=== PATIENT | male | born 1940 | race Caucasian/White ===

== ENCOUNTER → 2018-03-17 13:08 | Outpatient (CLI) | payer MEDICARE, OTHER, SELFPAY ==
--- NOTE | 2018-03-17 13:19 | US_ITS ---
US Arterial Ankle Brachial Ind INDICATION: Claudication, previous smoker ORDERING PHYSICIAN: Jass David MD PATIENT AGE: 77 years TECHNIQUE: Segmental pressures obtained of both right and left leg. These are compared to brachial blood pressure to yield index at each level sampled including summary YOSHI. The data sheets from the procedure are available in PACS FINDINGS Rest study only performed today No prior studies available for comparison. Blood pressures reported are in millimeters mercury. RIGHT LEG YOSHI = 1.7. RIGHT LEG TBI=.5 Brachial BP: 136 Thigh BP: 227 Calf BP: >254 Ankle PT: 229 Ankle DP : >254 Digit =73 LEFT LEG YOSHI = 1.8 LEFT LEG TBI= .3 Brachial BPD: 132 Thigh BP: 198 Calf BP: 236 Ankle PT:245 Ankle DP: >254 Digit = 42 Pulses and waveforms: Diminished pulses and waveforms IMPRESSION: 1. Elevated bilateral ABIs consistent with atherosclerotic changes with calcification of the arteries. 2. Low TBI both sides indicating small vessel disease left more extensive than right
== END ==
PROVIDERS: Family Provider Family Medicine; PCP Family Medicine; Visit Provider Family Medicine
DX: I73.9 Peripheral vascular disease, unspecified (principal)
CPT/HCPCS: 93922

== ENCOUNTER → 2018-04-15 06:22 | Outpatient (CLI) | payer MEDICARE, OTHER, SELFPAY ==
--- NOTE | 2018-04-15 06:23 | NM_ITS ---
History and Indications: Hypertension, diabetes, abnormal EKG. Procedure: Patient received0.4 mg of Lexiscan, resting heart rate was 74 bpm resting blood pressure 145/77, with Lexiscan maximum heart rate achieved was 116 bpm which is less than 85% of the maximum predicted heart rate and a blood pressure was 141/70. With Lexiscan patient complained of flushed feeling stomach discomfort Electrocardiogram: Resting electrocardiogram showed sinus rhythm, with Lexiscan there is occasional premature ventricular complex seen less than 1.[address] segment depression noted from the baseline EKG. The EKG portion of the Lexiscan Myoview is nondiagnostic. Cardiac stress and resting SPECT images: Cardiac stress and resting SPECT images were obtained using technetium 99 Myoview 31.7 mCi at stress and 10.0 mCi at rest. Gated SPECT further analysis of segmental wall motion and calculation of the ejection fraction also done. Cardiac stress and rest SPECT images show a fixed defect involving the wall with normal contractility in the gated SPECT is likely secondary to soft tissue attenuation from diaphragm, no reversible ischemia seen, computer derived ejection fraction is 54% with no obvious regional wall motion abnormality, right ventricle is normal size and contractility. Conclusion: 1. The EKG portion of the Lexiscan Myoview is nondiagnostic. 2. No obvious scintigraphic evidence of reversible ischemia seen, computer derived ejection fraction is 54% with no obvious regional wall motion abnormality, right ventricle is normal size and contractility.
--- NOTE | 2018-04-15 06:23 | CA_ITS ---
PROCEDURE: 2-D M-mode and color Doppler study INDICATIONS FOR THE TEST: Chest pain COPD Heart Murmur Tobacco Smoking Palpitations Fatigue Syncope Edema Hypertension+Diabetes Mellitus Rheumatic Fever SOB JUAREZ Obesity+Hyperlipidemia Family History HD Additional History PAD PATIENT INFORMATION HEIGHT: 71 WEIGHT:224 GENDER: Male B/P:142/64 2-D/M-MODE INTERPRETATION: 2-D MEASUREMENTS OBSERVED VALUES IN CMS Right Ventricular Dimension (RVDd) 2.0 Interventricular Septum (Thickness)(IVsd) 0.8 Left Ventricular Internal Dimensions(LVIDd) 5.9 Left Ventricular Posterior Wall (Thickness)(LVPWd) 0.7 Aortic Root 3.8 Aortic Cusp Separation 2.1 Left Atrial Dimensions (LAD) 3.4 2D 1. Left atrium is mildly enlarged, left ventricle is normal size, there is mild concentric left ventricular hypertrophy, visually estimated ejection fraction 55% with no obvious regional wall motion abnormality. 2. The right atrium and right ventricle are normal size and contractility. 3. The aortic valve is minimally thickened and fibrosed. 4. The mitral and tricuspid valve are grossly normal. 5. The pulmonic valve is poorly visualized. 6. No significant pericardial effusion noted. DOPPLER INTERROGATION: Doppler interrogation of the aortic, mitral and tricuspid valvular presence of mild aortic, mitral and tricuspid regurgitation, tricuspid regurgitant jet velocity is insufficient for calculation of the right ventricular systolic pressure, grade 1 diastolic dysfunction seen with tissue Doppler evidence of raised left atrial pressure. CONCLUSION: 1. Mildly enlarged left atrium, normal left ventricular size, mild concentric left ventricular hypertrophy, visually estimated ejection fraction 55% with no obvious regional wall motion abnormality, grade 1 diastolic dysfunction seen with tissue Doppler evidence of raised left atrial pressure. 2. Mild aortic, mild mitral and tricuspid regurgitation. 3. No significant pericardial effusion noted.
--- NOTE | 2018-04-15 07:11 | HMH.ITSHM ---
TERAZOSIN GLIMEPRIDE CLOPIDOGREL PIOGLITAZONE ENALAPRIL NABUMETONE GABAPENTIN DICYCLOMINE METFORMIN FIBER B12 ASA POTASSIUM VITAMIN D OMEPRAZOLE MULTIVITAMIN CHLORDIAZIAEPO FINATERIDE
== END ==
PROVIDERS: Family Provider Family Medicine; PCP Family Medicine; Visit Provider Internal Medicine
DX: R94.31 Abnormal electrocardiogram [ECG] [EKG] (principal); R06.09 Other forms of dyspnea
CPT/HCPCS: 78452; 93017; 93306; A9502; J2785

== ENCOUNTER → 2018-05-29 11:04 | Outpatient (POV) | payer MEDICARE, OTHER, SELFPAY | PROVIDERS: Visit Provider Podiatrist | DX: Z00.00 Encounter for general adult medical examination without abnormal findings (principal) ==

== ENCOUNTER → 2018-06-03 07:44 | Outpatient (CLI) | payer MEDICARE, OTHER, SELFPAY ==
[2018-06-03 08:15] LABS: Basophils % 0.2 % (0.1-2.0); Eosinophils % 0.7 % (0.1-12.0); Hematocrit 34.3 % (42.0-52.0); Hemoglobin 11.1 g/dL (14.1-18.0); Lymphocytes # 1.9 K/mm3 (0.7-4.5); Lymphocytes % 45.1 K/mm3 (10-50); Mean Corpuscular HGB Conc 32.3 g/dL (31.8-35.4); Mean Corpuscular Hemoglobin 31.7 pg (27.0-31.2); Mean Corpuscular Volume 98.1 fl (80-94); Mean Platelet Volume 7.5 fl (7.4-10.4); Monocytes # 0.3 K/mm3 (0.1-1.0); Neutrophils % 46.9 % (37.0-80.0); Platelet Count 250 K/mm3 (142-424); Red Cell Distribution Width 16.5 % (11.5-17.5); White Blood Count 4.2 K/mm3 (4.8-10.8)
[2018-06-03 09:14] LABS: Hemoglobin A1C 6.9 % (0.0-7.0)
[2018-06-03 09:56] LABS: Alanine Aminotransferase 22 U/L (12-78); Albumin Level 3.7 gm/dL (3.4-5.0); Albumin/Globulin Ratio 1.2 (1.1-1.8); Alkaline Phosphatase 62 U/L (46-116); Anion Gap 11.9 mEq/L (5-15); Aspartate Amino Transferase 11 U/L (15-37); Bilirubin,Total 0.6 mg/dL (0.2-1.0); Blood Urea Nitrogen 18 mg/dL (7-18); Calcium 9.2 mg/dL (8.5-10.1); Carbon Dioxide 27 mmol/L (21.0-32.0); Chloride 107 mmol/L (98-107); Chol/HDL Ratio 2.9 (1-3.5); Cholesterol 180 mg/dL (140-200); Creatinine,Serum 1.18 mg/dL (0.70-1.30); Estimated Glomerular Filt Rate 60 ml/min (>60); GFR (African American) 73 ML/MIN (>60); Globulin 3.2 gm/dl (1.3-3.2); Glucose 125 mg/dL (74-106); HDL Cholesterol 62 mg/dL (27-67); Iron 123 ug/dl (28-170); LDL Cholesterol 94 mg/dL (0-130); Potassium 4.9 mmoL/L (3.5-5.1); Sodium 141 mmol/L (136-145); Total Protein,Serum 6.9 gm/dL (6.4-8.2); Triglycerides 121 mg/dL (30-200); VLDL Cholesterol 24 mg/dL (0-40)
[2018-06-04 16:43] LABS: Vitamin B12 1397 pg/mL (232-1245)
== END ==
PROVIDERS: Visit Provider Family Medicine
DX: I10 Essential (primary) hypertension (principal); E11.9 Type 2 diabetes mellitus without complications; E78.5 Hyperlipidemia, unspecified; E53.8 Deficiency of other specified B group vitamins; I73.9 Peripheral vascular disease, unspecified
CPT/HCPCS: 36415; 80053; 80061; 82607; 83036; 83540; 85025

== ENCOUNTER → 2018-07-17 10:17 | Outpatient (POV) | payer MEDICARE, OTHER, SELFPAY | PROVIDERS: Family Provider Family Medicine; PCP Family Medicine; Visit Provider Podiatrist | DX: Z00.00 Encounter for general adult medical examination without abnormal findings (principal) ==

== ENCOUNTER → 2018-08-27 13:55 | Outpatient (CLI) | payer MEDICARE, OTHER, SELFPAY ==
--- NOTE | 2018-08-27 13:57 | XR_ITS ---
XR ankle LT min 3V HISTORY: Posttraumatic pain ITS.REASON: recent fall and hurt ankle ORDERING PHYSICIAN: Chapin Gilliam MD PATIENT AGE: 77 years Comparison: None FINDINGS: No fracture or dislocation. No lytic or blastic change. There is normal mineralization.. The joint spaces are well-preserved. No significant degenerative/arthritic changes. No erosive changes evident. Minimal hypertrophic changes are present at the medial malleolus.. There is generalized vascular calcification. IMPRESSION: No acute finding, Atherosclerotic vascular calcification
== END ==
PROVIDERS: PCP Family Medicine; Visit Provider Internal Medicine Cardiovascular Disease
DX: I73.9 Peripheral vascular disease, unspecified (principal); R60.0 Localized edema; R94.31 Abnormal electrocardiogram [ECG] [EKG]; S90.02XA Contusion of left ankle, initial encounter; Z91.81 History of falling
CPT/HCPCS: 73610

== ENCOUNTER → 2018-09-02 08:48 | Outpatient (CLI) | payer MEDICARE, OTHER, SELFPAY ==
--- NOTE | 2018-09-02 08:51 | XR_ITS ---
XR foot wt bearing LT 3V HISTORY: Pain following injury ITS.REASON: pain ORDERING PHYSICIAN: Marie Gresham DPM PATIENT AGE: 77 years COMPARISON: None FINDINGS: There is generalized osteopenia with diffuse vascular calcification noted. No obvious fracture or dislocation evident. Normal alignment. IMPRESSION: No acute finding
== END ==
PROVIDERS: PCP Family Medicine; Visit Provider Podiatrist
DX: M79.673 Pain in unspecified foot (principal)
CPT/HCPCS: 73630

== ENCOUNTER → 2018-12-16 15:38 | Outpatient (POV) | payer MEDICARE, OTHER, SELFPAY | DX: Z00.00 Encounter for general adult medical examination without abnormal findings (principal) ==

== ENCOUNTER 2018-12-22 09:01 | Day surgery (SDC) | payer MEDICARE, OTHER, SELFPAY ==
[2018-12-21 14:03] VITALS: BMI 29.2
[2018-12-22 09:56] VITALS: BP 141/62; PULSE 80; RESP 18; TEMP 36.3; O2SAT 96
[2018-12-22 09:58] LABS: POC Glucose,Bedside 125 (70-110)
[2018-12-22 10:49] VITALS: BP 154/75; PULSE 88; RESP 18; TEMP 36.4; O2SAT 98
--- NOTE | 2018-12-22 16:58 | HMH.OPNOTE ---
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 He takes finasteride and tamsulosin. His symptoms seems to have progressed. He presents today for cystoscopy. Operative findings:: Very short small caliber flimsy bulbous urethral stricture. Mild bladder trabeculations. Minimal lateral prostatic hypertrophy Operative note:: After satisfactory positioning the genital area was prepped and draped in standard fashion. Patient is in the supine position. Xylocaine jelly was instilled. Penile clamp placed. After adequate time the flexible cystoscope was introduced. The pendulous urethra was unremarkable. The proximal bulbous urethra noted a slight stricture perhaps 8 Samoan. The 16 Samoan flexible cystoscope was easily manipulated through this and ruptured the stricture. The bulbous urethra otherwise was unremarkable. The prostatic urethra was nonobstructed. The bladder was inspected entirely. There was no evidence of bladder tumor or stone. Ureteral orifice ease were situated in the normal position and clear urine. Scope was retroflexed of the bladder neck. Scope was was slowly withdrawn and the previous strictured area was completely patent. Condition: stable Disposition: same day Specimens:: None Complications:: None follow-up 6 weeks
--- NOTE | 2018-12-22 17:02 | P.OP_ITS ---
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 He takes finasteride and tamsulosin. His symptoms seems to have progressed. He presents today for cystoscopy. Operative findings:: Very short small caliber flimsy bulbous urethral stricture. Mild bladder trabeculations. Minimal lateral prostatic hypertrophy Operative note:: After satisfactory positioning the genital area was prepped and draped in st andard fashion. Patient is in the supine position. Xylocaine jelly was instilled. Penile clamp placed. After adequate time the flexible cystoscope was introduced. The pendulous urethra was unremarkable. The proximal bulbous urethra noted a slight stricture perhaps 8 [place]. The 16 [place] flexible cystoscope was easily manipulated through this and ruptured the stricture. The bulbous urethra otherwise was unremarkable. The prostatic urethra was nonobstructed. The bladder was inspected entirely. There was no evidence of bladder tumor or stone. Ureteral orifice ease were situated in the normal position and clear urine. Scope was retroflexed of the bladder neck. Scope was was slowly withdrawn and the previous strictured area was completely patent. Condition: stable Disposition: same day Specimens:: None Complications:: None follow-up 6 weeks
== END 2018-12-22 10:49 | disposition home or self-care (01) ==
LOC: OUTP 09:02
PROVIDERS: PCP Family Medicine; Visit Provider Urology
DX: N40.1 Benign prostatic hyperplasia with lower urinary tract symptoms (principal); N35.912 Unspecified bulbous urethral stricture, male; R35.0 Frequency of micturition
CPT/HCPCS: 52281; 82962

== ENCOUNTER → 2018-12-28 08:12 | Outpatient (POV) | payer MEDICARE, OTHER, SELFPAY | PROVIDERS: Visit Provider Nurse Practitioner Acute Care | DX: Z00.00 Encounter for general adult medical examination without abnormal findings (principal) ==

== ENCOUNTER → 2019-01-27 14:46 | Outpatient (POV) | payer MEDICARE, OTHER, SELFPAY | DX: Z00.00 Encounter for general adult medical examination without abnormal findings (principal) ==

== ENCOUNTER → 2019-01-29 14:31 | Outpatient (CLI) | payer MEDICARE, OTHER, SELFPAY ==
[2019-01-29 15:38] LABS: Alanine Aminotransferase 21 U/L (12-78); Albumin Level 3.6 gm/dL (3.4-5.0); Alkaline Phosphatase 64 U/L (46-116); Amylase 33 U/L (25-115); Aspartate Amino Transferase 15 U/L (15-37); Bilirubin,Direct 0.1 mg/dL (0.0-0.2); Bilirubin,Indirect 0.6 mg/dL (0.0-0.9); Bilirubin,Total 0.7 mg/dL (0.2-1.0); Lipase 72 u/L (73-393); Total Protein,Serum 6.8 gm/dL (6.4-8.2)
[2019-01-31 18:29] LABS: CEA 3.3 ng/mL (0.0-4.7)
== END ==
PROVIDERS: Visit Provider Internal Medicine Gastroenterology
DX: R93.3 Abnormal findings on diagnostic imaging of other parts of digestive tract (principal); K86.9 Disease of pancreas, unspecified; R63.4 Abnormal weight loss
CPT/HCPCS: 36415; 80076; 82150; 82310; 82378; 83690

== ENCOUNTER → 2019-02-24 14:13 | Outpatient (POV) | payer MEDICARE, OTHER, SELFPAY | DX: Z00.00 Encounter for general adult medical examination without abnormal findings (principal) ==

== ENCOUNTER → 2019-03-24 14:17 | Outpatient (POV) | payer MEDICARE, OTHER, SELFPAY | DX: Z00.00 Encounter for general adult medical examination without abnormal findings (principal) ==

== ENCOUNTER → 2019-06-14 08:08 | Outpatient (POV) | payer MEDICARE, OTHER, SELFPAY | PROVIDERS: PCP Family Medicine; Visit Provider Nurse Practitioner Family | DX: Z00.00 Encounter for general adult medical examination without abnormal findings (principal) ==

== ENCOUNTER → 2019-09-13 08:12 | Outpatient (POV) | payer MEDICARE, OTHER, SELFPAY | PROVIDERS: PCP Family Medicine; Visit Provider Nurse Practitioner Family | DX: Z00.00 Encounter for general adult medical examination without abnormal findings (principal) ==

== ENCOUNTER → 2019-09-13 09:26 | Outpatient (CLI) | payer MEDICARE, OTHER, SELFPAY ==
[2019-09-13 12:03] LABS: Alanine Aminotransferase 17 U/L (12-78); Albumin Level 3.7 gm/dL (3.4-5.0); Albumin/Globulin Ratio 1.1 (1.1-1.8); Alkaline Phosphatase 72 U/L (46-116); Anion Gap 14.5 mEq/L (5-15); Aspartate Amino Transferase 18 U/L (15-37); Bilirubin,Total 0.8 mg/dL (0.2-1.0); Blood Urea Nitrogen 11 mg/dL (7-18); Calcium 9.3 mg/dL (8.5-10.1); Carbon Dioxide 25 mmol/L (21.0-32.0); Chloride 103 mmol/L (98-107); Creatinine,Serum 1.06 mg/dL (0.70-1.30); Estimated Glomerular Filt Rate 68 ml/min (>60); GFR (African American) 82 ML/MIN (>60); Globulin 3.3 gm/dl (1.3-3.2); Glucose 184 mg/dL (74-106); Potassium 4.5 mmoL/L (3.5-5.1); Sodium 138 mmol/L (136-145)
== END ==
PROVIDERS: Visit Provider Nurse Practitioner Family
DX: K58.9 Irritable bowel syndrome, unspecified (principal); R93.3 Abnormal findings on diagnostic imaging of other parts of digestive tract
CPT/HCPCS: 36415; 80053

== ENCOUNTER → 2019-09-16 08:30 | Outpatient (CLI) | payer MEDICARE, OTHER, SELFPAY ==
--- NOTE | 2019-09-16 08:45 | CT_ITS ---
PROCEDURE: CT ABDOMEN WO/W CON CLINICAL HISTORY: PANCREATIC PROTOCOL,IBS The the the the the follow-up pancreatic lesion the COMPARISON: ABDPELW CT abdomen pelvis w con from 01/25/2019 ERCP FL ERCP from 03/22/2019 TECHNIQUE: 75 mL Optiray 350. Images are performed without and with contrast with arterial, portal venous, and delayed images Axial images obtained with sagittal and coronal reformats. All CT scans at the facility use one or more dose reduction, viz: automated exposure control, ma/kV adjustment per patient size (including targeted exams where dose is matched to indication, i.e. head), or iterative reconstruction technique. FINDINGS: There scarring in the lung bases. Coronary artery calcifications are noted. Post cholecystectomy change. No focal liver lesion. The spleen and adrenal glands have an unremarkable appearance. There are bilateral renal cysts. No renal or ureteral calculi. No hydronephrosis. Fatty infiltration of the pancreas once again noted. Stable cystic changes are present in the pancreatic head and in the uncinate process of the pancreas inferiorly.. The cystic changes in the pancreatic head or at 1.7 cm and at the uncinate process at 1.6 cm not significantly changed. The bowel gas pattern is nonspecific. No focal inflammatory change. No acute bony anomalies. There are degenerative changes of the lower thoracic and lumbar spine. 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 IMPRESSION: The the 1. Overall no change in the hypoattenuating lesion of the head of the pancreas. There are actually 2 areas in the head of the pancreas which are sub adjacent to 1 another. Cystic pancreatic neoplasm is a consideration such as IPMN or serous cystic neoplasm (much more common in females). Further evaluation could be obtained with MRI without and with gadolinium enhancement and MRCP 2. 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
== END ==
PROVIDERS: PCP Family Medicine; Visit Provider Nurse Practitioner Family
DX: K58.9 Irritable bowel syndrome, unspecified (principal); R93.3 Abnormal findings on diagnostic imaging of other parts of digestive tract
CPT/HCPCS: 74170; Q9967

== ENCOUNTER → 2019-12-29 07:45 | Outpatient (CLI) | payer MEDICARE, OTHER, SELFPAY ==
[2019-12-29 09:35] LABS: Hemoglobin A1C 6.6 % (4.0-6.0)
[2019-12-29 09:39] LABS: Chloride 105 mmol/L (98-107); Sodium 140 mmol/L (136-145)
[2019-12-29 09:41] LABS: Alanine Aminotransferase 19 U/L (12-78); Aspartate Amino Transferase 27 U/L (17-59); Blood Urea Nitrogen 18 mg/dl (9-20); Carbon Dioxide 23 mmol/L (22.0-30.0); Estimated Glomerular Filt Rate 82 ml/min (>60); GFR (African American) 99 ML/MIN (>60)
[2019-12-29 09:42] LABS: Albumin/Globulin Ratio 1.4 (1.1-1.8); Alkaline Phosphatase 57 U/L (38-126); Bilirubin,Total 0.7 mg/dl (0.2-1.3); Calcium 9.7 mg/dl (8.4-10.2); Chol/HDL Ratio 2.8 (1-3.5); Cholesterol 193 mg/dl (140-200); Globulin 2.9 g/dL (1.3-3.2); Glucose 113 mg/dl (74-100); HDL Cholesterol 70 mg/dl (40-60); Total Protein,Serum 6.9 g/dl (6.3-8.2); Triglycerides 112 mg/dl (30-150); VLDL Cholesterol 22 mg/dL (0-40)
[2019-12-29 10:42] LABS: Prostate Specific Ag Screen 0.4 ng/ml (0.0-4.0)
== END ==
PROVIDERS: Visit Provider Family Medicine
DX: Z00.00 Encounter for general adult medical examination without abnormal findings (principal); E78.5 Hyperlipidemia, unspecified; K21.9 Gastro-esophageal reflux disease without esophagitis; N40.1 Benign prostatic hyperplasia with lower urinary tract symptoms; E11.9 Type 2 diabetes mellitus without complications; Z79.84 Long term (current) use of oral hypoglycemic drugs; Z12.5 Encounter for screening for malignant neoplasm of prostate
CPT/HCPCS: 36415; 80053; 80061; 83036; G0103

== ENCOUNTER → 2020-10-05 12:40 | Outpatient (CLI) | payer MEDICARE, OTHER, SELFPAY ==
--- NOTE | 2020-10-05 12:49 | US_ITS ---
APPROVED REPORT Exam Type: Lower Extremity Segmental Pressures Billing Assistant: Jewell Gray RVT Indications Claudication: Bilaterally Non-healing Ulcer: PAD History of Smoking PVD Risk Factors Hypertension Hyperlipidemia Diabetes Pressures/Indices Right Indices Left Indices Brachial 155.00 mmHg Brachial 144.00 mmHg Low Thigh 147.00 mmHg 0.95 Low Thigh 167.00 mmHg 1.08 Calf 255.00 mmHg 0.00 Calf 255.00 mmHg 0.00 Ankle(PT) 121.00 mmHg 0.78 Ankle(PT) 153.00 mmHg 0.99 Ankle(DP) 255.00 mmHg 0.00 Ankle(DP) 90.00 mmHg 0.58 Digit 52.00 mmHg 0.34 Digit 14.00 mmHg 0.09 Findings RT YOSHI:0.78 LT YOSHI:0.99 RT TBI:0.34 LT TBI:0.09 DAMPANED WAVEFORMS BILATERAL ANKLES DECREASED PULSED BILATERAL Conclusion RT YOSHI:0.78 LT YOSHI:0.99 RT TBI:0.34 LT TBI:0.09 DAMPANED WAVEFORMS BILATERAL ANKLES DECREASED PULSED BILATERAL Moderate arterial disease on the right Electronically signed by : Yung Meade MD 10/05/2020 18:02:28
== END ==
PROVIDERS: PCP Family Medicine; Visit Provider Family Medicine
DX: I73.9 Peripheral vascular disease, unspecified (principal)
CPT/HCPCS: 93923

== ENCOUNTER → 2020-12-26 09:50 | Outpatient (CLI) | payer MEDICARE, OTHER, SELFPAY ==
--- NOTE | 2020-12-26 10:12 | XR_ITS ---
PROCEDURE: XR FOOT WT BEARING LT 3V CLINICAL INDICATION: sore of unspecified toe COMPARISON: CR [id number] XR foot wt bearing LT 3V from 09/02/2018 FINDINGS: No fracture or dislocation. No lytic or blastic change. There is normal mineralization. There is diffuse osteopenia. Mild diffuse vascular calcifications are noted. Osteoarthritic changes are present at the 1st metatarsophalangeal joint and at the talonavicular joint. Other findings:None. IMPRESSION: Diffuse osteopenia with mild osteoarthritis Dictated by: Yung Meade MD 12/26/2020 15:47 Yung Meade MD in [facility] 12/26/2020 15:47
[2020-12-26 10:19] LABS: Basophils % 0.1 % (0.1-2.0); Eosinophils % 0.2 % (0.1-12.0); Hematocrit 34.6 % (42.0-52.0); Lymphocytes # 1.6 K/mm3 (0.7-4.5); Lymphocytes % 27.4 % (10-50); Mean Corpuscular HGB Conc 31.7 g/dL (31.8-35.4); Mean Corpuscular Hemoglobin 31.6 pg (27.0-31.2); Mean Corpuscular Volume 99.7 fl (80-94); Mean Platelet Volume 8.3 fl (7.4-10.4); Monocytes # 0.4 K/mm3 (0.1-1.0); Monocytes % 7.7 % (1.7-9.3); Neutrophils # 3.7 K/mm3 (1.8-7.8); Neutrophils % 64.6 % (37.0-80.0); Platelet Count 262 K/mm3 (142-424); Red Blood Count 3.47 M/mm3 (4.60-6.20); White Blood Count 5.8 K/mm3 (4.8-10.8)
[2020-12-26 10:26] LABS: Hemoglobin A1C 6.7 % (4.0-6.0)
[2020-12-26 10:41] LABS: Chloride 106 mmol/L (98-107); Sodium 140 mmol/L (136-145)
[2020-12-26 10:42] LABS: Potassium 4.5 mmoL/L (3.5-5.1)
[2020-12-26 10:44] LABS: Alanine Aminotransferase 18 U/L (12-78); Albumin Level 4.3 g/dl (3.5-5.0); Albumin/Globulin Ratio 1.4 (1.1-1.8); Alkaline Phosphatase 68 U/L (38-126); Anion Gap 12.5 mEq/L (5-15); Aspartate Amino Transferase 27 U/L (17-59); Bilirubin,Total 0.8 mg/dl (0.2-1.3); Blood Urea Nitrogen 15 mg/dl (9-20); Carbon Dioxide 26 mmol/L (22.0-30.0); Estimated Glomerular Filt Rate 72 ml/min (>60); GFR (African American) 87 ML/MIN (>60); Globulin 3.1 g/dL (1.3-3.2); Glucose 181 mg/dl (74-100); Total Protein,Serum 7.4 g/dl (6.3-8.2)
[2020-12-26 10:51] LABS: C-Reactive Protein 0.3 mg/L (0-4)
[2020-12-26 14:54] LABS: Coronavirus 19 IgG Antibody Negative (Negative); Coronavirus 19 IgM Antibody Negative (Negative)
== END ==
PROVIDERS: Physician Assistant; Visit Provider Podiatrist
DX: I51.9 Heart disease, unspecified; E11.9 Type 2 diabetes mellitus without complications; Z01.818 Encounter for other preprocedural examination; Z79.84 Long term (current) use of oral hypoglycemic drugs
CPT/HCPCS: 73630; 80053; 83036; 85025; 86140; 86328; 87070; 87077; 87186; 87205

== ENCOUNTER 2020-12-28 08:35 | Day surgery (SDC) | payer MEDICARE, OTHER, SELFPAY ==
[2020-12-28] VITALS (13 sets, daily range): BP systolic 113–169; BP diastolic 32–81; PULSE 64–89; RESP 12–18; TEMP 36.6; O2SAT 95–100; BMI 30.1
--- NOTE | 2020-12-28 07:21 | IR_ITS ---
APPROVED REPORT Patient Location: Outpatient Latin Dance Instructor: KUSHAL Mark RT (R) PROCEDURES Catheter placed in the abdominal aorta Abdominal aortogram Repositioning the catheter abdominal aorta Bilateral iliofemoral runoff Stent deployment to the left common iliac artery INDICATION Poorly healing lower extremity ulcer involving the left foot, Abnormal YOSHI, Peripheral artery disease Informed consent was obtained prior to the procedure. COMPLICATIONS None Estimated Blood Loss: Less than 10 mls TECHNIQUE 1% lidocaine used anesthetize right groin the right femoral artery was accessed via the Salinger technique and a 5 Danish sheath was placed in the right femoral artery. A pigtail catheter was placed in the abdominal aorta and a abdominal aortography was performed. The catheter was repositioned and bilateral iliofemoral runoff was performed. Following this therapeutic heparin was administered and a 7 Danish destination sheath was placed in the right femoral artery. The wire was already placed in the left external iliac artery from the pigtail catheter and the sheath was advanced. A 9 mm x 57 mm balloon mounted stent was deployed in the left common iliac artery reducing the stenosis. A 9 mm x 20 mm balloon was then deployed at 16 per to post dilate the distal segment. After achieving excellent angiographic results the apparatus was removed the groin was reprepped gloves were changed sheath was removed good hemostasis was achieved using Perclose device patient was transferred to the postop holding in stable condition ANGIOGRAPHIC RESULTS The distal abdominal aorta is normal The right common internal and external iliac artery have mild nonflow limiting 10% atheromatous plaque. The right common femoral artery is normal the right profunda femoris artery is normal. The right superficial femoral artery is widely patent with moderate 30 to 40% mid vessel stenoses. The right popliteal artery is widely patent with mild atheromatous plaque. The popliteal artery gives rise to a proximally occluded anterior tibialis artery posterior tibialis artery and peroneal artery. There are scant collaterals which supply the right foot The left common iliac artery has an eccentric distal 70 to 80% stenosis. The left internal and external iliac arteries are normal. The left common femoral artery is normal. The left profunda femoris artery is normal. The left superficial femoral artery is widely patent. At Best's canal a 50% eccentric stenosis is identified. The remaining popliteal artery has mild atheromatous plaque. The anterior tibialis artery is proximally occluded the left posterior tibialis artery is proximally occluded the left peroneal artery is proximally occluded. 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 Plavix and aspirin for 1 month 2. In 1 month Xarelto 2.5 twice daily plus aspirin 81 mg daily 3. LDL less than 55 4. Physical therapy 5. Evaluation for ischemic heart disease due to severe peripheral artery disease 6. Risk factor modification 7. Referral to podiatry Electronically signed by : Martinez Whitehead, 01/02/2021 14:17:33
--- NOTE | 2020-12-28 14:29 | HMH.PHACLD ---
Travis Conn has received discharge medication counseling on the following medications: PATIENT WITH PERIPHERAL STENT. MD DISCHARGING PATIENT WITH NEW PRESCRIPTION FOR LIPITOR 40 MG HS. PATIENT HAS BEEN TAKING OTC ASPIRIN 81 MG DAILY ALONG WITH CLOPIDOGREL 75 MG DAILY PRIOR TO STENTING. PATIENT WITH HX OF OTHER STENTS.
[2020-12-29 14:45] LABS: CATHL Activated Clotting Time 197 SEC (74-125)
== END 2020-12-28 14:15 | disposition home or self-care (01) ==
LOC: CATHLAB 08:37
PROVIDERS: PCP Family Medicine; Visit Provider Internal Medicine
DX: I70.244 Atherosclerosis of native arteries of left leg with ulceration of heel and midfoot; I77.1 Stricture of artery; L97.921 Non-pressure chronic ulcer of unspecified part of left lower leg limited to breakdown of skin; E11.9 Type 2 diabetes mellitus without complications; I11.0 Hypertensive heart disease with heart failure; I45.10 Unspecified right bundle-branch block; R06.00 Dyspnea, unspecified; Z79.84 Long term (current) use of oral hypoglycemic drugs; Z79.02 Long term (current) use of antithrombotics/antiplatelets; Z79.899 Other long term (current) drug therapy; I50.30 Unspecified diastolic (congestive) heart failure
CPT/HCPCS: 37221; 85347; 99152; 99153; C1725; C1760; C1766; C1769; C1876; C1894; J1644; Q9966

== ENCOUNTER → 2021-01-08 08:56 | Outpatient (CLI) | payer MEDICARE, OTHER, SELFPAY ==
[2021-01-08 09:38] LABS: Basophils % 0.2 % (0.1-2.0); Eosinophils % 0.1 % (0.1-12.0); Hematocrit 32.5 % (42.0-52.0); Hemoglobin 10.5 g/dL (14.1-18.0); Lymphocytes # 1.1 K/mm3 (0.7-4.5); Lymphocytes % 23.7 % (10-50); Mean Corpuscular HGB Conc 32.3 g/dL (31.8-35.4); Mean Corpuscular Hemoglobin 31.8 pg (27.0-31.2); Mean Corpuscular Volume 98.4 fl (80-94); Mean Platelet Volume 7.7 fl (7.4-10.4); Monocytes # 0.4 K/mm3 (0.1-1.0); Monocytes % 8.1 % (1.7-9.3); Neutrophils # 3.1 K/mm3 (1.8-7.8); Neutrophils % 67.9 % (37.0-80.0); Platelet Count 232 K/mm3 (142-424); Red Cell Distribution Width 16.9 % (11.5-17.5); White Blood Count 4.6 K/mm3 (4.8-10.8)
[2021-01-08 09:55] LABS: Chloride 107 mmol/L (98-107)
[2021-01-08 09:56] LABS: Sodium 140 mmol/L (136-145)
[2021-01-08 09:58] LABS: Blood Urea Nitrogen 18 mg/dl (9-20)
[2021-01-08 09:59] LABS: Calcium 9.8 mg/dl (8.4-10.2); Carbon Dioxide 22 mmol/L (22.0-30.0); Estimated Glomerular Filt Rate 72 ml/min (>60); GFR (African American) 87 ML/MIN (>60); Glucose 72 mg/dl (74-100)
== END ==
PROVIDERS: Physician Assistant; Visit Provider Internal Medicine
DX: E11.9 Type 2 diabetes mellitus without complications (principal); I10 Essential (primary) hypertension; I45.10 Unspecified right bundle-branch block; I51.89 Other ill-defined heart diseases; I73.9 Peripheral vascular disease, unspecified; L97.921 Non-pressure chronic ulcer of unspecified part of left lower leg limited to breakdown of skin; R06.00 Dyspnea, unspecified; R09.89 Other specified symptoms and signs involving the circulatory and respiratory systems; R68.89 Other general symptoms and signs; E78.49 Other hyperlipidemia; Z79.84 Long term (current) use of oral hypoglycemic drugs
CPT/HCPCS: 36415; 80048; 85025

== ENCOUNTER → 2021-02-13 17:58 | Outpatient (CLI) | payer MEDICARE, OTHER, SELFPAY | PROVIDERS: Visit Provider Nurse Practitioner | DX: Z51.89 Encounter for other specified aftercare (principal); L97.921 Non-pressure chronic ulcer of unspecified part of left lower leg limited to breakdown of skin; R09.89 Other specified symptoms and signs involving the circulatory and respiratory systems | CPT/HCPCS: 87070; 87077; 87186; 87205 ==

== ENCOUNTER → 2021-03-08 10:23 | Outpatient (CLI) | payer MEDICARE, OTHER, SELFPAY ==
[2021-03-08 11:41] LABS: Basophils % 0.1 % (0.1-2.0); Eosinophils % 0.3 % (0.1-12.0); Hematocrit 32.3 % (42.0-52.0); Hemoglobin 10.3 g/dL (14.1-18.0); Lymphocytes # 1.4 K/mm3 (0.7-4.5); Lymphocytes % 17.1 % (10-50); Mean Corpuscular HGB Conc 31.8 g/dL (31.8-35.4); Mean Corpuscular Hemoglobin 31.5 pg (27.0-31.2); Mean Platelet Volume 7.8 fl (7.4-10.4); Monocytes # 0.5 K/mm3 (0.1-1.0); Monocytes % 6.2 % (1.7-9.3); Neutrophils # 6.1 K/mm3 (1.8-7.8); Neutrophils % 76.1 % (37.0-80.0); Platelet Count 359 K/mm3 (142-424); Red Blood Count 3.26 M/mm3 (4.60-6.20); Red Cell Distribution Width 17.4 % (11.5-17.5)
[2021-03-08 12:24] LABS: Chloride 103 mmol/L (98-107); Sodium 138 mmol/L (136-145)
[2021-03-08 12:25] LABS: Potassium 5.2 mmoL/L (3.5-5.1)
[2021-03-08 12:27] LABS: Alanine Aminotransferase 23 U/L (12-78); Albumin Level 4.1 g/dl (3.5-5.0); Albumin/Globulin Ratio 1.5 (1.1-1.8); Alkaline Phosphatase 97 U/L (38-126); Aspartate Amino Transferase 32 U/L (17-59); Bilirubin,Total 0.7 mg/dl (0.2-1.3); Blood Urea Nitrogen 22 mg/dl (9-20); Estimated Glomerular Filt Rate 93 ml/min (>60); GFR (African American) 113 ML/MIN (>60); Globulin 2.7 g/dL (1.3-3.2); Total Protein,Serum 6.8 g/dl (6.3-8.2)
[2021-03-08 12:28] LABS: Anion Gap 14.2 mEq/L (5-15); Carbon Dioxide 26 mmol/L (22.0-30.0); Glucose 193 mg/dl (74-100)
[2021-03-08 12:38] LABS: Erythrocyte Sedimentation Rate 114 mm/hr (0-20)
== END ==
PROVIDERS: Visit Provider Nurse Practitioner
DX: Z51.89 Encounter for other specified aftercare (principal); L97.521 Non-pressure chronic ulcer of other part of left foot limited to breakdown of skin
CPT/HCPCS: 36415; 80053; 85025; 85651; 86140

== ENCOUNTER → 2021-03-14 17:14 | Outpatient (CLI) | payer MEDICARE, OTHER, SELFPAY | PROVIDERS: Visit Provider Nurse Practitioner | DX: L97.215 Non-pressure chronic ulcer of right calf with muscle involvement without evidence of necrosis (principal); E11.621 Type 2 diabetes mellitus with foot ulcer | CPT/HCPCS: 87070; 87077; 87186; 87205 ==

== ENCOUNTER 2021-03-20 11:10 | Outpatient (CLI) | payer MEDICARE, OTHER, SELFPAY ==
[2021-03-20 11:10] VITALS: BMI 27.8
--- NOTE | 2021-03-20 11:38 | XR_ITS ---
PROCEDURE: XR CHEST PORTABLE CLINICAL HISTORY: picc line placement COMPARISON: CT CT ABDOMEN WO/W CON from 09/16/2019 FINDINGS: Left upper extremity PICC line has been placed. The tip is in good position in the region the superior vena cava. Suture line is present in the right hilar region. COPD changes. Parenchymal opacity is present in the right upper lobe and may be due to an area scarring. There is some minimal blunting of the right CP angle. There are degenerative changes of the shoulders IMPRESSION: PICC line tip in good position in the region of the superior vena cava. COPD with other changes as described above. Follow-up suggested regarding parenchymal opacity in the right upper lobe Dictated by: Yung Meade MD 03/20/2021 13:00 Yung Meade MD in [facility] 03/20/2021 13:00
[2021-03-20 13:10] VITALS: BP 167/67; PULSE 88; RESP 18; O2SAT 100
[2021-03-20 14:02] VITALS: BP 141/73; PULSE 81; RESP 18
[2021-03-20 14:26] LABS: Chloride 102 mmol/L (98-107)
[2021-03-20 14:27] LABS: Basophils % 0.1 % (0.1-2.0); Eosinophils % 0.2 % (0.1-12.0); Hemoglobin 9.7 g/dL (14.1-18.0); Lymphocytes # 1.3 K/mm3 (0.7-4.5); Lymphocytes % 18.4 % (10-50); Mean Corpuscular HGB Conc 33.4 g/dL (31.8-35.4); Mean Corpuscular Hemoglobin 32.2 pg (27.0-31.2); Mean Corpuscular Volume 96.3 fl (80-94); Mean Platelet Volume 7.2 fl (7.4-10.4); Monocytes # 0.5 K/mm3 (0.1-1.0); Monocytes % 6.9 % (1.7-9.3); Neutrophils # 5.2 K/mm3 (1.8-7.8); Neutrophils % 74.4 % (37.0-80.0); Platelet Count 321 K/mm3 (142-424); Potassium 4.3 mmoL/L (3.5-5.1); Red Blood Count 3.01 M/mm3 (4.60-6.20); Red Cell Distribution Width 17.3 % (11.5-17.5); Sodium 135 mmol/L (136-145)
[2021-03-20 14:29] LABS: Alanine Aminotransferase 23 U/L (12-78); Alkaline Phosphatase 92 U/L (38-126); Aspartate Amino Transferase 31 U/L (17-59); Bilirubin,Total 0.7 mg/dl (0.2-1.3); Blood Urea Nitrogen 17 mg/dl (9-20); Creatinine Clearance Estimated 77 mL/min (50-200); Estimated Glomerular Filt Rate 93 ml/min (>60); GFR (African American) 113 ML/MIN (>60)
[2021-03-20 14:30] LABS: Albumin Level 3.9 g/dl (3.5-5.0); Albumin/Globulin Ratio 1.3 (1.1-1.8); Anion Gap 14.3 mEq/L (5-15); Calcium 9.1 mg/dl (8.4-10.2); Carbon Dioxide 23 mmol/L (22.0-30.0); Globulin 2.9 g/dL (1.3-3.2); Glucose 221 mg/dl (74-100); Total Protein,Serum 6.8 g/dl (6.3-8.2)
[2021-03-20 14:36] LABS: C-Reactive Protein 0.7 mg/L (0-4)
[2021-03-20 15:06] LABS: Erythrocyte Sedimentation Rate 124 mm/hr (0-20)
== END 2021-03-20 14:02 | disposition home or self-care (01) ==
LOC: INF 11:10
PROVIDERS: PCP Family Medicine; Visit Provider Nurse Practitioner
DX: L97.529 Non-pressure chronic ulcer of other part of left foot with unspecified severity (principal)
CPT/HCPCS: 36569; 71045; 80053; 85025; 85651; 86140; 96365; C1751; J1335

== ENCOUNTER 2021-03-21 10:50 | Outpatient (CLI) | payer MEDICARE, OTHER, SELFPAY ==
[2021-03-21 10:50] VITALS: BP 131/54; PULSE 90; RESP 18; O2SAT 97
[2021-03-21 11:50] VITALS: BP 139/52; PULSE 78; RESP 18
== END 2021-03-21 11:55 | disposition home or self-care (01) ==
LOC: INF 10:58
PROVIDERS: PCP Family Medicine; Visit Provider Nurse Practitioner
DX: L03.032 Cellulitis of left toe (principal); L97.521 Non-pressure chronic ulcer of other part of left foot limited to breakdown of skin; L97.529 Non-pressure chronic ulcer of other part of left foot with unspecified severity
CPT/HCPCS: 96365; J1335

== ENCOUNTER 2021-03-22 09:00 | Outpatient (CLI) | payer MEDICARE, OTHER, SELFPAY ==
[2021-03-22 09:12] VITALS: BP 129/57; PULSE 93; RESP 18; TEMP 36.4; O2SAT 98
[2021-03-22 10:08] VITALS: BP 132/59; PULSE 89; RESP 16; TEMP 36.4; O2SAT 98
== END 2021-03-22 10:10 | disposition home or self-care (01) ==
LOC: INF 09:00
PROVIDERS: PCP Family Medicine; Visit Provider Nurse Practitioner
DX: L97.521 Non-pressure chronic ulcer of other part of left foot limited to breakdown of skin (principal); L97.529 Non-pressure chronic ulcer of other part of left foot with unspecified severity; L03.032 Cellulitis of left toe; L97.929 Non-pressure chronic ulcer of unspecified part of left lower leg with unspecified severity
CPT/HCPCS: 96365; J1335

== ENCOUNTER 2021-03-23 10:40 | Outpatient (CLI) | payer MEDICARE, OTHER, SELFPAY ==
[2021-03-23 11:00] VITALS: BP 100/46; PULSE 86; RESP 18; O2SAT 96
[2021-03-23 11:35] VITALS: BP 103/48; PULSE 81; RESP 16
== END 2021-03-23 12:00 | disposition home or self-care (01) ==
LOC: INF 10:52
PROVIDERS: Visit Provider Nurse Practitioner
DX: L97.521 Non-pressure chronic ulcer of other part of left foot limited to breakdown of skin (principal); L97.529 Non-pressure chronic ulcer of other part of left foot with unspecified severity; L03.032 Cellulitis of left toe; L97.929 Non-pressure chronic ulcer of unspecified part of left lower leg with unspecified severity
CPT/HCPCS: 96365; J1335

== ENCOUNTER → 2021-03-24 11:04 | Outpatient (CLI) | payer MEDICARE, OTHER, SELFPAY ==
[2021-03-24 11:27] VITALS: BP 118/47; PULSE 77; RESP 16; TEMP 36.8; O2SAT 98
== END ==
PROVIDERS: PCP Family Medicine; Visit Provider Nurse Practitioner
DX: L97.521 Non-pressure chronic ulcer of other part of left foot limited to breakdown of skin (principal); L97.529 Non-pressure chronic ulcer of other part of left foot with unspecified severity; L03.032 Cellulitis of left toe; L97.929 Non-pressure chronic ulcer of unspecified part of left lower leg with unspecified severity
CPT/HCPCS: 96365; J1335

== ENCOUNTER → 2021-03-25 10:56 | Outpatient (CLI) | payer MEDICARE, OTHER, SELFPAY ==
[2021-03-25 11:08] VITALS: BP 125/52; PULSE 91; RESP 20; O2SAT 98
== END ==
PROVIDERS: PCP Family Medicine; Visit Provider Nurse Practitioner
DX: L97.521 Non-pressure chronic ulcer of other part of left foot limited to breakdown of skin (principal); L97.529 Non-pressure chronic ulcer of other part of left foot with unspecified severity; L03.032 Cellulitis of left toe; L97.929 Non-pressure chronic ulcer of unspecified part of left lower leg with unspecified severity
CPT/HCPCS: 96365; J1335

== ENCOUNTER 2021-03-26 10:47 | Outpatient (CLI) | payer MEDICARE, OTHER, SELFPAY ==
[2021-03-26 10:57] VITALS: BP 116/49; PULSE 90; RESP 18; TEMP 36.7; O2SAT 97
[2021-03-26 11:45] VITALS: BP 119/65; PULSE 81; RESP 18; O2SAT 98
== END 2021-03-26 11:50 | disposition home or self-care (01) ==
LOC: INF 10:47
PROVIDERS: Visit Provider Nurse Practitioner
DX: L03.032 Cellulitis of left toe (principal); L97.921 Non-pressure chronic ulcer of unspecified part of left lower leg limited to breakdown of skin; L97.521 Non-pressure chronic ulcer of other part of left foot limited to breakdown of skin; L89.891 Pressure ulcer of other site, stage 1
CPT/HCPCS: 96365; J1335

== ENCOUNTER 2021-03-27 14:45 | Outpatient (CLI) | payer MEDICARE, OTHER, SELFPAY ==
[2021-03-27 14:56] VITALS: BMI 27.8
[2021-03-27 15:10] VITALS: BP 105/95; PULSE 72; RESP 17; TEMP 36.6; O2SAT 97
[2021-03-27 15:50] VITALS: BP 98/56; PULSE 69; RESP 17; TEMP 36.6; O2SAT 98
[2021-03-27 20:21] LABS: Basophils % 0.1 % (0.1-2.0); Eosinophils % 0.1 % (0.1-12.0); Hematocrit 27.7 % (42.0-52.0); Hemoglobin 9.2 g/dL (14.1-18.0); Lymphocytes # 1.7 K/mm3 (0.7-4.5); Lymphocytes % 24.4 % (10-50); Mean Corpuscular HGB Conc 33.1 g/dL (31.8-35.4); Mean Corpuscular Hemoglobin 31.2 pg (27.0-31.2); Mean Corpuscular Volume 94.3 fl (80-94); Mean Platelet Volume 8.1 fl (7.4-10.4); Monocytes # 0.6 K/mm3 (0.1-1.0); Monocytes % 8.4 % (1.7-9.3); Neutrophils # 4.6 K/mm3 (1.8-7.8); Platelet Count 309 K/mm3 (142-424); Red Blood Count 2.93 M/mm3 (4.60-6.20); Red Cell Distribution Width 17.2 % (11.5-17.5); White Blood Count 6.8 K/mm3 (4.8-10.8)
== END 2021-03-27 16:00 | disposition home or self-care (01) ==
LOC: INF 14:48
PROVIDERS: Visit Provider Nurse Practitioner
DX: L03.032 Cellulitis of left toe (principal); L97.921 Non-pressure chronic ulcer of unspecified part of left lower leg limited to breakdown of skin; L97.521 Non-pressure chronic ulcer of other part of left foot limited to breakdown of skin; L89.891 Pressure ulcer of other site, stage 1
CPT/HCPCS: 85025; 96365; J1335

== ENCOUNTER 2021-03-28 10:50 | Outpatient (CLI) | payer MEDICARE, OTHER, SELFPAY ==
[2021-03-28 10:52] VITALS: BMI 29.5
[2021-03-28 11:20] LABS: Basophils % 0.1 % (0.1-2.0); Eosinophils % 0.3 % (0.1-12.0); Hematocrit 27.6 % (42.0-52.0); Hemoglobin 9.1 g/dL (14.1-18.0); Lymphocytes # 1.2 K/mm3 (0.7-4.5); Lymphocytes % 18.1 % (10-50); Mean Corpuscular HGB Conc 32.8 g/dL (31.8-35.4); Mean Corpuscular Hemoglobin 31.8 pg (27.0-31.2); Mean Corpuscular Volume 96.9 fl (80-94); Mean Platelet Volume 7.7 fl (7.4-10.4); Monocytes # 0.5 K/mm3 (0.1-1.0); Monocytes % 7.6 % (1.7-9.3); Neutrophils # 4.8 K/mm3 (1.8-7.8); Neutrophils % 73.9 % (37.0-80.0); Platelet Count 315 K/mm3 (142-424); Red Blood Count 2.85 M/mm3 (4.60-6.20); Red Cell Distribution Width 17.3 % (11.5-17.5); White Blood Count 6.5 K/mm3 (4.8-10.8)
[2021-03-28 11:29] LABS: Chloride 104 mmol/L (98-107); Sodium 138 mmol/L (136-145)
[2021-03-28 11:30] VITALS: BP 88/44; PULSE 90; RESP 16
[2021-03-28 11:31] LABS: Alanine Aminotransferase 22 U/L (12-78); Aspartate Amino Transferase 33 U/L (17-59); Bilirubin,Total 0.7 mg/dl (0.2-1.3); Blood Urea Nitrogen 18 mg/dl (9-20); Creatinine Clearance Estimated 77 mL/min (50-200); Estimated Glomerular Filt Rate 81 ml/min (>60); GFR (African American) 98 ML/MIN (>60)
[2021-03-28 11:32] LABS: Albumin Level 3.5 g/dl (3.5-5.0); Albumin/Globulin Ratio 1.2 (1.1-1.8); Alkaline Phosphatase 89 U/L (38-126); Calcium 9.2 mg/dl (8.4-10.2); Carbon Dioxide 24 mmol/L (22.0-30.0); Glucose 144 mg/dl (74-100); Total Protein,Serum 6.5 g/dl (6.3-8.2)
[2021-03-28 11:36] LABS: C-Reactive Protein 3.7 mg/L (0-4)
[2021-03-28 11:53] LABS: Erythrocyte Sedimentation Rate > 140 mm/hr (0-20)
[2021-03-28 12:00] VITALS: BP 105/43; PULSE 84; RESP 16
== END 2021-03-28 12:30 | disposition home or self-care (01) ==
LOC: INF 10:52
PROVIDERS: Visit Provider Nurse Practitioner
DX: L03.032 Cellulitis of left toe (principal); L97.921 Non-pressure chronic ulcer of unspecified part of left lower leg limited to breakdown of skin; L97.521 Non-pressure chronic ulcer of other part of left foot limited to breakdown of skin; L89.891 Pressure ulcer of other site, stage 1; L97.929 Non-pressure chronic ulcer of unspecified part of left lower leg with unspecified severity
CPT/HCPCS: 80053; 85025; 85651; 86140; 96365; J1335

== ENCOUNTER 2021-03-29 10:51 | Outpatient (CLI) | payer MEDICARE, OTHER, SELFPAY ==
[2021-03-29 11:12] VITALS: BP 119/52; PULSE 79; RESP 18; TEMP 36.8; O2SAT 97
[2021-03-29 11:42] VITALS: BP 120/55; PULSE 80; RESP 18; O2SAT 97
[2021-03-29 12:00] VITALS: BP 122/55; PULSE 76; RESP 18; O2SAT 97
== END 2021-03-29 12:00 | disposition home or self-care (01) ==
LOC: INF 10:51
PROVIDERS: Visit Provider Nurse Practitioner
DX: L03.032 Cellulitis of left toe (principal); L89.891 Pressure ulcer of other site, stage 1; L97.521 Non-pressure chronic ulcer of other part of left foot limited to breakdown of skin; L97.529 Non-pressure chronic ulcer of other part of left foot with unspecified severity
CPT/HCPCS: 96365; J1335

== ENCOUNTER 2021-03-30 10:40 | Outpatient (CLI) | payer MEDICARE, OTHER, SELFPAY ==
[2021-03-30 11:00] VITALS: BP 124/56; PULSE 80; RESP 18; O2SAT 97
[2021-03-30 11:52] VITALS: BP 132/76; PULSE 68; RESP 18
== END 2021-03-30 11:52 | disposition home or self-care (01) ==
LOC: INF 10:46
PROVIDERS: Visit Provider Nurse Practitioner
DX: L03.032 Cellulitis of left toe (principal); L97.921 Non-pressure chronic ulcer of unspecified part of left lower leg limited to breakdown of skin; L97.521 Non-pressure chronic ulcer of other part of left foot limited to breakdown of skin; L89.891 Pressure ulcer of other site, stage 1
CPT/HCPCS: 96365; J1335

== ENCOUNTER 2021-03-31 10:54 | Outpatient (CLI) | payer MEDICARE, OTHER, SELFPAY ==
[2021-03-31 11:25] VITALS: BP 128/58; PULSE 76; RESP 18; TEMP 36.7; O2SAT 98
== END 2021-03-31 12:05 | disposition home or self-care (01) ==
LOC: INF 10:56
PROVIDERS: PCP Family Medicine; Visit Provider Nurse Practitioner
DX: L03.032 Cellulitis of left toe (principal); L89.891 Pressure ulcer of other site, stage 1; L97.521 Non-pressure chronic ulcer of other part of left foot limited to breakdown of skin; L97.529 Non-pressure chronic ulcer of other part of left foot with unspecified severity
CPT/HCPCS: 96365; J1335

== ENCOUNTER 2021-04-01 10:51 | Outpatient (CLI) | payer MEDICARE, OTHER, SELFPAY ==
[2021-04-01 11:14] VITALS: BP 124/55; PULSE 80; RESP 18; O2SAT 99
== END 2021-04-01 11:55 | disposition home or self-care (01) ==
LOC: INF 10:53
PROVIDERS: PCP Family Medicine; Visit Provider Nurse Practitioner
DX: L03.032 Cellulitis of left toe (principal); L89.891 Pressure ulcer of other site, stage 1; L97.521 Non-pressure chronic ulcer of other part of left foot limited to breakdown of skin; L97.529 Non-pressure chronic ulcer of other part of left foot with unspecified severity
CPT/HCPCS: 96365; J1335

== ENCOUNTER 2021-04-02 10:49 | Outpatient (CLI) | payer MEDICARE, OTHER, SELFPAY ==
[2021-04-02 10:49] VITALS: BP 132/47; PULSE 83; RESP 16; TEMP 36.7; O2SAT 99
[2021-04-02 11:58] VITALS: BP 141/53; PULSE 76; RESP 17; TEMP 36.6; O2SAT 98
--- NOTE | 2021-04-02 12:03 | PC.NURSE ---
1150: JASONE PICC DSG CHANGED AT THIS TIME. DSG CHANGED UNDER STERILE TECHNIQUE AND PATIENT TOLERATED WELL.
== END 2021-04-02 12:04 | disposition home or self-care (01) ==
LOC: INF 10:50
PROVIDERS: PCP Family Medicine; Visit Provider Nurse Practitioner
DX: L03.032 Cellulitis of left toe (principal); L97.921 Non-pressure chronic ulcer of unspecified part of left lower leg limited to breakdown of skin; L97.521 Non-pressure chronic ulcer of other part of left foot limited to breakdown of skin; L89.891 Pressure ulcer of other site, stage 1
CPT/HCPCS: 96365; J1335

== ENCOUNTER 2021-04-10 15:35 | Outpatient (CLI) | payer MEDICARE, OTHER, SELFPAY | END 2021-04-10 15:50 | disposition home or self-care (01) | LOC: INF 15:50 | PROVIDERS: PCP Family Medicine; Visit Provider Nurse Practitioner | DX: Z45.2 Encounter for adjustment and management of vascular access device (principal); L03.032 Cellulitis of left toe; L89.891 Pressure ulcer of other site, stage 1 | CPT/HCPCS: 96523 ==

== ENCOUNTER → 2021-04-11 15:52 | Outpatient (CLI) | payer MEDICARE, OTHER, SELFPAY ==
[2021-04-11 16:14] LABS: Basophils % 0.1 % (0.1-2.0); Eosinophils # 0.1 K/mm3 (0.0-0.4); Eosinophils % 0.8 % (0.1-12.0); Hematocrit 28.6 % (42.0-52.0); Hemoglobin 9.4 g/dL (14.1-18.0); Lymphocytes # 1.6 K/mm3 (0.7-4.5); Lymphocytes % 23.2 % (10-50); Mean Corpuscular Hemoglobin 31.6 pg (27.0-31.2); Mean Corpuscular Volume 95.7 fl (80-94); Mean Platelet Volume 7.6 fl (7.4-10.4); Monocytes # 0.5 K/mm3 (0.1-1.0); Monocytes % 7.4 % (1.7-9.3); Neutrophils # 4.6 K/mm3 (1.8-7.8); Neutrophils % 68.5 % (37.0-80.0); Platelet Count 374 K/mm3 (142-424); Red Blood Count 2.98 M/mm3 (4.60-6.20); Red Cell Distribution Width 17.4 % (11.5-17.5); White Blood Count 6.8 K/mm3 (4.8-10.8)
[2021-04-11 17:31] LABS: Erythrocyte Sedimentation Rate > 140 mm/hr (0-20)
[2021-04-11 17:37] LABS: Alanine Aminotransferase 20 U/L (12-78); Albumin Level 3.6 g/dl (3.5-5.0); Albumin/Globulin Ratio 1.3 (1.1-1.8); Alkaline Phosphatase 105 U/L (38-126); Anion Gap 12.3 mEq/L (5-15); Aspartate Amino Transferase 31 U/L (17-59); Bilirubin,Total 0.6 mg/dl (0.2-1.3); Blood Urea Nitrogen 17 mg/dl (9-20); Carbon Dioxide 25 mmol/L (22.0-30.0); Chloride 104 mmol/L (98-107); Estimated Glomerular Filt Rate 72 ml/min (>60); GFR (African American) 87 ML/MIN (>60); Globulin 2.8 g/dL (1.3-3.2); Glucose 140 mg/dl (74-100); Potassium 4.3 mmoL/L (3.5-5.1); Sodium 137 mmol/L (136-145); Total Protein,Serum 6.4 g/dl (6.3-8.2)
[2021-04-11 17:42] LABS: C-Reactive Protein 5.9 mg/L (0-4)
== END ==
PROVIDERS: Visit Provider Nurse Practitioner
DX: L89.891 Pressure ulcer of other site, stage 1 (principal); L97.509 Non-pressure chronic ulcer of other part of unspecified foot with unspecified severity; L97.521 Non-pressure chronic ulcer of other part of left foot limited to breakdown of skin; L97.529 Non-pressure chronic ulcer of other part of left foot with unspecified severity; Z51.89 Encounter for other specified aftercare; Z98.890 Other specified postprocedural states; L02.619 Cutaneous abscess of unspecified foot; L03.119 Cellulitis of unspecified part of limb
CPT/HCPCS: 36415; 80053; 85025; 85651; 86140

== ENCOUNTER 2021-04-18 08:59 | Outpatient (CLI) | payer MEDICARE, OTHER, SELFPAY | END 2021-04-18 09:20 | disposition home or self-care (01) | LOC: INF 08:59 | PROVIDERS: Visit Provider Podiatrist | DX: Z45.2 Encounter for adjustment and management of vascular access device (principal); L03.032 Cellulitis of left toe | CPT/HCPCS: 96523 ==

== ENCOUNTER 2021-04-24 13:00 | Outpatient (RCR) | payer MEDICARE, OTHER, SELFPAY ==
--- NOTE | 2021-03-19 15:08 | HMH.PTOPWND ---
Rehab Outpt Wound Evaluation Rehab OP Wound Evaluation Start: 03/19/21 14:54 Freq: Status: Active Protocol: Document 03/19/21 14:54 [email or web address] (Rec: 03/19/21 15:08 [email or web address] [id number]) Electronically Signed By Hans Phipps, PT 03/19/21 14:54 Subjective/History History History This is the initial Wound clinic evaluation for Travis Obregonjuliananne marie. Pt is a 80 y/o male referred to wound clinic for treatment of multiple L foot and toe wounds. Pt has had wounds for extended period of time, unsure of how long. Pt reports he has PAD, PVD, and diabetes. Pt has severe peripheral neuropathic pain in feet. Pt report he does not know if his neuropathy is diabetic or circulatory in nature Subjective Subjective Pt c/o burning and rawness in L foot and Burning in right Wound Eval Wound Left Toe - 4th Digit Wound Type Diabetic Foot Ulcer Wound Length (cm) 2.0 Wound Width (cm) 2.0 Wound Bed Appearance Eschar Percentage of Eschar (Brown) (%) 100 Wound Margins Description Well Defined Edema Appearance Shiny,Tight Surrounding Tissue Temperature Cold Drainage Description Serous Drainage Amount Small Dressing Status Dry & Intact Comment medihoney Wound Secondary Dressing Type Gauze Roll/Wrap Wound Debridement Amount of Tissue None Removed Left Toe - 3rd Digit Wound Type Diabetic Foot Ulcer Wound Length (cm) 2.5 Wound Width (cm) 2.5 Wound Bed Appearance Eschar Percentage of Eschar (Brown) (%) 100 Wound Margins Description Macerated Surrounding Tissue Temperature Cold Drainage Description Serous Drainage Amount Small Drainage Odor No Odor Dressing Status Dry & Intact Primary Dressing medihoney Wound Secondary Dressing Type Gauze Roll/Wrap Wound Debridement Amount of Tissue None Removed Left Toe - 2nd Digit Wound Type Diabetic Foot Ulcer Wound Length (cm) 2.5 Wound Width (cm) 2.5 Wound Bed Appearance Eschar Percentage of Eschar (Brown) (%) 100 Wound Margins Description We
== END 2021-04-24 13:05 | disposition home or self-care (01) ==
LOC: PT 13:00
PROVIDERS: PCP Family Medicine; Visit Provider Nurse Practitioner
DX: L97.521 Non-pressure chronic ulcer of other part of left foot limited to breakdown of skin (principal); L97.529 Non-pressure chronic ulcer of other part of left foot with unspecified severity; L97.929 Non-pressure chronic ulcer of unspecified part of left lower leg with unspecified severity; L97.421 Non-pressure chronic ulcer of left heel and midfoot limited to breakdown of skin
CPT/HCPCS: 29580; 97140; 97163; 97164; 97597; 97598

== ENCOUNTER 2021-04-24 13:54 | Inpatient (IN) | payer MEDICARE, OTHER, SELFPAY ==
--- NOTE | 2021-04-24 14:01 | XR_ITS ---
PROCEDURE: XR FOOT WT BEARING LT 3V CLINICAL INDICATION: ulcers of left foot COMPARISON: CR [id number] XR foot wt bearing LT 3V from 09/02/2018 CR XR FOOT WT BEARING LT 3V from 12/26/2020 FINDINGS: There is diffuse osteopenia with vascular calcification noted. No bony lytic process that would indicate osteomyelitis. Other findings:None. IMPRESSION: No acute findings. Dictated by: Yung Meade MD 04/24/2021 15:07 Ynug Meade MD in [facility] 04/24/2021 15:07
--- NOTE | 2021-04-24 14:14 | US_ITS ---
APPROVED REPORT Exam Type: Ankle to Brachial Index Gold Miner: YUNIER/JS Indications Claudication: Non-healing Ulcer: Follow-up limb revascularization Rest Pain: Edema PAD Risk Factors History of PAD: Hypertension Hyperlipidemia TIA/CVA History Diabetes Pressures/Indices Right Indices Left Indices Brachial 146.00 mmHg Brachial 145.00 mmHg Low Thigh 0.00 mmHg 0.00 Low Thigh 136.00 mmHg 0.93 Calf 0.00 mmHg 0.00 Calf 0.00 mmHg 0.00 Ankle(PT) 120.00 mmHg 0.82 Ankle(PT) 79.00 mmHg 0.54 Ankle(DP) 0.00 mmHg 0.00 Ankle(DP) 71.00 mmHg 0.49 Digit 42.00 mmHg 0.29 Digit 21.00 mmHg 0.14 Findings RT YOSHI=0.82 LT YOSHI 0.54 RT TPI=0.29 LT TPI=0.14 Grossly Abnormal Conclusion RT YOSHI=0.82 LT YOSHI 0.54 RT TPI=0.29 LT TPI=0.14 Mild right and moderate to severe left arterial disease Small vessel disease Electronically signed by : Yung Meade MD 04/26/2021 16:09:23
[2021-04-24 14:28] LABS: Coronavirus 19, PCR Not Detected (NotDetected); Influenza A, PCR Not Detected (NotDetected); Influenza B, PCR Not Detected (NotDetected)
[2021-04-24 14:46] LABS: Basophils % 0.1 % (0.1-2.0); Eosinophils % 0.2 % (0.1-12.0); Hemoglobin 8.8 g/dL (14.1-18.0); Lymphocytes # 1.9 K/mm3 (0.7-4.5); Lymphocytes % 24.6 % (10-50); Mean Corpuscular HGB Conc 32.6 g/dL (31.8-35.4); Mean Corpuscular Volume 95.1 fl (80-94); Mean Platelet Volume 7.4 fl (7.4-10.4); Monocytes # 0.6 K/mm3 (0.1-1.0); Monocytes % 7.7 % (1.7-9.3); Neutrophils # 5.1 K/mm3 (1.8-7.8); Neutrophils % 67.4 % (37.0-80.0); Platelet Count 413 K/mm3 (142-424); Red Blood Count 2.84 M/mm3 (4.60-6.20); Red Cell Distribution Width 17.2 % (11.5-17.5); White Blood Count 7.5 K/mm3 (4.8-10.8)
[2021-04-24 14:57] LABS: Chloride 100 mmol/L (98-107); Sodium 137 mmol/L (136-145)
[2021-04-24 14:58] LABS: Potassium 4.5 mmoL/L (3.5-5.1)
[2021-04-24 15:00] LABS: Alanine Aminotransferase 29 U/L (12-78); Albumin Level 3.5 g/dl (3.5-5.0); Alkaline Phosphatase 106 U/L (38-126); Aspartate Amino Transferase 41 U/L (17-59); Bilirubin,Total 0.6 mg/dl (0.2-1.3); Blood Urea Nitrogen 18 mg/dl (9-20); Estimated Glomerular Filt Rate 81 ml/min (>60); GFR (African American) 98 ML/MIN (>60)
[2021-04-24 15:01] LABS: Albumin/Globulin Ratio 1.1 (1.1-1.8); Anion Gap 16.5 mEq/L (5-15); Carbon Dioxide 25 mmol/L (22.0-30.0); Globulin 3.1 g/dL (1.3-3.2); Glucose 207 mg/dl (74-100); Total Protein,Serum 6.6 g/dl (6.3-8.2)
[2021-04-24 15:08] LABS: C-Reactive Protein 4.2 mg/L (0-4)
[2021-04-24 15:22] LABS: Hemoglobin A1C 6.6 % (4.0-6.0)
--- NOTE | 2021-04-24 15:30 | PC.NURSE ---
Pt arrived to the floor at this time
[2021-04-24 15:46] VITALS: BP 147/71; PULSE 84; RESP 21; TEMP 36.7; O2SAT 98; BMI 25.1
[2021-04-24 15:48] LABS: Erythrocyte Sedimentation Rate > 140 mm/hr (0-20)
--- NOTE | 2021-04-24 17:07 | PC.WOUNDNOTE ---
Ulcer on (R) heel 0.5cm x 0.5 cm, no drainage. Dressing placed as well as heel protector
--- NOTE | 2021-04-24 17:09 | PC.WOUNDNOTE ---
Open ulceration to R dietz. 2 cm x 1.5 cm. Wet to touch but min drainage present. Polymem dressing applied.
--- NOTE | 2021-04-24 17:11 | PC.WOUNDNOTE ---
2nd through 4th toe black in color w/ drainag present and beigging of toes from open area. Pt unable to move toes freely, does not feel touch. Pt is able to feel touch on great toe and pinky toe but unable to move.
--- NOTE | 2021-04-24 17:13 | PC.WOUNDNOTE ---
2nd through 4th toe black in color w/ drainage present at beginning of toes from open area. Pt unable to move toes freely, does not feel touch. Pt is able to feel touch on great toe and pinky toe but unable to move.
--- NOTE | 2021-04-24 17:32 | XR_ITS ---
PROCEDURE INFORMATION: Exam: XR Chest Exam date and time: 04/24/2021 5:32 PM Age: 80 years old Clinical indication: Cough; Additional info: Preop TECHNIQUE: Imaging protocol: XR of the chest. Views: 2 views. COMPARISON: 1. CR XR CHEST PORTABLE 03/20/2021 11:[address] ABDOMEN WO/W CON 09/16/2019 9:[address] abdomen pelvis w con 01/25/2019 2:[address] ABD PELVIS W/ CONTRAST 10/10/2014 12:39 PM FINDINGS: Tubes, catheters and devices: A left peripherally inserted central venous catheter lies with its tip overlying the superior vena cava. Lungs: The lungs are hyperinflated, consistent with underlying small airways disease. Atelectatic changes noted within the lung bases without focal pneumonia. Pleural spaces: There is no evidence of pneumothorax. Heart/Mediastinum: Unremarkable. No cardiomegaly. Diaphragm: There is nonspecific elevation of the right hemidiaphragm. Bones/joints: The thoracic spine demonstrates mild degenerative changes at multiple levels. IMPRESSION: 1. The lungs are hyperinflated, consistent with underlying small airways disease. 2. Atelectatic changes noted within the lung bases without focal pneumonia.
--- NOTE | 2021-04-24 18:27 | HMH.HP ---
*Admission Date: 04/24/21 <Gloria Wolff 04/24/21 18:31> *Chief complaint: gangrene of toes on the left foot <Gloria Wolff 04/24/21 18:53> *History of present illness: Mr Conn is a 80 year old male with a history of diabetes mellitus, hypertension, obesity, hyperlipidemia, osteoarthritis, peptic ulcer, BPH, peripheral artery disease with abnormal YOSHI who was seen in the office Dr. Gresham by oSila Amaya APRN. She notified [facility] of the need for the patient to be admitted for surgical treatment, amputation of the toes on the left foot. Patient had been treated with p.o. antibiotics and then had a PICC line inserted for additional treatment with IV antibiotics after which the toes did look a little better. After completion of The IV antibiotics the toes became black. At the time of this Exam patient states he does have pain in the left foot. He is Otherwise comfortable. <Gloria Wolff 04/24/21 18:53> [facility] History Medical History: Reports:: BPH, Congenital Heart Disease, Diabetes Mellitus Type 2, Gall Bladder Disease, Hyperlipidemia, Hypertension, Kidney Stones, Peripheral Artery Disease, Ulcer Denies:: Cancer, Diabetes Mellitus Type 1, Internal Pacemaker, Lung Disease, MRSA, Seizures <Gloria Wolff 04/24/21 18:53> *Have you ever received a pneumonia vaccine?: Yes <Gloria Wolff 04/24/21 18:31> *Have you received a flu vaccine this season?: Yes <Gloria Wolff 04/24/21 18:31> Other Medical History: Reports: Anemia, Arthritis, Cataracts, Glaucoma <Gloria Wolff 04/24/21 18:31> Laterality Cases: Right: Arthroscopy Knee, Other, Bilateral: Cataract, Tonsillectomy <Gloria Wolff 04/24/21 18:31> Other Surgeries: Yes: Angiogram, Angioplasty (left leg), Cholecystectomy, Colonoscopy, EGD, Other. No: Pacemaker <Gloria Wolff 04/24/21 18:53> Amputation: No <Gloria Wolff 04/24/21 18:31> Fractures: No <Gloria Wolff 04/24/21 18:31> Comment: Removal of the right lung <WolffGloria 04/24/21 18:53> - *Social History Last grade of school completed: High school graduate <WolffGloria 04/24/21 18:31> Smoking Status: Never smoker <WolffGloria 04/24/21 18:31> Alcohol Intake: never <WolffGloria 04/24/21 18:31> Alcohol Intake Frequency:: other <Wolff,Gloria 04/24/21 18:31> Substance Use Type: denies use <WolffGloria 04/24/21 18:31> *Occupational Status:: retired <Wolff,Gloria 04/24/21 18:31> Housing: house <WolffGloria 04/24/21 18:31> Household Members: none <WolffGloria - 04/24/21 18:31> *Travel in the last 8 weeks: None <Wolff,Gloria 04/24/21 18:31> Family Hx:: Diabetes, Other (heart disease) <Wolff,Gloria 04/24/21 18:53> Review of Systems - Constitutional Denies fever(s) <Wolff,Gloria 04/24/21 18:53> - Eyes Denies change in vision <Wolff,Gloria 04/24/21 18:53> - ENT Denies ear pain, Denies headache(s), Denies nasal congestion, Denies sore throat <Wolff,Gloria 04/24/21 18:53> - *Cardiovascular Reports leg swelling, Denies chest pain, Denies shortness of breath <MariellaGloria 04/24/21 18:53> - *Respiratory Denies chest congestion, Denies cough, Denies shortness of breath <Wolff,Gloria 04/24/21 18:53> - *Gastrointestinal Denies abdominal pain, Denies constipation, Denies loose stools, Denies heartburn, Denies nausea, Denies vomiting <MariellaGloria 04/24/21 18:53> - *Genitourinary Denies difficulty urinating <MariellaGloria 04/24/21 18:53> - *Musculoskeletal Reports abnormal walking (uses a walker) <Gloria Wolff - 04/24/21 18:53> - *Neurologic Reports abnormal walking, Reports unsteadiness, Denies dizziness <Gloria Wolff - 04/24/21 18:53> Meds Home Medications Medication Instructions Recorded Confirmed Type chlordiazepoxide-clidinium 5 2 cap PO QID PRN cap 03/24/18 04/11/21 History mg-2.5 mg capsule cholecalciferol (vitamin D3) 25 1,000 unit PO DAILY cap 03/24/18 04/11/21 History mc
--- NOTE | 2021-04-24 18:32 | PC.NURSE ---
Spoke with Soila Amaya at [address] Mckinley was made aware of consult of new admit. Kiley Amaya states that Kiley Cabezas had called Dr. Mendez office already prior to make aware of new consult. Dr. Mckinley contacted at 1711 to verify awareness of consult. He states he was not aware of new consult. to floor at 1824 currently speaking with Vani Wolff
[2021-04-24 20:00] VITALS: BP 131/52; PULSE 80; RESP 21; TEMP 36.7; O2SAT 98
--- NOTE | 2021-04-24 20:20 | HMH.ORTHOCON ---
*Admission Date: 04/24/21 *Reason for consult:: Consult for amputation of gangrenous toes, left foot *History of present illness: Mr Conn is a 80 year old male admitted to the hospital under care of Dr. David this afternoon from podiatry office. I understand a decision was made that patient needs multiple toe amputations in his left foot and he was admitted to undergo the surgery. I was asked to see the patient/perform surgery as Dr. Gresham is out of town. I was not involved in the decision-making process or care of the patient prior to this. He is giving a history of longstanding problems with his left foot. He says his symptoms started at least a year ago with ulceration over the second toe. He says he has been under care of Dr. Gresham for a long time and has been having nonsurgical management. He says subsequently he developed problems with his left second, third and fourth toes. He reports that he has been having regular dressings from the wound care clinic and having regular follow-up appointments with podiatry clinic. He states that he has had multiple oral and IV antibiotic courses over the last 6 months or so. He states that the left second, third and fourth toes have been discolored for many months and are gradually turning black. He also reports multiple foot ulcerations with small amount of discharge. He reports that there has been steady worsening of his symptoms with constant pain over the forefoot. He reports decreased sensation over both feet at baseline secondary to peripheral neuropathy. There is no history of any fevers, chills or rigors. He reports no other systemic symptoms or deterioration in his general health over the last few weeks. At the time of this examination patient states he has left foot pain which according to him he is no worse than before. He reports that he is otherwise comfortable. His medical history includes diabetes mellitus, hypertension, obesity, hyperlipidemia, osteoarthritis, peptic ulcer, BPH, peripheral artery disease. Patient reports that he previously had vascular intervention by Dr. Whitehead. Patient is on oral aspirin and Xarelto. He is an ex-smoker and reports that he stopped smoking some 40 years ago. [facility] History I have reviewed the patient's past medical history: Yes Medical History: Reports:: BPH, Congenital Heart Disease, Diabetes Mellitus Type 2, Gall Bladder Disease, Hyperlipidemia, Hypertension, Kidney Stones, Peripheral Artery Disease, Ulcer Denies:: Cancer, Diabetes Mellitus Type 1, Internal Pacemaker, Lung Disease, MRSA, Seizures *Have you ever received a pneumonia vaccine?: Yes *Have you received a flu vaccine this season?: Yes Other Medical History: Reports: Anemia, Arthritis, Cataracts, Glaucoma Laterality Cases: Right: Arthroscopy Knee, Other, Bilateral: Cataract, Tonsillectomy Other Surgeries: Yes: Angiogram, Angioplasty (left leg), Cholecystectomy, Colonoscopy, EGD, Other. No: Pacemaker Amputation: No Fractures: No - *Social History Last grade of school completed: High school graduate Smoking Status: Never smoker Alcohol Intake: never Alcohol Intake Frequency:: other Substance Use Type: denies use *Occupational Status:: retired Housing: house Household Members: none *Travel in the last 8 weeks: None Family Hx:: Diabetes, Other (heart disease) Review of Systems - Review of Systems Review of systems:: pertinent systems reviewed and negative unless documented below - Constitutional Denies chills, Denies fever(s), Denies malaise - Eyes Denies change in vision - ENT Denies abnormal hearing - *Cardiovascular Reports leg swelling, Denies chest pain, Denies shortness of breath - *Respiratory Denies chest congestion, Denies cough - *Gastrointestinal Denies abdominal pain, Denies change in bowel habits - *Genitourinary Denies difficulty urinating - *Musculoskeletal Reports abnormal walking, Reports joint pain - Integumentary/Breasts Reports non-healing le
[2021-04-24 22:08] LABS: POC Glucose,Bedside 180 (70-110)
--- NOTE | 2021-04-25 02:05 | PC.NURSE ---
He has slept residential sitting up on the side of the bed. He stated he sleeps this way. Offered for him to sleep in the recliner but he refused. He denies pain. He continues on RA.
[2021-04-25 04:17] VITALS: BP 128/55; PULSE 81; RESP 21; TEMP 36.6; O2SAT 99
[2021-04-25 05:44] LABS: POC Glucose,Bedside 136 (70-110)
--- NOTE | 2021-04-25 05:58 | PC.NURSE ---
SOFIA NOTIFIED OF CONSULT
[2021-04-25 07:47] VITALS: BP 139/58; PULSE 86; RESP 17; TEMP 36.4; O2SAT 98
--- NOTE | 2021-04-25 07:52 | HMH.ACPN2 ---
<Gloria Wolff - Last Filed: 04/25/21 07:52> Internal Medicine - PN: Subj *Date: 04/25/21 *Time: 07:52 Interval history: Patient states he did not sleep much last night. He does have some foot pain. Pictures of wounds noted. Dr. Mckinley's consultation note appreciated. He recommends an MRI of the left foot with and without contrast. Patient ate well for breakfast this morning. He is ambulated to the bathroom with walker. Exam Vital signs and Labs for Last 24 Hours: Temp Pulse Resp BP Pulse Ox 97.6 F 86 17 139/58 L 98 04/25/21 07:47 04/25/21 07:47 04/25/21 07:47 04/25/21 07:47 04/25/21 07:47 Laboratory Results - last 24 hr 04/24/21 13:51: WBC 7.5, RBC 2.84 L, Hgb 8.8 L, Hct 27.0 L, MCV 95.1 H, MCH 31.0, MCHC 32.6, RDW 17.2, Plt Count 413, MPV 7.4, Neut % (Auto) 67.4, Lymph % (Auto) 24.6, [place] % (Auto) 7.7, Eos % (Auto) 0.2, Baso % (Auto) 0.1, Neut # (Auto) 5.1, Lymph # (Auto) 1.9, [place] # (Auto) 0.6, Eos # (Auto) 0.0, Baso # (Auto) 0.0, ESR > 140 H 04/24/21 13:51: Sodium 137, Potassium 4.5, Chloride 100, Carbon Dioxide 25, Anion Gap 16.5 H, BUN 18, Creatinine 0.90, Estimated GFR 81, Est GFR ( Amer) 98, Glucose 207 H, Calcium 9.0, Total Bilirubin 0.6, AST 41, ALT 29, Alkaline Phosphatase 106, C-Reactive Protein 4.2 H, Total Protein 6.6, Albumin 3.5, Globulin 3.1, Albumin/Globulin Ratio 1.1 04/24/21 13:51: Hemoglobin A1c 6.6 H 04/24/21 14:27: SARS-CoV-2 (PCR) Not detected, Influenza A Untype (PCR) Not detected, Influenza Type B (PCR) Not detected 04/24/21 21:53: POC Glucose 180 H 04/25/21 05:35: POC Glucose 136 H I & O for Last 24 hours: Intake & Output 04/22/21 04/23/21 04/24/21 04/25/21 11:59 11:59 11:59 11:59 Intake Total 718 / 718 Output Total 0 / 0 Balance 718 / 718 Weight 180 lb - Constitutional no acute distress Comments: Sitting on bedside. Appears comfortable. - *Routine Respiratory Exam Present: CTA bilaterally (Anteriorly and posteriorly) - *Routine Cardiovascular Exam Present: RRR - *Routine Abdominal Exam Present: soft, normoactive bowel sounds. Absent: tenderness - *Routine Extremities Exam Present: edema (Bilateral leg) Comments: Dressings on both feet. Pictures noted. - *Routine Neurological Exam Present: alert, oriented X3 Assessment and Plan (1) Gangrene of toe of left foot Status: Acute Category: Medical Code(s): I96 - Gangrene, not elsewhere classified (2) Bilateral edema of lower extremity Status: Acute Category: Medical Code(s): R60.0 - Localized edema (3) PAD (peripheral artery disease) Status: Chronic Category: Medical Code(s): I73.9 - Peripheral vascular disease, unspecified (4) Type 2 diabetes mellitus Status: Chronic Qualifiers: Diabetes mellitus mcfp insulin use: without mcfp use Diabetes mellitus complication status: without complication Qualified Code(s): E11.9 - Type 2 diabetes mellitus without complications Category: Medical Code(s): E11.9 - Type 2 diabetes mellitus without complications (5) HTN (hypertension) Status: Chronic Qualifiers: Hypertension type: essential hypertension Qualified Code(s): I10 - Essential (primary) hypertension Category: Medical Code(s): I10 - Essential (primary) hypertension (6) Dyslipidemia Status: Acute Category: Medical Code(s): E78.5 - Hyperlipidemia, unspecified (7) Diabetic neuropathy Status: Acute Category: Medical Code(s): E11.40 - Type 2 diabetes mellitus with diabetic neuropathy, unspecified - Assessment and plan all Dx Assessment and Plan for all problems:: We will discuss scheduling of MRI with Dr. David. <Jass David - Last Filed: 04/25/21 11:40> Internal Medicine - PN: Subj *Date: 04/25/21 *Time: 11:38 Exam Vital signs and Labs for Last 24 Hours: Temp Pulse Resp BP Pulse Ox 97.6 F 86 17 139/58 L 98 04/25/21 07:47 04/25/21 07:47 04/25/21 07:47
[2021-04-25 08:00] VITALS: PULSE 86; O2SAT 98
--- NOTE | 2021-04-25 08:39 | HMH.CNCARD ---
History of Present Illness Consult date: 04/25/21 Requesting physician: Jass David Chief complaint: PAD, gangrene of left toes Additional Medical History:: 1. Peripheral vascular disease A. 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 Plavix and aspirin for 1 month 2. In 1 month Xarelto 2.5 twice daily plus aspirin 81 mg daily 3. LDL less than 55 4. Physical therapy 5. Evaluation for ischemic heart disease due to severe peripheral artery disease 6. Risk factor modification 7. Referral to podiatry Electronically signed by : Martinez Whitehead, 01/02/2021 14:17:33 2. Hypertension A. Echo, 04/2018, mild LAE, normal LV size, mild concentric LVH, EF 55% with no wall motion abnormalities. Grade 1 diastolic dysfunction noted. Mild AR, MR and TR. 3. Hyperlipidemia 4. Osteoarthritis 5. Diabetes mellitus type 2 A. Hgb A1c, 6.6, 04/2021 6. Lexiscan Myoview, 04/2018, no ischemia with EF 54% A. Coronary calcifications, abdominal CT, 09/2019 7. Abdominal pain/weight loss, 2019 A. ERCP, 03/2019, suggestive of choledocholithiasis or sludge in the common bile duct B. Abdominal CT, 09/2019,1. Overall no change in the hypoattenuating lesion of the head of the pancreas. There are actually 2 areas in the head of the pancreas which are sub adjacent to 1 another. Cystic pancreatic neoplasm is a consideration such as IPMN or serous cystic neoplasm (much more common in females). Further evaluation could be obtained with MRI without and with gadolinium enhancement and MRCP 2. 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 Anemia A. Hgb 8.8, 04/2021 9. 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 Gresham by Soila Amaya APRN. She notified [facility] of the need for the patient to be admitted for surgical treatment, amputation of the toes on the left foot. Patient had been treated with p.o. antibiotics and then had a PICC line inserted for additional treatment with IV antibiotics after which the toes did look a little better. After completion of The IV antibiotics the toes became black. The above per Dr. David Cardiology consulted for vascular evaluation of the left leg. Patient recently had stenting of the [facility] History Medical History: Reports:: BPH, Congenital Heart Disease, Diabetes Mellitus Type 2, Gall Bladder Disease, Hyperlipidemia, Hypertension, Kidney Stones, Peripheral Artery Disease, Ulcer Denies:: Cancer, Diabetes Mellitus Type 1, Internal Pacemaker, Lung Disease, MRSA, Seizures *Have you ever received a pneumonia vaccine?: Yes *Have you received a flu vaccine this season?: Yes Other Medical History: Reports: Anemia, Arthritis, Cataracts, Glaucoma Laterality Cases: Right: Arthroscopy Knee, Other, Bilateral: Cataract, Tonsillectomy Other Surgeries: Yes: Angiogram, Angioplasty (left leg), Cholecystectomy, Colonoscopy, EGD, Other. No: Pacemaker Amputation: No Fractures: No - *Social History Last grade of school completed: High school graduate Smoking Status: Never smoker Alcohol Intake: never Alcohol Intake Frequency:: other Substance Use Type: denies use *Occupational Status:: retired Housing: house Household Members: none *Travel in the last 8 weeks: None Family H
--- NOTE | 2021-04-25 09:27 | CA_ITS ---
APPROVED REPORT EXAM: Comprehensive 2D, Doppler, and color-flow Echocardiogram Process Description Writer: Cheryl Gillis RT(R) Ht: 5 ft 11 in Wt: 180lbs BSA: 2.02 BP: 139/58 mmHg Indications: pre op for PAD, ex smoker, HTN, edema, hyperlipidemia, DD, DM. Patient states his foot is killing him and is unable to lay with feet up on bed. Scanning was done upright with legs dangling over the edge of the bed. Limited visualization. 2D Dimensions LVOT 2.02 cm (M/F) 1.5-2.5 LVEF (Morrison's) 54.70 % M: 52 - 72 LV Volume 94.50 mL M: 62 - 150 LV Volume Index 47.01 mL/m2 M: 34 - 74 M-Mode Dimensions RVDd 2.35 cm (0.9-2.6) LA Diam 3.53 cm (1.9-4.0) LVDd 4.93 cm (3.5-5.7) Ao Diam 3.30 cm (2.0-3.7) LVDs 3.76 cm (3.5-5.7) IVSd 0.77 cm (0.6-1.1) PWd 0.67 cm (0.6-1.1) EF (Teich) 47.20% FS 23.70% EDV (Teich) 114.40 mL ESV (Teich) 60.40 mL LV Diastology E Decel Time 210.00 (160-240 msec) E/A Ratio 0.7 MED E' 9.70 (< 7 cm/sec) E'/MED E' Ratio 7.57 (>14) LAT E' 10.90 (<10 cm/sec) E/LAT E' Ratio 6.73 (>14) Mitral Valve MV E Max Drew. 73.00 (40-130 cm/s) MV A Velocity 112.00 (40-130 cm/s) E/A Ratio 0.65 MV Decel. Time 210.00 (160-240 ms) MV PHT 62.00 ms Left Ventricle Left atrium is mildly enlarged, left ventricle is normal size, mild concentric left ventricular hypertrophy, visually estimated ejection fraction 55% with no regional wall motion abnormality, grade 1 diastolic dysfunction seen without tissue Doppler evidence of raise left atrial pressure. Right Ventricle Right atrium and right ventricle are mildly enlarged with normal contractility. Aortic Valve Aortic valve is minimally thickened and calcified without aortic stenosis or aortic insufficiency. Mitral Valve Mitral valve leaflets are minimally thickened, there is no mitral stenosis. There is mild mitral regurgitation. Tricuspid Valve Tricuspid grossly normal, there is mild tricuspid irritation, tricuspid rotation jet velocity is inadequate for calculation of the right ventricular systolic pressure. Pulmonic Valve Pulmonic valve is poorly visualized. Great Vessels Aortic root is normal size. Pericardium No significant pericardial effusion noted. Conclusion 1. Mild biatrial enlargement, normal left ventricular size, mild concentric left ventricular hypertrophy, visually estimated ejection fraction 55% with no regional wall motion abnormality, grade 1 diastolic dysfunction seen without tissue Doppler evidence of raise left atrial pressure. 2. Mildly enlarged right ventricle with normal contractility. 3. Thickened and calcified aortic valve without aortic stenosis or aortic insufficiency. 4. Mild mitral and tricuspid regurgitation. 5. No significant pericardial effusion noted. Electronically signed by : Chapin Gilliam, 04/26/2021 16:24:39
[2021-04-25 11:46] LABS: POC Glucose,Bedside 216 (70-110)
--- NOTE | 2021-04-25 13:18 | PC.NURSE ---
I received a call from MRI at approx 1255 stating that the pt was in pain, unable to lie down and his legs were jerking . pt did not have any meds for pain ordered. Spoke with Dr Chavarria r/natan David being out. 1 time dose morphine 3mg now.
--- NOTE | 2021-04-25 13:55 | CT_ITS ---
PROCEDURE INFORMATION: Exam: CT Left Lower Extremity Without and With Contrast, Foot Exam date and time: 04/25/2021 1:55 PM Age: 80 years old Clinical indication: Swelling, leg or foot; Patient HX: R/O osteo, left 2,3,4 toes; Additional info: R/O osteomyelitis TECHNIQUE: Imaging protocol: CT of the Left lower extremity without and with intravenous contrast was performed. Exam focused on the foot. Radiation optimization: All CT scans at this facility use at least one of these dose optimization techniques: automated exposure control; mA and/or kV adjustment per patient size (includes targeted exams where dose is matched to clinical indication); or iterative reconstruction. Contrast material: ISOVUE 370; Contrast volume: 75 ml; Contrast route: IV; COMPARISON: 1. US ARTERIAL LOWER EXT REST 04/24/2021 2:52 PM 2. CR XR FOOT WT BEARING LT 3V 04/24/2021 2:03 PM FINDINGS: Bones/joints: There are lytic changes with cortical irregularity noted within the distal phalanges of the 2nd and 3rd toes. Findings are highly suspect for osteomyelitis. Bones are osteopenic. There is a fracture involving the distal 5th metatarsal. Calcaneal spurs are present. Soft tissues: Moderate soft tissue edematous changes are present along the distal aspect of the 2nd 3rd and 4th toes. Vasculature: The vasculature demonstrates diffuse moderate atherosclerotic calcification. IMPRESSION: 1. There are lytic changes with cortical irregularity noted within the distal phalanges of the 2nd and 3rd toes. Findings are highly suspect for osteomyelitis. 2. Moderate soft tissue edematous changes are present along the distal aspect of the 2nd 3rd and 4th toes. 3. Bones are osteopenic. 4. There is a fracture involving the distal 5th metatarsal.
[2021-04-25 14:51] VITALS: BMI 25.2
--- NOTE | 2021-04-25 15:25 | HMH.PHACONS ---
- Pharmacy Consult Date: 04/25/21 Time: 15:25 Referring provider: DR. HADLEY Reason for Consult:: VANCOMYCIN DOSING Allergies and ADEs:: Allergies Allergy/AdvReac Type Severity Reaction Status Date / Time No Known Allergies Allergy Verified 04/11/21 14:34 Home Medications:: Home Medications Medication Instructions Recorded Confirmed Type chlordiazepoxide-clidinium 5 2 cap PO QID PRN cap 03/24/18 04/25/21 History mg-2.5 mg capsule cholecalciferol (vitamin D3) 25 1,000 unit PO DAILY cap 03/24/18 04/25/21 History mcg (1,000 unit) capsule enalapril maleate 10 mg tablet 10 mg PO DAILY tab 03/24/18 04/25/21 History finasteride 5 mg tablet 5 mg PO DAILY tab 03/24/18 04/25/21 History gabapentin 400 mg capsule 400 mg PO BID 03/24/18 04/25/21 History glimepiride 4 mg tablet 8 mg PO DAILY tab 03/24/18 04/25/21 History metformin 850 mg tablet 850 mg PO BID 03/24/18 04/25/21 History multivitamin 1 tab PO QAM 03/24/18 04/25/21 History nabumetone 750 mg tablet 1,500 mg PO DAILY tab 03/24/18 04/25/21 History omeprazole 40 mg capsule,delayed 40 mg PO DAILY cap 03/24/18 04/25/21 History release pioglitazone 15 mg tablet 15 mg PO DAILY tab 03/24/18 04/25/21 History potassium 99 mg tablet 99 mg PO DAILY tab 03/24/18 04/25/21 History terazosin 10 mg capsule 10 mg PO QHS cap 03/24/18 04/25/21 History vitamin B complex 1 tab PO DAILY tab 03/24/18 04/25/21 History aspirin 81 mg tablet,delayed 81 mg PO DAILY 01/09/21 04/25/21 History release Rivaroxaban [Xarelto] 2.5 mg PO BID 03/20/21 04/25/21 History atorvastatin 40 mg tablet 40 mg PO DAILY #90 tab 03/28/21 04/25/21 Rx furosemide 20 mg tablet 20 mg PO BID 30 Days #60 tab 04/11/21 04/25/21 Rx Height: 1.8 m Weight: 81.647 kg Laboratory Results:: Laboratory Results - last 24 hr 04/24/21 13:51: ESR > 140 H 04/24/21 21:53: POC Glucose 180 H 04/25/21 05:35: POC Glucose 136 H 04/25/21 11:03: POC Glucose 216 H Medical History: Reports:: BPH, Congenital Heart Disease, Diabetes Mellitus Type 2, Gall Bladder Disease, Hyperlipidemia, Hypertension, Kidney Stones, Peripheral Artery Disease, Ulcer Denies:: Cancer, Diabetes Mellitus Type 1, Internal Pacemaker, Lung Disease, MRSA, Seizures Assessment and Plan (1) Gangrene of toe of left foot Status: Acute Category: Medical Code(s): I96 - Gangrene, not elsewhere classified (2) Bilateral edema of lower extremity Status: Acute Category: Medical Code(s): R60.0 - Localized edema (3) PAD (peripheral artery disease) Status: Chronic Category: Medical Code(s): I73.9 - Peripheral vascular disease, unspecified (4) Type 2 diabetes mellitus Status: Chronic Qualifiers: Diabetes mellitus jail insulin use: without jail use Diabetes mellitus complication status: without complication Qualified Code(s): E11.9 - Type 2 diabetes mellitus without complications Category: Medical Code(s): E11.9 - Type 2 diabetes mellitus without complications (5) HTN (hypertension) Status: Chronic Qualifiers: Hypertension type: essential hypertension Qualified Code(s): I10 - Essential (primary) hypertension Category: Medical Code(s): I10 - Essential (primary) hypertension (6) Dyslipidemia Status: Acute Category: Medical Code(s): E78.5 - Hyperlipidemia, unspecified (7) Diabetic neuropathy Status: Acute Category: Medical Code(s): E11.40 - Type 2 diabetes mellitus with diabetic neuropathy, unspecified (8) Coronary artery calcification seen on CAT scan Status: Acute Category: Medical Code(s): I25.10 - Atherosclerotic heart disease of [place] coronary artery without angina pectoris - Assessment and plan all Dx Assessment and Plan for all problems:: Age: 80 yo Serum creatinine: 1 mg/dL Height: 71.0 Inches Weight (kg): 81.64 Assessment: IBW (kg): 75.30 Dosing wt(kg): 81.64 Estimated Creatinine clearance (ml/min): 63.8 CRC
[2021-04-25 15:28] VITALS: BP 94/37; PULSE 87; RESP 16; TEMP 36.5; O2SAT 98
--- NOTE | 2021-04-25 18:59 | PC.NURSE ---
notified by Robinson rivera, that pt is to possibly have an angiogram in the am. pt to be NPO after midnight
--- NOTE | 2021-04-25 19:22 | PC.NURSE ---
pt has remained on the side of the bed this shift. states he is unable to prop his legs up or expose them to the air r/t pain. pt has 2+ edema in ble. pt has not complained of any further pain following the attempted MRI. lungs are clear, bowel sounds are active. nad noted.
[2021-04-25 20:30] VITALS: BP 133/53; PULSE 75; RESP 16; TEMP 36.6; O2SAT 99
[2021-04-25 20:40] LABS: POC Glucose,Bedside 218 (70-110)
[2021-04-26] VITALS (17 sets, daily range): BP systolic 94–150; BP diastolic 42–85; PULSE 65–101; RESP 17–19; TEMP 36.3–36.9; O2SAT 94–99
--- NOTE | 2021-04-26 | IR_ITS ---
APPROVED REPORT Patient Location: Inpatient PROCEDURES Right femoral arterial access Catheter placed in the abdominal aorta Bilateral iliofemoral runoff INDICATION [place] claudication class , Peripheral artery disease Informed consent was obtained prior to the procedure. COMPLICATIONS None Estimated Blood Loss: less than 10ml TECHNIQUE 1% lidocaine used anesthetize the right groin the right femoral artery was accessed via the Salinger technique and a 5 Yoruba sheath was placed in the right femoral artery. A pigtail catheter was advanced into the distal abdominal aorta and bilateral iliofemoral runoff was performed. At the end the procedure the apparatus was removed the patient was transferred to the postop holding area in stable condition for sheath removal ANGIOGRAPHIC RESULTS The distal abdominal aorta is widely patent The bilateral common iliac arteries are widely patent. A stent in the left common iliac artery is widely patent with excellent distal transitioning the bilateral internal and external iliac arteries are widely patent The bilateral common femoral arteries are widely patent The bilateral profunda femoris arteries are widely patent The right superficial femoral artery has mild diffuse 20% atheromatous disease with 20 and 30% stenoses in the popliteal artery. Distally the right anterior tibialis artery is proximally patent while the posterior tibialis artery and the peroneal artery are proximally occluded. Scant flow makes it into the right ankle via scant collaterals most likely from the right anterior tibialis artery The left superficial femoral artery is widely patent with mild atheromatous plaque which extends into a widely patent left popliteal artery which is widely patent with mild atheromatous plaque the right anterior tibialis artery posterior tibialis artery and peroneal artery are proximally subtotally occluded with small vessel vasculopathy. Distally there is scant flow into the left foot via a scant collateral network IMPRESSION Peripheral artery disease as described above with a widely patent stent in the left common iliac artery Severe bilateral infrageniculate disease with subtotal occlusions of the arteries as described above with scant flow into the bilateral feet Small vessel severe vasculopathy PLAN 1. There is nothing from either percutaneous or surgical standpoint which can improve lower extremity circulation. Patient is suffering from small vessel vasculopathy. He may be able to heal a transmetatarsal amputation however if this does not heal appropriately he should almost certainly be able to adequately heal from a below the knee amputation given the wide patency and inflow flow through the popliteal arteries 2. Continue aggressive risk factor modification 3. Supportive care for amputation etc. 4. Xarelto 2.5 twice daily plus aspirin 81 mg daily 5. LDL goal less than 55 Electronically signed by : Martinez Whitehead, 04/26/2021 11:05:31
--- NOTE | 2021-04-26 03:08 | PC.NURSE ---
A&OX4. TOLERATING RA WELL. PT HAS HAD NO C/O PAIN THUS FAR. DRESSING TO L FOOT CDI. PT HAS SLEPT MAJORITY OF SHIFT. DOING WELL USING WALKER TO GET TO BEDSIDE COMMODE. TOLERATING NPO DIET WELL. VSS WILL CONTINUE TO MONITOR.
[2021-04-26 06:03] LABS: POC Glucose,Bedside 131 (70-110)
--- NOTE | 2021-04-26 07:59 | HMH.PNCARD ---
Subjective Date: 04/26/21 Time: 07:59 Principal diagnosis: PAD, osteomyelitis Interval history: 80-year-old white male at bedside in no acute distress. Daughter is with him. Plans regarding lower extremity angiogram were discussed with the patient and the daughter and they both agree to proceed. Exam Vital signs and Labs for Last 24 Hours: Temp Pulse Resp BP Pulse Ox 97.4 F L 101 H 17 134/59 L 98 04/26/21 04:00 04/26/21 04:00 04/26/21 04:00 04/26/21 04:00 04/26/21 04:00 Laboratory Results - last 24 hr 04/25/21 11:03: POC Glucose 216 H 04/25/21 20:28: POC Glucose 218 H 04/26/21 05:53: POC Glucose 131 H I & O for Last 24 hours: Intake & Output 04/23/21 04/24/21 04/25/21 04/26/21 11:59 11:59 11:59 11:59 Intake Total 718 / 718 1929 Output Total 0 / 0 Balance 718 / 718 1929 Weight 180 lb 180 lb 12.465 oz - Constitutional no acute distress - *Routine HEENT Exam Head: Present: normocephalic Eye: Present: EOMI, PERRL ENT: Present: mucous membranes moist - *Routine Neck Exam Present: supple. Absent: lymphadenopathy - *Routine Respiratory Exam Present: CTA bilaterally - *Routine Cardiovascular Exam Present: RRR - *Routine Abdominal Exam Present: soft, normoactive bowel sounds. Absent: tenderness - *Routine Extremities Exam Absent: cyanosis, clubbing, edema - *Routine Skin Exam Present: warm. Absent: rash - *Routine Neurological Exam Present: alert, oriented X3 Progress Note: A&P (1) Gangrene of toe of left foot Status: Acute (2) Bilateral edema of lower extremity Status: Acute (3) PAD (peripheral artery disease) Status: Chronic (4) Type 2 diabetes mellitus Status: Chronic (5) HTN (hypertension) Status: Chronic (6) Dyslipidemia Status: Acute (7) Diabetic neuropathy Status: Acute (8) Coronary artery calcification seen on CAT scan Status: Acute Assessment and Plan for All Diagnoses:: 1. Lower extremity angiogram today with emphasis on the left leg. Patient does have evidence of drainage of the toes of the left foot with CT scan evidence of osteomyelitis of toes of the left foot with fracture of the left fifth toe. Decision regarding best option of transmetatarsal amputation or BKA will be considered after angiogram.
--- NOTE | 2021-04-26 08:39 | HMH.ACPN2 ---
<Rubi Hammond - Last Filed: 04/26/21 08:39> Internal Medicine - PN: Subj *Date: 04/26/21 *Time: 08:39 Interval history: Patient states he feels about the same today. He has pain in his foot. He did not rest well last night. Cardiology has seen the patient and he is scheduled for an angiogram today. Exam Vital signs and Labs for Last 24 Hours: Temp Pulse Resp BP Pulse Ox 97.8 F 65 18 120/51 L 94 L 04/26/21 08:00 04/26/21 08:00 04/26/21 08:00 04/26/21 08:00 04/26/21 08:00 Laboratory Results - last 24 hr 04/25/21 11:03: POC Glucose 216 H 04/25/21 20:28: POC Glucose 218 H 04/26/21 05:53: POC Glucose 131 H I & O for Last 24 hours: Intake & Output 04/23/21 04/24/21 04/25/21 04/26/21 11:59 11:59 11:59 11:59 Intake Total 718 / 718 19290 Output Total 0 / 0 0 / 0 Balance 718 / 8 1929 Weight 180 lb 180 lb 12.465 oz Radiology Reports for the Last 24 Hours: CT Foot 1. There are lytic changes with cortical irregularity noted within the distal phalanges of the 2nd and 3rd toes. Findings are highly suspect for osteomyelitis. 2. Moderate soft tissue edematous changes are present along the distal aspect of the 2nd 3rd and 4th toes. 3. Bones are osteopenic. 4. There is a fracture involving the distal 5th metatarsal. - Constitutional no acute distress - *Routine Respiratory Exam Present: CTA bilaterally - *Routine Cardiovascular Exam Present: RRR - *Routine Abdominal Exam Present: soft, normoactive bowel sounds. Absent: tenderness - *Routine Extremities Exam Present: edema. Absent: cyanosis, clubbing - *Routine Skin Exam Present: warm. Absent: rash Comments: Dressings on both feet Assessment and Plan (1) Gangrene of toe of left foot Status: Acute Category: Medical Code(s): I96 - Gangrene, not elsewhere classified (2) Bilateral edema of lower extremity Status: Acute Category: Medical Code(s): R60.0 - Localized edema (3) PAD (peripheral artery disease) Status: Chronic Category: Medical Code(s): I73.9 - Peripheral vascular disease, unspecified (4) Type 2 diabetes mellitus Status: Chronic Qualifiers: Diabetes mellitus custodial insulin use: without terminal press operator use Diabetes mellitus complication status: without complication Qualified Code(s): E11.9 - Type 2 diabetes mellitus without complications Category: Medical Code(s): E11.9 - Type 2 diabetes mellitus without complications (5) HTN (hypertension) Status: Chronic Qualifiers: Hypertension type: essential hypertension Qualified Code(s): I10 - Essential (primary) hypertension Category: Medical Code(s): I10 - Essential (primary) hypertension (6) Dyslipidemia Status: Acute Category: Medical Code(s): E78.5 - Hyperlipidemia, unspecified (7) Diabetic neuropathy Status: Acute Category: Medical Code(s): E11.40 - Type 2 diabetes mellitus with diabetic neuropathy, unspecified (8) Coronary artery calcification seen on CAT scan Status: Acute Category: Medical Code(s): I25.10 - Atherosclerotic heart disease of [place] coronary artery without angina pectoris (9) Osteomyelitis Status: Acute Category: Medical Code(s): M86.9 - Osteomyelitis, unspecified - Assessment and plan all Dx Assessment and Plan for all problems:: CT scan showed osteomyelitis. Patient is scheduled for an angiogram today before any surgical procedures can be done. <Jass David - Last Filed: 04/26/21 18:27> Internal Medicine - PN: Subj *Date: 04/26/21 *Time: 18:25 Exam Vital signs and Labs for Last 24 Hours: Temp Pulse Resp BP Pulse Ox 98.3 F 78 19 140/70 96 04/26/21 16:00 04/26/21 16:00 04/26/21 16:00 04/26/21 16:00 04/26/21 16:00 Laboratory Results - last 24 hr 04/25/21 16:24: POC Glucose 190 H 04/25/21 20:28: POC Glucose 218 H 04/26/21 05:53: POC Glucose 131 H 04/26/21 11:35: POC Glucose 172 H 04/26/21 16:10: Blood
[2021-04-26 11:17] LABS: POC Glucose,Bedside 190 (70-110)
[2021-04-26 11:44] LABS: POC Glucose,Bedside 172 (70-110)
--- NOTE | 2021-04-26 15:55 | HMH.ORTHPN ---
Subjective Date: 04/26/21 Time: 15:30 Principal diagnosis: PAD, osteomyelitis Interval history: Patient states he continues to have foot and leg pain. He says did not sleep much last night. Following angiogram by Dr. Whitehead, a recommendation was made for left below-knee amputation. Therefore, Dr. David contacted me to see if patient would be suitable for a left BKA. Dr. David discussed about this with the patient and his stepdaughter who are in agreement. PN: Obj Ex Vital signs: Temp Pulse Resp BP Pulse Ox 98.1 F 80 17 144/77 H 94 L 04/26/21 12:00 04/26/21 12:00 04/26/21 12:00 04/26/21 12:00 04/26/21 12:00 - Constitutional no acute distress - Routine HEENT Exam Head: Present: normocephalic, atraumatic Eye: Present: EOMI, PERRL ENT: Present: mucous membranes moist - Routine Neck Exam Present: supple, trachea midline - Routine Respiratory Exam Present: CTA bilaterally - Routine Cardiovascular Exam Present: RRR - Routine Abdominal Exam Present: soft, normoactive bowel sounds. Absent: tenderness - Routine Extremities Exam Comments: On examination of his left foot, the second, third and fourth toes are gangrenous. There is ulceration around the base of second third and fourth toes as well as over the lateral aspect of the base of the big toe. There is diffuse swelling of the foot extending onto the ankle. He is diffusely tender over the forefoot. Decreased capillary refill noted over the big toe and over the fifth toe. He has edema involving both lower extremities. There is a superficial ulceration over the right heel. Pedal pulses are not palpable bilaterally. Decreased sensation over both feet secondary to peripheral neuropathy. - Routine Skin Exam Present: warm, normal turgor - Routine Neurological Exam Present: alert, oriented X3, moving all extremities - Routine Psychiatric Exam Present: normal affect, cooperative Progress Note: A&P (1) Gangrene of toe of left foot Status: Acute (2) Bilateral edema of lower extremity Status: Acute (3) PAD (peripheral artery disease) Status: Chronic (4) Type 2 diabetes mellitus Status: Chronic (5) HTN (hypertension) Status: Chronic (6) Dyslipidemia Status: Chronic (7) Diabetic neuropathy Status: Chronic (8) Coronary artery calcification seen on CAT scan Status: Acute (9) Osteomyelitis Status: Acute Assessment and Plan for All Diagnoses:: I have reviewed the clinical and x-ray findings with the patient and his daughter.? I have again explained to the patient that given the chronicity of the ulcer, infection including osteomyelitis, underlying vascular disease, diabetic neuropathy, failure to respond satisfactorily to IV antibiotics, a below-knee amputation is the best option available to him to hopefully get rid of the infection completely.? However, there is risk of the amputation stump not healing secondary to poor circulation requiring further surgery including a proximal amputation like an above-knee amputation. I have discussed about the procedure, risks and benefits and alternatives. The patient and her friend expressed a full understanding and wished to proceed. I told her that we would plan on doing a below-knee amputation but if the circulation is poor at this level, we would go ahead and perform an above-knee amputation. The complications discussed include but are not limited to infection, bleeding, injury to nerves and blood vessels, wound healing problems, phantom limb/pain, ring sequestrum, likely need for further surgery in future and anesthetic problems including stroke, heart attack, and .? We also discussed over the postoperative recovery and rehabilitation including prosthetic fitting.? I have told the patient that we do not have any prosthetic services at [facility] and I would be referring her to a place in [place] for this after surgery. Patient understood the risks
--- NOTE | 2021-04-26 18:47 | PC.NURSE ---
HE IS AOX4, HAS BEEN RESTING IN BED SINCE RETURNING FROM [employer] HELPER, VSS SINCE PROCEDURE, NOT REQUIRING O2 SUPPORT, TOLERATED DIET WELL, 2+ EDEMA NOTED TO BLE, DSG TO LEFT FOOT HAS REMAINED IN PLACE AND C/D/I.
[2021-04-26 20:19] LABS: POC Glucose,Bedside 151 (70-110)
[2021-04-26 20:49] LABS: POC Glucose,Bedside 239 (70-110)
[2021-04-27] VITALS (17 sets, daily range): BP systolic 107–139; BP diastolic 43–76; PULSE 76–108; RESP 12–17; TEMP 36.4–43; O2SAT 89–99; BMI 26.3
--- NOTE | 2021-04-27 05:07 | PC.NURSE ---
A&OX4. TOLERATING RA WELL. PT HAS RESTED WELL MAJORITY OF SHIFT. PT C/O PAIN TO L FOOTX1, TX PER JAN. ON REASSESSMENT PT RESTING IN BED. DRESSING TO L FOOT CDI. WARM TO TOUCH. PT HAD LARGE BM THIS SHIFT. HAS TOLERATED NPO DIET SINCE 0000. NO OTHER C/O THUS FAR, VSS WILL CONTINUE TO MONITOR.
[2021-04-27 05:30] LABS: POC Glucose,Bedside 140 (70-110)
[2021-04-27 06:30] LABS: Eosinophils # 0.1 K/mm3 (0.0-0.4); Eosinophils % 0.8 % (0.1-12.0); Hematocrit 25.5 % (42.0-52.0); Hemoglobin 8.5 g/dL (14.1-18.0); Lymphocytes # 1.8 K/mm3 (0.7-4.5); Lymphocytes % 32.7 % (10-50); Mean Corpuscular HGB Conc 33.5 g/dL (31.8-35.4); Mean Corpuscular Hemoglobin 31.7 pg (27.0-31.2); Mean Corpuscular Volume 94.4 fl (80-94); Mean Platelet Volume 7.1 fl (7.4-10.4); Monocytes # 0.6 K/mm3 (0.1-1.0); Monocytes % 11.1 % (1.7-9.3); Neutrophils % 55.3 % (37.0-80.0); Platelet Count 379 K/mm3 (142-424); Red Cell Distribution Width 17.2 % (11.5-17.5); White Blood Count 5.5 K/mm3 (4.8-10.8)
[2021-04-27 06:35] LABS: Chloride 106 mmol/L (98-107)
[2021-04-27 06:36] LABS: Potassium 4.3 mmoL/L (3.5-5.1); Sodium 139 mmol/L (136-145)
[2021-04-27 06:38] LABS: Alanine Aminotransferase 30 U/L (12-78); Aspartate Amino Transferase 74 U/L (17-59); Blood Urea Nitrogen 14 mg/dl (9-20); Creatinine Clearance Estimated 72 mL/min (50-200); Estimated Glomerular Filt Rate 81 ml/min (>60); GFR (African American) 98 ML/MIN (>60)
[2021-04-27 06:39] LABS: Albumin Level 3.4 g/dl (3.5-5.0); Albumin/Globulin Ratio 1.1 (1.1-1.8); Alkaline Phosphatase 88 U/L (38-126); Anion Gap 10.3 mEq/L (5-15); Bilirubin,Total 0.6 mg/dl (0.2-1.3); Calcium 8.8 mg/dl (8.4-10.2); Carbon Dioxide 27 mmol/L (22.0-30.0); Glucose 137 mg/dl (74-100); Total Protein,Serum 6.4 g/dl (6.3-8.2)
--- NOTE | 2021-04-27 08:50 | HMH.ACPN2 ---
<StephanyRubi - Last Filed: 04/27/21 08:50> Internal Medicine - PN: Subj *Date: 04/27/21 *Time: 08:50 Interval history: Patient states he feels about the same today. He still having pain in his foot. Dr. Mckinley has seen the patient and plans for a below the knee amputation today. Exam Vital signs and Labs for Last 24 Hours: Temp Pulse Resp BP Pulse Ox 97.9 F 83 17 126/76 97 04/27/21 08:00 04/27/21 08:00 04/27/21 08:00 04/27/21 08:00 04/27/21 08:00 Laboratory Results - last 24 hr 04/25/21 16:24: POC Glucose 190 H 04/26/21 11:35: POC Glucose 172 H 04/26/21 16:10: Blood Type O Positive, Antibody Screen Negative 04/26/21 17:15: POC Glucose 151 H 04/26/21 20:23: POC Glucose 239 H 04/27/21 05:16: POC Glucose 140 H 04/27/21 06:10: WBC 5.5 D, RBC 2.70 L, Hgb 8.5 L, Hct 25.5 L, MCV 94.4 H, MCH 31.7 H, MCHC 33.5, RDW 17.2, Plt Count 379, MPV 7.1 L, Neut % (Auto) 55.3, Lymph % (Auto) 32.7, [place] % (Auto) 11.1 H, Eos % (Auto) 0.8, Baso % (Auto) 0.0 L, Neut # (Auto) 3.0, Lymph # (Auto) 1.8, [place] # (Auto) 0.6, Eos # (Auto) 0.1, Baso # (Auto) 0.0 04/27/21 06:10: Sodium 139, Potassium 4.3, Chloride 106, Carbon Dioxide 27, Anion Gap 10.3, BUN 14, Creatinine 0.90, Estimated Creat Clear 72, Estimated GFR 81, Est GFR ( Amer) 98, Glucose 137 H, Calcium 8.8, Total Bilirubin 0.6, AST 74 H D, ALT 30, Alkaline Phosphatase 88, Total Protein 6.4, Albumin 3.4 L, Globulin 3.0, Albumin/Globulin Ratio 1.1 I & O for Last 24 hours: Intake & Output 04/24/21 04/25/21 04/26/21 04/27/21 11:59 11:59 11:59 11:59 Intake Total 718 / 8 1929 / 3620 Output Total 0 / 0 0 / 0 0 / 0 Balance 8 / 1929 / 3620 Weight 180 lb 180 lb 12.465 oz 188 lb 5 oz - Constitutional no acute distress - *Routine Respiratory Exam Present: CTA bilaterally - *Routine Cardiovascular Exam Present: RRR - *Routine Abdominal Exam Present: soft, normoactive bowel sounds. Absent: tenderness - *Routine Extremities Exam Present: edema (3+ edema bilaterally). Absent: cyanosis, clubbing - *Routine Skin Exam Comments: feet wrapped - *Routine Neurological Exam Present: alert, oriented X3 Assessment and Plan (1) Gangrene of toe of left foot Status: Acute Category: Medical Code(s): I96 - Gangrene, not elsewhere classified (2) Bilateral edema of lower extremity Status: Acute Category: Medical Code(s): R60.0 - Localized edema (3) PAD (peripheral artery disease) Status: Chronic Category: Medical Code(s): I73.9 - Peripheral vascular disease, unspecified (4) Type 2 diabetes mellitus Status: Chronic Qualifiers: Diabetes mellitus fdc insulin use: without terminal make up operator use Diabetes mellitus complication status: without complication Qualified Code(s): E11.9 - Type 2 diabetes mellitus without complications Category: Medical Code(s): E11.9 - Type 2 diabetes mellitus without complications (5) HTN (hypertension) Status: Chronic Qualifiers: Hypertension type: essential hypertension Qualified Code(s): I10 - Essential (primary) hypertension Category: Medical Code(s): I10 - Essential (primary) hypertension (6) Dyslipidemia Status: Acute Category: Medical Code(s): E78.5 - Hyperlipidemia, unspecified (7) Diabetic neuropathy Status: Acute Category: Medical Code(s): E11.40 - Type 2 diabetes mellitus with diabetic neuropathy, unspecified (8) Coronary artery calcification seen on CAT scan Status: Acute Category: Medical Code(s): I25.10 - Atherosclerotic heart disease of [place] coronary artery without angina pectoris (9) Osteomyelitis Status: Acute Category: Medical Code(s): M86.9 - Osteomyelitis, unspecified - Assessment and plan all Dx Assessment and Plan for all problems:: Patient will have surgery by Dr. Mckinley today. <Jass David - Last Filed: 04/27/21 13:08> Internal Medicine - PN: Subj *Date: 04/27/21 *Time: 13:07
--- NOTE | 2021-04-27 09:46 | SW/DCPLANNER ---
Addendum entered by [facility] 05/01/21 09:43: This patient will discharge to [facility] today SNF level of care. Patient, family, Dr David and Dr Mckinley aware of discharge plan. Addendum entered by [facility] 04/30/21 13:04: Gemma Rincon is coming to evaluate this patient at 1:30...I have informed patients daughter. Addendum entered by [facility] 04/30/21 11:40: PT evaluation has been faxed to Gemma at [facility]. Addendum entered by [facility] 04/30/21 07:40: Updated patient information has been faxed to [facility]. Addendum entered by [facility] 04/27/21 12:57: Gemma mchugh [facility] is reviewing referral. Original Note: I rounded with Dr David this morning with this patient. Patients daughter expressed an interested in [facility] at time of discharge. I have spoke with Gemma from [facility] and she stated they do currently have male beds available. I have faxed patient information to Gemma at [facility] this morning. Patient will have surgery today and will not be ready for discharge until the first of next week. I will keep in touch with patients family, Cj Rincon and Dr David.
[2021-04-27 10:49] LABS: POC Glucose,Bedside 163 (70-110)
--- NOTE | 2021-04-27 14:20 | DIET.NUTRFU ---
Addendum entered by Makenna Oakes 04/30/21 14:46: PO intakes 75%, BG avg. 160. Has not had a BM post op, started miralax/stool softener today. No further nutritional concerns at this time, continuing to monitor. Original Note: PO intakes 75%, BG moderate- avg. 160. NPO for surgery today. Pt has been provided with diet education for DM. Continuing to monitor.
--- NOTE | 2021-04-27 15:57 | PC.NURSE ---
Pt down for procedure @ this time
--- NOTE | 2021-04-27 17:49 | SUR.OPER ---
171-pt's daughter in law (family present in waiting during surgery) updated at this time per Dr. Mckinley and [place],RN, see operative note for details, will continue to update as needed
--- NOTE | 2021-04-27 17:54 | PC.NURSE ---
Pt is A&Ox4. Pt sitting on edge of bed majority of shift. Pt refuses to lay down/turn. Pt has had c/o left foot pain rated as a 5/10. Pt states pain is greater if foot is exposed to air or laying on bed. Dressing on left foot has remained in place, is clean, dry. Pt has bilateral 2+ pitting edema on lower legs. Pt tolerated NPO diet well. Pt left for surgery at 1555 for left BKA. Pt currently in surgery. Will continue to monitor.
--- NOTE | 2021-04-27 18:24 | SUR.OPER ---
182-family updated at this time
[2021-04-27 19:46] LABS: POC Glucose,Bedside 153 (70-110)
--- NOTE | 2021-04-27 19:47 | HMH.ANESCL ---
[facility] Anesthesia Checklist - Patient Identification Patient Identification: Arm Band - Structural Data Admitted From: Home Planned Operative Procedure/s: Left BKA Consent for Planned Operative Procedure(s) Verified: Yes Verified Documents: Surgical Consent, History and Physical - NPO Status Verified Time NPO: 00:00 - Additional verifications Anesthesia Reactions: No - Airway Assessment C-Spine Mobility Assessed: Yes TMJ Mobility Assessed: Yes Dentition: Poor Dentition - Neurological Assessment Level of Consciousness: Awake, Alert - Anesthesia Plan Anesthesia Risk discussed: Yes Anesthesia Plan: Verified ASA Class: III Anesthesia Type: General [facility] History Medical History: Reports:: BPH, Congenital Heart Disease, Diabetes Mellitus Type 2, Gall Bladder Disease, Hyperlipidemia, Hypertension, Kidney Stones, Peripheral Artery Disease, Ulcer Denies:: Cancer, Diabetes Mellitus Type 1, Internal Pacemaker, Lung Disease, MRSA, Seizures *Have you ever received a pneumonia vaccine?: Yes *Have you received a flu vaccine this season?: Yes Other Medical History: Reports: Anemia, Arthritis, Cataracts, Glaucoma Anesthesia experience/problems:: None Laterality Cases: Right: Arthroscopy Knee, Other, Bilateral: Cataract, Tonsillectomy Other Surgeries: Yes: Angiogram, Angioplasty (left leg), Cholecystectomy, Colonoscopy, EGD, Other. No: Pacemaker Amputation: No Fractures: No - *Social History Last grade of school completed: High school graduate Smoking Status: Never smoker Alcohol Intake: never Alcohol Intake Frequency:: other Substance Use Type: denies use *Occupational Status:: retired Housing: house Household Members: none *Travel in the last 8 weeks: None Family Hx:: Diabetes, Other (heart disease)
--- NOTE | 2021-04-27 19:48 | P.PN_ITS ---
[facility] Anesthesia Record Part I Intake, IV Amount: 1,600 Estimated blood loss (mL): 50 Urine output (mL): 0 Blood Pressure: 107/44 SaO2: 97 Pulse Rate: 108 Respiratory Rate: 12 Temperature: 98.1 F Patient is:: Awake, Drowsy Stable to PACU at:: 19:45
[2021-04-27 19:55] LABS: Basophils % 0.1 % (0.1-2.0); Eosinophils % 0.6 % (0.1-12.0); Lymphocytes # 1.3 K/mm3 (0.7-4.5); Lymphocytes % 22.2 % (10-50); Mean Corpuscular HGB Conc 33.2 g/dL (31.8-35.4); Mean Corpuscular Hemoglobin 31.2 pg (27.0-31.2); Mean Corpuscular Volume 93.9 fl (80-94); Mean Platelet Volume 7.8 fl (7.4-10.4); Monocytes # 0.4 K/mm3 (0.1-1.0); Monocytes % 6.9 % (1.7-9.3); Neutrophils # 4.1 K/mm3 (1.8-7.8); Neutrophils % 70.3 % (37.0-80.0); Platelet Count 367 K/mm3 (142-424); Red Blood Count 2.52 M/mm3 (4.60-6.20); Red Cell Distribution Width 17.6 % (11.5-17.5); White Blood Count 5.8 K/mm3 (4.8-10.8)
[2021-04-27 20:01] LABS: Hematocrit 23.7 % (42.0-52.0); Hemoglobin 7.9 g/dL (14.1-18.0)
--- NOTE | 2021-04-27 20:24 | PC.NURSE ---
1938-checked fsbs with results of 153 1943-labratory at bedside drawing cbc 2001-label printer called with h/h results 2004-notified Dr Sepulveda of critical H/H results-Dr Sepulveda acknowledged and ordered for patient to not have blood transfusion today, 2 units PRBCs remain on hold for pt at this time, detailed report called to MAITE Carlos, notified of Dr. Sepulveda's orders 2007-pt transported to 2nd floor room 209 via hospital bed w/bi rails up and left in care of MAITE Carlos with bed locked in lowest position, vss, pt stable
--- NOTE | 2021-04-27 20:39 | HMH.OPNOTE ---
Date of procedure: 04/27/21 Pre-op Diagnosis:: 1. Infected diabetic gangrene, left foot 2. 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 He has been having problems with his left foot for over a year and was under care of Dr. Gresham for the last few months to manage the problem nonoperatively. However, he failed to improve and some of the toes of his left foot became gangrenous. Patient was admitted and cardiology was consulted to see if there is any scope for revascularization procedures. Evaluation by Dr. Whitehead showed poor circulation below the knee secondary to small vessel vasculopathy below the knee. Recommendation for left BKA was made by Dr. Whitehead as he feels patient would not heal from a distal amputation like a transmetatarsal ampuation. I had a detailed discussion with the patient, his daughter and also with PCP Dr. David. Following this patient decided to proceed with a left below-knee amputation. I have discussed about the procedure, risks and benefits and alternatives. The patient and his daughter expressed a full understanding and wished to proceed. The complications discussed include but are not limited to infection, bleeding, injury to nerves and blood vessels, wound healing problems, prolonged pain and swelling, tender scar, further infection requiring oral or IV antibiotics, phantom pain, CRPS (complex regional pain syndrome- pain, sensory and temperature changes, swelling and stiffness), incomplete relief of pain, incomplete return of function, DVT, PE, ring sequestrum, likely need for further surgery in future including a more proximal amputation and anesthetic problems including stroke, heart attack, and . I have discussed how there is a small but real possibility of loss of use of the limb, loss of the limb (proximal amputation) or loss of life itself. I have also explained how additional surgery may be required if there are any complications. We have also discussed the postoperative management, recovery and rehabilitation and the likely need for physical therapy, prosthetic limb fitting, the possibility of stiffness, osteomyelitis, chronic pain and we've also discussed the option of nonsurgical treatment. All their questions were answered and they verbalized a good understanding. Patient desires to proceed with the below knee amputation of the left lower extremity. Patient understood the risks, agreed to proceed with surgery, signed the consent form and no guarantees or assurances were given or implied. Please refer to inpatient notes for full details. Operative findings:: Extensive soft tissue edema and some superficial skin ulcerations over the knee and leg. The muscles, mainly the posterior compartment muscles, are poorly perfused and ischemic; the posterior skin flap is also very edematous with poor circulation at the level of the below knee amputation. No evidence of any infection noted at the level of the BKA. Tension-free wound closure was obtained. The amputated foot was infected with ischemic/gangrenous toes as was noted preoperatively. There was minimal bleeding during surgery. Operative note:: On the day of surgery the patient was met in the preoperative area and positively identified. The limb was marked and initialed by me. Physical examination was performed and chart updated. Prior to surgery patient had appropriate medical and cardiac clearances; the cardiology recommendation was to
[2021-04-27 21:06] LABS: POC Glucose,Bedside 146 (70-110)
[2021-04-28] VITALS (10 sets, daily range): BP systolic 116–134; BP diastolic 48–72; PULSE 79–96; RESP 16–20; TEMP 36.6–37.1; O2SAT 96–97; BMI 25.3
--- NOTE | 2021-04-28 03:48 | PC.NURSE ---
Pt has c/o some discomfort this shift to LLE. MD Mckinley consulted due to pain not relieved. New orders received and carried out. DSG to LLE intact. STEFFANY drain in place with sanguineous drainage noted. 30 ml output thus far. VS have remained stable. Pt is currently on RA. Ice pack in place. LLE elevated on pillows. SCD to RLE. Pt tolerating well. Polymem applied to stage 1 area on RLE and (R) butocks. No other concerns at this time. Will continue to monitor.
[2021-04-28 06:00] LABS: POC Glucose,Bedside 116 (70-110)
[2021-04-28 06:02] LABS: Basophils % 0.1 % (0.1-2.0); Eosinophils % 0.5 % (0.1-12.0); Lymphocytes # 1.4 K/mm3 (0.7-4.5); Lymphocytes % 24.3 % (10-50); Mean Corpuscular HGB Conc 33.1 g/dL (31.8-35.4); Mean Corpuscular Hemoglobin 31.6 pg (27.0-31.2); Mean Corpuscular Volume 95.4 fl (80-94); Mean Platelet Volume 7.4 fl (7.4-10.4); Monocytes # 0.6 K/mm3 (0.1-1.0); Monocytes % 9.8 % (1.7-9.3); Neutrophils # 3.7 K/mm3 (1.8-7.8); Neutrophils % 65.3 % (37.0-80.0); Platelet Count 388 K/mm3 (142-424); Red Cell Distribution Width 17.4 % (11.5-17.5); White Blood Count 5.6 K/mm3 (4.8-10.8)
[2021-04-28 06:05] LABS: Hematocrit 23.8 % (42.0-52.0); Hemoglobin 7.9 g/dL (14.1-18.0)
--- NOTE | 2021-04-28 06:10 | PC.NURSE ---
Critical lab value H&H of 7.9/23.8 reported to MD Mckinley. Hold transfusion now.
[2021-04-28 06:14] LABS: Chloride 107 mmol/L (98-107)
[2021-04-28 06:15] LABS: Potassium 3.7 mmoL/L (3.5-5.1); Sodium 139 mmol/L (136-145)
[2021-04-28 06:18] LABS: Anion Gap 7.7 mEq/L (5-15); Blood Urea Nitrogen 9 mg/dl (9-20); Calcium 8.2 mg/dl (8.4-10.2); Carbon Dioxide 28 mmol/L (22.0-30.0); Creatinine Clearance Estimated 70 mL/min (50-200); Estimated Glomerular Filt Rate 109 ml/min (>60); GFR (African American) 132 ML/MIN (>60); Glucose 104 mg/dl (74-100)
--- NOTE | 2021-04-28 08:56 | HMH.ACPN2 ---
<Rubi Hammond - Last Filed: 04/28/21 08:56> Internal Medicine - PN: Subj *Date: 04/28/21 *Time: 08:56 Interval history: Patient had left BKA yesterday performed by Dr. Mckinley. He states he was able to sleep last night but has been uncomfortable this morning due to pain in the leg. Nursing is giving him some Toradol now. He has been getting morphine as well. He states he was able to eat this morning. He denies any other pain. Exam Vital signs and Labs for Last 24 Hours: Temp Pulse Resp BP Pulse Ox 98.2 F 96 H 20 119/51 L 96 04/28/21 07:58 04/28/21 07:58 04/28/21 07:58 04/28/21 07:58 04/28/21 07:58 Laboratory Results - last 24 hr 04/26/21 16:10: Crossmatch (AHG) See Detail 04/27/21 10:31: POC Glucose 163 H 04/27/21 17:15: Blood Type O Positive, Antibody Screen Negative, Crossmatch (AHG) See Detail 04/27/21 19:38: POC Glucose 153 H 04/27/21 19:48: WBC 5.8, RBC 2.52 L, Hgb 7.9 L*, Hct 23.7 L*, MCV 93.9, MCH 31.2, MCHC 33.2, RDW 17.6 H, Plt Count 367, MPV 7.8, Neut % (Auto) 70.3, Lymph % (Auto) 22.2, [place] % (Auto) 6.9, Eos % (Auto) 0.6, Baso % (Auto) 0.1, Neut # (Auto) 4.1, Lymph # (Auto) 1.3, [place] # (Auto) 0.4, Eos # (Auto) 0.0, Baso # (Auto) 0.0 04/27/21 20:33: POC Glucose 146 H 04/28/21 05:48: WBC 5.6, RBC 2.50 L, Hgb 7.9 L*, Hct 23.8 L*, MCV 95.4 H, MCH 31.6 H, MCHC 33.1, RDW 17.4, Plt Count 388, MPV 7.4, Neut % (Auto) 65.3, Lymph % (Auto) 24.3, [place] % (Auto) 9.8 H, Eos % (Auto) 0.5, Baso % (Auto) 0.1, Neut # (Auto) 3.7, Lymph # (Auto) 1.4, [place] # (Auto) 0.6, Eos # (Auto) 0.0, Baso # (Auto) 0.0 04/28/21 05:48: Sodium 139, Potassium 3.7, Chloride 107, Carbon Dioxide 28, Anion Gap 7.7, BUN 9 D, Creatinine 0.70 D, Estimated Creat Clear 70, Estimated GFR 109, Est GFR ( Amer) 132 D, Glucose 104 H D, Calcium 8.2 L 04/28/21 05:51: POC Glucose 116 H I & O for Last 24 hours: Intake & Output 04/25/21 04/26/21 04/27/21 04/28/21 11:59 11:59 11:59 11:59 Intake Total 718 / 718 1930 / 1930 3621 / 3621 2363 / 2363 Output Total 0 / 0 0 / 0 0 / 0 730 / 730 Balance 718 / 718 1930 / 1930 3621 / 3621 1633 / 1633 Weight 180 lb 180 lb 12.465 oz 188 lb 5 oz 181 lb 3 oz - Constitutional no acute distress - *Routine Respiratory Exam Present: CTA bilaterally - *Routine Cardiovascular Exam Present: RRR - *Routine Abdominal Exam Present: soft, normoactive bowel sounds. Absent: tenderness - *Routine Extremities Exam Present: edema (Less edema of the right lower extremity, bandage in place on the left BKA). Absent: cyanosis, clubbing - *Routine Neurological Exam Present: alert, oriented X3 Assessment and Plan (1) Gangrene of toe of left foot Status: Acute Category: Medical Code(s): I96 - Gangrene, not elsewhere classified (2) Bilateral edema of lower extremity Status: Acute Category: Medical Code(s): R60.0 - Localized edema (3) PAD (peripheral artery disease) Status: Chronic Category: Medical Code(s): I73.9 - Peripheral vascular disease, unspecified (4) Type 2 diabetes mellitus Status: Chronic Qualifiers: Diabetes mellitus buttermaker insulin use: without usp use Diabetes mellitus complication status: without complication Qualified Code(s): E11.9 - Type 2 diabetes mellitus without complications Category: Medical Code(s): E11.9 - Type 2 diabetes mellitus without complications (5) HTN (hypertension) Status: Chronic Qualifiers: Hypertension type: essential hypertension Qualified Code(s): I10 - Essential (primary) hypertension Category: Medical Code(s): I10 - Essential (primary) hypertension (6) Dyslipidemia Status: Acute Category: Medical Code(s): E78.5 - Hyperlipidemia, unspecified (7) Diabetic neuropathy Status: Acute Category: Medical Code(s): E11.40 - Type 2 diabetes mellitus with diabetic neuropathy, unspecified (8) Coronary artery calcification seen on CAT scan Status: Acute Category: Medical Code(s): I25.10 - [place]
--- NOTE | 2021-04-28 09:23 | HMH.ACPN ---
Internal Medicine - PN: Subj *Date: 04/28/21 *Time: 09:23 Exam Vital signs and Labs for Last 24 Hours: Temp Pulse Resp BP Pulse Ox 98.2 F 96 H 20 119/51 L 96 04/28/21 07:58 04/28/21 07:58 04/28/21 07:58 04/28/21 07:58 04/28/21 07:58 Laboratory Results - last 24 hr 04/26/21 16:10: Crossmatch (AHG) See Detail 04/27/21 10:31: POC Glucose 163 H 04/27/21 17:15: Blood Type O Positive, Antibody Screen Negative, Crossmatch (AHG) See Detail 04/27/21 19:38: POC Glucose 153 H 04/27/21 19:48: WBC 5.8, RBC 2.52 L, Hgb 7.9 L*, Hct 23.7 L*, MCV 93.9, MCH 31.2, MCHC 33.2, RDW 17.6 H, Plt Count 367, MPV 7.8, Neut % (Auto) 70.3, Lymph % (Auto) 22.2, [place] % (Auto) 6.9, Eos % (Auto) 0.6, Baso % (Auto) 0.1, Neut # (Auto) 4.1, Lymph # (Auto) 1.3, [place] # (Auto) 0.4, Eos # (Auto) 0.0, Baso # (Auto) 0.0 04/27/21 20:33: POC Glucose 146 H 04/28/21 05:48: WBC 5.6, RBC 2.50 L, Hgb 7.9 L*, Hct 23.8 L*, MCV 95.4 H, MCH 31.6 H, MCHC 33.1, RDW 17.4, Plt Count 388, MPV 7.4, Neut % (Auto) 65.3, Lymph % (Auto) 24.3, [place] % (Auto) 9.8 H, Eos % (Auto) 0.5, Baso % (Auto) 0.1, Neut # (Auto) 3.7, Lymph # (Auto) 1.4, [place] # (Auto) 0.6, Eos # (Auto) 0.0, Baso # (Auto) 0.0 04/28/21 05:48: Sodium 139, Potassium 3.7, Chloride 107, Carbon Dioxide 28, Anion Gap 7.7, BUN 9 D, Creatinine 0.70 D, Estimated Creat Clear 70, Estimated GFR 109, Est GFR ( Amer) 132 D, Glucose 104 H D, Calcium 8.2 L 04/28/21 05:51: POC Glucose 116 H I & O for Last 24 hours: Intake & Output 04/25/21 04/26/21 04/27/21 04/28/21 23:59 23:59 23:59 23:59 Intake Total 1198 / 1198 4330 / 4330 2341 / 2341 763 / 763 Output Total 0 / 0 380 / 380 350 / 350 Balance 1198 / 1198 4330 / 4330 1960 / 1960 413 / 413 Weight 82 kg 85.417 kg 82.185 kg Assessment and Plan (1) Gangrene of toe of left foot Status: Acute Category: Medical Code(s): I96 - Gangrene, not elsewhere classified (2) Bilateral edema of lower extremity Status: Acute Category: Medical Code(s): R60.0 - Localized edema (3) PAD (peripheral artery disease) Status: Chronic Category: Medical Code(s): I73.9 - Peripheral vascular disease, unspecified (4) Type 2 diabetes mellitus Status: Chronic Qualifiers: Diabetes mellitus poem writer insulin use: without prison use Diabetes mellitus complication status: without complication Qualified Code(s): E11.9 - Type 2 diabetes mellitus without complications Category: Medical Code(s): E11.9 - Type 2 diabetes mellitus without complications (5) HTN (hypertension) Status: Chronic Qualifiers: Hypertension type: essential hypertension Qualified Code(s): I10 - Essential (primary) hypertension Category: Medical Code(s): I10 - Essential (primary) hypertension (6) Dyslipidemia Status: Acute Category: Medical Code(s): E78.5 - Hyperlipidemia, unspecified (7) Diabetic neuropathy Status: Acute Category: Medical Code(s): E11.40 - Type 2 diabetes mellitus with diabetic neuropathy, unspecified (8) Coronary artery calcification seen on CAT scan Status: Acute Category: Medical Code(s): I25.10 - Atherosclerotic heart disease of [place] coronary artery without angina pectoris (9) Osteomyelitis Status: Acute Category: Medical Code(s): M86.9 - Osteomyelitis, unspecified The patient's infection will respond to the chosen ABx?: Yes Is the patient receiving the right drug, dose, and route?: Yes Could a more targeted ABx be ordered?: No
[2021-04-28 11:22] LABS: POC Glucose,Bedside 136 (70-110)
[2021-04-28 16:24] LABS: POC Glucose,Bedside 151 (70-110)
--- NOTE | 2021-04-28 16:25 | PC.NURSE ---
Pt has been pleasant this shift. Pt has c/o LLE pain x1 this shift, pt medicated w/ PRN toradol and stated favorable results during reassessment. Pt has urinated per urinal this shift, urine is clear and dark yellow in color. Pt has used an ice pack on LLE at times this shift. Dressing and STEFANO wrap remains CDI. SCD remains on LLE. STEFFANY drain emptied at this time w/ 40 mL of serosaing
--- NOTE | 2021-04-28 16:29 | PC.NURSE ---
Pt has been pleasant this shift. Pt has c/o LLE pain x1 this shift, pt medicated w/ PRN toradol and stated favorable results during reassessment. Pt has urinated per urinal this shift, urine is clear and dark yellow in color. Pt has used an ice pack on LLE at times this shift. Dressing and STEFANO wrap remains CDI. SCD remains on LLE. STEFFANY drain emptied at this time w/ 40 mL of serosang drainage. Pt has used IS while awake this shift, IS 2500 @ best. No other acute changes or complaints at this time. Will continue to monitor.
--- NOTE | 2021-04-28 18:59 | HMH.ORTHPN ---
Subjective Date: 04/28/21 Time: 18:00 Principal diagnosis: PAD, osteomyelitis Interval history: Patient is status post LEFT below-knee amputation post op day #1. Patient is sitting up in the bed and says is doing well. Patient reports some pain in his right lower extremity but has only minimal pain in the left residual limb; he says it's well-controlled with as needed medication. No history of any nausea or vomiting. No history of any cough, chest pain, shortness of breath or palpitations. Patient says he is eating and drinking well. Patient says he is feeling better than the previous few days. PN: Obj Ex Vital signs: Temp Pulse Resp BP Pulse Ox 98.3 F 90 18 134/64 97 04/28/21 15:35 04/28/21 15:35 04/28/21 15:35 04/28/21 15:35 04/28/21 15:35 Narrative: Laboratory Results - last 24 hr 04/27/21 19:38: POC Glucose 153 H 04/27/21 19:48: WBC 5.8, RBC 2.52 L, Hgb 7.9 L*, Hct 23.7 L*, MCV 93.9, MCH 31.2, MCHC 33.2, RDW 17.6 H, Plt Count 367, MPV 7.8, Neut % (Auto) 70.3, Lymph % (Auto) 22.2, [place] % (Auto) 6.9, Eos % (Auto) 0.6, Baso % (Auto) 0.1, Neut # (Auto) 4.1, Lymph # (Auto) 1.3, [place] # (Auto) 0.4, Eos # (Auto) 0.0, Baso # (Auto) 0.0 04/27/21 20:33: POC Glucose 146 H 04/28/21 05:48: WBC 5.6, RBC 2.50 L, Hgb 7.9 L*, Hct 23.8 L*, MCV 95.4 H, MCH 31.6 H, MCHC 33.1, RDW 17.4, Plt Count 388, MPV 7.4, Neut % (Auto) 65.3, Lymph % (Auto) 24.3, [place] % (Auto) 9.8 H, Eos % (Auto) 0.5, Baso % (Auto) 0.1, Neut # (Auto) 3.7, Lymph # (Auto) 1.4, [place] # (Auto) 0.6, Eos # (Auto) 0.0, Baso # (Auto) 0.0 04/28/21 05:48: Sodium 139, Potassium 3.7, Chloride 107, Carbon Dioxide 28, Anion Gap 7.7, BUN 9 D, Creatinine 0.70 D, Estimated Creat Clear 70, Estimated GFR 109, Est GFR ( Amer) 132 D, Glucose 104 H D, Calcium 8.2 L 04/28/21 05:51: POC Glucose 116 H 04/28/21 11:15: POC Glucose 136 H 04/28/21 16:12: POC Glucose 151 H Exam General appearance: alert, active, awake, no acute distress. Right lower extremity is less edematous today. Cardiovascular: regular rate & rhythm Respiratory: No respiratory distress noted, speaks in full sentences ABD: soft and non tender Neuro: alert, awake, oriented x 3 Psych: Appropriate mood and affect On examination of the left residual limb, the dressings are clean, dry and intact. No soakage or strikethrough noted. The sugar tong splint is in place. The surgical drain is in place and total there has been 90 cc of drainage since surgery. Progress Note: A&P (1) Gangrene of toe of left foot Status: Acute (2) Bilateral edema of lower extremity Status: Acute (3) PAD (peripheral artery disease) Status: Chronic (4) Type 2 diabetes mellitus Status: Chronic (5) HTN (hypertension) Status: Chronic (6) Dyslipidemia Status: Acute (7) Diabetic neuropathy Status: Acute (8) Coronary artery calcification seen on CAT scan Status: Acute (9) Osteomyelitis Status: Acute (10) Status post below-knee amputation of left lower extremity Status: Acute Assessment and Plan for All Diagnoses:: I have reviewed the operative findings and procedure performed with the patient and family. I have told the patient that the tissue were very edematous and appeared ischemic at the time of surgery. I have also told him that there is significant chance that the wound may not heal or it may get infected, in which case he would need further surgery in the form of an above-knee amputation. Continue elevation, icing, as needed pain medication and antibiotics. Continue medical management as per Dr. David.
[2021-04-28 21:49] LABS: POC Glucose,Bedside 139 (70-110)
[2021-04-29] VITALS: BP 108/69; PULSE 90; RESP 18; TEMP 36.6; O2SAT 97
--- NOTE | 2021-04-29 03:18 | PC.NURSE ---
Patient complained of consistent pain throughout shift requiring around the clock pain medication. Patient slept intermittently throughout shift for short periods but was restless because of pain at times. Patient had good urine output throughout shift. VSS. Patient voiced no further concerns to RN.
[2021-04-29 04:00] VITALS: BP 141/68; PULSE 85; RESP 20; TEMP 37.1; O2SAT 98
[2021-04-29 05:13] VITALS: BMI 25.4
[2021-04-29 06:09] LABS: Basophils % 0.1 % (0.1-2.0); Eosinophils % 0.4 % (0.1-12.0); Lymphocytes # 2.1 K/mm3 (0.7-4.5); Lymphocytes % 36.1 % (10-50); Mean Corpuscular HGB Conc 32.7 g/dL (31.8-35.4); Mean Corpuscular Hemoglobin 31.3 pg (27.0-31.2); Mean Corpuscular Volume 95.7 fl (80-94); Mean Platelet Volume 7.5 fl (7.4-10.4); Monocytes # 0.6 K/mm3 (0.1-1.0); Monocytes % 10.8 % (1.7-9.3); Neutrophils % 52.5 % (37.0-80.0); Platelet Count 359 K/mm3 (142-424); Red Cell Distribution Width 17.3 % (11.5-17.5); White Blood Count 5.7 K/mm3 (4.8-10.8)
[2021-04-29 06:26] LABS: Hematocrit 23.9 % (42.0-52.0); Hemoglobin 7.8 g/dL (14.1-18.0)
--- NOTE | 2021-04-29 07:13 | PC.NURSE ---
notified of critical lab values H&H 7.8/23.9
[2021-04-29 07:37] LABS: POC Glucose,Bedside 107 (70-110)
[2021-04-29 08:00] VITALS: BP 131/58; PULSE 90; RESP 17; TEMP 36.9; O2SAT 95
--- NOTE | 2021-04-29 08:28 | HMH.ACPN2 ---
Internal Medicine - PN: Subj *Date: 04/29/21 *Time: 08:28 Interval history: Did not rest as well last night due to pain in his stump and he is complaining of some spasm around his knee. He does get relief with pain medicine and is taking it on schedule. Appetite is fair. No nausea or vomiting. He has not been out of bed. No bowel movement. Exam Vital signs and Labs for Last 24 Hours: Temp Pulse Resp BP Pulse Ox 98.4 F 90 17 131/58 L 95 04/29/21 08:00 04/29/21 08:00 04/29/21 08:00 04/29/21 08:00 04/29/21 08:00 Laboratory Results - last 24 hr 04/28/21 11:15: POC Glucose 136 H 04/28/21 16:12: POC Glucose 151 H 04/28/21 19:58: POC Glucose 139 H 04/29/21 05:46: POC Glucose 107 04/29/21 05:55: WBC 5.7, RBC 2.50 L, Hgb 7.8 L*, Hct 23.9 L*, MCV 95.7 H, MCH 31.3 H, MCHC 32.7, RDW 17.3, Plt Count 359, MPV 7.5, Neut % (Auto) 52.5, Lymph % (Auto) 36.1, [place] % (Auto) 10.8 H, Eos % (Auto) 0.4, Baso % (Auto) 0.1, Neut # (Auto) 3.0, Lymph # (Auto) 2.1, [place] # (Auto) 0.6, Eos # (Auto) 0.0, Baso # (Auto) 0.0 I & O for Last 24 hours: Intake & Output 04/26/21 04/27/21 04/28/21 04/29/21 11:59 11:59 11:59 11:59 Intake Total 1929 3621 / 3621 2363 / 2363 3043 / 3043 Output Total 0 / 0 0 / 0 730 / 730 1515 / 1515 Balance 1929 3621 / 3621 1633 / 1633 1528 / 1528 Weight 180 lb 12.465 oz 188 lb 5 oz 181 lb 3 oz 182 lb Narrative: He is alert and oriented. Color is pale. No respiratory distress. Lungs are clear anteriorly. Heart is regular. Abdomen soft and nondistended with no tenderness. Edema in the right leg has improved. Dressing on his stump is clean and dry. Assessment and Plan (1) Gangrene of toe of left foot Status: Acute Category: Medical Code(s): I96 - Gangrene, not elsewhere classified (2) Bilateral edema of lower extremity Status: Acute Category: Medical Code(s): R60.0 - Localized edema (3) PAD (peripheral artery disease) Status: Chronic Category: Medical Code(s): I73.9 - Peripheral vascular disease, unspecified (4) Type 2 diabetes mellitus Status: Chronic Qualifiers: Diabetes mellitus exterminator helper insulin use: without penitentiary use Diabetes mellitus complication status: without complication Qualified Code(s): E11.9 - Type 2 diabetes mellitus without complications Category: Medical Code(s): E11.9 - Type 2 diabetes mellitus without complications (5) HTN (hypertension) Status: Chronic Qualifiers: Hypertension type: essential hypertension Qualified Code(s): I10 - Essential (primary) hypertension Category: Medical Code(s): I10 - Essential (primary) hypertension (6) Dyslipidemia Status: Acute Category: Medical Code(s): E78.5 - Hyperlipidemia, unspecified (7) Diabetic neuropathy Status: Acute Category: Medical Code(s): E11.40 - Type 2 diabetes mellitus with diabetic neuropathy, unspecified (8) Coronary artery calcification seen on CAT scan Status: Acute Category: Medical Code(s): I25.10 - Atherosclerotic heart disease of [place] coronary artery without angina pectoris (9) Osteomyelitis Status: Acute Category: Medical Code(s): M86.9 - Osteomyelitis, unspecified (10) Status post below-knee amputation of left lower extremity Status: Acute Category: Surgical Code(s): Z89.512 - Acquired absence of left leg below knee - Assessment and plan all Dx Assessment and Plan for all problems:: Postop day #2. Hemoglobin is stable at 7.8. Physical therapy orders per Dr. Mckinley
[2021-04-29 11:05] VITALS: BP 125/52; PULSE 69; RESP 18; TEMP 36.8; O2SAT 97
--- NOTE | 2021-04-29 11:28 | P.PN_ITS ---
Internal Medicine - PN: Subj *Date: 04/29/21 *Time: 11:28 Exam Vital signs and Labs for Last 24 Hours: Temp Pulse Resp BP Pulse Ox 98.2 F 69 18 125/52 L 97 04/29/21 11:05 04/29/21 11:05 04/29/21 11:05 04/29/21 11:05 04/29/21 11:05 Laboratory Results - last 24 hr 04/28/21 16:12: POC Glucose 151 H 04/28/21 19:58: POC Glucose 139 H 04/29/21 05:46: POC Glucose 107 04/29/21 05:55: WBC 5.7, RBC 2.50 L, Hgb 7.8 L*, Hct 23.9 L*, MCV 95.7 H, MCH 31.3 H, MCHC 32.7, RDW 17.3, Plt Count 359, MPV 7.5, Neut % (Auto) 52.5, Lymph % (Auto) 36.1, [place] % (Auto) 10.8 H, Eos % (Auto) 0.4, Baso % (Auto) 0.1, Neut # (Auto) 3.0, Lymph # (Auto) 2.1, [place] # (Auto) 0.6, Eos # (Auto) 0.0, Baso # (Auto) 0.0 I & O for Last 24 hours: Intake & Output 04/26/21 04/27/21 04/28/21 04/29/21 23:59 23:59 23:59 23:59 Intake Total 4330 / 4330 2341 / 2341 2095 / 2215 1711 / 1711 Output Total 0 / 0 380 / 380 1150 / 1150 715 / 715 Balance 4330 / 4330 1960 / 1960 945 / 1065 996 / 996 Weight 85.417 kg 82.185 kg 82.554 kg Assessment and Plan (1) Gangrene of toe of left foot Status: Acute Category: Medical Code(s): I96 - Gangrene, not elsewhere classified (2) Bilateral edema of lower extremity Status: Acute Category: Medical Code(s): R60.0 - Localized edema (3) PAD (peripheral artery disease) Status: Chronic Category: Medical Code(s): I73.9 - Peripheral vascular disease, unspecified (4) Type 2 diabetes mellitus Status: Chronic Qualifiers: Diabetes mellitus longterm insulin use: without longterm use Diabetes mellitus complication status: without complication Qualified Code(s): E11.9 - Type 2 diabetes mellitus without complications Category: Medical Code(s): E11.9 - Type 2 diabetes mellitus without complications (5) HTN (hypertension) Status: Chronic Qualifiers: Hypertension type: essential hypertension Qualified Code(s): I10 - Essential (primary) hypertension Category: Medical Code(s): I10 - Essential (primary) hypertension (6) Dyslipidemia Status: Acute Category: Medical Code(s): E78.5 - Hyperlipidemia, unspecified (7) Diabetic neuropathy Status: Acute Category: Medical Code(s): E11.40 - Type 2 diabetes mellitus with diabetic neuropathy, unspecified (8) Coronary artery calcification seen on CAT scan Status: Acute Category: Medical Code(s): I25.10 - Atherosclerotic heart disease of [place] coronary artery without angina pectoris (9) Osteomyelitis Status: Acute Category: Medical Code(s): M86.9 - Osteomyelitis, unspecified (10) Status post below-knee amputation of left lower extremity Status: Acute Category: Surgical Code(s): Z89.512 - Acquired absence of left leg below knee The patient's infection will respond to the chosen ABx?: Yes Is the patient receiving the right drug, dose, and route?: Yes Could a more targeted ABx be ordered?: No ( CONTINUING WITH DAPTO POST BKA.)
[2021-04-29 11:42] LABS: POC Glucose,Bedside 166 (70-110)
[2021-04-29 15:15] VITALS: BP 129/50; PULSE 92; RESP 20; TEMP 36.9; O2SAT 98
[2021-04-29 16:53] LABS: POC Glucose,Bedside 233 (70-110)
[2021-04-29 20:00] VITALS: BP 122/61; PULSE 85; RESP 18; TEMP 36.9; O2SAT 96
[2021-04-29 20:08] LABS: POC Glucose,Bedside 153 (70-110)
--- NOTE | 2021-04-29 22:23 | HMH.ORTHPN ---
Subjective Date: 04/29/21 Time: 22:00 Principal diagnosis: PAD, osteomyelitis Interval history: Patient is status post LEFT below-knee amputation post op day #2. Patient is sitting up in the bed and says he is doing well. Patient reports only minimal pain in the left residual limb; he says it's well-controlled with as needed medication. He also reports some gaseous distention and abdominal cramps. No history of any nausea or vomiting. No history of any cough, chest pain, shortness of breath or palpitations. Patient says he is eating and drinking well. PN: Obj Ex Vital signs: Temp Pulse Resp BP Pulse Ox 98.5 F 85 18 122/61 96 04/29/21 20:00 04/29/21 20:00 04/29/21 20:00 04/29/21 20:00 04/29/21 20:00 Narrative: Laboratory Results - last 24 hr 04/29/21 05:46: POC Glucose 107 04/29/21 05:55: WBC 5.7, RBC 2.50 L, Hgb 7.8 L*, Hct 23.9 L*, MCV 95.7 H, MCH 31.3 H, MCHC 32.7, RDW 17.3, Plt Count 359, MPV 7.5, Neut % (Auto) 52.5, Lymph % (Auto) 36.1, [place] % (Auto) 10.8 H, Eos % (Auto) 0.4, Baso % (Auto) 0.1, Neut # (Auto) 3.0, Lymph # (Auto) 2.1, [place] # (Auto) 0.6, Eos # (Auto) 0.0, Baso # (Auto) 0.0 04/29/21 11:27: POC Glucose 166 H 04/29/21 16:37: POC Glucose 233 H 04/29/21 20:00: POC Glucose 153 H Exam General appearance: alert, active, awake, no acute distress. Right lower extremity is less edematous today. Cardiovascular: regular rate & rhythm Respiratory: No respiratory distress noted, speaks in full sentences ABD: soft and non tender Neuro: alert, awake, oriented x 3 Psych: Appropriate mood and affect On examination of the left residual limb, the dressings are clean, dry and intact. No soakage or strikethrough noted. The sugar tong splint is in place. The surgical drain is in place and draining small amount of serosanguineous fluid. Progress Note: A&P (1) Gangrene of toe of left foot Status: Acute (2) Bilateral edema of lower extremity Status: Acute (3) PAD (peripheral artery disease) Status: Chronic (4) Type 2 diabetes mellitus Status: Chronic (5) HTN (hypertension) Status: Chronic (6) Dyslipidemia Status: Acute (7) Diabetic neuropathy Status: Acute (8) Coronary artery calcification seen on CAT scan Status: Acute (9) Osteomyelitis Status: Acute (10) Status post below-knee amputation of left lower extremity Status: Acute Assessment and Plan for All Diagnoses:: I have reviewed the findings and progress with the patient. He is doing well from an orthopedic standpoint. I will change the dressings tomorrow and remove the surgical drain. If the suture line is healthy and healing well, he could potentially be discharged as appropriate from a medical standpoint. Continue elevation, icing, as needed pain medication and antibiotics. He can be mobilized with the help of physical therapy, weightbearing as tolerated on the right side. Continue medical management as per Dr. David.
[2021-04-30] VITALS (9 sets, daily range): BP systolic 116–145; BP diastolic 49–67; PULSE 80–97; RESP 16–20; TEMP 36.4–37.1; O2SAT 93–97; BMI 25.4
--- NOTE | 2021-04-30 03:41 | PC.NURSE ---
Patient was pleasant throughout shift, but was awake most of the shift. Patient complained of pain, controlled with po and IV medication. Patient also complained of gas pain and order for Malox was obtained. Dressing to LLE is clean ,dry, and intact. Patient did require insulin coverage for blood sugars. Good urine output throughout shift. Patients drain on LLE output is decreasing. VSS/. Nu further concerns voiced to RN.
[2021-04-30 05:56] LABS: POC Glucose,Bedside 142 (70-110)
[2021-04-30 06:12] LABS: Chloride 104 mmol/L (98-107); Potassium 3.7 mmoL/L (3.5-5.1); Sodium 138 mmol/L (136-145)
[2021-04-30 06:15] LABS: Anion Gap 8.7 mEq/L (5-15); Blood Urea Nitrogen 12 mg/dl (9-20); Carbon Dioxide 29 mmol/L (22.0-30.0); Creatinine Clearance Estimated 70 mL/min (50-200); Estimated Glomerular Filt Rate 130 ml/min (>60); GFR (African American) 157 ML/MIN (>60)
[2021-04-30 06:16] LABS: Calcium 8.3 mg/dl (8.4-10.2); Glucose 123 mg/dl (74-100)
[2021-04-30 06:19] LABS: Basophils % 0.3 % (0.1-2.0); Eosinophils % 0.8 % (0.1-12.0); Hematocrit 24.2 % (42.0-52.0); Hemoglobin 8.1 g/dL (14.1-18.0); Lymphocytes # 1.7 K/mm3 (0.7-4.5); Lymphocytes % 31.8 % (10-50); Mean Corpuscular HGB Conc 33.6 g/dL (31.8-35.4); Mean Corpuscular Hemoglobin 31.9 pg (27.0-31.2); Mean Corpuscular Volume 95.1 fl (80-94); Mean Platelet Volume 7.6 fl (7.4-10.4); Monocytes # 0.7 K/mm3 (0.1-1.0); Monocytes % 12.6 % (1.7-9.3); Neutrophils # 2.9 K/mm3 (1.8-7.8); Neutrophils % 54.5 % (37.0-80.0); Platelet Count 341 K/mm3 (142-424); Red Blood Count 2.54 M/mm3 (4.60-6.20); Red Cell Distribution Width 17.3 % (11.5-17.5); White Blood Count 5.4 K/mm3 (4.8-10.8)
--- NOTE | 2021-04-30 08:57 | P.PN_ITS ---
[facility] Anesthesia Record Part II Discharge Time: 20:05 Destination: Medical Surgical Department PACU nurse assessment reviewed?: Yes Patient Condition:: Good Anesthesia Complications:: None Swallowing reflex intact?: Yes Cyanosis?: No Blood Pressure: 126/63 Pulse Rate: 97 Temperature: 97.6 F Mental Status: Alert & Oriented Pain level:: 0 Nausea and/or vomitting:: None Intake, IV Amount: 0
--- NOTE | 2021-04-30 11:22 | HMH.PTEV ---
Physical Therapy Evaluation Rehab PT IP Evaluation Start: 04/30/21 10:54 Freq: ONCE Status: Active Protocol: Document 04/30/21 11:19 GABRIELLAJUSTIN (Rec: 04/30/21 11:22 PHOMY [id number]) Subjective/History History History 80 yowm adm to [facility] with L foot gangrene, now S/P L BKA. Subjective Subjective Pt reports feeling good today, but remains tired. Rehab PT IP Eval Objective Appearance Patient Behavior Appropriate Patient Orientation Person,Place,Time Difficulty following instructions none Speech Pattern Clear Ambulation Patient Able to Ambulate No Balance Ability to Arise Able, uses arms to help Sitting Balance Leans or slides in chair Standing Balance Unsteady Dynamic Sitting Balance Ability Fair Dynamic Standing Balance Ability Poor Transfers Bed Transfer Ability Moderate x 1 (50% assist) Chair Transfer Ability Maximum x 1 (75% assist) Sit to Stand Bed Transfer Ability Moderate x 1 (50% assist) Sit to Stand Chair Transfer Ability Moderate x 1 (50% assist) Rehab PT IP prob,goals,plan Problems Date of Evaluation: 04/30/21 PT IP Problems Bed Mobility,Transfers,Gait, Self care,Safety Rehab Potential Rehab Potential Good Plan PT Intervention Plan Bed Mobility,Transfers,Gait, Balance,Self care,Safety, Therapeutic Exercise PT Plan Frequency BID Duration LOS Discharge Goals Bed Transfer Ability Minimal x 2 (25% assist) Sit to Stand Chair Transfer Ability Minimal x 2 (25% assist) Discharge Plan PT Discharge Plan Pt is most appropriate for rehab placement once medically stable for discharge. G -code Required No Eval Complexity Eval Charge Codes 40306 - Moderate Complexity PHYSICIAN CERTIFICATION: I certify the specified therapy services for Travis Robbins Mindijoel are required, authorized, and reviewed every 30 days.
[2021-04-30 11:48] LABS: POC Glucose,Bedside 175 (70-110)
--- NOTE | 2021-04-30 13:41 | HMH.ACPN2 ---
Internal Medicine - PN: Subj *Date: 04/30/21 *Time: 08:15 Interval history: Patient's patient seen and examined this morning. States he did not sleep much last night. He is still having a fair amount of pain in his left leg. He does get relief with pain medicine but requiring this on schedule. Appetite is good. He has not had a bowel movement. He did have some low abdominal gas and cramping. Exam Vital signs and Labs for Last 24 Hours: Temp Pulse Resp BP Pulse Ox 98.0 F 88 17 145/49 H 95 04/30/21 11:38 04/30/21 11:38 04/30/21 11:38 04/30/21 11:38 04/30/21 11:38 Laboratory Results - last 24 hr 04/29/21 16:37: POC Glucose 233 H 04/29/21 20:00: POC Glucose 153 H 04/30/21 05:12: WBC 5.4, RBC 2.54 L, Hgb 8.1 L, Hct 24.2 L, MCV 95.1 H, MCH 31.9 H, MCHC 33.6, RDW 17.3, Plt Count 341, MPV 7.6, Neut % (Auto) 54.5, Lymph % (Auto) 31.8, [place] % (Auto) 12.6 H, Eos % (Auto) 0.8, Baso % (Auto) 0.3, Neut # (Auto) 2.9, Lymph # (Auto) 1.7, [place] # (Auto) 0.7, Eos # (Auto) 0.0, Baso # (Auto) 0.0 04/30/21 05:12: Sodium 138, Potassium 3.7, Chloride 104, Carbon Dioxide 29, Anion Gap 8.7, BUN 12 D, Creatinine 0.60 L, Estimated Creat Clear 70, Estimated GFR 130, Est GFR ( Amer) 157, Glucose 123 H, Calcium 8.3 L 04/30/21 05:45: POC Glucose 142 H 04/30/21 11:31: POC Glucose 175 H I & O for Last 24 hours: Intake & Output 04/28/21 04/29/21 04/30/21 05/01/21 11:59 11:59 11:59 11:59 Intake Total 2363 / 2363 3043 / 3043 2500 / 2500 240 / 240 Output Total 730 / 730 1515 / 1515 1765 / 1765 Balance 1633 / 1633 1528 / 1528 735 / 735 240 / 240 Weight 181 lb 3 oz 182 lb 181 lb 15.513 oz Narrative: He is alert. Appears in no distress. Color is improved. Lungs are clear anteriorly. Heart is regular. Abdomen is soft and nondistended with no tenderness. Edema in right lower leg is much improved. Assessment and Plan (1) Gangrene of toe of left foot Status: Acute Category: Medical Code(s): I96 - Gangrene, not elsewhere classified (2) Bilateral edema of lower extremity Status: Acute Category: Medical Code(s): R60.0 - Localized edema (3) PAD (peripheral artery disease) Status: Chronic Category: Medical Code(s): I73.9 - Peripheral vascular disease, unspecified (4) Type 2 diabetes mellitus Status: Chronic Qualifiers: Diabetes mellitus ferry terminal agent insulin use: without ferry terminal agent use Diabetes mellitus complication status: without complication Qualified Code(s): E11.9 - Type 2 diabetes mellitus without complications Category: Medical Code(s): E11.9 - Type 2 diabetes mellitus without complications (5) HTN (hypertension) Status: Chronic Qualifiers: Hypertension type: essential hypertension Qualified Code(s): I10 - Essential (primary) hypertension Category: Medical Code(s): I10 - Essential (primary) hypertension (6) Dyslipidemia Status: Acute Category: Medical Code(s): E78.5 - Hyperlipidemia, unspecified (7) Diabetic neuropathy Status: Acute Category: Medical Code(s): E11.40 - Type 2 diabetes mellitus with diabetic neuropathy, unspecified (8) Coronary artery calcification seen on CAT scan Status: Acute Category: Medical Code(s): I25.10 - Atherosclerotic heart disease of [place] coronary artery without angina pectoris (9) Osteomyelitis Status: Acute Category: Medical Code(s): M86.9 - Osteomyelitis, unspecified (10) Status post below-knee amputation of left lower extremity Status: Acute Category: Surgical Code(s): Z89.512 - Acquired absence of left leg below knee (11) Constipation Status: Acute Category: Medical Code(s): K59.00 - Constipation, unspecified - Assessment and plan all Dx Assessment and Plan for all problems:: Add MiraLAX and stool softener. Dressing to be changed by Dr. Mckinley today. Begin physical therapy. Care management is looking into placement for skilled care rehab after discharge.
--- NOTE | 2021-04-30 16:45 | HMH.ORTHPN ---
Subjective Date: 04/30/21 Time: 15:30 Principal diagnosis: PAD, osteomyelitis Interval history: Patient is status post LEFT below-knee amputation post op day #3. Patient is lying down in the bed and says he is doing well. Patient reports some pain in the left residual limb; he says it's well-controlled with as needed pain medication. No history of any nausea or vomiting. No history of any cough, chest pain, shortness of breath or palpitations. Patient says he is eating and drinking well. PN: Obj Ex Vital signs: Temp Pulse Resp BP Pulse Ox 98.7 F 90 18 122/52 L 94 L 04/30/21 14:50 04/30/21 14:50 04/30/21 16:12 04/30/21 14:50 04/30/21 14:50 Narrative: Laboratory Results - last 24 hr 04/29/21 16:37: POC Glucose 233 H 04/29/21 20:00: POC Glucose 153 H 04/30/21 05:12: WBC 5.4, RBC 2.54 L, Hgb 8.1 L, Hct 24.2 L, MCV 95.1 H, MCH 31.9 H, MCHC 33.6, RDW 17.3, Plt Count 341, MPV 7.6, Neut % (Auto) 54.5, Lymph % (Auto) 31.8, [place] % (Auto) 12.6 H, Eos % (Auto) 0.8, Baso % (Auto) 0.3, Neut # (Auto) 2.9, Lymph # (Auto) 1.7, [place] # (Auto) 0.7, Eos # (Auto) 0.0, Baso # (Auto) 0.0 04/30/21 05:12: Sodium 138, Potassium 3.7, Chloride 104, Carbon Dioxide 29, Anion Gap 8.7, BUN 12 D, Creatinine 0.60 L, Estimated Creat Clear 70, Estimated GFR 130, Est GFR ( Amer) 157, Glucose 123 H, Calcium 8.3 L 04/30/21 05:45: POC Glucose 142 H 04/30/21 11:31: POC Glucose 175 H Exam General appearance: alert, active, awake, no acute distress. Cardiovascular: regular rate & rhythm Respiratory: No respiratory distress noted, speaks in full sentences ABD: soft and non tender Neuro: alert, awake, oriented x 3 Psych: Appropriate mood and affect On examination of the left residual limb, the dressings are clean, dry and intact. No soakage or strikethrough noted. I have changed the dressings and the stump appears healthy; the suture line is healthy and appears well vascularized. There is less soft tissue edema in the residual limb. The drain is removed and sterile nonadhesive dressings were reapplied. A well-padded sugar tong's Ortho-Glass splint is applied. Progress Note: A&P (1) Gangrene of toe of left foot Status: Acute (2) Bilateral edema of lower extremity Status: Acute (3) PAD (peripheral artery disease) Status: Chronic (4) Type 2 diabetes mellitus Status: Chronic (5) HTN (hypertension) Status: Chronic (6) Dyslipidemia Status: Acute (7) Diabetic neuropathy Status: Acute (8) Coronary artery calcification seen on CAT scan Status: Acute (9) Osteomyelitis Status: Acute (10) Status post below-knee amputation of left lower extremity Status: Acute (11) Constipation Status: Acute Assessment and Plan for All Diagnoses:: I have reviewed the findings and progress with the patient. I have changed the dressings and the stump appears healthy; the suture line is healthy and appears well vascularized. There is less soft tissue edema in the residual limb. The drain has been removed and sterile nonadhesive dressings were reapplied. A well-padded sugar tong's Ortho-Glass splint was applied. Continue elevation, icing, as needed pain medication and antibiotics. Continue mobilization with physical therapy using appropriate walking aids and weightbearing as tolerated on the right side. Overall he is doing well from an orthopedic standpoint. He can be discharged as appropriate from an orthopedic standpoint. Follow-up in my office in 1 week's time. Recommend continuation of oral antibiotics for 2 weeks. Continue medical management as per Dr. David.
[2021-04-30 17:18] LABS: POC Glucose,Bedside 226 (70-110)
[2021-04-30 21:33] LABS: POC Glucose,Bedside 248 (70-110)
[2021-05-01] VITALS: BP 126/64; PULSE 72; RESP 16; TEMP 36.9; O2SAT 97
[2021-05-01 04:00] VITALS: BP 130/57; PULSE 57; RESP 16; TEMP 36.6; O2SAT 97
--- NOTE | 2021-05-01 04:58 | PC.NURSE ---
No acute changes noted. Pt has rested better tonight. Has c/o pain this shift. Medicated per jan. DSG to LLE is C/D/I. Elevated on pillow. Pt assisted with turning and repositioning. Has had a bath this shift. Lungs are CTA. BS active. No BM this shift. BP stable. Pt bradycardic this AM. No other concerns. Will continue to monitor.
[2021-05-01 06:00] LABS: POC Glucose,Bedside 115 (70-110)
[2021-05-01 08:00] VITALS: BP 102/45; PULSE 87; RESP 18; TEMP 36.6; O2SAT 95
--- NOTE | 2021-05-01 08:43 | HMH.ACPN2 ---
<Gloria Wolff - Last Filed: 05/01/21 08:43> Internal Medicine - PN: Subj *Date: 05/01/21 *Time: 08:43 Interval history: Patient states his right foot itches. Feels is probably due to dry skin. Plans to go to [facility] today. He is eating without problems. He denies chest pain or shortness of breath. He is voiding QS. Bowels have not moved. Dressing was changed by Dr. Mckinley yesterday. Stump appeared healthy and suture line was healthy and appeared well vascularized. Exam Vital signs and Labs for Last 24 Hours: Temp Pulse Resp BP Pulse Ox 97.8 F 87 18 102/45 L 95 05/01/21 08:00 05/01/21 08:00 05/01/21 08:00 05/01/21 08:00 05/01/21 08:00 Laboratory Results - last 24 hr 04/27/21 17:15: Crossmatch (AHG) See Detail 04/30/21 11:31: POC Glucose 175 H 04/30/21 17:06: POC Glucose 226 H 04/30/21 20:57: POC Glucose 248 H 05/01/21 05:41: POC Glucose 115 H I & O for Last 24 hours: Intake & Output 04/28/21 04/29/21 04/30/21 05/01/21 11:59 11:59 11:59 11:59 Intake Total 2363 / 2363 3043 / 3043 2500 / 2500 2811 / 2811 Output Total 730 / 730 1515 / 1515 1765 / 1765 1999 / 1999 Balance 1633 / 1633 1528 / 1528 735 / 735 811 / 811 Weight 181 lb 3 oz 182 lb 181 lb 15.513 oz Microbiology Reports for the Last 24 Hours: Microbiology 04/30/21 17:52 Nasopharyngeal Coronavirus COVID-19 PCR - Final - Constitutional no acute distress Comments: Appears comfortable - *Routine Respiratory Exam Present: CTA bilaterally (Anteriorly and posteriorly) - *Routine Cardiovascular Exam Present: RRR - *Routine Abdominal Exam Present: soft, normoactive bowel sounds. Absent: tenderness - *Routine Extremities Exam Absent: edema, calf tenderness (Right) Comments: Right foot with intact skin. Dressing on left stump is clean and dry. Assessment and Plan (1) Gangrene of toe of left foot Status: Acute Category: Medical Code(s): I96 - Gangrene, not elsewhere classified (2) Bilateral edema of lower extremity Status: Acute Category: Medical Code(s): R60.0 - Localized edema (3) PAD (peripheral artery disease) Status: Chronic Category: Medical Code(s): I73.9 - Peripheral vascular disease, unspecified (4) Type 2 diabetes mellitus Status: Chronic Qualifiers: Diabetes mellitus custodial insulin use: without custodial use Diabetes mellitus complication status: without complication Qualified Code(s): E11.9 - Type 2 diabetes mellitus without complications Category: Medical Code(s): E11.9 - Type 2 diabetes mellitus without complications (5) HTN (hypertension) Status: Chronic Qualifiers: Hypertension type: essential hypertension Qualified Code(s): I10 - Essential (primary) hypertension Category: Medical Code(s): I10 - Essential (primary) hypertension (6) Dyslipidemia Status: Acute Category: Medical Code(s): E78.5 - Hyperlipidemia, unspecified (7) Diabetic neuropathy Status: Acute Category: Medical Code(s): E11.40 - Type 2 diabetes mellitus with diabetic neuropathy, unspecified (8) Coronary artery calcification seen on CAT scan Status: Acute Category: Medical Code(s): I25.10 - Atherosclerotic heart disease of [place] coronary artery without angina pectoris (9) Osteomyelitis Status: Acute Category: Medical Code(s): M86.9 - Osteomyelitis, unspecified (10) Status post below-knee amputation of left lower extremity Status: Acute Category: Surgical Code(s): Z89.512 - Acquired absence of left leg below knee (11) Constipation Status: Acute Category: Medical Code(s): K59.00 - Constipation, unspecified - Assessment and plan all Dx Assessment and Plan for all problems:: Patient will be discharged to [facility]. See orders and discharge summary. <Jass David - Last Filed: 05/11/21 08:30> Internal Medicine - PN: Subj *Date: 05/11/21 *Time: 08:29 Exam Vital signs and Labs for Last 24 Hours:
--- NOTE | 2021-05-01 09:42 | HMH.DCSUM ---
General - General Admission date:: 04/24/21 <Jass David - 05/11/21 08:32> 04/24/21 <Gloria Wolff - 05/01/21 10:16> Discharge date: 05/01/21 <Gloria Wolff - 05/01/21 10:16> HPI HPI: Mr Conn is a 80 year old male with a history of diabetes mellitus, hypertension, obesity, hyperlipidemia, osteoarthritis, peptic ulcer, BPH, peripheral artery disease with abnormal YOSHI who was seen in the office Dr. G[place]am by Soila Amaya APRN. She notified [facility] of the need for the patient to be admitted for surgical treatment, amputation of the toes on the left foot. Patient had been treated with p.o. antibiotics and then had a PICC line inserted for additional treatment with IV antibiotics after which the toes did look a little better. After completion of The IV antibiotics the toes became black. At the time of this Exam patient states he does have pain in the left foot. He is Otherwise comfortable. <Gloria Wolff - 05/01/21 10:16> Hospital Course Hospital Course: After admission patient had additional studies to include a CT of the foot which showed Lytic changes in the distal phalanges of the second and third toes suspicious for osteomyelitis. He also had an iliofemoral runoff which revealed Peripheral artery disease with a widely patent stent in the left common iliac artery and Small vessel severe vasculopathy. Dr. David conferred with Dr. Whitehead regarding results of the angiogram and then met with the patient and his stepdaughter to discuss the findings. Based on the results of the angiogram it was felt that he most likely would not heal well from the TMA procedure due to poor blood flow below the knee. Therefore recommendation was to proceed with a BKA. Patient and stepdaughter were in agreement. Dr. Mckinley was consulted to consider a BKA procedure. On 04/27/2021 patient had a left below the knee amputation by Dr. Mckinley for the infected, diabetic, gangrenous left foot with peripheral artery disease. Patient did experience postop discomfort with some spasm around the knee. He did receive relief with the pain medicine as scheduled. He was on IV daptomycin and Invanz. He did have a return of appetite and was eating.. He remained anemic but hemoglobin Did remain stable. He did have a some constipation and was started on MiraLAX.. On postop day #3 Dr. Mckinley change the dressing on the left stump surgical wound. He found the stump to be well vascularized On 05/01/2021 patient continued to eat satisfactory. A bed was obtained at [facility] for rehab. He denies chest pain. He was voiding QS. Bowels had not moved but he continued with the MiraLAX. Hemoglobin remained stable and on 04/30 was 8.1. Renal function was good and electrolytes were normal. On 05/01/2021 patient was stable to be discharged to [facility] for ongoing rehab. Condition at transfer was stable and satisfactory. See discharge orders. P.o. antibiotic was to be continued. See specific results of tests under data. <Gloria Wolff - 05/01/21 10:16> Objective Vital signs: Temp Pulse Resp BP Pulse Ox 97.8 F 87 18 102/45 L 95 05/01/21 08:00 05/01/21 08:00 05/01/21 08:00 05/01/21 08:00 05/01/21 08:00 <Jass David - 05/11/21 08:32> Temp Pulse Resp BP Pulse Ox 97.8 F 87 18 102/45 L 95 05/01/21 08:00 05/01/21 08:00 05/01/21 08:00 05/01/21 08:00 05/01/21 08:00 <Gloria Wolff - 05/01/21 10:16> Narrative: Exam Vital signs and Labs for Last 24 Hours: Temp Pulse Resp BP Pulse Ox 97.8 F 87 18 102/45 L 95 05/01/21 08:00 05/01/21 08:00 05/01/21 08:00 05/01/21 08:00 05/01/21 08:00 Laboratory Results - last 24 hr 04/27/21 17:15: Crossmatch (AHG) See Detail 04/30/21 11:31: POC Glucose 175 H 04/30/21 17:06: POC Glucose 226 H 04/30/21 20:57: POC Glucose 248 H 05/01/21 05:41: POC Glucose 115 H I & O for Last 24 hours: Intake & Output
== END 2021-05-01 12:25 | DRG 617 ==
LOC: 2ND 14:00
PROVIDERS: Internal Medicine; Nurse Practitioner; Orthopaedic Surgery; Registered Nurse; Admitting Provider Family Medicine; PCP Family Medicine; Visit Provider Family Medicine
PROC: B41F1ZZ Fluoroscopy of Right Lower Extremity Arteries using Low Osmolar Contrast (ICD-10-PCS; principal; 2021-04-26 15:30)
PROC: 0Y6J0Z1 Detachment at Left Lower Leg, High, Open Approach (ICD-10-PCS; CPT 27880; principal; 2021-04-27 10:30)
DX: E11.69 Type 2 diabetes mellitus with other specified complication (principal); E11.52 Type 2 diabetes mellitus with diabetic peripheral angiopathy with gangrene; I96 Gangrene, not elsewhere classified; L97.929 Non-pressure chronic ulcer of unspecified part of left lower leg with unspecified severity; M86.9 Osteomyelitis, unspecified; I70.92 Chronic total occlusion of artery of the extremities; L03.032 Cellulitis of left toe; L97.521 Non-pressure chronic ulcer of other part of left foot limited to breakdown of skin; E66.9 Obesity, unspecified; Z68.25 Body mass index [BMI] 25.0-25.9, adult; M19.90 Unspecified osteoarthritis, unspecified site; N40.0 Benign prostatic hyperplasia without lower urinary tract symptoms; E78.5 Hyperlipidemia, unspecified; E11.42 Type 2 diabetes mellitus with diabetic polyneuropathy; Z87.891 Personal history of nicotine dependence; E11.621 Type 2 diabetes mellitus with foot ulcer; D64.9 Anemia, unspecified; Z95.820 Peripheral vascular angioplasty status with implants and grafts; K59.00 Constipation, unspecified
CPT/HCPCS: 27880; 36247; 36248; 36415; 71046; 73630; 73702; 75716; 80048; 80053; 82962; 83036; 85025; 85651; 86140; 86850; 88307; 88311; 93306; 93923; 97162; 97530; 97597; 99152; A4649; C1725; C1769; C1894; J0131; J0878; J1335; J1644; J2405; J3370; P9047; Q9966; Q9967; U0003

== ENCOUNTER → 2021-05-08 11:55 | Outpatient (CLI) | payer MEDICARE, OTHER, SELFPAY ==
[2021-05-08 12:17] LABS: Basophils % 0.1 % (0.1-2.0); Eosinophils % 0.5 % (0.1-12.0); Hematocrit 30.8 % (42.0-52.0); Hemoglobin 9.4 g/dL (14.1-18.0); Lymphocytes # 1.8 K/mm3 (0.7-4.5); Lymphocytes % 27.8 % (10-50); Mean Corpuscular HGB Conc 30.5 g/dL (31.8-35.4); Mean Corpuscular Volume 98.3 fl (80-94); Mean Platelet Volume 7.6 fl (7.4-10.4); Monocytes # 0.4 K/mm3 (0.1-1.0); Monocytes % 6.8 % (1.7-9.3); Neutrophils # 4.1 K/mm3 (1.8-7.8); Neutrophils % 64.8 % (37.0-80.0); Platelet Count 440 K/mm3 (142-424); Red Blood Count 3.13 M/mm3 (4.60-6.20); Red Cell Distribution Width 16.9 % (11.5-17.5); White Blood Count 6.4 K/mm3 (4.8-10.8)
[2021-05-08 14:09] LABS: Erythrocyte Sedimentation Rate > 140 mm/hr (0-20)
[2021-05-08 15:43] LABS: C-Reactive Protein 2.1 mg/L (0-4)
== END ==
PROVIDERS: Visit Provider Orthopaedic Surgery
DX: Z89.512 Acquired absence of left leg below knee (principal); E78.5 Hyperlipidemia, unspecified
CPT/HCPCS: 36415; 85025; 85651; 86140

== ENCOUNTER 2021-05-15 11:58 | Outpatient (CLI) | payer MEDICARE, OTHER, SELFPAY ==
[2021-05-15 12:34] LABS: Basophils % 0.2 % (0.1-2.0); Eosinophils % 0.4 % (0.1-12.0); Hematocrit 30.3 % (42.0-52.0); Hemoglobin 9.7 g/dL (14.1-18.0); Lymphocytes # 1.4 K/mm3 (0.7-4.5); Lymphocytes % 29.8 % (10-50); Mean Corpuscular HGB Conc 32.2 g/dL (31.8-35.4); Mean Corpuscular Hemoglobin 31.2 pg (27.0-31.2); Mean Corpuscular Volume 96.9 fl (80-94); Mean Platelet Volume 7.7 fl (7.4-10.4); Monocytes # 0.4 K/mm3 (0.1-1.0); Monocytes % 7.9 % (1.7-9.3); Neutrophils # 2.9 K/mm3 (1.8-7.8); Neutrophils % 61.6 % (37.0-80.0); Platelet Count 374 K/mm3 (142-424); Red Blood Count 3.12 M/mm3 (4.60-6.20); White Blood Count 4.7 K/mm3 (4.8-10.8)
[2021-05-15 13:00] LABS: Erythrocyte Sedimentation Rate 95 mm/hr (0-20)
[2021-05-15 13:19] LABS: C-Reactive Protein 0.6 mg/L (0-4)
== END 2021-05-15 12:11 | disposition home or self-care (01) ==
LOC: INF 11:58
PROVIDERS: PCP Family Medicine; Visit Provider Orthopaedic Surgery
DX: E78.5 Hyperlipidemia, unspecified (principal); Z89.512 Acquired absence of left leg below knee
CPT/HCPCS: 85025; 85651; 86140

== ENCOUNTER → 2021-07-17 11:19 | Outpatient (CLI) | payer MEDICARE, OTHER, SELFPAY ==
--- NOTE | 2021-07-17 11:37 | XR_ITS ---
PROCEDURE: XR TIBIA FIBULA LT 2V CLINICAL INDICATION: sp LT BKA, SX 04/27 COMPARISON: No exams were available for comparison FINDINGS: Status post below the knee amputation. Amputation site has an unremarkable appearance. Scattered hyperdensities are present within the soft tissues consistent with dissolving antibiotic beads. Mild osteoarthritic changes are present at the knee. No soft tissue gas Other findings:None. IMPRESSION: Unremarkable status post below the knee amputation Dictated by: Yung Meade MD 07/17/2021 14:11 Yung Meade MD in [place] 07/17/2021 14:11
[2021-07-17 11:48] LABS: Basophils % 0.2 % (0.1-2.0); Eosinophils % 0.7 % (0.1-12.0); Hematocrit 33.9 % (42.0-52.0); Hemoglobin 10.7 g/dL (14.1-18.0); Lymphocytes # 1.7 K/mm3 (0.7-4.5); Lymphocytes % 30.2 % (10-50); Mean Corpuscular HGB Conc 31.6 g/dL (31.8-35.4); Mean Platelet Volume 7.5 fl (7.4-10.4); Monocytes # 0.5 K/mm3 (0.1-1.0); Monocytes % 8.4 % (1.7-9.3); Neutrophils # 3.3 K/mm3 (1.8-7.8); Neutrophils % 60.5 % (37.0-80.0); Platelet Count 299 K/mm3 (142-424); Red Blood Count 3.46 M/mm3 (4.60-6.20); Red Cell Distribution Width 16.6 % (11.5-17.5); White Blood Count 5.5 K/mm3 (4.8-10.8)
[2021-07-17 12:10] LABS: C-Reactive Protein < 0.3 mg/L (0-4)
[2021-07-17 12:14] LABS: Erythrocyte Sedimentation Rate 74 mm/hr (0-20)
[2021-07-17 13:18] LABS: Alanine Aminotransferase 22 U/L (12-78); Albumin Level 3.9 g/dl (3.5-5.0); Albumin/Globulin Ratio 1.3 (1.1-1.8); Alkaline Phosphatase 87 U/L (38-126); Anion Gap 16.2 mEq/L (5-15); Aspartate Amino Transferase 27 U/L (17-59); Bilirubin,Total 0.5 mg/dl (0.2-1.3); Blood Urea Nitrogen 24 mg/dl (9-20); Calcium 9.3 mg/dl (8.4-10.2); Carbon Dioxide 29 mmol/L (22.0-30.0); Chloride 98 mmol/L (98-107); Chol/HDL Ratio 1.9 (1-3.5); Cholesterol 119 mg/dl (140-200); Estimated Glomerular Filt Rate 81 ml/min (>60); GFR (African American) 98 ML/MIN (>60); Glucose 147 mg/dl (74-100); HDL Cholesterol 62 mg/dl (40-60); Hemoglobin A1C 6.7 % (4.0-6.0); Potassium 4.2 mmoL/L (3.5-5.1); Sodium 139 mmol/L (136-145); Total Protein,Serum 6.9 g/dl (6.3-8.2); Triglycerides 65 mg/dl (30-150); VLDL Cholesterol 13 mg/dL (0-40)
== END ==
PROVIDERS: Visit Provider Orthopaedic Surgery
DX: Z89.512 Acquired absence of left leg below knee (principal); E78.5 Hyperlipidemia, unspecified; I10 Essential (primary) hypertension; E11.65 Type 2 diabetes mellitus with hyperglycemia; Z79.84 Long term (current) use of oral hypoglycemic drugs
CPT/HCPCS: 36415; 73590; 80053; 80061; 83036; 85025; 85651; 86140

== ENCOUNTER → 2022-04-26 13:23 | Outpatient (CLI) | payer MEDICARE, OTHER, SELFPAY ==
[2022-04-26 10:32] LABS: Basophils % 0.9 % (0.1-2.0); Eosinophils % 0.4 % (0.1-12.0); Hematocrit 31.3 % (42.0-52.0); Hemoglobin 10.1 g/dL (14.1-18.0); Lymphocytes # 1.6 K/mm3 (0.7-4.5); Lymphocytes % 33.3 % (10-50); Mean Corpuscular HGB Conc 32.2 g/dL (31.8-35.4); Mean Corpuscular Hemoglobin 32.3 pg (27.0-31.2); Monocytes # 0.4 K/mm3 (0.1-1.0); Monocytes % 7.1 % (1.7-9.3); Neutrophils # 2.8 K/mm3 (1.8-7.8); Neutrophils % 58.3 % (37.0-80.0); Platelet Count 244 K/mm3 (142-424); Red Blood Count 3.13 M/mm3 (4.60-6.20); Red Cell Distribution Width 17.2 % (11.5-17.5); White Blood Count 4.8 K/mm3 (4.8-10.8)
[2022-04-26 10:36] LABS: Anion Gap 16.1 mEq/L (5-15); Blood Urea Nitrogen 18 mg/dl (9-20); Calcium 9.6 mg/dl (8.4-10.2); Carbon Dioxide 24 mmol/L (22.0-30.0); Chloride 100 mmol/L (98-107); Estimated Glomerular Filt Rate 64 ml/min (>60); GFR (African American) 78 ML/MIN (>60); Glucose 141 mg/dl (74-100); Potassium 4.1 mmoL/L (3.5-5.1); Sodium 136 mmol/L (136-145)
== END ==
PROVIDERS: Visit Provider Internal Medicine Cardiovascular Disease
DX: I10 Essential (primary) hypertension; R06.00 Dyspnea, unspecified
CPT/HCPCS: 36415; 80048; 85025

== ENCOUNTER → 2022-06-24 08:08 | Outpatient (CLI) | payer MEDICARE, OTHER, SELFPAY | PROVIDERS: PCP Family Medicine; Visit Provider Internal Medicine | DX: Z01.812 Encounter for preprocedural laboratory examination (principal); Z20.822 Contact with and (suspected) exposure to COVID-19; R13.10 Dysphagia, unspecified | CPT/HCPCS: C9803; U0003; U0005 ==

== ENCOUNTER 2022-06-26 09:41 | Day surgery (SDC) | payer MEDICARE, OTHER, SELFPAY ==
[2022-06-24 10:18] VITALS: BMI 26.4
[2022-06-26 10:11] VITALS: BP 149/52; PULSE 83; RESP 18; TEMP 36.3; O2SAT 99
[2022-06-26 10:24] LABS: POC Glucose,Bedside 119 (70-110)
[2022-06-26 11:20] VITALS: O2SAT 99
--- NOTE | 2022-06-26 11:24 | EXP.ANES.CKL ---
PFSH PFSH Medical History (Updated 06/26/22 @ 10:08 by Karen Pink RN) Abnormal ankle brachial index (YOSHI) Amputation below knee Cataract Cholecystectomy planned Decreased pedal pulses History of coronary angiogram Tachycardia Tonsillectomy planned Surgical History (Updated 06/26/22 @ 10:08 by Karen Pink, RN) H/O arthroscopy of knee H/O cardiac catheterization Family History (Updated 06/26/22 @ 10:08 by Karen Pink RN) Other No significant family history Social History Smoking Status: Former smoker pack-years: 20 second hand exposure: No alcohol intake: former substance use type: denies use current occupational status: retired household members: none housing: house current occupational exposures/hazards: No caffeine: Yes
[2022-06-26 11:30] VITALS: BP 86/47; PULSE 6; RESP 18; TEMP 36.4; O2SAT 93
--- NOTE | 2022-06-26 11:32 | HMH.SCOPE ---
Procedure: Date: 06/26/22 Patient Date of :: 1940 Procedure Performed:: EGD Indications:: The patient is an 81 year old with dysphagia symptom Performing Provider:: Canelo Cardona MD Referring Provider:: Eron David MD Sedation:: See RN records Procedure:: The gastroscope was gently passed through the incisoral orifice into the oral cavity and under direct visualization the esophagus was intubated. The endoscope was passed down the esophagus, through the stomach, and into the duodenum. Color, texture, mucosa, and anatomy of the esophagus, stomach, and duodenum were carefully examined with the scope. Findings:: Oropharynx: normal Esophagus: Non obstructing Schatzki ring. Sequential dilatation performed with 18-20 mm tts balloon EG Junction: intact at 40 cm Cardia: Hiatal hernia approximately 2 cm in size Fundus: normal Body: normal Antrum: normal Duodenal bulb: normal Duodenum (second and third portion): normal Recommendations:: Return for EGD with esophageal dilatation as needed If dysphagia symptom does not improve after esophageal dilatation, then recommend barium esophagram with tablet Complications:: none Estimated blood obtained (mL): 0
[2022-06-26 11:40] VITALS: BP 93/48; PULSE 64; RESP 16; O2SAT 96
[2022-06-26 11:50] VITALS: BP 121/60; PULSE 56; RESP 16; O2SAT 98
[2022-06-26 12:00] VITALS: BP 126/69; PULSE 53; RESP 16; TEMP 36.4; O2SAT 99
== END 2022-06-26 12:10 | disposition home or self-care (01) ==
PROVIDERS: Visit Provider Internal Medicine
PROC: 0DJ08ZZ Inspection of Upper Intestinal Tract, Via Natural or Artificial Opening Endoscopic (ICD-10-PCS; CPT 43235; principal; 2022-06-26 11:00)
DX: R13.10 Dysphagia, unspecified (principal); K44.9 Diaphragmatic hernia without obstruction or gangrene; K21.9 Gastro-esophageal reflux disease without esophagitis; E11.51 Type 2 diabetes mellitus with diabetic peripheral angiopathy without gangrene; I10 Essential (primary) hypertension
CPT/HCPCS: 43249; 82962; C1726

== ENCOUNTER 2022-10-08 05:25 | Inpatient (IN) | payer MEDICARE, OTHER, SELFPAY ==
[2022-10-08] VITALS (19 sets, daily range): BP systolic 127–166; BP diastolic 60–98; PULSE 67–103; RESP 16–20; TEMP 36.7–37; O2SAT 96–98; BMI 27.8; BMI 24.2
--- NOTE | 2022-10-08 05:29 | XR_ITS ---
PROCEDURE INFORMATION: Exam: XR Left Hip Exam date and time: 10/08/2022 5:55 AM Age: 81 years old Clinical indication: Injury or trauma; Fall; Blunt trauma (contusions or hematomas); Left; Hip TECHNIQUE: Imaging protocol: Radiologic exam of the Left hip. Views: 2 or 3 views hip with pelvis when performed. COMPARISON: ABDPELW CT abdomen pelvis w con 01/25/2019 2:43 PM FINDINGS: Bones/joints: Suspicion for fracture, left femoral neck. No dislocation. Soft tissues: Unremarkable. IMPRESSION: Left femoral neck fracture suspected.
--- NOTE | 2022-10-08 05:29 | XR_ITS ---
PROCEDURE INFORMATION: Exam: XR Left Knee Exam date and time: 10/08/2022 5:55 AM Age: 81 years old Clinical indication: Injury or trauma; Fall; Blunt trauma; Knee; Left; Prior surgery TECHNIQUE: Imaging protocol: Radiologic exam of the Left knee. Views: 3 views. COMPARISON: CR KNEEAPSB KNEE-AP STANDING-BOTH KNEES 11/29/2015 9:17 AM FINDINGS: Bones/joints: Prior below-knee amputation. Mild osteoarthritic changes of the knee. Soft tissues: Normal. Vasculature: Vascular calcification. Other findings: Dystrophic calcification at the stump. IMPRESSION: 1. Prior below-knee amputation with dystrophic calcification at the stump. 2. Mild osteoarthritic changes of the knee.
--- NOTE | 2022-10-08 05:29 | XR_ITS ---
PROCEDURE INFORMATION: Exam: XR Left Femur Exam date and time: 10/08/2022 5:55 AM Age: 81 years old Clinical indication: Injury or trauma; Fall; Blunt trauma; Thigh or upper leg; Left TECHNIQUE: Imaging protocol: Radiologic exam of the Left femur. Views: 2 views. COMPARISON: US ARTERIAL LOWER EXT REST 04/24/2021 2:52 PM FINDINGS: Bones/joints: Suspicion for fracture involving the left femoral neck. No dislocation. Osteoarthritic changes of the knee. Soft tissues: Unremarkable. Vasculature: Vascular calcification. IMPRESSION: 1. Fracture, left femoral neck is suspected. 2. Other nonacute findings above.
--- NOTE | 2022-10-08 05:29 | XR_ITS ---
PROCEDURE INFORMATION: Exam: XR Chest Exam date and time: 10/08/2022 5:55 AM Age: 81 years old Clinical indication: Injury or trauma; Fall; Blunt trauma (contusions or hematomas) TECHNIQUE: Imaging protocol: Radiologic exam of the chest. Views: 1 view. COMPARISON: CR XR CHEST 2V 04/24/2021 5:42 PM FINDINGS: Lungs: Unremarkable. No consolidation. Pleural spaces: Unremarkable. No pleural effusion. No pneumothorax. Heart/Mediastinum: Unremarkable. No cardiomegaly. Bones/joints: Unremarkable. IMPRESSION: No acute findings.
--- NOTE | 2022-10-08 07:11 | HMH.EDFALL ---
Discharge Plan Disposition Patient Disposition: Admitted As Inpatient Chief Complaint: Fall Prescriptions Prescriptions: No Action cholecalciferol (vitamin D3) 1,000 unit capsule 1,000 unit PO DAILY multivitamin tablet 1 tab PO QAM potassium 99 mg tablet 99 mg PO DAILY finasteride 5 mg tablet 5 mg PO DAILY metformin 850 mg tablet 850 mg PO BID pioglitazone [Actos] 15 mg tablet 15 mg PO DAILY terazosin 10 mg capsule 10 mg PO QHS omeprazole 40 mg capsule,delayed release(DR/EC) 40 mg PO DAILY enalapril maleate 10 mg tablet 10 mg PO DAILY glimepiride [Amaryl] 4 mg tablet 8 mg PO DAILY gabapentin 400 mg capsule 400 mg PO BID vitamin B complex [B Complex-Vitamin B12] tablet 1 tab PO DAILY aspirin [Adult Aspirin Regimen] 81 mg tablet,delayed release (DR/EC) 81 mg PO DAILY dicyclomine 10 mg capsule 10 mg PO QID PRN (Reason: .) levothyroxine [Euthyrox] 25 mcg tablet 25 mcg PO DAILY furosemide 20 mg tablet 20 mg PO DAILY 90 Days Qty: 90 2RF metoprolol succinate 50 mg tablet extended release 24 hr 50 mg PO DAILY Qty: 90 3RF atorvastatin 40 MG tablet See Rx Instructions .Route .COMPLEX Rx Instructions: TAKE 1 TABLET BY MOUTH ONCE DAILY FOR CHOLESTEROL Referrals Follow up/Referrals: Jass David MD [Primary Care Provider] - See instructions Clinical Impressions Clinical Impression: Closed hip fracture, Diabetes mellitus Discharge ED Provider: Travis Mendoza HPI General Chief Complaint: Fall Stated Complaint: Hip Pain Time Seen by Provider: 10/08/22 07:11 Mode of Arrival: EMS Source of Information: Patient, EMS and Medical Record Limitations: No Limitations Description of Symptoms (Recalled from ER Triage Doc. by RN): pt states was in bed and was trying to put on new underwear on and pt fell out of bed. pt c/o lt hip and leg pain History of Present Illness HPI Narrative: fell oob with lt hip pain complaint: fall Onset (ago): hour(s) Fall from: out of bed Fall witnessed: no Place fall occurred: home Loss of consciousness: none Prolonged down time: no Symptoms prior to fall: none Context: tripped/slipped Location of injury - extremities: Left: thigh Severity: moderate Associated symptoms (after fall): denies Related Data Home Medications Medication Instructions Recorded Confirmed cholecalciferol (vitamin D3) 25 1,000 unit PO DAILY Supplement 03/24/18 10/08/22 mcg (1,000 unit) capsule enalapril maleate 10 mg tablet 10 mg PO DAILY blood pressure 03/24/18 10/08/22 finasteride 5 mg tablet 5 mg PO DAILY prostate 03/24/18 10/08/22 gabapentin 400 mg capsule 400 mg PO BID Pain 03/24/18 10/08/22 glimepiride 4 mg tablet (Amaryl) 8 mg PO DAILY Diabetes 03/24/18 10/08/22 metformin 850 mg tablet 850 mg PO BID Diabetes 03/24/18 10/08/22 multivitamin 1 tab PO QAM Supplement 03/24/18 10/08/22 omeprazole 40 mg capsule,delayed 40 mg PO DAILY GERD 03/24/18 10/08/22 release pioglitazone 15 mg tablet (Actos) 15 mg PO DAILY Diabetes 03/24/18 10/08/22 potassium 99 mg tablet 99 mg PO DAILY Supplement 03/24/18 10/08/22 terazosin 10 mg capsule 10 mg PO QHS bladder 03/24/18 10/08/22 vitamin B complex (B 1 tab PO DAILY Supplement 03/24/18 10/08/22 Complex-Vitamin B12 tablet) aspirin 81 mg tablet,delayed 81 mg PO DAILY Heart disease 01/09/21 10/08/22 release (Adult Aspirin Regimen) dicyclomine 10 mg capsule 10 mg PO QID PRN . 10/12/21 10/08/22 atorvastatin 40 mg tablet See Rx Instructions .Route 06/24/22 10/08/22 .COMPLEX Cholesterol levothyroxine 25 mcg tablet 25 mcg PO DAILY thyroid 07/25/22 10/08/22 (Euthyrox) Previous Rx's Medication Instructions Recorded furosemide 20 mg tablet 20 mg PO DAILY Fluid Retention 90 10/04/21 days #90 tabs metoprolol succinate 50 mg 50 mg PO DAILY BP #90 tabs 06/27/22 tablet,extended release 24 hr Allergies Allergy/AdvRe
--- NOTE | 2022-10-08 07:28 | CT_ITS ---
FINAL REPORT TECHNIQUE: Thin section axial CT images with coronal and sagittal reformats were performed of the left hip. This study was performed with techniques to keep radiation doses as low as reasonably achievable (ALARA). Individualized dose reduction techniques using automated exposure control or adjustment of mA and/or kV according to the patient''s size were employed. CLINICAL HISTORY: r/o hip fx..fall FINDINGS: There is an impacted fracture of the femoral head with external rotation of the distal fracture fragment. The fracture is mildly comminuted with a separate fracture fragment medially. The femoral head is properly located. There are mild degenerative changes. There are no masses or fluid collections. There are vascular calcifications. IMPRESSION: Femoral head fracture as above. Reviewed, Interpreted and Dictated by Sher Bain III, MD Transcribed by Baylee Garibay Authenticated and [facility]
[2022-10-08 07:35] LABS: Basophils % 0.1 % (0.1-2.0); Eosinophils % 0.1 % (0.1-12.0); Hematocrit 30.6 % (42.0-52.0); Hemoglobin 9.9 g/dL (14.1-18.0); Lymphocytes # 1.1 K/mm3 (0.7-4.5); Lymphocytes % 13.6 % (10-50); Mean Corpuscular HGB Conc 32.2 g/dL (31.8-35.4); Mean Corpuscular Hemoglobin 31.1 pg (27.0-31.2); Mean Corpuscular Volume 96.5 fl (80-94); Mean Platelet Volume 8.7 fl (7.4-10.4); Monocytes # 0.6 K/mm3 (0.1-1.0); Monocytes % 7.3 % (1.7-9.3); Neutrophils # 6.5 K/mm3 (1.8-7.8); Neutrophils % 78.8 % (37.0-80.0); Platelet Count 308 K/mm3 (142-424); Red Blood Count 3.17 M/mm3 (4.60-6.20); Red Cell Distribution Width 17.2 % (11.5-17.5); White Blood Count 8.3 K/mm3 (4.8-10.8)
--- NOTE | 2022-10-08 07:36 | PC.NURSE ---
radiology aware of ct scan order
[2022-10-08 07:38] LABS: Chloride 101 mmol/L (98-107); Potassium 3.4 mmoL/L (3.5-5.1); Sodium 136 mmol/L (136-145)
[2022-10-08 07:40] LABS: Alanine Aminotransferase 23 U/L (12-78); Aspartate Amino Transferase 40 U/L (17-59); Blood Urea Nitrogen 35 mg/dl (9-20); Creatinine Clearance Estimated 63 mL/min (50-200); Estimated Glomerular Filt Rate 58 ml/min (>60); GFR (African American) 70 ML/MIN (>60)
[2022-10-08 07:41] LABS: Albumin Level 4.2 g/dl (3.5-5.0); Albumin/Globulin Ratio 1.3 (1.1-1.8); Alkaline Phosphatase 101 U/L (38-126); Anion Gap 11.4 mEq/L (5-15); Bilirubin,Total 0.8 mg/dl (0.2-1.3); Calcium 9.5 mg/dl (8.4-10.2); Carbon Dioxide 27 mmol/L (22.0-30.0); Globulin 3.2 g/dL (1.3-3.2); Glucose 219 mg/dl (74-100); Total Protein,Serum 7.4 g/dl (6.3-8.2)
[2022-10-08 08:20] LABS: Coronavirus 19, PCR Not Detected (NotDetected); Influenza A, PCR Not Detected (NotDetected); Influenza B, PCR Not Detected (NotDetected)
--- NOTE | 2022-10-08 08:50 | EXP.HP ---
History of Present Illness *Admission Date: 10/08/22 *Reason for visit:: Fall with left hip pain *History of present illness: Mr. Conn is an 81-year-old male with a history of type 2 diabetes mellitus, hypertension, hyperlipidemia, osteoarthritis, BPH, peripheral artery disease, and peptic ulcer disease who presented to [facility] emergency room after a second fall within the last 2 days. He states he fell 2 days ago when using his scooter and going down a incline at his home. He had to call for help to get up. From that time his left hip began to hurt. He fell again this morning when putting on some underwear. He denies any dizziness, chest pain, palpitations, shortness of breath, nausea or vomiting. He has not been eating well the last 2 days because of the pain in the left hip. He does have a left below the knee amputation. With evaluation in the emergency room hemoglobin was noted to be 9.9 with hematocrit of 30.6. Potassium was slightly low at 3.4. BUN is 35 and creatinine is 1.2. Chest x-ray shows no acute findings. Left femur x-ray showed a suspected left femoral neck fracture. Left hip showed the same, left femoral neck fracture suspected. Left knee x-ray shows? 1. Prior below-knee amputation with dystrophic calcification at the stump. 2. Mild osteoarthritic changes of the knee. He is currently having a CT scan of the left hip with results pending. He remains in the emergency room. At this time patient appears comfortable. Continues to deny chest pain, shortness of breath, dizziness. He is hungry for something to eat. He is currently n.p.o. For possible surgery. [facility] Disclaimer: The information contained in this section may have been updated after the patient was seen, as this information can be updated by other users. 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 BPH loc w urin obs/LUTS Cataract Cholecystectomy planned Decreased pedal pulses History of coronary angiogram HTN (hypertension) PAD (peripheral artery disease) Tachycardia Tonsillectomy planned Type 2 diabetes mellitus Surgical History (Updated 10/08/22 @ 09:12 by Gloria Wolff APRN) H/O arthroscopy of knee H/O cardiac catheterization History of lobectomy of lung Family History Other No significant family history Social History Smoking Status: Never smoker second hand exposure: No alcohol intake: former substance use type: denies use current occupational status: retired Travel in the last 8 weeks: None household members: none housing: house current occupational exposures/hazards: No caffeine: Yes Review of Systems Constitutional Constitutional: Denies fever(s), Reports frequent falls, Denies headache(s) and Reports poor appetite Eyes Eyes: Denies change in vision ENT Ears, Nose, Mouth, and Throat: Denies otalgia, Denies headache(s), Denies sore throat and Reports vertigo *Cardiovascular Cardiovascular: Denies chest pain, Denies dyspnea, Denies palpitations, Denies rapid heart rate, Denies slow heart rate and Denies syncope *Respiratory Respiratory: Denies chest congestion, Reports cough, Denies dyspnea and Denies hemoptysis *Gastrointestinal Gastrointestinal: Denies constipation, Denies fecal incontinence, Denies heartburn, Denies hematemesis, Denies loose stools, Reports nausea and Denies vomiting *Genitourinary Genitourinary: Denies difficulty urinating *Musculoskeletal Musculoskeletal: Reports abnormal gait (Uses a scooter for ambulation due to his left below the knee amputation.) and Reports arthralgias (Left hip) *Neurologic Neurologic: Reports abnormal gait (Uses a scooter for ambulation due to his left below the knee amputation.), Denies confusion, Reports fr
--- NOTE | 2022-10-08 09:03 | PC.NURSE ---
Dr Romo in to see pt
--- NOTE | 2022-10-08 09:04 | PC.NURSE ---
Gloria Woflf in to see pt
--- NOTE | 2022-10-08 09:22 | PC.NURSE ---
Spoke with Lidia in ortho pt to be admitted to med surg, Lidia will see him tody and surgery tentative for tomorrow.
[2022-10-08 09:40] LABS: Microscopic, Urine URINE MICROSCOPIC (MICROSCOPIC)
[2022-10-08 09:46] LABS: Appearance,Urine CLEAR (Clear); Bilirubin,Urine Negative (Negative); Blood, Urine Negative (Negative); Color,Urine YELLOW (Yellow); Glucose,Urine (UA) Negative (Negative); Ketones,Urine TRACE (Negative); Leukocyte Esterase,Urine Negative (Negative); Nitrate,Urine Negative (Negative); PH,Urine 5.5 (5.0-8.5); Protein,Urine Negative (Negative); Specific Gravity, Urine 1.025 (1.005-1.030); Urobilinogen,Urine 0.2 EU/dl (0.2)
[2022-10-08 09:57] LABS: Bacteria,Urine Trace /lpf; Squamous Epithelial Cell,Urine Occasional #/hpf (0-5)
--- NOTE | 2022-10-08 10:25 | PC.NURSE ---
updated pt and family of poc. no needs at this time
--- NOTE | 2022-10-08 10:46 | PC.NURSE ---
pt given meal tray
--- NOTE | 2022-10-08 11:06 | PC.NURSE ---
care mgn notified of admission
--- NOTE | 2022-10-08 13:14 | PC.NURSE ---
report called to Do ARORA
--- NOTE | 2022-10-08 14:22 | PC.NURSE ---
PT BEING TRANSPORTED UP FOR ADMISSION
[2022-10-08 15:39] LABS: POC Glucose,Bedside 278 (70-110)
--- NOTE | 2022-10-08 15:54 | EXP.ORTH.CON ---
Documented by User: CHEYENNE Metcalf 10/08/22 16:32 History of Present Illness *Admission Date: 10/08/22 *Reason for visit:: Left hip fracture *History of present illness: Mr. Conn is an 81-year-old male patient admitted to the acute inpatient service today 10/08/2022 after sustaining multiple mechanical falls at home over the past week. He reports that his most recent fall was approximately 2 days ago when he was mobilizing using his scooter to go down an incline to get to his wood pile at home. He states he was unable to get up at that time and has had left hip pain ever since. He was brought to the [facility] ER this morning where subsequent evaluation demonstrated a left femoral neck fracture. This afternoon the patient is lying comfortably in bed and his daughters are present at the bedside. He reports left hip pain but states that it is well controlled with as needed pain medication and rest. He has a history of a left below the knee amputation performed by Dr. Mckinley at [facility] on 04/27/2021. He reports that he has done well since his amputation and has not had any complications. He mobilizes with the use of a scooter or with the use of a prosthetic limb and walker. At baseline he lives in his own home and is independent for his activities of daily living. His past medical history is significant for type 2 diabetes mellitus, hypertension, hyperlipidemia, peripheral artery disease, peptic ulcer disease, osteoarthritis, and BPH. He is a former smoker. He denies any other symptoms or concerns this time. [facility] Disclaimer: The information contained in this section may have been updated after the patient was seen, as this information can be updated by other users. 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 BPH loc w urin obs/LUTS Cataract Cholecystectomy planned Decreased pedal pulses History of coronary angiogram HTN (hypertension) PAD (peripheral artery disease) Tachycardia Tonsillectomy planned Type 2 diabetes mellitus Surgical History H/O arthroscopy of knee H/O cardiac catheterization History of lobectomy of lung Family History Other No significant family history Social History (Updated 10/08/22 @ 18:49 by Heidi Merino RN) Smoking Status: Never smoker second hand exposure: No alcohol intake: former substance use type: denies use current occupational status: retired Travel in the last 8 weeks: None household members: none housing: house current occupational exposures/hazards: No caffeine: Yes Review of Systems Constitutional Constitutional: Reports frequent falls and Denies headache(s) ENT Ears, Nose, Mouth, and Throat: Denies headache(s) and Reports vertigo *Cardiovascular Cardiovascular: Denies syncope *Musculoskeletal Musculoskeletal: Reports abnormal gait (Uses a scooter for ambulation due to his left below the knee amputation.) *Neurologic Neurologic: Reports abnormal gait (Uses a scooter for ambulation due to his left below the knee amputation.), Denies confusion, Reports frequent falls, Denies headache(s), Denies syncope and Reports vertigo Psychiatric Psychiatric: Denies confusion Meds Home Medications and Allergies Home Medications Medication Instructions Recorded Confirmed Type cholecalciferol (vitamin D3) 25 1,000 unit PO DAILY Supplement 03/24/18 10/08/22 History mcg (1,000 unit) capsule enalapril maleate 10 mg tablet 10 mg PO DAILY blood pressure 03/24/18 10/08/22 History finasteride 5 mg tablet 5 mg PO DAILY prostate 03/24/18 10/08/22 History gabapentin 400 mg capsule 400 mg PO BID neuropathy 03/24/18 10/08/22 History glimepiride 4 mg tablet (Amaryl) 8 mg PO DAILY Diabetes 03/24/18 1
[2022-10-08 16:27] LABS: POC Glucose,Bedside 228 (70-110)
--- NOTE | 2022-10-08 20:00 | PC.NURSE ---
pt is alert and oriented to name, , year, but pt thought he was in [facility], vte not ordered at this time and will be addressed in am with md upon rounds, pt is scheduled for surgery tomorrow.
--- NOTE | 2022-10-08 20:00 | PC.NURSE ---
pt alert and oriented to name, , year but was confused at place, pt thought he was in [facility], pt denies pain at this time, +pedal pulse noted to rle, no vte ordered at this time due to surgery tomorrow, pt with left bka, and right annelise with hip fracture
[2022-10-08 23:00] LABS: POC Glucose,Bedside 156 (70-110)
[2022-10-09] VITALS (17 sets, daily range): BP systolic 118–161; BP diastolic 59–86; PULSE 77–106; RESP 12–20; TEMP 36.3–43; O2SAT 95–99; BMI 24.3
--- NOTE | 2022-10-09 05:21 | PC.NURSE ---
pt was restless through the night, pt was noticed to be picking at his sheets and lines at times however when asked pt orientation questions, pt was able to tell his name, age, birthdate, year and he knew where he was, v/s have been stable, pt denies pain when asked, skin pwd and without edema noted, f/c to bsd with jag clear urine noted, pt remains npo for surgery today, no acute distress, no other issues noted at this time.
[2022-10-09 06:48] LABS: Chloride 105 mmol/L (98-107); Potassium 3.8 mmoL/L (3.5-5.1); Sodium 142 mmol/L (136-145)
[2022-10-09 06:51] LABS: Anion Gap 12.8 mEq/L (5-15); Blood Urea Nitrogen 24 mg/dl (9-20); Calcium 9.6 mg/dl (8.4-10.2); Carbon Dioxide 28 mmol/L (22.0-30.0); Creatinine Clearance Estimated 68 mL/min (50-200); Estimated Glomerular Filt Rate 72 ml/min (>60); GFR (African American) 87 ML/MIN (>60); Glucose 149 mg/dl (74-100)
[2022-10-09 06:53] LABS: POC Glucose,Bedside 166 (70-110)
[2022-10-09 06:56] LABS: Basophils % 0.2 % (0.1-2.0); Eosinophils % 0.1 % (0.1-12.0); Hematocrit 29.2 % (42.0-52.0); Hemoglobin 9.5 g/dL (14.1-18.0); Lymphocytes # 1.6 K/mm3 (0.7-4.5); Lymphocytes % 18.8 % (10-50); Mean Corpuscular HGB Conc 32.7 g/dL (31.8-35.4); Mean Corpuscular Hemoglobin 30.9 pg (27.0-31.2); Mean Corpuscular Volume 94.6 fl (80-94); Mean Platelet Volume 8.2 fl (7.4-10.4); Monocytes # 0.8 K/mm3 (0.1-1.0); Monocytes % 9.3 % (1.7-9.3); Neutrophils # 5.9 K/mm3 (1.8-7.8); Neutrophils % 71.6 % (37.0-80.0); Platelet Count 293 K/mm3 (142-424); Red Blood Count 3.08 M/mm3 (4.60-6.20); Red Cell Distribution Width 17.1 % (11.5-17.5); White Blood Count 8.3 K/mm3 (4.8-10.8)
--- NOTE | 2022-10-09 08:04 | EXP.ACUTE.PN ---
Subjective *Date: 10/09/22 *Time: 08:13 Interval history: Patient states he is feeling about the same today. He denies any pain in his hip unless he moves. He did not rest very well last night and is hungry this morning but is n.p.o. for surgery. Medical Exam Vital signs and Labs for Last 24 Hours: Vital Signs Temp Pulse Pulse Resp BP BP Pulse Ox 10/09/22 04:00 97.9 F 87 16 161/68 H 95 10/08/22 20:00 83 97 10/08/22 20:00 98.1 F 83 20 143/71 H 97 10/08/22 16:00 98.6 F 85 20 156/67 H 98 10/08/22 14:22 98.4 F 90 18 146/69 H 10/08/22 14:43 98.5 F 89 20 166/83 H 98 10/08/22 14:00 90 18 149/69 H 96 10/08/22 13:30 87 18 142/70 H 96 10/08/22 13:00 85 150/74 H 97 10/08/22 12:00 67 127/66 98 10/08/22 11:58 89 148/77 H 96 10/08/22 11:01 94 H 20 150/98 H 96 10/08/22 10:01 89 20 134/65 98 10/08/22 09:00 84 20 135/67 98 10/08/22 08:30 73 20 133/69 96 Intake and Output 10/08/22 10/09/22 10/09/22 19:59 03:59 11:59 Intake Total 240 / 999 759 / 999 Output Total 0 1999 1800 / 2000 200 / 2000 Balance 240 / -1001 -1800 / -1001 559 / -1001 Intake: Intake, Oral Amount 240 / 240 Intake, Total IV Amount 759 / 759 0.9 % Sodium Chloride 1,000 ml 759 / 759 @ 50 mls/hr IV .Q20H [facility] Rx#: [id number] Output: Output, Urine Amount 0 / 1100 900 / 1100 200 / 1100 Output, Urine Amount (Catheter) 900 / 900 [place] 900 / 900 Other: Number of Unmeasured Voids 0 0 0 Weight 178 lb 8 oz 179 lb 11.2 oz Patient Weight 10/09/22 11:59 Weight 179 lb 11.2 oz Laboratory Results - last 24 hr 10/08/22 08:10: SARS-CoV-2 (PCR) Not detected, Influenza A Untype (PCR) Not detected, Influenza Type B (PCR) Not detected 10/08/22 09:22: Urine Color Yellow, Urine Appearance Clear, Urine pH 5.5, Ur Specific [place] 1.025, Urine Protein Negative, Urine Glucose (UA) Negative, Urine Ketones Trace, Urine Blood Negative, Urine Nitrate Negative, Urine Bilirubin Negative, Urine Urobilinogen 0.2, Ur Leukocyte Esterase Negative, Urine RBC None, Urine WBC None, Ur Squamous Epith Cells Occasional, Urine Bacteria Trace 10/08/22 15:03: POC Glucose 278 H 10/08/22 16:19: POC Glucose 228 H 10/08/22 21:13: POC Glucose 156 H 10/09/22 05:59: WBC 8.3, RBC 3.08 L, Hgb 9.5 L, Hct 29.2 L, MCV 94.6 H, MCH 30.9, MCHC 32.7, RDW 17.1, Plt Count 293, MPV 8.2, Neut % (Auto) 71.6, Lymph % (Auto) 18.8, [place] % (Auto) 9.3, Eos % (Auto) 0.1, Baso % (Auto) 0.2, Neut # (Auto) 5.9, Lymph # (Auto) 1.6, [place] # (Auto) 0.8, Eos # (Auto) 0.0, Baso # (Auto) 0.0 10/09/22 05:59: Sodium 142, Potassium 3.8, Chloride 105, Carbon Dioxide 28, Anion Gap 12.8, BUN 24 H D, Creatinine 1.00, Estimated Creat Clear 68, Estimated GFR 72, Est GFR ( Amer) 87 D, Glucose 149 H D, Calcium 9.6 10/09/22 06:17: POC Glucose 166 H I & O for Labs for Last 24 Hours: Intake & Output 10/06/22 10/07/22 10/08/22 10/09/22 11:59 11:59 11:59 11:59 Intake Total 999 / 999 Output Total 1999 Balance -1001 / -1001 Weight 200 lb 179 lb 11.2 oz Constitutional: Present no acute distress Respiratory: Present CTA bilaterally Cardiac: Present Reg Rate and Rhythm GI: Present soft; Absent distention or tenderness Extremities: Present edema (Trace edema in the right lower extremity, left AKA, tenderness around the left hip) Neuro: Present alert and awake Assessment and Plan *Assessment and plan (1) Closed hip fracture: Status: Acute Qualifiers: Encounter type: initial encounter Laterality: left Qualified Code(s): S72.002A - Fracture of unspecified part of neck of left femur, initial encounter for closed fracture Category: Medical Code(s): S72.009A - Fracture of unspecified part of neck of unspecified femur, initial encounter for closed fracture (2) PAD (peripheral artery disease): Status: Chronic Category: Medi
[2022-10-09 11:44] LABS: POC Glucose,Bedside 192 (70-110)
--- NOTE | 2022-10-09 13:05 | EXP.ORTH.PN ---
Subjective *Date: 10/09/22 *Time: 16:07 Interval history: Mr. Conn is an 81 year old male patient admitted secondary to sustaining a left subcapital femur fracture. He is provisionally scheduled to undergo a left hip hemiarthroplasty performed by Dr. Coates this afternoon. This morning the patient is lying comfortably in bed. He reports left hip pain as to be expected but states it is well controlled with as needed pain medication and rest. His main complaint this morning is that he is hungry, he is n.p.o. for anticipated surgery this afternoon. No history of any distal tingling/numbness, fevers, chills, or rigors. He denies any other symptoms or concerns at this time. Ortho Exam (Inpt) Vital signs and Labs for Last 24 Hours: Temp Pulse Resp BP Pulse Ox 98.7 F 96 H 18 149/66 H 96 10/09/22 08:00 10/09/22 08:00 10/09/22 08:00 10/09/22 08:00 10/09/22 08:00 Laboratory Results - last 24 hr 10/08/22 15:03: POC Glucose 278 H 10/08/22 16:19: POC Glucose 228 H 10/08/22 21:13: POC Glucose 156 H 10/09/22 05:59: WBC 8.3, RBC 3.08 L, Hgb 9.5 L, Hct 29.2 L, MCV 94.6 H, MCH 30.9, MCHC 32.7, RDW 17.1, Plt Count 293, MPV 8.2, Neut % (Auto) 71.6, Lymph % (Auto) 18.8, [place] % (Auto) 9.3, Eos % (Auto) 0.1, Baso % (Auto) 0.2, Neut # (Auto) 5.9, Lymph # (Auto) 1.6, [place] # (Auto) 0.8, Eos # (Auto) 0.0, Baso # (Auto) 0.0 10/09/22 05:59: Sodium 142, Potassium 3.8, Chloride 105, Carbon Dioxide 28, Anion Gap 12.8, BUN 24 H D, Creatinine 1.00, Estimated Creat Clear 68, Estimated GFR 72, Est GFR ( Amer) 87 D, Glucose 149 H D, Calcium 9.6 10/09/22 06:17: POC Glucose 166 H 10/09/22 11:36: POC Glucose 192 H Temp Pulse Resp BP Pulse Ox 98.5 F 89 20 166/83 H 98 10/08/22 14:43 10/08/22 14:43 10/08/22 14:43 10/08/22 14:43 10/08/22 14:43 Laboratory Results - last 24 hr 10/08/22 07:25: WBC 8.3, RBC 3.17 L, Hgb 9.9 L, Hct 30.6 L, MCV 96.5 H, MCH 31.1, MCHC 32.2, RDW 17.2, Plt Count 308, MPV 8.7, Neut % (Auto) 78.8, Lymph % (Auto) 13.6, [place] % (Auto) 7.3, Eos % (Auto) 0.1, Baso % (Auto) 0.1, Neut # (Auto) 6.5, Lymph # (Auto) 1.1, [place] # (Auto) 0.6, Eos # (Auto) 0.0, Baso # (Auto) 0.0 10/08/22 07:25: Sodium 136, Potassium 3.4 L, Chloride 101, Carbon Dioxide 27, Anion Gap 11.4, BUN 35 H, Creatinine 1.20, Estimated Creat Clear 63, Estimated GFR 58 L, Est GFR ( Amer) 70, Glucose 219 H, Calcium 9.5, Total Bilirubin 0.8, AST 40, ALT 23, Alkaline Phosphatase 101, Total Protein 7.4, Albumin 4.2, Globulin 3.2, Albumin/Globulin Ratio 1.3 10/08/22 08:10: SARS-CoV-2 (PCR) Not detected, Influenza A Untype (PCR) Not detected, Influenza Type B (PCR) Not detected 10/08/22 09:22: Urine Color Yellow, Urine Appearance Clear, Urine pH 5.5, Ur Specific [place] 1.025, Urine Protein Negative, Urine Glucose (UA) Negative, Urine Ketones Trace, Urine Blood Negative, Urine Nitrate Negative, Urine Bilirubin Negative, Urine Urobilinogen 0.2, Ur Leukocyte Esterase Negative, Urine RBC None, Urine WBC None, Ur Squamous Epith Cells Occasional, Urine Bacteria Trace 10/08/22 15:03: POC Glucose 278 H I & O for Labs for Last 24 Hours: Intake & Output 10/06/22 10/07/22 10/08/22 10/09/22 23:59 23:59 23:59 23:59 Intake Total 240 / 240 759 / 759 Output Total 0 / 1800 1999 Balance 240 / -1560 -1241 / -1241 Weight 178 lb 8 oz 179 lb 11.2 oz Intake & Output 10/05/22 10/06/22 10/07/22 10/08/22 23:59 23:59 23:59 23:59 Weight 178 lb 8 oz Constitutional: Present no acute distress and cooperative Head: Present normocephalic and atraumatic Eyes: Present as per HPI ENT: Present normal exam Neck: Present normal inspection, full ROM and trachea midline; Absent lymphadenopathy Respiratory: Present normal respiratory effort, able to speak in complete sentences and symmetric chest movement; Absent accessory muscle use or respiratory distress Cardiac: Present Reg Rate and Rhythm and radial pulses present GI: Present soft; Absent tenderness Rectal (ma
[2022-10-09 15:49] LABS: POC Glucose,Bedside 181 (70-110)
--- NOTE | 2022-10-09 17:36 | P.PN_ITS ---
[facility] Disclaimer: The information contained in this section may have been updated after the patient was seen, as this information can be updated by other users. 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 BPH loc w urin obs/LUTS Cataract Cholecystectomy planned Decreased pedal pulses History of coronary angiogram HTN (hypertension) PAD (peripheral artery disease) Tachycardia Tonsillectomy planned Type 2 diabetes mellitus Surgical History H/O arthroscopy of knee H/O cardiac catheterization History of lobectomy of lung Family History Other No significant family history Social History (Updated 10/08/22 @ 18:49 by Heidi Merino RN) Smoking Status: Never smoker second hand exposure: No alcohol intake: former substance use type: denies use current occupational status: retired Travel in the last 8 weeks: None household members: none housing: house current occupational exposures/hazards: No caffeine: Yes [facility] Anesthesia Checklist Patient Identification Patient Identification: Verbal (Name & ) Structural Data Admitted From: Inpatient Planned Operative Procedure/s: l hip hemiarthroplasty Additional verifications Anesthesia Reactions: No Airway Assessment C-Spine Mobility Assessed: Yes TMJ Mobility Assessed: Yes Dentition: Good Dentition Neurological Assessment Level of Consciousness: Awake, Alert and Appropriate Anesthesia Plan Anesthesia Risk discussed: Yes ASA Class: III Anesthesia Type: Spinal
--- NOTE | 2022-10-09 17:43 | SUR.OPER ---
1730-family updated at this time
--- NOTE | 2022-10-09 18:11 | XR_ITS ---
PROCEDURE INFORMATION: Exam: XR Left Hip Exam date and time: 10/09/2022 6:25 PM Age: 81 years old Clinical indication: Device placement; Other: Left hip hemiarthroplasty; Prior surgery; Surgery date: Post-operative (0-2 days); Additional info: S/P left hemiarthroplasty TECHNIQUE: Imaging protocol: Radiologic exam of the Left hip. Views: 2 or 3 views hip with pelvis when performed. COMPARISON: CT HIP LT WO CON 10/08/2022 7:54 AM FINDINGS: Bones/joints: Status post left hip arthroplasty. No hardware-related complication noted. No visible fracture or dislocation. Soft tissues: Expected soft tissue swelling overlying the left hip. IMPRESSION: 1. Status post left hip arthroplasty. No hardware-related complication noted. 2. No visible fracture or dislocation.
--- NOTE | 2022-10-09 18:24 | EXP.ANES.I ---
[facility] Anesthesia Record Part I Anesthesia Record I Intake, IV Amount: 2,000 Estimated blood loss (mL): 150 Urine output (mL): 250 Blood Pressure: 118/60 SaO2: 98 Pulse Rate: 77 Respiratory Rate: 12 Temperature: 97.7 F Patient is:: Awake and Stable Stable to PACU at:: 18:15
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
[2022-10-09 18:41] LABS: POC Glucose,Bedside 162 (70-110)
--- NOTE | 2022-10-09 19:05 | PC.NURSE ---
late entry... 182--checked fsbs with results of 162, no further orders given 1830-radiology at bedside 1845-detailed report called to MAITE Sheets 1850-pt transported to 2nd floor room 213 via hospital bed w/angeline rails up and left in care of MAITE Sheets with bed locked in lowest position, vss, pt stable
[2022-10-10] VITALS (8 sets, daily range): BP systolic 117–150; BP diastolic 52–74; PULSE 76–104; RESP 16–18; TEMP 36.6–37.7; O2SAT 94–97; BMI 24.9
--- NOTE | 2022-10-10 04:23 | PC.NURSE ---
pt alert and oriented x4, pt is disoriented at times after pain medication given, but re-orients easily, f/c to bsd with cyu noted, vss, dressing to left hip cdi, pt rated pain 9/10 relieved by morphine and po pain meds, no other issues or concerns at this time, pt in no acute distress.
[2022-10-10 06:30] LABS: Basophils % 0.2 % (0.1-2.0); Lymphocytes # 1.4 K/mm3 (0.7-4.5)
[2022-10-10 06:35] LABS: Chloride 107 mmol/L (98-107); Sodium 141 mmol/L (136-145)
[2022-10-10 06:36] LABS: Potassium 3.7 mmoL/L (3.5-5.1)
--- NOTE | 2022-10-10 06:36 | PC.NURSE ---
PATIENT WEIGHED WITH ABDUCTION PILLOW
[2022-10-10 06:38] LABS: Blood Urea Nitrogen 20 mg/dl (9-20); Creatinine Clearance Estimated 70 mL/min (50-200); Estimated Glomerular Filt Rate 93 ml/min (>60); GFR (African American) 113 ML/MIN (>60)
[2022-10-10 06:39] LABS: Anion Gap 9.7 mEq/L (5-15); Calcium 8.6 mg/dl (8.4-10.2); Carbon Dioxide 28 mmol/L (22.0-30.0); Glucose 153 mg/dl (74-100)
[2022-10-10 06:44] LABS: Eosinophils % 0.1 % (0.1-12.0); Hematocrit 25.3 % (42.0-52.0); Lymphocytes % 19.9 % (10-50); Mean Corpuscular HGB Conc 33.4 g/dL (31.8-35.4); Mean Corpuscular Hemoglobin 31.5 pg (27.0-31.2); Mean Corpuscular Volume 94.4 fl (80-94); Mean Platelet Volume 8.2 fl (7.4-10.4); Monocytes # 0.6 K/mm3 (0.1-1.0); Monocytes % 8.8 % (1.7-9.3); Neutrophils # 4.9 K/mm3 (1.8-7.8); Neutrophils % 71.1 % (37.0-80.0); Platelet Count 270 K/mm3 (142-424); Red Blood Count 2.69 M/mm3 (4.60-6.20); Red Cell Distribution Width 17.4 % (11.5-17.5); White Blood Count 6.9 K/mm3 (4.8-10.8)
[2022-10-10 06:59] LABS: Hemoglobin 8.5 g/dL (14.1-18.0)
[2022-10-10 07:00] LABS: POC Glucose,Bedside 166 (70-110)
[2022-10-10 07:00] LABS: POC Glucose,Bedside 173 (70-110)
--- NOTE | 2022-10-10 07:27 | EXP.ACUTE.PN ---
Subjective *Date: 10/10/22 *Time: 07:27 Interval history: Patient complains of itching on the bottom of his right foot. Medical Exam Vital signs and Labs for Last 24 Hours: Vital Signs Temp Pulse Pulse Pulse Resp BP BP 10/10/22 04:00 97.8 F 89 16 142/63 H 10/09/22 22:00 95 H 20 133/62 10/09/22 21:00 93 H 20 151/69 H 10/09/22 20:30 94 H 20 136/68 10/09/22 20:00 83 20 144/84 H 10/09/22 19:45 98.0 F 80 20 140/76 10/09/22 19:30 79 20 138/64 10/09/22 19:15 75 20 141/73 H 10/09/22 20:00 10/10/22 00:00 98.2 F 87 18 144/61 H 10/09/22 19:00 97.4 F L 78 18 133/68 10/09/22 18:56 99 F 80 20 135/78 10/09/22 18:45 98.4 F 80 16 139/71 10/09/22 18:35 82 16 135/59 L 10/09/22 18:25 79 16 122/67 10/09/22 18:15 97.7 F 77 12 118/60 10/09/22 12:00 97.6 F 106 H 18 156/86 H 10/09/22 08:00 98.7 F 96 H 18 149/66 H 10/09/22 18:25 97.7 F 77 12 118/60 Pulse Ox 10/10/22 04:00 96 10/09/22 22:00 99 10/09/22 21:00 97 10/09/22 20:30 96 10/09/22 20:00 97 10/09/22 19:45 97 10/09/22 19:30 97 10/09/22 19:15 97 10/09/22 20:00 95 10/10/22 00:00 95 10/09/22 19:00 99 10/09/22 18:56 98 10/09/22 18:45 99 10/09/22 18:35 98 10/09/22 18:25 98 10/09/22 18:15 99 10/09/22 12:00 96 10/09/22 08:00 96 10/09/22 18:25 Intake and Output 10/09/22 10/09/22 10/10/22 15:59 23:59 07:59 Intake Total 240 / 2999 1999 / 299 894 / 894 Output Total 425 / 2425 400 / 400 Balance 240 / 574 1575 / 574 494 / 494 Intake: Intake, Oral Amount 240 / 240 Intake, Total IV Amount 1999 / 2758 894 / 894 0.9 % Sodium Chloride 1,000 ml 794 / 794 @ 50 mls/hr IV .Q20H [facility] Rx#: [id number] Cefazolin Sodium 1 gm In 0.9 % 100 / 100 Sodium Chloride 50 ml @ 100 mls /hr IV Q6H [facility] Rx#:[id number] Output: Output, Urine Amount 0 / 1100 400 / 400 Output, Urine Amount (Catheter) 425 / 1325 Saucedo 425 / 1325 Other: Number of Unmeasured Voids 0 0 0 Number of Bowel Movements 1 Weight 184 lb 3 oz Patient Weight 10/10/22 23:59 Weight 184 lb 3 oz Laboratory Results - last 24 hr 10/09/22 11:36: POC Glucose 192 H 10/09/22 15:41: POC Glucose 181 H 10/09/22 18:29: POC Glucose 162 H 10/09/22 22:32: POC Glucose 166 H 10/10/22 05:53: WBC 6.9, RBC 2.69 L, Hgb 8.5 L D, Hct 25.3 L, MCV 94.4 H, MCH 31.5 H, MCHC 33.4, RDW 17.4, Plt Count 270, MPV 8.2, Neut % (Auto) 71.1, Lymph % (Auto) 19.9, [place] % (Auto) 8.8, Eos % (Auto) 0.1, Baso % (Auto) 0.2, Neut # (Auto) 4.9, Lymph # (Auto) 1.4, [place] # (Auto) 0.6, Eos # (Auto) 0.0, Baso # (Auto) 0.0 10/10/22 05:53: Sodium 141, Potassium 3.7, Chloride 107, Carbon Dioxide 28, Anion Gap 9.7, BUN 20, Creatinine 0.80, Estimated Creat Clear 70, Estimated GFR 93, Est GFR ( Amer) 113 D, Glucose 153 H, Calcium 8.6 10/10/22 05:53: POC Glucose 173 H I & O for Labs for Last 24 Hours: Intake & Output 10/07/22 10/08/22 10/09/22 10/10/22 23:59 23:59 23:59 23:59 Intake Total 240 / 240 2999 / 2999 894 / 894 Output Total 0 / 1800 2425 / 2425 400 / 400 Balance 240 / -1560 574 / 574 494 / 494 Weight 178 lb 8 oz 179 lb 11.2 oz 184 lb 3 oz Constitutional: Present no acute distress Respiratory: Present CTA bilaterally Cardiac: Present Reg Rate and Rhythm GI: Present soft; Absent distention or tenderness Comment:: no rash on sole of right foot Neuro: Present alert and awake Assessment and Plan *Assessment and plan (1) Closed hip fracture: Status: Acute Qualifiers: Encounter type: initial encounter Laterality: left Qualified Code(s): S72.002A - Fracture of unspecified part of neck of left femur, initial encounter for closed fracture Category: Medical Code(s): S72.009A - Fracture of unspecified part of neck of unspecified femur, initial encounter for closed fracture
--- NOTE | 2022-10-10 07:28 | P.PNANES_ITS ---
[facility] Anesthesia Record Part II Anesthesia Record Part II Discharge Time: 18:45 Destination: Medical Surgical Department PACU nurse assessment reviewed?: Yes Patient Condition:: Good Anesthesia Complications:: None Swallowing reflex intact?: Yes Cyanosis?: No Blood Pressure: 139/71 Pulse Rate: 80 Temperature: 98.4 F Mental Status: Alert & Oriented Pain level:: 0 Nausea and/or vomitting:: None Intake, IV Amount: 0
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
--- NOTE | 2022-10-10 11:02 | EXP.ORTH.PN ---
Subjective *Date: 10/10/22 *Time: 08:40 Interval history: Mr. Conn is an 81 year old male patient who underwent an uneventful left hip cemented arthroplasty yesterday 10/10/[address] Co[address]. Todaythe patient is postop day #1. This morning he is sitting up comfortably in bed. He reports pain in his left hip, but states it is well controlled with as needed pain medication and rest. He states that he was able to sleep well last night. He reports that he has not had much of an appetite, but denies any episodes of nausea or vomiting. He denies any other symptoms or concerns at this time. Ortho Exam (Inpt) Vital signs and Labs for Last 24 Hours: Temp Pulse Resp BP Pulse Ox 98.3 F 91 H 18 146/64 H 96 10/10/22 08:00 10/10/22 08:00 10/10/22 08:00 10/10/22 08:00 10/10/22 08:00 Laboratory Results - last 24 hr 10/09/22 11:36: POC Glucose 192 H 10/09/22 15:41: POC Glucose 181 H 10/09/22 18:29: POC Glucose 162 H 10/09/22 22:32: POC Glucose 166 H 10/10/22 05:53: WBC 6.9, RBC 2.69 L, Hgb 8.5 L D, Hct 25.3 L, MCV 94.4 H, MCH 31.5 H, MCHC 33.4, RDW 17.4, Plt Count 270, MPV 8.2, Neut % (Auto) 71.1, Lymph % (Auto) 19.9, [place] % (Auto) 8.8, Eos % (Auto) 0.1, Baso % (Auto) 0.2, Neut # (Auto) 4.9, Lymph # (Auto) 1.4, [place] # (Auto) 0.6, Eos # (Auto) 0.0, Baso # (Auto) 0.0 10/10/22 05:53: Sodium 141, Potassium 3.7, Chloride 107, Carbon Dioxide 28, Anion Gap 9.7, BUN 20, Creatinine 0.80, Estimated Creat Clear 70, Estimated GFR 93, Est GFR ( Amer) 113 D, Glucose 153 H, Calcium 8.6 10/10/22 05:53: POC Glucose 173 H Temp Pulse Resp BP Pulse Ox 98.5 F 89 20 166/83 H 98 10/08/22 14:43 10/08/22 14:43 10/08/22 14:43 10/08/22 14:43 10/08/22 14:43 Laboratory Results - last 24 hr 10/08/22 07:25: WBC 8.3, RBC 3.17 L, Hgb 9.9 L, Hct 30.6 L, MCV 96.5 H, MCH 31.1, MCHC 32.2, RDW 17.2, Plt Count 308, MPV 8.7, Neut % (Auto) 78.8, Lymph % (Auto) 13.6, [place] % (Auto) 7.3, Eos % (Auto) 0.1, Baso % (Auto) 0.1, Neut # (Auto) 6.5, Lymph # (Auto) 1.1, [place] # (Auto) 0.6, Eos # (Auto) 0.0, Baso # (Auto) 0.0 10/08/22 07:25: Sodium 136, Potassium 3.4 L, Chloride 101, Carbon Dioxide 27, Anion Gap 11.4, BUN 35 H, Creatinine 1.20, Estimated Creat Clear 63, Estimated GFR 58 L, Est GFR ( Amer) 70, Glucose 219 H, Calcium 9.5, Total Bilirubin 0.8, AST 40, ALT 23, Alkaline Phosphatase 101, Total Protein 7.4, Albumin 4.2, Globulin 3.2, Albumin/Globulin Ratio 1.3 10/08/22 08:10: SARS-CoV-2 (PCR) Not detected, Influenza A Untype (PCR) Not detected, Influenza Type B (PCR) Not detected 10/08/22 09:22: Urine Color Yellow, Urine Appearance Clear, Urine pH 5.5, Ur Specific [place] 1.025, Urine Protein Negative, Urine Glucose (UA) Negative, Urine Ketones Trace, Urine Blood Negative, Urine Nitrate Negative, Urine Bilirubin Negative, Urine Urobilinogen 0.2, Ur Leukocyte Esterase Negative, Urine RBC None, Urine WBC None, Ur Squamous Epith Cells Occasional, Urine Bacteria Trace 10/08/22 15:03: POC Glucose 278 H I & O for Labs for Last 24 Hours: Intake & Output 12/05/10/08/22 10/09/22 10/10/22 23:59 23:59 23:59 23:59 Intake Total 240 / 240 2999 / 2999 1134 / 1134 Output Total 0 / 1800 2425 / 2425 400 / 400 Balance 240 / -1560 574 / 574 734 / 734 Weight 178 lb 8 oz 179 lb 11.2 oz 184 lb 3 oz Intake & Output 10/05/22 10/06/22 10/07/22 10/08/22 23:59 23:59 23:59 23:59 Weight 178 lb 8 oz Constitutional: Present no acute distress and cooperative Head: Present normocephalic and atraumatic Eyes: Present as per HPI ENT: Present normal exam Neck: Present normal inspection, full ROM and trachea midline; Absent lymphadenopathy Respiratory: Present normal respiratory effort, able to speak in complete sentences and symmetric chest movement; Absent accessory muscle use or respiratory distress Cardiac: Present Reg Rate and Rhythm and radial pulses present GI: Present soft; Absent tenderness Rectal (male): Present deferred (male): Conor
[2022-10-10 11:28] LABS: POC Glucose,Bedside 219 (70-110)
--- NOTE | 2022-10-10 16:11 | CARE MANAGER ---
Addendum entered by Maryuri Shipman RN 10/11/22 11:46: Patient planned for discharge to [facility] today. Per nursing staff, he will transfer per EMS. Original Note: Spoke with patient this morning to discuss discharge planning. Patient's plan is to discharge to SNF for therapy. [facility] signed for [facility]. Clinical faxed and Gemma came to see patient today. He has a bed offer, and will likely discharge to there tomorrow.
--- NOTE | 2022-10-10 18:24 | PC.NURSE ---
Pt was up to the chair for a few hours this am and tolerated fair. He requested to go back to bed shortly after getting up but was encouraged to stay up at least until lunch. Saucedo was removed this afternoon, urinal is at bedside and pt instructed on use. Only complaints have been left hip pain. PRN pain meds administered with favorable results. Dressing to left hip is clean dry and intact. Abductor pillow in place. He is currently resting in bed with his eyes closed. Bed is locked and in the lowest position, call light is within reach.
[2022-10-10 18:49] LABS: POC Glucose,Bedside 98 (70-110)
--- NOTE | 2022-10-10 20:00 | PC.NURSE ---
noted when helping pt with urinal to void that scrotum was enlarged, pt stated that it has been like that and that his urologist stated not to worry about it.
[2022-10-10 23:24] LABS: POC Glucose,Bedside 239 (70-110)
[2022-10-11] VITALS: BP 104/53; PULSE 97; RESP 18; TEMP 37.2; O2SAT 92
[2022-10-11 04:00] VITALS: BP 110/49; PULSE 100; RESP 19; TEMP 36.8; O2SAT 90
--- NOTE | 2022-10-11 04:16 | PC.NURSE ---
no changes from previous assessment, pt was restless and uncomfortable and stated pain unrelieved by po pain med, iv morphine given and pt rested well after, pt has voided x1 post cath removal, noted scrotal enlargement in which pt stated it has been like that and urologist stated no concerns, VSS, low grade temp noted 99.9, dressing intact to left hip, no acute distress
[2022-10-11 05:00] VITALS: BMI 25.2
[2022-10-11 06:21] LABS: POC Glucose,Bedside 157 (70-110)
[2022-10-11 06:39] LABS: Basophils % 0.2 % (0.1-2.0); Hematocrit 24.9 % (42.0-52.0); Hemoglobin 8.2 g/dL (14.1-18.0); Lymphocytes # 1.5 K/mm3 (0.7-4.5); Lymphocytes % 21.2 % (10-50); Mean Corpuscular HGB Conc 32.9 g/dL (31.8-35.4); Mean Corpuscular Hemoglobin 31.6 pg (27.0-31.2); Mean Corpuscular Volume 95.9 fl (80-94); Mean Platelet Volume 8.5 fl (7.4-10.4); Monocytes # 0.6 K/mm3 (0.1-1.0); Monocytes % 8.9 % (1.7-9.3); Neutrophils # 4.9 K/mm3 (1.8-7.8); Neutrophils % 69.7 % (37.0-80.0); Platelet Count 266 K/mm3 (142-424); Red Cell Distribution Width 17.4 % (11.5-17.5); White Blood Count 7.1 K/mm3 (4.8-10.8)
[2022-10-11 06:44] LABS: Chloride 108 mmol/L (98-107); Potassium 3.4 mmoL/L (3.5-5.1); Sodium 141 mmol/L (136-145)
[2022-10-11 06:47] LABS: Anion Gap 9.4 mEq/L (5-15); Blood Urea Nitrogen 19 mg/dl (9-20); Carbon Dioxide 27 mmol/L (22.0-30.0); Creatinine Clearance Estimated 70 mL/min (50-200); Estimated Glomerular Filt Rate 81 ml/min (>60); GFR (African American) 98 ML/MIN (>60)
[2022-10-11 06:48] LABS: Calcium 8.4 mg/dl (8.4-10.2); Glucose 148 mg/dl (74-100)
--- NOTE | 2022-10-11 07:58 | EXP.PN ---
Subjective *Date: 10/11/22 *Time: 08:51 Interval history: Patient slept after receiving morphine. He is eating a little bit better. He was out of bed yesterday and did well. He is voiding QS and bowels have moved. He denies chest pain and shortness of breath. Hemoglobin today is 8.2 with hematocrit of 24.9. Potassium is little low at 3.4. Exam Data for Last 24 hours Vital signs and Labs for Last 24 Hours: Temp Pulse Resp BP Pulse Ox 98.2 F 100 H 19 110/49 L 90 L 10/11/22 04:00 10/11/22 04:00 10/11/22 04:00 10/11/22 04:00 10/11/22 04:00 Laboratory Results - last 24 hr 10/10/22 11:21: POC Glucose 219 H 10/10/22 17:48: POC Glucose 98 10/10/22 20:24: POC Glucose 239 H 10/11/22 06:02: POC Glucose 157 H 10/11/22 06:18: WBC 7.1, RBC 2.60 L, Hgb 8.2 L, Hct 24.9 L, MCV 95.9 H, MCH 31.6 H, MCHC 32.9, RDW 17.4, Plt Count 266, MPV 8.5, Neut % (Auto) 69.7, Lymph % (Auto) 21.2, [place] % (Auto) 8.9, Eos % (Auto) 0.0 L, Baso % (Auto) 0.2, Neut # (Auto) 4.9, Lymph # (Auto) 1.5, [place] # (Auto) 0.6, Eos # (Auto) 0.0, Baso # (Auto) 0.0 10/11/22 06:18: Sodium 141, Potassium 3.4 L, Chloride 108 H, Carbon Dioxide 27, Anion Gap 9.4, BUN 19, Creatinine 0.90, Estimated Creat Clear 70, Estimated GFR 81, Est GFR ( Amer) 98, Glucose 148 H, Calcium 8.4 I & O for Last 24 hours: Intake & Output 10/08/22 10/09/22 10/10/22 10/11/22 11:59 11:59 11:59 11:59 Intake Total 999 / 999 3374 / 3374 1808 / 1808 Output Total 1999 825 / 825 800 / 800 Balance -1001 / -1001 2549 / 2549 1008 / 1008 Weight 200 lb 179 lb 11.2 oz 184 lb 3 oz 186 lb Constitutional Constitutional: no acute distress *Routine Respiratory Exam Respiratory: Present CTA bilaterally *Routine Cardiovascular Exam Cardiovascular: Present RRR *Routine Abdominal Exam Abdominal: Present soft and normoactive bowel sounds; Absent tenderness or distended *Routine Extremities Exam Extremities: Absent edema or calf tenderness (On the right.) Comments: Left hip dressing is clean and dry. Left below the knee amputation. *Routine Neurological Exam Neurological: Present alert and oriented X3 Assessment and Plan *Assessment and plan (1) Closed hip fracture: Status: Acute Qualifiers: Encounter type: initial encounter Laterality: left Qualified Code(s): S72.002A - Fracture of unspecified part of neck of left femur, initial encounter for closed fracture Category: Medical Code(s): S72.009A - Fracture of unspecified part of neck of unspecified femur, initial encounter for closed fracture (2) Status post hip hemiarthroplasty: Status: Acute Category: Surgical Code(s): Z96.649 - Presence of unspecified artificial hip joint (3) Itch of skin: Status: Acute Category: Medical Code(s): L29.9 - Pruritus, unspecified (4) Anemia: Status: Acute Category: Medical Code(s): D64.9 - Anemia, unspecified (5) Osteoarthritis: Status: Acute Category: Medical Code(s): M19.90 - Unspecified osteoarthritis, unspecified site (6) HTN (hypertension): Status: Chronic Qualifiers: Hypertension type: essential hypertension Qualified Code(s): I10 - Essential (primary) hypertension Category: Medical Code(s): I10 - Essential (primary) hypertension (7) PAD (peripheral artery disease): Status: Chronic Category: Medical Code(s): I73.9 - Peripheral vascular disease, unspecified (8) Type 2 diabetes mellitus: Status: Chronic Qualifiers: Diabetes mellitus complication status: without complication 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
[2022-10-11 08:00] VITALS: BP 104/48; PULSE 105; RESP 14; TEMP 37.3; O2SAT 92
--- NOTE | 2022-10-11 08:04 | EXP.DC.SUM ---
General Admission date:: 10/08/22 Discharge date: 10/11/22 HPI HPI HPI: Mr. Conn is an 81-year-old male patient admitted to the acute inpatient service today 10/08/2022 after sustaining multiple mechanical falls at home over the past week. He reports that his most recent fall was approximately 2 days ago when he was mobilizing using his scooter to go down an incline to get to his wood pile at home. He states he was unable to get up at that time and has had left hip pain ever since. He was brought to the [facility] ER this morning where subsequent evaluation demonstrated a left femoral neck fracture. This afternoon the patient is lying comfortably in bed and his daughters are present at the bedside. He reports left hip pain but states that it is well controlled with as needed pain medication and rest. He has a history of a left below the knee amputation performed by Dr. Mckinley at [facility] on 04/27/2021. He reports that he has done well since his amputation and has not had any complications. He mobilizes with the use of a scooter or with the use of a prosthetic limb and walker. At baseline he lives in his own home and is independent for his activities of daily living. His past medical history is significant for type 2 diabetes mellitus, hypertension, hyperlipidemia, peripheral artery disease, peptic ulcer disease, osteoarthritis, and BPH. He is a former smoker. He denies any other symptoms or concerns this time. Hospital Course Hospital Course Hospital Course: Patient was seen by Dr. Coates, orthopedic, on admission with plans for surgery on 10/09/2022 in the form of a left hip Hemiarthroplasty. And on 10/09/2022 he had a left cemented hip Manny arthroplasty per Dr. Coates. There were no complications with the surgery. Patient did complain of some itching on the bottom of his right foot and was started on hydroxyzine. He was noted to be anemic with a hemoglobin of 8.5.. Physical therapy did work with patient and get him out of bed in a chair. Care management made arrangements for him to be transferred to a skilled facility for ongoing rehab. 10/10/2022 patient was felt to be stable to be transferred to skilled facility for rehab as per orthopedic service. And on 10/11/2022 patient did remain stable. He did require some morphine for pain unrelieved by p.o. pain medicine during the night. After this he did sleep. He was eating better. He was voiding QS. Bowels had moved. He was ready to be discharged for ongoing rehab. Repeat hemoglobin on 10/11 was 8.2 with hematocrit of 24.9. Potassium was a little low at 3.4. We will give a dose of p.o. potassium. He will need to have H&H monitored. Exam Data for Last 24 hours Vital signs and Labs for Last 24 Hours: Temp Pulse Resp BP Pulse Ox 98.2 F 100 H 19 110/49 L 90 L 10/11/22 04:00 10/11/22 04:00 10/11/22 04:00 10/11/22 04:00 10/11/22 04:00 Laboratory Results - last 24 hr 10/10/22 11:21: POC Glucose 219 H 10/10/22 17:48: POC Glucose 98 10/10/22 20:24: POC Glucose 239 H 10/11/22 06:02: POC Glucose 157 H 10/11/22 06:18: WBC 7.1, RBC 2.60 L, Hgb 8.2 L, Hct 24.9 L, MCV 95.9 H, MCH 31.6 H, MCHC 32.9, RDW 17.4, Plt Count 266, MPV 8.5, Neut % (Auto) 69.7, Lymph % (Auto) 21.2, [place] % (Auto) 8.9, Eos % (Auto) 0.0 L, Baso % (Auto) 0.2, Neut # (Auto) 4.9, Lymph # (Auto) 1.5, [place] # (Auto) 0.6, Eos # (Auto) 0.0, Baso # (Auto) 0.0 10/11/22 06:18: Sodium 141, Potassium 3.4 L, Chloride 108 H, Carbon Dioxide 27, Anion Gap 9.4, BUN 19, Creatinine 0.90, Estimated Creat Clear 70, Estimated GFR 81, Est GFR ( Amer) 98, Glucose 148 H, Calcium 8.4 I & O for Last 24 hours: Intake & Output 10/08/22 10/09/22 10/10/22 10/11/22 11:59 11:59 11:59 11:59 Intake Total 999 / 999 3374 / 3374 1808 / 1808 Output Total 1999 825 / 825 800 / 800 Balance -1001 / -1001 2549 / 2549 1008 / 1008 Weight 200 lb 179 lb 11.2 oz 184 lb 3 oz 186 lb Narrativ
--- NOTE | 2022-10-11 09:10 | EXP.ORTH.PN ---
Subjective *Date: 10/11/22 *Time: 08:40 Interval history: Mr. Conn is an 81 year old male patient who underwent an uneventful left hip cemented arthroplasty 10/10/[address] Coates. Today the patient is postop day #2. This morning he is sitting up comfortably in bed. He reports some pain in his left hip, but states it is well controlled with as needed pain medication and rest. He reports that he has been eating and drinking well and denies any episodes of nausea or vomiting. He reports that he was able to transfer to the bedside chair yesterday with assistance of physical therapy, but has not attempted to wear his prosthesis yet. He denies any other symptoms or concerns at this time. Ortho Exam (Inpt) Vital signs and Labs for Last 24 Hours: Temp Pulse Resp BP Pulse Ox 98.2 F 100 H 19 110/49 L 90 L 10/11/22 04:00 10/11/22 04:00 10/11/22 04:00 10/11/22 04:00 10/11/22 04:00 Laboratory Results - last 24 hr 10/10/22 11:21: POC Glucose 219 H 10/10/22 17:48: POC Glucose 98 10/10/22 20:24: POC Glucose 239 H 10/11/22 06:02: POC Glucose 157 H 10/11/22 06:18: WBC 7.1, RBC 2.60 L, Hgb 8.2 L, Hct 24.9 L, MCV 95.9 H, MCH 31.6 H, MCHC 32.9, RDW 17.4, Plt Count 266, MPV 8.5, Neut % (Auto) 69.7, Lymph % (Auto) 21.2, [place] % (Auto) 8.9, Eos % (Auto) 0.0 L, Baso % (Auto) 0.2, Neut # (Auto) 4.9, Lymph # (Auto) 1.5, [place] # (Auto) 0.6, Eos # (Auto) 0.0, Baso # (Auto) 0.0 10/11/22 06:18: Sodium 141, Potassium 3.4 L, Chloride 108 H, Carbon Dioxide 27, Anion Gap 9.4, BUN 19, Creatinine 0.90, Estimated Creat Clear 70, Estimated GFR 81, Est GFR ( Amer) 98, Glucose 148 H, Calcium 8.4 Temp Pulse Resp BP Pulse Ox 98.5 F 89 20 166/83 H 98 10/08/22 14:43 10/08/22 14:43 10/08/22 14:43 10/08/22 14:43 10/08/22 14:43 Laboratory Results - last 24 hr 10/08/22 07:25: WBC 8.3, RBC 3.17 L, Hgb 9.9 L, Hct 30.6 L, MCV 96.5 H, MCH 31.1, MCHC 32.2, RDW 17.2, Plt Count 308, MPV 8.7, Neut % (Auto) 78.8, Lymph % (Auto) 13.6, [place] % (Auto) 7.3, Eos % (Auto) 0.1, Baso % (Auto) 0.1, Neut # (Auto) 6.5, Lymph # (Auto) 1.1, [place] # (Auto) 0.6, Eos # (Auto) 0.0, Baso # (Auto) 0.0 10/08/22 07:25: Sodium 136, Potassium 3.4 L, Chloride 101, Carbon Dioxide 27, Anion Gap 11.4, BUN 35 H, Creatinine 1.20, Estimated Creat Clear 63, Estimated GFR 58 L, Est GFR ( Amer) 70, Glucose 219 H, Calcium 9.5, Total Bilirubin 0.8, AST 40, ALT 23, Alkaline Phosphatase 101, Total Protein 7.4, Albumin 4.2, Globulin 3.2, Albumin/Globulin Ratio 1.3 10/08/22 08:10: SARS-CoV-2 (PCR) Not detected, Influenza A Untype (PCR) Not detected, Influenza Type B (PCR) Not detected 10/08/22 09:22: Urine Color Yellow, Urine Appearance Clear, Urine pH 5.5, Ur Specific [place] 1.025, Urine Protein Negative, Urine Glucose (UA) Negative, Urine Ketones Trace, Urine Blood Negative, Urine Nitrate Negative, Urine Bilirubin Negative, Urine Urobilinogen 0.2, Ur Leukocyte Esterase Negative, Urine RBC None, Urine WBC None, Ur Squamous Epith Cells Occasional, Urine Bacteria Trace 10/08/22 15:03: POC Glucose 278 H I & O for Labs for Last 24 Hours: Intake & Output 1210/09/22 10/10/22 10/11/22 23:59 23:59 23:59 23:59 Intake Total 240 / 240 2999 / 2999 2343 / 2343 599 / 599 Output Total 0 / 1800 2425 / 2425 900 / 900 300 / 300 Balance 240 / -1560 574 / 574 1443 / 1443 299 / 299 Weight 178 lb 8 oz 179 lb 11.2 oz 184 lb 3 oz 186 lb Intake & Output 10/05/22 10/06/22 10/07/22 10/08/22 23:59 23:59 23:59 23:59 Weight 178 lb 8 oz Constitutional: Present no acute distress and cooperative Head: Present normocephalic and atraumatic Eyes: Present as per HPI ENT: Present normal exam Neck: Present normal inspection, full ROM and trachea midline; Absent lymphadenopathy Respiratory: Present normal respiratory effort, able to speak in complete sentences and symmetric chest movement; Absent accessory muscle use or respiratory distress Cardiac: Present Reg Rate and Rhythm and radial pu
[2022-10-11 09:53] LABS: Coronavirus 19, PCR Not Detected (NotDetected); Influenza A, PCR Not Detected (NotDetected); Influenza B, PCR Not Detected (NotDetected)
--- NOTE | 2022-10-11 11:20 | PC.NURSE ---
report called to [facility] notified for transport
--- NOTE | 2022-10-14 14:14 | CARE MANAGER ---
Spoke with lOy at [facility] for post-discharge phone interview, she states that he is good and has no issues.
== END 2022-10-11 12:00 | DRG 522 ==
LOC: ER 09:01 → 2ND 12:00
PROVIDERS: Orthopaedic Surgery; Physician Assistant Surgical; Admitting Provider Family Medicine; Emergency Provider Emergency Medicine; PCP Family Medicine; Visit Provider Family Medicine
PROC: 0SRS0J9 Replacement of Left Hip Joint, Femoral Surface with Synthetic Substitute, Cemented, Open Approach (ICD-10-PCS; principal; 2022-10-09 15:00)
DX: S72.012A Unspecified intracapsular fracture of left femur, initial encounter for closed fracture (principal); R29.6 Repeated falls; W01.0XXA Fall on same level from slipping, tripping and stumbling without subsequent striking against object, initial encounter; Z87.891 Personal history of nicotine dependence; I10 Essential (primary) hypertension; E78.5 Hyperlipidemia, unspecified; E11.51 Type 2 diabetes mellitus with diabetic peripheral angiopathy without gangrene; N40.1 Benign prostatic hyperplasia with lower urinary tract symptoms; D64.9 Anemia, unspecified; E87.6 Hypokalemia
CPT/HCPCS: 27125; 36415; 51702; 71045; 73502; 73552; 73562; 73700; 80048; 80053; 81001; 82962; 85025; 97162; 97530; 99285; C1776; C9803; J2704; U0003; U0005

== ENCOUNTER 2022-10-23 08:58 | Outpatient (CLI) | payer MEDICARE, OTHER, SELFPAY ==
[2022-10-23] VITALS (10 sets, daily range): BP systolic 94–130; BP diastolic 44–71; PULSE 67–85; RESP 18; TEMP 36–36.1; O2SAT 97–98; BMI 25.1
[2022-10-23 15:53] LABS: Hematocrit 27.4 % (42.0-52.0); Hemoglobin 8.4 g/dL (14.1-18.0)
== END 2022-10-23 13:40 | disposition home or self-care (01) ==
LOC: INF 09:01
PROVIDERS: PCP Family Medicine; Visit Provider Nurse Practitioner Family
DX: D62 Acute posthemorrhagic anemia (principal)
CPT/HCPCS: 36430; 85014; 85018; 86850; P9016

== ENCOUNTER → 2022-11-01 14:16 | Outpatient (CLI) | payer MEDICARE, OTHER, SELFPAY ==
--- NOTE | 2022-11-01 14:20 | XR_ITS ---
FINAL REPORT CLINICAL HISTORY: s/p lt hip fracture COMPARISON: October 09, 2022 FINDINGS: 2 views of the left hip and an AP pelvis were obtained. There is no acute fracture or dislocation. There has been left hip arthroplasty. There are degenerative changes of the lower lumbar spine and right hip. Vascular calcifications are present. There is a left iliac artery stent. IMPRESSION: Stable changes from left hip arthroplasty for Reviewed, Interpreted and Dictated by Sher Bain III, MD Transcribed by Adrian Saldivar Authenticated and [facility]
== END ==
PROVIDERS: PCP Family Medicine; Visit Provider Orthopaedic Surgery
DX: M25.552 Pain in left hip; Z96.642 Presence of left artificial hip joint
CPT/HCPCS: 73502

== ENCOUNTER → 2022-11-29 13:06 | Outpatient (CLI) | payer MEDICARE, OTHER, SELFPAY ==
--- NOTE | 2022-11-29 13:14 | XR_ITS ---
FINAL REPORT CLINICAL HISTORY: s/p hip arthroplasty COMPARISON: November 01, 2022 FINDINGS: LEFT HIP Two views of the left hip demonstrate surgical changes from partial arthroplasty. Hardware appears unremarkable. The visualized bony structures are well aligned. No soft tissue abnormality is seen. IMPRESSION: Postoperative changes as above. Reviewed, Interpreted and Dictated by Kiley Gunderson MD Transcribed by Baylee Garibay Authenticated and [facility]
== END ==
PROVIDERS: PCP Family Medicine; Visit Provider Orthopaedic Surgery
DX: M25.552 Pain in left hip; Z96.642 Presence of left artificial hip joint
CPT/HCPCS: 73502

== ENCOUNTER → 2023-01-24 09:55 | Outpatient (CLI) | payer MEDICARE, OTHER, SELFPAY ==
--- NOTE | 2023-01-24 10:10 | XR_ITS ---
FINAL REPORT CLINICAL HISTORY: s/p hip surgery FINDINGS: LEFT HIP 2 views of the left hip are obtained. There is a left hip prosthesis in place which is in anatomic alignment. There is no acute bony abnormality. Mild hypertrophic changes are seen at the acetabular margin. There is no acute soft tissue abnormality. IMPRESSION: Postoperative changes without acute bony abnormality. Reviewed, Interpreted and Dictated by Jeffrey Martinez MD Transcribed by Kezia Cisneros Authenticated and . [facility]
== END ==
PROVIDERS: PCP Family Medicine; Visit Provider Orthopaedic Surgery
DX: M25.552 Pain in left hip; Z96.642 Presence of left artificial hip joint
CPT/HCPCS: 73502

== ENCOUNTER → 2023-04-11 11:54 | Outpatient (CLI) | payer MEDICARE, OTHER, SELFPAY ==
--- NOTE | 2023-04-11 12:03 | XR_ITS ---
FINAL REPORT CLINICAL HISTORY: Rt knee pain COMPARISON: None FINDINGS: RIGHT KNEE 3 views of the right knee were obtained. There is no acute fracture or dislocation. Moderate to severe degenerative change. Osteopenia is noted. Visualized joint spaces are normally aligned. Soft tissues are unremarkable. IMPRESSION: No acute bony abnormality. Reviewed, Interpreted and Dictated by Kiley Gunderson MD Transcribed by Kellie Ponce Authenticated and [facility]
--- NOTE | 2023-04-11 12:03 | XR_ITS ---
FINAL REPORT CLINICAL HISTORY: Lt knee pain FINDINGS: The patient is status post a below the knee amputation on the left side. There is no acute fracture or dislocation. Mild degenerative change of the left knee joint is present. There is also chondrocalcinosis in the left knee. IMPRESSION: [id number] amputation on the left side with mild degenerative change of the left knee and chondrocalcinosis. Reviewed, Interpreted and Dictated by Kiley Gunderson MD Transcribed by Kelsey Gill Authenticated and [facility]
--- NOTE | 2023-04-11 12:03 | XR_ITS ---
FINAL REPORT CLINICAL HISTORY: Lt hip pain COMPARISON: 01/24/2023 FINDINGS: LEFT HIP Two views of the left hip demonstrate no acute fracture or dislocation. There are post arthroplasty changes. There is no evidence of bone destruction. The hardware is unchanged. IMPRESSION: No acute bony abnormality. Reviewed, Interpreted and Dictated by Kiley Gunderson MD Transcribed by Gloria Ralph Authenticated and [facility]
== END ==
PROVIDERS: PCP Family Medicine; Visit Provider Orthopaedic Surgery
DX: M25.562 Pain in left knee (principal); M25.552 Pain in left hip; M25.561 Pain in right knee
CPT/HCPCS: 73502; 73562

== ENCOUNTER → 2023-04-17 15:10 | Outpatient (CLI) | payer MEDICARE, OTHER, SELFPAY | PROVIDERS: PCP Family Medicine; Visit Provider Physician Assistant | DX: E11.9 Type 2 diabetes mellitus without complications (principal); I10 Essential (primary) hypertension; I51.9 Heart disease, unspecified; I73.9 Peripheral vascular disease, unspecified; Z01.810 Encounter for preprocedural cardiovascular examination; E78.49 Other hyperlipidemia; Z79.84 Long term (current) use of oral hypoglycemic drugs | CPT/HCPCS: 93306 ==

== ENCOUNTER 2023-04-23 11:43 | Day surgery (SDC) | payer MEDICARE, OTHER, SELFPAY ==
--- NOTE | 2023-03-19 11:06 | SUR.PREOP ---
Pt denied cardiac clearance needs to have ECHO before clearance and instructions on stopping Xarelto. Omayra stated last visit was in 04/24 Leaving patient on schedule for Jun1 in case they clear him by then
[2023-03-19 11:15] VITALS: BMI 27.8
[2023-04-17 09:56] VITALS: BMI 27.8
[2023-04-23] VITALS (7 sets, daily range): BP systolic 84–143; BP diastolic 49–80; PULSE 60–86; RESP 16–18; TEMP 36.1–36.4; O2SAT 95–99
[2023-04-23 12:28] LABS: POC Glucose,Bedside 172 (70-110)
--- NOTE | 2023-04-23 12:44 | EXP.ANES.CKL ---
[facility] Disclaimer: The information contained in this section may have been updated after the patient was seen, as this information can be updated by other users. Medical History Abnormal ankle brachial index (YOSHI) Abnormal ECG Amputation below knee Below-knee amputation of left lower extremity Bilateral edema of lower extremity BPH loc w urin obs/LUTS Capillary refill time greater than 2 seconds Cataract Cellulitis of second toe of left foot Cholecystectomy planned Constipation Coronary artery calcification seen on CAT scan Decreased pedal pulses Diabetic neuropathy Diastolic dysfunction Dyslipidemia Encounter for pre-operative cardiovascular clearance Encounter for wound care Exertional dyspnea Gangrene of toe of left foot History of coronary angiogram HLD (hyperlipidemia) HTN (hypertension) Incomplete RBBB Nonhealing ulcer of left lower extremity Obesity (BMI 30.0-34.9) Osteomyelitis PAD (peripheral artery disease) Pressure injury of toe of left foot, stage 1 Skin ulcer of fourth toe of left foot, limited to breakdown of skin Skin ulcer of third toe of left foot Tachycardia Tonsillectomy planned Type 2 diabetes mellitus Ulcer of great toe Surgical History H/O arthroscopy of knee H/O cardiac catheterization History of lobectomy 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 Family History Other No significant family history Social History (Updated 04/23/23 @ 12:17 by Marcela Pabon RN) Smoking Status: Never smoker second hand exposure: No alcohol intake: former substance use type: denies use current occupational status: retired Travel in the last 8 weeks: None adopted: No caregiver/support person: No foster care: No household members: none housing: house lives independently: Yes education level: high school current occupational exposures/hazards: No caffeine: Yes special frances needs: No do you feel safe at home: Yes victim of physical abuse: No victim of emotional abuse: No victim of sexual abuse: No would you like helpful sources: No [facility] Anesthesia Checklist Patient Identification Patient Identification: Arm Band Structural Data Admitted From: Home Planned Operative Procedure/s: EGD/Colonoscopy Consent for Planned Operative Procedure(s) Verified: Yes Verified Documents: Surgical Consent and History and Physical NPO Status Verified Time NPO: 00:00 Additional verifications Anesthesia Reactions: No Airway Assessment C-Spine Mobility Assessed: Yes TMJ Mobility Assessed: Yes Dentition: Poor Dentition Neurological Assessment Level of Consciousness: Awake and Alert Anesthesia Plan Anesthesia Risk discussed: Yes Anesthesia Plan: Verified ASA Class: III Anesthesia Type: MAC
--- NOTE | 2023-04-23 14:22 | HMH.SCOPE ---
Procedure: Date: 04/23/23 Patient Date of :: 1940 Procedure Performed:: Colonoscopy Indications:: The patient is an 82 year old with chronic anemia and positive FOBT Performing Provider:: Canelo Cardona MD Referring Provider:: Eron David MD Sedation:: See RN records Procedure:: After placing the patient in the left lateral decubitus position, the colonoscopy was gently inserted into the rectum and under direct visualization advanced to the cecum which was identified by transillumination in the right lower quadrant, identification of the ileocecal valve, appendiceal orifice, and cecal strap. Color, texture, mucosa, and anatomy of the colon were carefully examined with the scope. Findings:: Anal canal: normal Rectum:Hemorrhoids Sigmoid colon: normal without polyps or inflammatory changes Descending colon: normal without polyps or inflammatory changes Splenic flexure: normal Transverse colon: normal without polyps or inflammatory changes Hepatic flexure: normal Ascending colon: normal without polyps or inflammatory changes Cecum: normal Terminal ileum: not visualized Floppy and redundant colon. The bowel preparation throughout the colon was fair Recommendations:: Reassuring examination Follow up with referring provider Complications:: none Estimated blood obtained (mL): 0 Colonoscopy Component Colonoscopy Component Was a colonoscopy performed during today's procedure?: Yes Recommended follow up colonoscopy of at least 10 years?: No If no, follow up colonoscopy recommended in ___ years?: 0 Reason for not recommending >/= 10 yr follow-up interval?: procedure diagnosiic, no further due to age
--- NOTE | 2023-04-23 14:26 | HMH.SCOPE ---
Procedure: Date: 04/23/23 Patient Date of :: 1940 Procedure Performed:: The gastroscope was gently passed through the incisoral orifice into the oral cavity and under direct visualization the esophagus was intubated. The endoscope was passed down the esophagus, through the stomach, and into the duodenum. Color, texture, mucosa, and anatomy of the esophagus, stomach, and duodenum were carefully examined with the scope. Indications:: Anemia. FOBT positive Performing Provider:: Canelo Cardona MD Referring Provider:: Eron David MD Sedation:: See RN records Procedure:: The gastroscope was gently passed through the incisoral orifice into the oral cavity and under direct visualization the esophagus was intubated. The endoscope was passed down the esophagus, through the stomach, and into the duodenum. Color, texture, mucosa, and anatomy of the esophagus, stomach, and duodenum were carefully examined with the scope. Findings:: Anal canal: normal Rectum: normal Sigmoid colon: normal without polyps or inflammatory changes Descending colon: normal without polyps or inflammatory changes Splenic flexure: normal Transverse colon: normal without polyps or inflammatory changes Hepatic flexure: normal Ascending colon: normal without polyps or inflammatory changes Cecum: normal Terminal ileum: not visualized Recommendations:: Normal appearing esophagus, stomach, duodenum Complications:: None Estimated blood obtained (mL): 0 Colonoscopy Component Colonoscopy Component Was a colonoscopy performed during today's procedure?: No
--- NOTE | 2023-04-23 14:56 | P.PN_ITS ---
[facility] Disclaimer: The information contained in this section may have been updated after the patient was seen, as this information can be updated by other users. Medical History Abnormal ankle brachial index (YOSHI) Abnormal ECG Amputation below knee Below-knee amputation of left lower extremity Bilateral edema of lower extremity BPH loc w urin obs/LUTS Capillary refill time greater than 2 seconds Cataract Cellulitis of second toe of left foot Cholecystectomy planned Constipation Coronary artery calcification seen on CAT scan Decreased pedal pulses Diabetic neuropathy Diastolic dysfunction Dyslipidemia Encounter for pre-operative cardiovascular clearance Encounter for wound care Exertional dyspnea Gangrene of toe of left foot History of coronary angiogram HLD (hyperlipidemia) HTN (hypertension) Incomplete RBBB Nonhealing ulcer of left lower extremity Obesity (BMI 30.0-34.9) Osteomyelitis PAD (peripheral artery disease) Pressure injury of toe of left foot, stage 1 Skin ulcer of fourth toe of left foot, limited to breakdown of skin Skin ulcer of third toe of left foot Tachycardia Tonsillectomy planned Type 2 diabetes mellitus Ulcer of great toe Surgical History H/O arthroscopy of knee H/O cardiac catheterization History of lobectomy 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 Family History Other No significant family history Social History (Updated 04/23/23 @ 12:17 by Marcela Pabon RN) Smoking Status: Never smoker second hand exposure: No alcohol intake: former substance use type: denies use current occupational status: retired Travel in the last 8 weeks: None adopted: No caregiver/support person: No foster care: No household members: none housing: house lives independently: Yes education level: high school current occupational exposures/hazards: No caffeine: Yes special frances needs: No do you feel safe at home: Yes victim of physical abuse: No victim of emotional abuse: No victim of sexual abuse: No would you like helpful sources: No [facility] Anesthesia Checklist Patient Identification Patient Identification: Verbal (Name & ) Structural Data Admitted From: Home Planned Operative Procedure/s: egd/colonoscopy Consent for Planned Operative Procedure(s) Verified: Yes Additional verifications Anesthesia Reactions: No Airway Assessment C-Spine Mobility Assessed: Yes TMJ Mobility Assessed: Yes Dentition: Good Dentition Neurological Assessment Level of Consciousness: Awake, Alert and Appropriate Anesthesia Plan Anesthesia Risk discussed: Yes Anesthesia Plan: Verified ASA Class: III Anesthesia Type: MAC
== END 2023-04-23 15:09 | disposition home or self-care (01) ==
PROVIDERS: Internal Medicine Gastroenterology; PCP Family Medicine; Visit Provider Internal Medicine
PROC: 0DJ08ZZ Inspection of Upper Intestinal Tract, Via Natural or Artificial Opening Endoscopic (ICD-10-PCS; CPT 43235; principal; 2023-04-23 13:00)
DX: K92.1 Melena (principal); D64.9 Anemia, unspecified; K92.2 Gastrointestinal hemorrhage, unspecified; E11.9 Type 2 diabetes mellitus without complications; K64.8 Other hemorrhoids
CPT/HCPCS: 45378; 82962

== ENCOUNTER 2023-11-11 08:36 | Day surgery (SDC) | payer MEDICARE, OTHER, SELFPAY ==
[2023-11-07 14:16] VITALS: BMI 27.8
[2023-11-11 09:07] VITALS: BP 144/71; PULSE 79; RESP 18; TEMP 36.4; O2SAT 100
[2023-11-11] MEDS: TETRACAINE 0.5% OPTH SOL 15ML OP (09:18)
[2023-11-11] MEDS: APRACLONIDINE 0.5% OPHTH SOLN 5ML OP (09:20)
[2023-11-11] MEDS: TROPICAMIDE 1% OPTH SOLN 2ML OP (09:22)
[2023-11-11] MEDS: PHENYLEPHRINE 2.5% OPHTH SOLN 2ML 0.0500000000000000028 ML OP (09:23)
[2023-11-11 10:10] VITALS: BP 144/71; PULSE 79; RESP 18; TEMP 36.6; O2SAT 100
[2023-11-11 10:41] LABS: POC Glucose,Bedside 126 (70-110)
== END 2023-11-11 10:10 | disposition home or self-care (01) ==
PROVIDERS: PCP Family Medicine; Visit Provider Ophthalmology
PROC: (CPT 66821; principal; 2023-11-11 09:30)
DX: H26.40 Unspecified secondary cataract (principal); E11.9 Type 2 diabetes mellitus without complications
CPT/HCPCS: 66821; 82962

== ENCOUNTER 2024-01-10 21:31 | Inpatient (IN) | payer MEDICARE, OTHER, SELFPAY ==
[2024-01-10 21:39] VITALS: BP 147/64; PULSE 102; RESP 22; TEMP 36.4; O2SAT 95; BMI 27.8
--- NOTE | 2024-01-10 21:48 | XR_ITS ---
PROCEDURE INFORMATION: Exam: XR Left Hip Exam date and time: 01/10/2024 11:19 PM Age: 83 years old Clinical indication: Other: Fall; Additional info: Fall, L hip and femur pain TECHNIQUE: Imaging protocol: Radiologic exam of the left hip. Views: 2 or 3 views hip with pelvis when performed. COMPARISON: CR XR HIP LT 2-3V W/PELVIS 04/11/2023 12:34 PM FINDINGS: Bones/joints: Status post left hip arthroplasty. There is an angulated fracture of the left proximal to mid femur. There is diffuse osseous demineralization. There is some heterotopic ossification. Soft tissues: Unremarkable. Vasculature: Left iliac stents in place. IMPRESSION: Obliquely oriented mid femoral fracture.
--- NOTE | 2024-01-10 21:48 | ECG_ITS ---
APPROVED REPORT Exam: Resting ECG HR:105 bpm ECG Measurements Heart Rate 105 AXES [place] 149 P 7 QRSd 112 QRS 38 QT 362 T -7 QTc 423 Conclusion SINUS TACHYCARDIA WITH FREQUENT SUPRAVENTRICULAR PREMATURE COMPLEXES INCOMPLETE RIGHT BUNDLE BRANCH BLOCK Electronically signed by : DANIEL VELEZ, 01/10/2024 22:41:23
--- NOTE | 2024-01-10 21:48 | XR_ITS ---
PROCEDURE INFORMATION: Exam: XR Chest Exam date and time: 01/10/2024 11:19 PM Age: 83 years old Clinical indication: Other: Weakness TECHNIQUE: Imaging protocol: Radiologic exam of the chest. Views: 1 view. COMPARISON: CR XR CHEST PORTABLE 10/08/2022 5:55 AM FINDINGS: Lungs: No evidence of acute pulmonary disease or infiltrates Pleural spaces: No large effusion or pneumothorax. Heart/Mediastinum: Stable cardiac and mediastinal contours. Bones/joints: No evidence of acute osseous abnormalities within the visualized portions of the thoracic spine and ribs. Osseous structures appear appropriate for patient age. IMPRESSION: No dense parenchymal consolidation, pleural effusion, or pneumothorax.
--- NOTE | 2024-01-10 21:48 | XR_ITS ---
PROCEDURE INFORMATION: Exam: XR Left Femur Exam date and time: 01/10/2024 11:19 PM Age: 83 years old Clinical indication: Other: Fall; Additional info: Fall, L hip and femur pain TECHNIQUE: Imaging protocol: Radiologic exam of the left femur. Views: 2 views. COMPARISON: CR XR FEMUR LT 2V 10/08/2022 5:55 AM FINDINGS: Bones/joints: There is a fracture of the mid femur with medial angulation. Status post left hip arthroplasty. There is diffuse osseous demineralization. Soft tissues: Unremarkable. Other findings: The examination is limited by under penetration. IMPRESSION: Obliquely oriented fracture of the femur distal to the hip prosthesis.
--- NOTE | 2024-01-10 21:48 | PC.NURSE ---
fsbs 303
--- NOTE | 2024-01-10 21:53 | ED_ITS ---
Discharge Plan Disposition Patient Disposition: Admitted Condition: Undetermined Prescriptions Prescriptions: No Action cholecalciferol (vitamin D3) 1,000 unit capsule 1,000 unit PO DAILY multivitamin tablet 1 tab PO DAILY finasteride 5 mg tablet 5 mg PO DAILY metformin 850 mg tablet 850 mg PO BID pioglitazone [Actos] 15 mg tablet 15 mg PO DAILY terazosin 10 mg capsule 10 mg PO HS omeprazole 40 mg capsule,delayed release(DR/EC) 40 mg PO DAILY enalapril maleate 10 mg tablet 10 mg PO DAILY glimepiride [Amaryl] 4 mg tablet 8 mg PO DAILY vitamin B complex [B Complex-Vitamin B12] tablet 1 tab PO DAILY dicyclomine 10 mg capsule 10 mg PO QID PRN (Reason: .) levothyroxine [Euthyrox] 25 mcg tablet 25 mcg PO DAILY metoprolol succinate 50 mg tablet extended release 24 hr 50 mg PO DAILY Patient Comments: TAKE 1 TABLET BY MOUTH ONCE DAILY FOR BLOOD PRESSURE furosemide 20 mg tablet 20 mg PO BID Patient Comments: TAKE 1 TABLET BY MOUTH TWICE DAILY acetaminophen 325 mg Tablet 650 mg PO Q6HP PRN (Reason: Mild To Moderate Pain) Qty: 60 0RF docusate sodium 100 mg Capsule 100 mg PO BIDP PRN (Reason: Constipation) Qty: 60 0RF hydrocodone-acetaminophen 5-325 mg Tablet 1 tab PO Q4HP PRN (Reason: Pain) Qty: 60 0RF gabapentin 400 mg capsule 400 mg PO BID Qty: 60 0RF atorvastatin 40 MG tablet 40 mg PO HS Xarelto 10 mg tablet 10 mg PO QPMWITHMEAL Referrals Follow up/Referrals: Jass David MD [Primary Care Provider] - See instructions Clinical Impressions Clinical Impression: Acidosis, lactic, Generalized weakness, Alexandrea-prosthetic femoral shaft fracture, Anemia Discharge ED Provider: Vineet Barnes General Adult HPI <Vineet Barnes MD - Last Filed: 01/10/24 23:16> General Chief complaint: Fall Stated complaint: fall,soa,weakness Time Seen by Provider: 01/10/24 21:32 Mode of Arrival: EMS Source of Information: Patient and EMS Limitations: Physical Limitations Description of Symptoms (Recalled from ER Triage Doc. by RN): Pt to ED via EMS with CO fall and left leg pain. pt has BKA on left side and states his scooter tipped over and he hit the floor on his left side. Pt denies hitting head, LOC. Pt denies being on blood thinners. FSBS in route [address]. PT reports not feeling well today, with dizziness, nausea, and weakness. History of Present Illness HPI narrative: This is an 83-year-old male with history of high tension, hyperlipidemia, diabetes status post left leg BKA, peripheral artery disease, CAD, deconditioning presenting with fall. He states that he has been feeling generally weak and rundown the last couple of days with nausea without vomiting. Patient states that he was on his home scooter when he tried to sit back on his chair. Missed the chair, fell between his scooter in the chair. Was unable to get up, so crawl across the house to get his phone to call his son. Son got there and called EMS. EMS brought patient in. Patient complaining of moderate left-sided thigh pain radiating to his left hip. No new neck or back pain, did not strike his head, no loss of consciousness, no bowel or bladder dysfunction. No other complaints at this time Related Data Home Medications Medication Instructions Recorded Confirmed cholecalciferol (vitamin D3) 25 1,000 unit PO DAILY Supplement 03/24/18 01/09/24 mcg (1,000 unit) capsule enalapril maleate 10 mg tablet 10 mg PO DAILY blood pressure 03/24/18 01/09/24 finasteride 5 mg tablet 5 mg PO DAILY prostate 03/24/18 01/09/24 glimepiride 4 mg tablet (Amaryl) 8 mg PO DAILY Diabetes 03/24/18 01/09/24 metformin 850 mg tablet 850 mg PO BID Diabetes 03/24/18 01/09/24 multivitamin 1 tab PO DAILY Supplement 03/24/18 01/09/24 omeprazole 40 mg capsule,delayed 40 mg PO DAILY acid reflux 03/24/18 01/09/24 release pioglitazone 15 mg tablet (Actos) 15 mg PO DAILY Diabetes 03/24/18 01/09/24 terazosin 10 mg capsule 10 mg PO HS prostate 03/24/18 01/09/24 vitamin B complex (B 1 tab PO DAILY Supplement 03/24/18 01/09/24 Complex-Vitamin B12 tablet) dicyclomine 10 mg capsule 10 mg PO QID PRN . 10/12/21 01/09/24 atorvastatin 40 mg tablet 40 mg PO HS Cholesterol 06/24/22 01/09/24 levothyroxine 25 mcg tablet 25 mcg PO DAILY hypothyroidism 07/25/22 01/09/24 (Euthyrox) furosemide 20 mg tablet 20 mg PO BID diuretic 10/08/22 01/09/24 metoprolol succinate 50 mg 50 mg PO DAILY High blood pressure 10/08/22 01/09/24 tablet,extended release 24 hr rivaroxaban 10 mg tablet (Xarelto) 10 mg PO QPMWITHMEAL Blood thinner 10/23/22 01/09/24 Previous Rx's Medication Instructions Recorded acetaminophen 325 mg tablet 650 mg (2 x 325 mg) PO Q6HP PRN 10/11/22 Mild To Moderate Pain #60 tabs docusate sodium 100 mg capsule 100 mg PO BIDP PRN Constipation 10/11/22 #60 caps gabapentin 400 mg capsule 400 mg PO BID neuropathy #60 caps 10/11/22 hydrocodone 5 mg-acetaminophen 325 1 tab PO Q4HP PRN Pain #60 tabs 10/11/22 mg tablet Allergies Allergy/AdvReac Type Severity Reaction Status Date / Time No Known Allergies Allergy Verified 11/11/23 09:01 [facility] <Vineet Barnes MD - Last Filed: 01/10/24 23:16> [facility] Disclaimer: The information contained in this section may have been updated after the patient was seen, as this information can be updated by other users. Medical History (Updated 01/11/24 @ 01:14 by Junie Hendricks MD) Encounter for pre-operative cardiovascular clearance Below-knee amputation of left lower extremity BPH loc w urin obs/LUTS Amputation below knee Cholecystectomy planned Tonsillectomy planned Cataract History of coronary angiogram Tachycardia Constipation Osteomyelitis Coronary artery calcification seen on CAT scan Diabetic neuropathy Dyslipidemia Bilateral edema of lower extremity Gangrene of toe of left foot Pressure injury of toe of left foot, stage 1 Capillary refill time greater than 2 seconds Ulcer of great toe Skin ulcer of fourth toe of left foot, limited to breakdown of skin Skin ulcer of third toe of left foot Encounter for wound care Type 2 diabetes mellitus Cellulitis of second toe of left foot Obesity (BMI 30.0-34.9) Decreased pedal pulses Abnormal ankle brachial index (YOSHI) Diastolic dysfunction HLD (hyperlipidemia) HTN (hypertension) Exertional dyspnea Incomplete RBBB Abnormal ECG Nonhealing ulcer of left lower extremity PAD (peripheral artery disease) Surgical History (Updated 01/09/24 @ 15:07 by Veronica Goerge, RN) History of cataract surgery History of lobectomy of lung H/O arthroscopy of knee H/O cardiac catheterization Status post below-knee amputation of left lower extremity Family History Other No significant family history Social History Smoking Status: Never smoker second hand exposure: No alcohol intake: former substance use type: denies use current occupational status: retired Travel in the last 8 weeks: None adopted: No caregiver/support person: No foster care: No household members: none housing: house lives independently: Yes education level: high school current occupational exposures/hazards: No caffeine: Yes special frances needs: No do you feel safe at home: Yes victim of physical abuse: No victim of emotional abuse: No victim of sexual abuse: No would you like helpful sources: No <Vineet Barnes MD - Last Filed: 01/10/24 23:16> ROS Obtained: Yes All systems reviewed & no additional complaints except as documented Physical Exam <Vineet Barnes MD - Last Filed: 01/10/24 23:16> General General appearance: alert, in no apparent distress and other (Chronically ill- appearing, pale) Head Head exam: atraumatic and normocephalic Eye Eye exam: Present normal appearance, PERRL and EOMI ENT ENT exam: Present mucous membranes moist Neck Neck exam: Present normal inspection, full ROM and trachea midline Respiratory Respiratory exam: Present normal lung sounds bilaterally; Absent respiratory distress, wheezes, stridor, accessory muscle use or prolonged expiratory phase Cardiovascular Cardiovascular exam: Present regular rate and normal rhythm Abdominal Exam Abdominal exam: Present soft; Absent distention, tenderness, guarding, rebound or rigidity Extremities Exam Extremities exam: Present edema and other (Left lower extremity BKA intact. Patient has tenderness at left greater trochanter and proximal left femur without obvious deformity or swelling.) Neurological Exam Neurological exam: Present alert, oriented X3, CN II-XII intact and normal gait; Absent motor sensory deficit Skin Skin exam: Present warm and dry; Absent diaphoresis or erythema Medical Decision Making <Vineet Barnes MD - Last Filed: 01/10/24 23:16> Medical Records Medical records reviewed: Yes I reviewed the patient's medical records. Brandon Inquiry Pt receiving controlled substance: No Brandon was queried for this patient: No Vital Signs: 01/10/24 21:39 Temperature 97.5 F L Temperature Source Oral Pulse Rate [Left Radial] 102 H Respiratory Rate 22 Blood Pressure [Right Arm] 147/64 H Blood Pressure Mean [Right Arm] 91 Blood Pressure Source [Right Arm] Automatic Cuff Blood Pressure Position [Right Arm] Sitting 02 Sat by Pulse Oximetry 95 Oxygen Delivery Method Nasal Cannula Oxygen Flow Rate (LPM) 2 Lab Data Lab Results 01/10/24 21:32: WBC 10.7, RBC 2.52 L, Hgb 8.2 L, Hct 26.7 L, MCV 106.0 H, MCH 32.3 H, MCHC 30.5 L, RDW 18.2 H, Plt Count 327, MPV 9.3, Neut % (Auto) 77.2, Lymph % (Auto) 14.7, Elmore % (Auto) 7.9, Eos % (Auto) 0.1, Baso % (Auto) 0.2, N eut # (Auto) 8.2 H, Lymph # (Auto) 1.6, Elmore # (Auto) 0.8, Eos # (Auto) 0.0, Baso # (Auto) 0.0, Sodium 135 L, Potassium 3.9, Chloride 103, Carbon Dioxide 13 L, Anion Gap 22.9 H, BUN 22 H, Creatinine 1.50 H, Estimated Creat Clear 49, E stimated GFR 45 L, Est GFR ( Amer) 54 L, Glucose 319 H, Calcium 9.0, M agnesium 1.4 L, Total Bilirubin 0.7, Direct Bilirubin 0.2, AST 55, ALT 51, Alkaline Phosphatase 82, Troponin I < 0.01, NT-Pro-B Natriuret Pep 627 H, Total Protein 6.1 L, Albumin 3.6, Globulin 2.5, Albumin/Globulin Ratio 1.4 01/10/24 21:47: VBG pH 7.18 L, VBG pCO2 36.6, VBG pO2 56.7 H, VBG HCO3 13.2 L, V BG Total CO2 14.4 L, VBG O2 Saturation 79.7 H, VBG Base Excess -15.2 L, VBG Lactic Acid 12.3 H 01/10/24 22:52: VBG Lactic Acid 11.9 H 01/11/24 00:45: VBG Lactic Acid 11.9 H 01/10/24 21:32 01/10/24 21:32 Orders (Tests/Meds): ED MEDICATIONS Generic Name Dose Route Start Last Admin Trade Name Saranya PRN Reason Stop Dose Admin Acetaminophen 1,000 mg 01/11/24 09:00 Acetaminophen 1,000mg/100ml Vial IV 02/10/24 08:59 Q8H PRN Severe Pain (7-10) Gabapentin 400 mg 01/11/24 09:00 Gabapentin 100mg Capsule PO 02/10/24 08:59 BID DEVONTE Lactated Ringer's 1,000 mls @ 999 mls/hr 01/11/24 00:14 01/11/24 00:34 Lactated Ringer's 1000 Ml Bag IV 01/11/24 01:14 999 mls/hr .Q1H1M ONE Administration Miscellaneous 1 each 01/10/24 22:30 01/11/24 00:04 Vancomycin Consult Request NOTAPPLIC 02/09/24 22:29 1 each CONSULT PHARMACY DEVONTE Administration Morphine Sulfate 4 mg 01/11/24 04:00 Morphine 5mg/Ml Syringe IV 01/11/24 04:01 ONCE ONE Discontinued Medications Generic Name Dose Route Start Last Admin Trade Name Saranya PRN Reason Stop Dose Admin Acetaminophen 1,000 mg 01/11/24 00:13 01/11/24 00:34 Acetaminophen 1,000mg/100ml Vial IV 01/11/24 00:14 1,000 mg ONCE ONE Administration Gabapentin 400 mg 01/11/24 00:13 01/11/24 00:34 Gabapentin 100mg Capsule PO 01/11/24 00:14 400 mg ONCE ONE Administration Lactated Ringer's 1,000 mls @ 999 mls/hr 01/10/24 21:49 01/10/24 22:02 Lactated Ringer's 1000 Ml Bag IV 01/10/24 22:49 999 mls/hr .Q1H1M ONE Administration Ampicillin Sodium/Sulbactam 100 mls @ 200 mls/hr 01/10/24 22:27 01/10/24 23:25 Sodium 3 gm/ Sodium Chloride IV 01/10/24 22:28 200 mls/hr ONCE ONE Administration Vancomycin HCl 2,000 mg/ 250 mls @ 125 mls/hr 01/10/24 22:45 01/11/24 00:03 Sodium Chloride IV 01/11/24 00:44 125 mls/hr ONCE ONE Administration Morphine Sulfate 4 mg 01/11/24 00:13 01/11/24 00:34 Morphine 4mg/Ml Syringe IV 01/11/24 00:14 4 mg ONCE ONE Administration ORDERS Category Date Time Status CXR --portable [XR chest portable] Stat Exams 01/10/24 21:48 Completed Femur XR left 2 views [XR femur LT 2V] Stat Exams 01/10/24 21:48 Completed Hip XR left minimum 2 views [XR hip LT 2-3V w/pelvis] Exams 01/10/24 21:48 Completed Stat BMP [Basic Metabolic Panel] Timed Lab 01/11/24 07:00 Ordered Bilirubin,Direct Stat Lab 01/10/24 21:32 Completed Brain Natriuretic Peptide Stat Lab 01/10/24 21:32 Completed CBC w/Auto Diff [Complete Blood Count Auto Diff] Stat Lab 01/10/24 21:32 Completed CBC w/Auto Diff [Complete Blood Count Auto Diff] Timed Lab 01/11/24 07:00 Ordered CK [Creatine Kinase] Stat Lab 01/11/24 00:45 Received CMP [Comprehensive Metabolic Panel] Stat Lab 01/10/24 21:32 Completed Lactate Venous Routine Lab 01/11/24 00:45 Completed Lactate Venous Routine Lab 01/11/24 03:30 Ordered Lactate Venous Stat Lab 01/10/24 21:47 Completed Lactate Venous Stat Lab 01/10/24 22:52 Completed Lactate Venous Stat Lab 01/11/24 07:00 Ordered Lactic Acid Stat Lab 01/10/24 22:50 Ordered Magnesium Stat Lab 01/10/24 21:32 Completed Trop I [Troponin I] Stat Lab 01/10/24 21:32 Completed Troponin I Q3H Lab 01/11/24 00:45 Received Troponin I Q3H Lab 01/11/24 05:00 Ordered UA [Urinalysis and Microscopic] Stat Lab 01/10/24 21:47 Ordered Blood Culture Stat Micro 01/10/24 23:20 Received VBG [Venous Blood Gas] Stat RT 01/10/24 21:47 Completed VBG [Venous Blood Gas] Stat RT 01/11/24 00:31 Ordered Medical Decision Narrative: This is an 83-year-old male with history of high tension, hyperlipidemia, diabetes status post left leg BKA, peripheral artery disease, CAD, deconditioning presenting with fall. He states that he has been feeling generally weak and rundown the last couple of days with nausea without vomiting. Patient states that he was on his home scooter when he tried to sit back on his chair. Missed the chair, fell between his scooter in the chair. Was unable to get up, so crawl across the house to get his phone to call his son. Son got there and called EMS. EMS brought patient in. Patient complaining of moderate left-sided thigh pain radiating to his left hip. No new neck or back pain, did not strike his head, no loss of consciousness, no bowel or bladder dysfunction. No other complaints at this time. History obtained with patient and son. On arrival, patient hemodynamically stable, alert, [oriented x4, ][appropriate, ]GCS [15], moving all extremities spontaneously, pupils equal and reactive to light. Full physical exam performed and significant for tenderness about left greater trochanter and left femur without outward signs of injury or deformity. Left lower extremity BKA. No neck or back tenderness, no trauma to the head. Cardiac exam with normal rate and rhythm, the patient has right upper sternal border murmur radiating to the carotids. Differential includes fracture, sprain, strain, metabolic abnormality, endocrinologic abnormality, UTI, sepsis, dehydration, DKA, among others. Patient was given fluid bolus for symptomatic management[ and correction of underlying abnormalities]. Workup independently interpreted and significant for stable anemia at 8.2. No leukocytosis. Patient has pH 7.18, bicarb low at 13.2, CO2 low at 14.4, lactate 12.3. ELIN with creatinine 1.5 and BUN 22. Anion gap elevated at 22. Troponin negative. BNP mildly elevated at 627. Chest x-ray and hip/pelvic x-rays pending at time of handoff. See radiology read for full review of final results. [Independent interpretation of EKG shows] sinus tachycardia with respirophasic variation. Intermittent PACs. No ST changes concerning for acute ischemia, but patient does have T wave inversions in anteroseptal leads with no reciprocal change. Prior to x-rays and final disposition, care ended up to oncoming physician. Because lactate was so high, with largely asymptomatic patient, repeat lactate was ordered. Pending at time of handoff. <Junie Hendricks MD - Last Filed: 01/11/24 01:14> Vital Signs: 01/10/24 21:39 Temperature 97.5 F L Temperature Source Oral Pulse Rate [Left Radial] 102 H Respiratory Rate 22 Blood Pressure [Right Arm] 147/64 H Blood Pressure Mean [Right Arm] 91 Blood Pressure Source [Right Arm] Automatic Cuff Blood Pressure Position [Right Arm] Sitting 02 Sat by Pulse Oximetry 95 Oxygen Delivery Method Nasal Cannula Oxygen Flow Rate (LPM) 2 Lab Data Lab Results 01/10/24 21:32: WBC 10.7, RBC 2.52 L, Hgb 8.2 L, Hct 26.7 L, MCV 106.0 H, MCH 32.3 H, MCHC 30.5 L, RDW 18.2 H, Plt Count 327, MPV 9.3, Neut % (Auto) 77.2, Lymph % (Auto) 14.7, Elmore % (Auto) 7.9, Eos % (Auto) 0.1, Baso % (Auto) 0.2, N eut # (Auto) 8.2 H, Lymph # (Auto) 1.6, Elmore # (Auto) 0.8, Eos # (Auto) 0.0, Baso # (Auto) 0.0, Sodium 135 L, Potassium 3.9, Chloride 103, Carbon Dioxide 13 L, Anion Gap 22.9 H, BUN 22 H, Creatinine 1.50 H, Estimated Creat Clear 49, E stimated GFR 45 L, Est GFR ( Amer) 54 L, Glucose 319 H, Calcium 9.0, M agnesium 1.4 L, Total Bilirubin 0.7, Direct Bilirubin 0.2, AST 55, ALT 51, Alkaline Phosphatase 82, Troponin I < 0.01, NT-Pro-B Natriuret Pep 627 H, Total Protein 6.1 L, Albumin 3.6, Globulin 2.5, Albumin/Globulin Ratio 1.4 01/10/24 21:47: VBG pH 7.18 L, VBG pCO2 36.6, VBG pO2 56.7 H, VBG HCO3 13.2 L, V BG Total CO2 14.4 L, VBG O2 Saturation 79.7 H, VBG Base Excess -15.2 L, VBG Lactic Acid 12.3 H 01/10/24 22:52: VBG Lactic Acid 11.9 H 01/11/24 00:45: VBG Lactic Acid 11.9 H Orders (Tests/Meds): ED MEDICATIONS Generic Name Dose Route Start Last Admin Trade Name Saranya PRN Reason Stop Dose Admin Acetaminophen 1,000 mg 01/11/24 09:00 Acetaminophen 1,000mg/100ml Vial IV 02/10/24 08:59 Q8H PRN Severe Pain (7-10) Gabapentin 400 mg 01/11/24 09:00 Gabapentin 100mg Capsule PO 02/10/24 08:59 BID DEVONTE Lactated Ringer's 1,000 mls @ 999 mls/hr 01/11/24 00:14 01/11/24 00:34 Lactated Ringer's 1000 Ml Bag IV 01/11/24 01:14 999 mls/hr .Q1H1M ONE Administration Miscellaneous 1 each 01/10/24 22:30 01/11/24 00:04 Vancomycin Consult Request NOTAPPLIC 02/09/24 22:29 1 each CONSULT PHARMACY [facility]ONTE Administration Morphine Sulfate 4 mg 01/11/24 04:00 Morphine 5mg/Ml Syringe IV 01/11/24 04:01 ONCE ONE Discontinued Medications Generic Name Dose Route Start Last Admin Trade Name Saranya PRN Reason Stop Dose Admin Acetaminophen 1,000 mg 01/11/24 00:13 01/11/24 00:34 Acetaminophen 1,000mg/100ml Vial IV 01/11/24 00:14 1,000 mg ONCE ONE Administration Gabapentin 400 mg 01/11/24 00:13 01/11/24 00:34 Gabapentin 100mg Capsule PO 01/11/24 00:14 400 mg ONCE ONE Administration Lactated Ringer's 1,000 mls @ 999 mls/hr 01/10/24 21:49 01/10/24 22:02 Lactated Ringer's 1000 Ml Bag IV 01/10/24 22:49 999 mls/hr .Q1H1M ONE Administration Ampicillin Sodium/Sulbactam 100 mls @ 200 mls/hr 01/10/24 22:27 01/10/24 23:25 Sodium 3 gm/ Sodium Chloride IV 01/10/24 22:28 200 mls/hr ONCE ONE Administration Vancomycin HCl 2,000 mg/ 250 mls @ 125 mls/hr 01/10/24 22:45 01/11/24 00:03 Sodium Chloride IV 01/11/24 00:44 125 mls/hr ONCE ONE Administration Morphine Sulfate 4 mg 01/11/24 00:13 01/11/24 00:34 Morphine 4mg/Ml Syringe IV 01/11/24 00:14 4 mg ONCE ONE Administration ORDERS Category Date Time Status CXR --portable [XR chest portable] Stat Exams 01/10/24 21:48 Completed Femur XR left 2 views [XR femur LT 2V] Stat Exams 01/10/24 21:48 Completed Hip XR left minimum 2 views [XR hip LT 2-3V w/pelvis] Exams 01/10/24 21:48 Completed Stat BMP [Basic Metabolic Panel] Timed Lab 01/11/24 07:00 Ordered Bilirubin,Direct Stat Lab 01/10/24 21:32 Completed Brain Natriuretic Peptide Stat Lab 01/10/24 21:32 Completed CBC w/Auto Diff [Complete Blood Count Auto Diff] Stat Lab 01/10/24 21:32 Completed CBC w/Auto Diff [Complete Blood Count Auto Diff] Timed Lab 01/11/24 07:00 Ordered CK [Creatine Kinase] Stat Lab 01/11/24 00:45 Received CMP [Comprehensive Metabolic Panel] Stat Lab 01/10/24 21:32 Completed Lactate Venous Routine Lab 01/11/24 00:45 Completed Lactate Venous Routine Lab 01/11/24 03:30 Ordered Lactate Venous Stat Lab 01/10/24 21:47 Completed Lactate Venous Stat Lab 01/10/24 22:52 Completed Lactate Venous Stat Lab 01/11/24 07:00 Ordered Lactic Acid Stat Lab 01/10/24 22:50 Ordered Magnesium Stat Lab 01/10/24 21:32 Completed Trop I [Troponin I] Stat Lab 01/10/24 21:32 Completed Troponin I Q3H Lab 01/11/24 00:45 Received Troponin I Q3H Lab 01/11/24 05:00 Ordered UA [Urinalysis and Microscopic] Stat Lab 01/10/24 21:47 Ordered Blood Culture Stat Micro 01/10/24 23:20 Received VBG [Venous Blood Gas] Stat RT 01/10/24 21:47 Completed VBG [Venous Blood Gas] Stat RT 01/11/24 00:31 Ordered Medical Decision Narrative: This is an 83-year-old male with history of high tension, hyperlipidemia, diabetes status post left leg BKA, peripheral artery disease, CAD, deconditioning presenting with fall. He states that he has been feeling generally weak and rundown the last couple of days with nausea without vomiting. Patient states that he was on his home scooter when he tried to sit back on his chair. Missed the chair, fell between his scooter in the chair. Was unable to get up, so crawl across the house to get his phone to call his son. Son got there and called EMS. EMS brought patient in. Patient complaining of moderate left-sided thigh pain radiating to his left hip. No new neck or back pain, did not strike his head, no loss of consciousness, no bowel or bladder dysfunction. No other complaints at this time. History obtained with patient and son. On arrival, patient hemodynamically stable, alert, [oriented x4, ][appropriate, ]GCS [15], moving all extremities spontaneously, pupils equal and reactive to light. Full physical exam performed and significant for tenderness about left greater trochanter and left femur without outward signs of injury or deformity. Left lower extremity BKA. No neck or back tenderness, no trauma to the head. Cardiac exam with normal rate and rhythm, the patient has right upper sternal border murmur radiating to the carotids. Differential includes fracture, sprain, strain, metabolic abnormality, endocrinologic abnormality, UTI, sepsis, dehydration, DKA, among others. Patient was given fluid bolus for symptomatic management[ and correction of underlying abnormalities]. Workup independently interpreted and significant for stable anemia at 8.2. No leukocytosis. Patient has pH 7.18, bicarb low at 13.2, CO2 low at 14.4, lactate 12.3. ELIN with creatinine 1.5 and BUN 22. Anion gap elevated at 22. Troponin negative. BNP mildly elevated at 627. Chest x-ray and hip/pelvic x-rays pending at time of handoff. See radiology read for full review of final results. [Independent interpretation of EKG shows] sinus tachycardia with respirophasic variation. Intermittent PACs. No ST changes concerning for acute ischemia, but patient does have T wave inversions in anteroseptal leads with no reciprocal change. Prior to x-rays and final disposition, care ended up to oncoming physician. Because lactate was so high, with largely asymptomatic patient, repeat lactate was ordered. Pending at time of handoff. Junie Hendricks MD: Repeat lactate remained elevated at 11. Continued fluid resuscitation. Chest xray shows no focal consolidation, no infectious concerns or significant signs of injury. Left hip and femur xrays concerning for left periprosthetic femur fracture. Consulted orthopedics with interactive discussion. They recommended patient be admitted if his medical comorbidities are able to be managed by the admitting team., Planning for surgery Friday. I consulted family medicine who agreed to admit the patient. Patient remained hemodynamically stable while awaiting admission. Critical Care <Vineet Barnes MD - Last Filed: 01/10/24 23:16> Critical Care Time Critical Care Time: No
[2024-01-10 21:59] LABS: Chloride 103 mmol/L (98-107); Potassium 3.9 mmoL/L (3.5-5.1); Sodium 135 mmol/L (136-145)
[2024-01-10 22:01] VITALS: BP 107/50; PULSE 91; O2SAT 100
[2024-01-10 22:01] LABS: Basophils % 0.2 % (0.1-2.0); Blood Urea Nitrogen 22 mg/dl (9-20); Creatinine Clearance Estimated 49 mL/min (50-200); Eosinophils % 0.1 % (0.1-12.0); Estimated Glomerular Filt Rate 45 ml/min (>60); GFR (African American) 54 ML/MIN (>60); Hematocrit 26.7 % (42.0-52.0); Hemoglobin 8.2 g/dL (14.1-18.0); Lymphocytes # 1.6 K/mm3 (0.7-4.5); Lymphocytes % 14.7 % (10-50); Mean Corpuscular HGB Conc 30.5 g/dL (31.8-35.4); Mean Corpuscular Hemoglobin 32.3 pg (27.0-31.2); Mean Platelet Volume 9.3 fl (7.4-10.4); Monocytes # 0.8 K/mm3 (0.1-1.0); Monocytes % 7.9 % (1.7-9.3); Neutrophils # 8.2 K/mm3 (1.8-7.8); Neutrophils % 77.2 % (37.0-80.0); Platelet Count 327 K/mm3 (142-424); Red Blood Count 2.52 M/mm3 (4.60-6.20); Red Cell Distribution Width 18.2 % (11.5-17.5); White Blood Count 10.7 K/mm3 (4.8-10.8)
[2024-01-10 22:02] LABS: Alanine Aminotransferase 51 U/L (12-78); Albumin Level 3.6 g/dl (3.5-5.0); Albumin/Globulin Ratio 1.4 (1.1-1.8); Alkaline Phosphatase 82 U/L (38-126); Anion Gap 22.9 mEq/L (5-15); Aspartate Amino Transferase 55 U/L (17-59); Bilirubin,Direct 0.2 mg/dl (0.0-0.4); Bilirubin,Total 0.7 mg/dl (0.2-1.3); Carbon Dioxide 13 mmol/L (22.0-30.0); Globulin 2.5 g/dL (1.3-3.2); Glucose 319 mg/dl (74-100); Total Protein,Serum 6.1 g/dl (6.3-8.2)
[2024-01-10] MEDS: LACTATED RINGERS 1000ML 1,000 ML 999 ML IV (22:02)
[2024-01-10 22:06] LABS: Magnesium 1.4 mg/dl (1.6-2.3)
[2024-01-10 22:14] LABS: Troponin I < 0.01 ng/ml (0.00-0.034)
[2024-01-10 22:16] LABS: NT Pro Brain Natriuretic Pep. 627 pg/mL (0-450)
[2024-01-10 22:26] LABS: VBG Base Excess -15.2 mmol/L (-2.4-2.3); VBG HCO3 13.2 mmol/L (23-30); VBG Oxygen Saturation 79.7 % (50-70); VBG PCO2 36.6 mmol/L (35-51); VBG PO2 56.7 mmol/L (28-40); VBG Total CO2 14.4 mmol/L (23-27)
[2024-01-10 22:28] LABS: VBG PH 7.18 mmol/L (7.31-7.41)
--- NOTE | 2024-01-10 22:28 | PC.NURSE ---
Critical Lab value of 12.3 with lactic and pH of 7.18
[2024-01-10 22:29] LABS: Lactate Venous 12.3 mmol/L (0.4-2.0)
[2024-01-10 22:30] VITALS: BP 121/54; PULSE 91; O2SAT 99
[2024-01-10 22:58] VITALS: BP 115/47; PULSE 109; O2SAT 99
[2024-01-10 23:24] LABS: Lactate Venous 11.9 mmol/L (0.4-2.0)
[2024-01-10] MEDS: AMPICILLIN/SULBACTAM 3 GM in 0.9 % SODIUM CHLORIDE 100 ML IV (23:25)
[2024-01-11] VITALS (30 sets, daily range): BP systolic 93–146; BP diastolic 37–78; PULSE 76–106; RESP 18–20; TEMP 36.4–37.1; O2SAT 94–100; BMI 27.9
[2024-01-11] MEDS: VANCOMYCIN HCL 2,000 MG in 0.9 % SODIUM CHLORIDE 250 ML 125 MG IV (00:03)
[2024-01-11] MEDS: VANCOMYCIN CONSULT REQUEST 1 EACH NOTAPPLIC (00:04)
--- NOTE | 2024-01-11 00:10 | PC.NURSE ---
Dr Hendricks on phone with Dr Phelps at this time
[2024-01-11] MEDS: LACTATED RINGERS 1000ML 1,000 ML 999 ML IV ×2 (00:34→03:00)
[2024-01-11] MEDS: MORPHINE 4MG/ML SYRINGE 4 MG IV (00:34)
[2024-01-11] MEDS: ACETAMINOPHEN 1,000MG/100ML VIAL 1000 MG IV (00:34)
[2024-01-11] MEDS: GABAPENTIN 100MG CAPSULE 400 MG PO (00:34)
--- NOTE | 2024-01-11 00:40 | PC.NURSE ---
dr laguna returned call and agreed to take care of patient on friday IF pcp was agreeable. Paged dr mayer to [phone]
--- NOTE | 2024-01-11 00:47 | PC.NURSE ---
dr mayer returned call
[2024-01-11 00:51] LABS: Lactate Venous 11.9 mmol/L (0.4-2.0)
[2024-01-11 01:05] LABS: Creatine Kinase 529 U/L (55-170)
--- NOTE | 2024-01-11 01:10 | PC.NURSE ---
spoke with house at this time regarding admission. Pt being admitted for lactic acidosis and left femur fracture
[2024-01-11 01:18] LABS: Troponin I 0.02 ng/ml (0.00-0.034)
--- NOTE | 2024-01-11 01:35 | PC.NURSE ---
called report to Miriam shaffer at this time
--- NOTE | 2024-01-11 01:53 | PC.NURSE ---
PT ARRIVED TO FLOOR AT THIS TIME
[2024-01-11] MEDS: humaLOG 100 UNITS/ML 3ML VIAL (SSI) SQ ×4 (04:05→20:20)
[2024-01-11 04:46] LABS: Reflex Lactic Add Lactic Reflex
[2024-01-11 05:21] LABS: Lactate Venous 7.7 mmol/L (0.4-2.0)
--- NOTE | 2024-01-11 07:01 | PC.NURSE ---
Pt arrived to the unit with a left femur fracture, fractured left leg is also a below the knee amputation. Pt denies pain and has refused pain medications this shift. Pt has DM2 and glucose has been elevated this shift and has required coverage. Pt denies needs at this time
--- NOTE | 2024-01-11 07:26 | PC.NURSE ---
Contacted Dr Romo for critical lactic lab of 7.7, dr requested to not call back with critical lab as long as its trending downwards.
[2024-01-11] MEDS: GABAPENTIN 400MG CAPSULE 400 MG PO ×3 (08:54→20:21)
[2024-01-11 08:57] LABS: Anion Gap 14.5 mEq/L (5-15); Blood Urea Nitrogen 26 mg/dl (9-20); Calcium 8.6 mg/dl (8.4-10.2); Carbon Dioxide 22 mmol/L (22.0-30.0); Chloride 105 mmol/L (98-107); Creatinine Clearance Estimated 49 mL/min (50-200); Estimated Glomerular Filt Rate 45 ml/min (>60); GFR (African American) 54 ML/MIN (>60); Glucose 99 mg/dl (74-100); Potassium 4.5 mmoL/L (3.5-5.1); Sodium 137 mmol/L (136-145)
[2024-01-11 09:01] LABS: Basophils % 0.1 % (0.1-2.0); Lymphocytes # 1.6 K/mm3 (0.7-4.5); Lymphocytes % 22.4 % (10-50); Mean Corpuscular HGB Conc 31.6 g/dL (31.8-35.4); Mean Corpuscular Hemoglobin 32.1 pg (27.0-31.2); Mean Corpuscular Volume 101.6 fl (80-94); Mean Platelet Volume 8.6 fl (7.4-10.4); Monocytes # 0.6 K/mm3 (0.1-1.0); Monocytes % 8.8 % (1.7-9.3); Neutrophils % 68.6 % (37.0-80.0); Platelet Count 240 K/mm3 (142-424); Red Blood Count 2.04 M/mm3 (4.60-6.20); Red Cell Distribution Width 18.6 % (11.5-17.5); White Blood Count 7.3 K/mm3 (4.8-10.8)
[2024-01-11 09:47] LABS: Hematocrit 20.7 % (42.0-52.0); Hemoglobin 6.6 g/dL (14.1-18.0)
[2024-01-11 10:20] LABS: Lactate Venous 3.2 mmol/L (0.4-2.0)
--- NOTE | 2024-01-11 10:36 | P.CONS_ITS ---
Documented by User: [email or web address] Champion 01/11/24 11:27 History of Present Illness *Reason for visit:: Left periprosthetic hip fracture *History of present illness: Patient is a pleasant 83-year-old male with history of high tension, hyperlipidemia, diabetes status post left leg BKA, peripheral artery disease, CAD, presenting with L hip pain s/p fall who was admitted on 01/10/2024 to medical service. According to ER note, patient stated that he has been feeling generally weak and rundown the last couple of days with nausea without vomiting, denies cough, fever, chills. Patient states that he was on his home scooter when he tried to transfer to his chair but scooter stuck on edge of carpet and skidded sideways, causing him to fall. He Was unable to get up, so crawl across the house to get his phone to call his son. Son got there and called EMS. EMS brought patient in. Patient currently complaining of moderate left-sided thigh pain radiating to his left hip and knee. Denies numbness/tingling more than baseline at distal stump. No new neck or back pain, did not strike his head, no loss of consciousness. Patient wheelchair bound at baseline. Step daughter is HCP- Rocio Hart. [facility] Disclaimer: The information contained in this section may have been updated after the patient was seen, as this information can be updated by other users. Medical History (Updated 01/11/24 @ 12:38 by Akash Romo MD) Encounter for pre-operative cardiovascular clearance Below-knee amputation of left lower extremity BPH loc w urin obs/LUTS Amputation below knee Cholecystectomy planned Tonsillectomy planned Cataract History of coronary angiogram Tachycardia Constipation Osteomyelitis Coronary artery calcification seen on CAT scan Diabetic neuropathy Dyslipidemia Bilateral edema of lower extremity Gangrene of toe of left foot Pressure injury of toe of left foot, stage 1 Capillary refill time greater than 2 seconds Ulcer of great toe Skin ulcer of fourth toe of left foot, limited to breakdown of skin Skin ulcer of third toe of left foot Encounter for wound care Type 2 diabetes mellitus Cellulitis of second toe of left foot Obesity (BMI 30.0-34.9) Decreased pedal pulses Abnormal ankle brachial index (YOSHI) Diastolic dysfunction HLD (hyperlipidemia) HTN (hypertension) Exertional dyspnea Incomplete RBBB Abnormal ECG Nonhealing ulcer of left lower extremity PAD (peripheral artery disease) Surgical History History of cataract surgery History of lobectomy of lung H/O arthroscopy of knee H/O cardiac catheterization Status post below-knee amputation of left lower extremity Family History No significant family history Social History Smoking Status: Former smoker second hand exposure: No alcohol intake: former substance use type: denies use current occupational status: retired Travel in the last 8 weeks: None adopted: No caregiver/support person: No foster care: No household members: none housing: house lives independently: Yes education level: high school current occupational exposures/hazards: No caffeine: Yes special frances needs: No do you feel safe at home: Yes victim of physical abuse: No victim of emotional abuse: No victim of sexual abuse: No would you like helpful sources: No Meds Home Medications and Allergies Home Medications Medication Instructions Recorded Confirmed Type cholecalciferol (vitamin D3) 25 1,000 unit PO DAILY Supplement 03/24/18 01/11/24 History mcg (1,000 unit) capsule finasteride 5 mg tablet 5 mg PO DAILY prostate 03/24/18 01/11/24 History metformin 850 mg tablet 850 mg PO BIDWMEAL Diabetes 03/24/18 01/11/24 History pioglitazone 15 mg tablet (Actos) 15 mg PO DAILY Diabetes 03/24/18 01/11/24 History terazosin 10 mg capsule 10 mg PO HS prostate 03/24/18 01/11/24 History vitamin B complex (B 1 tab PO DAILY Supplement 03/24/18 01/11/24 History Complex-Vitamin B12 tablet) atorvastatin 40 mg tablet 40 mg PO HS Cholesterol 06/24/22 01/11/24 History levothyroxine 25 mcg tablet 25 mcg PO DAILYDM THYROID 07/25/22 01/11/24 History (Euthyrox) enalapril maleate 2.5 mg tablet 2.5 mg PO DAILY High Blood Pressure 01/11/24 01/11/24 History ferrous sulfate 27 mg iron tablet 27 mg PO DAILY 01/11/24 01/11/24 History furosemide 20 mg tablet 20 mg PO DAILY Fluid 01/11/24 01/11/24 History gabapentin 400 mg capsule 400 mg PO BID NERVE PAIN 01/11/24 01/11/24 History glimepiride 4 mg tablet 8 mg PO DAILYDM Diabetes 01/11/24 01/11/24 History pantoprazole 40 mg tablet,delayed 40 mg PO DAILY Acid Reflux 01/11/24 01/11/24 History release New Prescriptions to Start Prescriptions: Allergies Allergy/AdvReac Type Severity Reaction Status Date / Time No Known Allergies Allergy Verified 11/11/23 09:01 Ortho Exam (Inpt) Vital signs and Labs for Last 24 Hours: Temp Pulse Resp BP Pulse Ox O2 Del Method O2 Flow Rate 98.7 F 102 H 20 106/69 L 94 L Room Air 2 01/11/24 08:00 01/11/24 08:00 01/11/24 08:00 01/11/24 08:00 01/11/24 08:00 01/11/24 09:10 01/10/24 21:39 Laboratory Results - last 24 hr 01/10/24 21:32: WBC 10.7, RBC 2.52 L, Hgb 8.2 L, Hct 26.7 L, MCV 106.0 H, MCH 32.3 H, MCHC 30.5 L, RDW 18.2 H, Plt Count 327, MPV 9.3, Neut % (Auto) 77.2, Lymph % (Auto) 14.7, Dunn % (Auto) 7.9, Eos % (Auto) 0.1, Baso % (Auto) 0.2, N eut # (Auto) 8.2 H, Lymph # (Auto) 1.6, Dunn # (Auto) 0.8, Eos # (Auto) 0.0, Baso # (Auto) 0.0, Sodium 135 L, Potassium 3.9, Chloride 103, Carbon Dioxide 13 L, Anion Gap 22.9 H, BUN 22 H, Creatinine 1.50 H, Estimated Creat Clear 49, E stimated GFR 45 L, Est GFR ( Amer) 54 L, Glucose 319 H, Calcium 9.0, M agnesium 1.4 L, Total Bilirubin 0.7, Direct Bilirubin 0.2, AST 55, ALT 51, Alkaline Phosphatase 82, Troponin I < 0.01, NT-Pro-B Natriuret Pep 627 H, Total Protein 6.1 L, Albumin 3.6, Globulin 2.5, Albumin/Globulin Ratio 1.4 01/10/24 21:47: VBG pH 7.18 L, VBG pCO2 36.6, VBG pO2 56.7 H, VBG HCO3 13.2 L, V BG Total CO2 14.4 L, VBG O2 Saturation 79.7 H, VBG Base Excess -15.2 L, VBG Lactic Acid 12.3 H 01/10/24 22:52: VBG Lactic Acid 11.9 H 01/11/24 00:45: VBG Lactic Acid 11.9 H, Total Creatine Kinase 529 H*, Troponin I 0.02 01/11/24 05:00: VBG Lactic Acid 7.7 H 01/11/24 05:10: Troponin I 0.40 H 01/11/24 07:45: WBC 7.3 D, RBC 2.04 L, Hgb 6.6 L*, Hct 20.7 L*, MCV 101.6 H, M CH 32.1 H, MCHC 31.6 L, RDW 18.6 H, Plt Count 240 D, MPV 8.6, Neut % (Auto) 68.6, Lymph % (Auto) 22.4, Dunn % (Auto) 8.8, Eos % (Auto) 0.0 L, Baso % (Auto) 0.1, Neut # (Auto) 5.0, Lymph # (Auto) 1.6, Dunn # (Auto) 0.6, Eos # (Auto) 0.0, Baso # (Auto) 0.0, Sodium 137, Potassium 4.5, Chloride 105, Carbon Dioxide 22, Anion Gap 14.5, BUN 26 H, Creatinine 1.50 H, Estimated Creat Clear 49, Estimated GFR 45 L, Est GFR ( Amer) 54 L, Glucose 99 D, Calcium 8.6 01/11/24 09:00: VBG Lactic Acid 3.2 H I & O for Labs for Last 24 Hours: Intake & Output 01/08/24 01/09/24 01/10/24 01/12/24 23:59 23:59 23:59 00:59 Intake Total 0 / 0 Output Total 0 / 0 Balance 0 / 0 Weight 200 lb 199 lb 9.6 oz Comment:: Alert and oriented x 3. No apparent distress. Laying comfortably in bed. Left lower extremity: Deformity noted mid thigh, tender to palpation globally around thigh. Compartment of thigh soft, compressible. Neurovascularly intact distally with less than 2-second cap refill at stump, sensation also intact to light touch at stump. Motor not tested. X-rays reviewed as left periprosthetic femur fracture. Results Labs 01/11/24 07:45 01/11/24 07:45 Labs: Abnormal lab results 01/10/24 01/10/24 01/10/24 Range/Units 21:32 21:47 22:52 RBC 2.52 L (4.60-6.20) M/mm3 Hgb 8.2 L (14.1-18.0) g/dL Hct 26.7 L (42.0-52.0) % MCV 106.0 H (80-94) fl MCH 32.3 H (27.0-31.2) pg MCHC 30.5 L (31.8-35.4) g/dL RDW 18.2 H (11.5-17.5) % Eos % (Auto) (0.1-12.0) % Neut # (Auto) 8.2 H (1.8-7.8) K/mm3 VBG pH 7.18 L (7.31-7.41) mmol/L VBG pO2 56.7 H (28-40) mmol/L VBG HCO3 13.2 L (23-30) mmol/L VBG Total CO2 14.4 L (23-27) mmol/L VBG O2 Saturation 79.7 H (50-70) % VBG Base Excess -15.2 L (-2.4-2.3) mmol/L VBG Lactic Acid 12.3 H 11.9 H (0.4-2.0) mmol/L Sodium 135 L (136-145) mmol/L Carbon Dioxide 13 L (22.0-30.0) mmol/L Anion Gap 22.9 H (5-15) mEq/L BUN 22 H (9-20) mg/dl Creatinine 1.50 H (0.66-1.25) mg/dl Estimated GFR 45 L (>60) ml/min Est GFR ( Amer) 54 L (>60) ML/MIN Glucose 319 H (74-100) mg/dl Magnesium 1.4 L (1.6-2.3) mg/dl Total Creatine Kinase (55-170) U/L Troponin I (0.00-0.034) ng/ml NT-Pro-B Natriuret Pep 627 H (0-450) pg/mL Total Protein 6.1 L (6.3-8.2) g/dl 01/11/24 01/11/24 01/11/24 Range/Units 00:45 05:00 05:10 RBC (4.60-6.20) M/mm3 Hgb (14.1-18.0) g/dL Hct (42.0-52.0) % MCV (80-94) fl MCH (27.0-31.2) pg MCHC (31.8-35.4) g/dL RDW (11.5-17.5) % Eos % (Auto) (0.1-12.0) % Neut # (Auto) (1.8-7.8) K/mm3 VBG pH (7.31-7.41) mmol/L VBG pO2 (28-40) mmol/L VBG HCO3 (23-30) mmol/L VBG Total CO2 (23-27) mmol/L VBG O2 Saturation (50-70) % VBG Base Excess (-2.4-2.3) mmol/L VBG Lactic Acid 11.9 H 7.7 H (0.4-2.0) mmol/L Sodium (136-145) mmol/L Carbon Dioxide (22.0-30.0) mmol/L Anion Gap (5-15) mEq/L BUN (9-20) mg/dl Creatinine (0.66-1.25) mg/dl Estimated GFR (>60) ml/min Est GFR ( Amer) (>60) ML/MIN Glucose (74-100) mg/dl Magnesium (1.6-2.3) mg/dl Total Creatine Kinase 529 H* (55-170) U/L Troponin I 0.40 H (0.00-0.034) ng/ml NT-Pro-B Natriuret Pep (0-450) pg/mL Total Protein (6.3-8.2) g/dl 01/11/24 01/11/24 Range/Units 07:45 09:00 RBC 2.04 L (4.60-6.20) M/mm3 Hgb 6.6 L* (14.1-18.0) g/dL Hct 20.7 L* (42.0-52.0) % MCV 101.6 H (80-94) fl MCH 32.1 H (27.0-31.2) pg MCHC 31.6 L (31.8-35.4) g/dL RDW 18.6 H (11.5-17.5) % Eos % (Auto) 0.0 L (0.1-12.0) % Neut # (Auto) (1.8-7.8) K/mm3 VBG pH (7.31-7.41) mmol/L VBG pO2 (28-40) mmol/L VBG HCO3 (23-30) mmol/L VBG Total CO2 (23-27) mmol/L VBG O2 Saturation (50-70) % VBG Base Excess (-2.4-2.3) mmol/L VBG Lactic Acid 3.2 H (0.4-2.0) mmol/L Sodium (136-145) mmol/L Carbon Dioxide (22.0-30.0) mmol/L Anion Gap (5-15) mEq/L BUN 26 H (9-20) mg/dl Creatinine 1.50 H (0.66-1.25) mg/dl Estimated GFR 45 L (>60) ml/min Est GFR ( Amer) 54 L (>60) ML/MIN Glucose (74-100) mg/dl Magnesium (1.6-2.3) mg/dl Total Creatine Kinase (55-170) U/L Troponin I (0.00-0.034) ng/ml NT-Pro-B Natriuret Pep (0-450) pg/mL Total Protein (6.3-8.2) g/dl H & H 01/10/24 01/11/24 Range/Units 21:32 07:45 Hgb 8.2 L 6.6 L* (14.1-18.0) g/dL Hct 26.7 L 20.7 L* (42.0-52.0) % All other labs normal. Assessment and Plan *Assessment and plan (1) Alexandrea-prosthetic femoral shaft fracture: Status: Acute Category: Medical Code(s): M97.8XXA - Periprosthetic fracture around other internal prosthetic joint, initial encounter; Z96.649 - Presence of unspecified artificial hip joint Plan Plan discussed with Dr. Phelps, who is in agreement. * Plan is for OR tomorrow for ORIF L femur, if medically stable. * Patient will need medical workup and evaluation. * Recommend pain control per medical team. * Hemoglobin 6.6: Transfuse as necessary per hospital protocol. * NPO after MN, repeat CBC, BMP, INR, and initial T&S pre-op (T&S and INR ordered) * Monitor L femur for swelling/compartment and NV checks. * Will d/w medical team if Ancef necessary for pre-op abx or if Unasyn sufficient. Documented by User: Spencer Phelps DO 01/11/24 13:58 History of Present Illness *History of present illness: Patient is a pleasant 83-year-old male with history of hypertension, hyperlipidemia, diabetes status post left leg BKA, peripheral artery disease, CAD, presenting with L hip pain s/p fall who was admitted on 01/10/2024 to medical service. According to ER note, patient stated that he has been feeling generally weak and rundown the last couple of days with nausea without vomiting, denies cough, fever, chills. Patient states that he was on his home scooter when he tried to transfer to his chair but scooter stuck on edge of carpet and skidded sideways, causing him to fall. He Was unable to get up, so he crawled across the house to get his phone to call his son. Son got there and called EMS. EMS brought patient in. Patient currently complaining of moderate left-sided thigh pain radiating to his left hip and knee. Denies numbness/tingling more than baseline at distal stump. No new neck or back pain, did not strike his head, no loss of consciousness. Patient wheelchair bound at baseline. Step daughter is HCP- Rocio Hart. [facility] Medical History (Updated 01/11/24 @ 12:38 by Akash Romo MD) Encounter for pre-operative cardiovascular clearance Below-knee amputation of left lower extremity BPH loc w urin obs/LUTS Amputation below knee Cholecystectomy planned Tonsillectomy planned Cataract History of coronary angiogram Tachycardia Constipation Osteomyelitis Coronary artery calcification seen on CAT scan Diabetic neuropathy Dyslipidemia Bilateral edema of lower extremity Gangrene of toe of left foot Pressure injury of toe of left foot, stage 1 Capillary refill time greater than 2 seconds Ulcer of great toe Skin ulcer of fourth toe of left foot, limited to breakdown of skin Skin ulcer of third toe of left foot Encounter for wound care Type 2 diabetes mellitus Cellulitis of second toe of left foot Obesity (BMI 30.0-34.9) Decreased pedal pulses Abnormal ankle brachial index (YOSHI) Diastolic dysfunction HLD (hyperlipidemia) HTN (hypertension) Exertional dyspnea Incomplete RBBB Abnormal ECG Nonhealing ulcer of left lower extremity PAD (peripheral artery disease) Surgical History History of cataract surgery History of lobectomy of lung H/O arthroscopy of knee H/O cardiac catheterization Status post below-knee amputation of left lower extremity Family History No significant family history Social History Smoking Status: Former smoker second hand exposure: No alcohol intake: former substance use type: denies use current occupational status: retired Travel in the last 8 weeks: None adopted: No caregiver/support person: No foster care: No household members: none housing: house lives independently: Yes education level: high school current occupational exposures/hazards: No caffeine: Yes special frances needs: No do you feel safe at home: Yes victim of physical abuse: No victim of emotional abuse: No victim of sexual abuse: No would you like helpful sources: No Meds Home Medications and Allergies Home Medications Medication Instructions Recorded Confirmed Type cholecalciferol (vitamin D3) 25 1,000 unit PO DAILY Supplement 03/24/18 01/11/24 History mcg (1,000 unit) capsule finasteride 5 mg tablet 5 mg PO DAILY prostate 03/24/18 01/11/24 History metformin 850 mg tablet 850 mg PO BIDWMEAL Diabetes 03/24/18 01/11/24 History pioglitazone 15 mg tablet (Actos) 15 mg PO DAILY Diabetes 03/24/18 01/11/24 History terazosin 10 mg capsule 10 mg PO HS prostate 03/24/18 01/11/24 History vitamin B complex (B 1 tab PO DAILY Supplement 03/24/18 01/11/24 History Complex-Vitamin B12 tablet) atorvastatin 40 mg tablet 40 mg PO HS Cholesterol 06/24/22 01/11/24 History levothyroxine 25 mcg tablet 25 mcg PO DAILYDM THYROID 07/25/22 01/11/24 History (Euthyrox) enalapril maleate 2.5 mg tablet 2.5 mg PO DAILY High Blood Pressure 01/11/24 01/11/24 History ferrous sulfate 27 mg iron tablet 27 mg PO DAILY 01/11/24 01/11/24 History furosemide 20 mg tablet 20 mg PO DAILY Fluid 01/11/24 01/11/24 History gabapentin 400 mg capsule 400 mg PO BID NERVE PAIN 01/11/24 01/11/24 History glimepiride 4 mg tablet 8 mg PO DAILYDM Diabetes 01/11/24 01/11/24 History pantoprazole 40 mg tablet,delayed 40 mg PO DAILY Acid Reflux 01/11/24 01/11/24 History release New Prescriptions to Start Prescriptions: Allergies Allergy/AdvReac Type Severity Reaction Status Date / Time No Known Allergies Allergy Verified 11/11/23 09:01 Results Labs 01/11/24 07:45 01/11/24 07:45 Assessment and Plan *Assessment and plan (1) Alexandrea-prosthetic femoral shaft fracture: Status: Acute Category: Medical Code(s): M97.8XXA - Periprosthetic fracture around other internal prosthetic joint, initial encounter; Z96.649 - Presence of unspecified artificial hip joint
--- NOTE | 2024-01-11 10:51 | HMH.PHAINT1 ---
Pharmacy Intervention Comments: MEDICATION RECONCILIATION COMPLETE USING EXTERNAL PHARMACY FILL HISTORY.
[2024-01-11 11:34] LABS: POC Glucose,Bedside 99 (70-110)
[2024-01-11 11:53] LABS: INR 1.11 (0.9-1.1); Prothrombin Time 11.9 seconds (10.1-12.5)
[2024-01-11 12:17] LABS: Iron 29 ug/dL (49-181)
[2024-01-11 12:27] LABS: Total Iron Binding Capacity 200 ug/dL (261-462)
--- NOTE | 2024-01-11 12:27 | EXP.HP ---
History of Present Illness *Admission Date: 01/11/24 *Reason for visit:: Left thigh pain after falling at home *History of present illness: Mr. Spivey is an 83 year old patient of [facility] who see Dr. David for his primary care, who was brought to [facility] [place] [facility] last night after falling at home. 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 He was working on some lights in his home last night and the scooter he was using tipped over and caused him to fall. He had immediate pain in his left thigh. He crawled to another room in his home to get to a phone to call for help. He states he did not hit his head and did not lose consciousness. [facility] Disclaimer: The information contained in this section may have been updated after the patient was seen, as this information can be updated by other users. Medical History (Updated 01/11/24 @ 12:38 by Akash Romo MD) Encounter for pre-operative cardiovascular clearance Below-knee amputation of left lower extremity BPH loc w urin obs/LUTS Amputation below knee Cholecystectomy planned Tonsillectomy planned Cataract History of coronary angiogram Tachycardia Constipation Osteomyelitis Coronary artery calcification seen on CAT scan Diabetic neuropathy Dyslipidemia Bilateral edema of lower extremity Gangrene of toe of left foot Pressure injury of toe of left foot, stage 1 Capillary refill time greater than 2 seconds Ulcer of great toe Skin ulcer of fourth toe of left foot, limited to breakdown of skin Skin ulcer of third toe of left foot Encounter for wound care Type 2 diabetes mellitus Cellulitis of second toe of left foot Obesity (BMI 30.0-34.9) Decreased pedal pulses Abnormal ankle brachial index (YOSHI) Diastolic dysfunction HLD (hyperlipidemia) HTN (hypertension) Exertional dyspnea Incomplete RBBB Abnormal ECG Nonhealing ulcer of left lower extremity PAD (peripheral artery disease) Surgical History History of cataract surgery History of lobectomy of lung H/O arthroscopy of knee H/O cardiac catheterization Status post below-knee amputation of left lower extremity Family History No significant family history Social History Smoking Status: Former smoker second hand exposure: No alcohol intake: former substance use type: denies use current occupational status: retired Travel in the last 8 weeks: None adopted: No caregiver/support person: No foster care: No household members: none housing: house lives independently: Yes education level: high school current occupational exposures/hazards: No caffeine: Yes special frances needs: No do you feel safe at home: Yes victim of physical abuse: No victim of emotional abuse: No victim of sexual abuse: No would you like helpful sources: No Review of Systems Constitutional Constitutional: Denies chills and Denies fever(s) Eyes Eyes: Denies blurry vision ENT Ears, Nose, Mouth, and Throat: Denies dizziness *Cardiovascular Cardiovascular: Denies chest pain and Denies dyspnea *Respiratory Respiratory: Denies dyspnea *Gastrointestinal Gastrointestinal: Reports nausea and Denies vomiting *Genitourinary Genitourinary: Denies difficulty urinating *Musculoskeletal Musculoskeletal: Reports as per HPI *Neurologic Neurologic: Denies confusion and Denies dizziness Psychiatric Psychiatric: Denies confusion Meds Home Medications and Allergies Home Medications Medication Instructions Recorded Confirmed Type cholecalciferol (vitamin D3) 25 1,000 unit PO DAILY Supplement 03/24/18 01/11/24 History mcg (1,000 unit) capsule finasteride 5 mg tablet 5 mg PO DAILY prostate 03/24/18 01/11/24 History metformin 850 mg tablet 850 mg PO BIDWMEAL Diabetes 03/24/18 01/11/24 History pioglitazone 15 mg tablet (Actos) 15 mg PO DAILY Diabetes 03/24/18 01/11/24 History terazosin 10 mg capsule 10 mg PO HS prostate 03/24/18 01/11/24 History vitamin B complex (B 1 tab PO DAILY Supplement 03/24/18 01/11/24 History Complex-Vitamin B12 tablet) atorvastatin 40 mg tablet 40 mg PO HS Cholesterol 06/24/22 01/11/24 History levothyroxine 25 mcg tablet 25 mcg PO DAILYDM THYROID 07/25/22 01/11/24 History (Euthyrox) enalapril maleate 2.5 mg tablet 2.5 mg PO DAILY High Blood Pressure 01/11/24 01/11/24 History ferrous sulfate 27 mg iron tablet 27 mg PO DAILY 01/11/24 01/11/24 History furosemide 20 mg tablet 20 mg PO DAILY Fluid 01/11/24 01/11/24 History gabapentin 400 mg capsule 400 mg PO BID NERVE PAIN 01/11/24 01/11/24 History glimepiride 4 mg tablet 8 mg PO DAILYDM Diabetes 01/11/24 01/11/24 History pantoprazole 40 mg tablet,delayed 40 mg PO DAILY Acid Reflux 01/11/24 01/11/24 History release New Prescriptions to Start Prescriptions: Allergies Allergy/AdvReac Type Severity Reaction Status Date / Time No Known Allergies Allergy Verified 11/11/23 09:01 Exam Data for Last 24 hours Vital signs and Labs for Last 24 Hours: Temp Pulse Resp BP Pulse Ox O2 Del Method O2 Flow Rate 98.7 F 102 H 20 106/69 L 94 L Room Air 2 01/11/24 08:00 01/11/24 08:00 01/11/24 08:00 01/11/24 08:00 01/11/24 08:00 01/11/24 11:07 01/10/24 21:39 Laboratory Results - last 24 hr 01/10/24 21:32: WBC 10.7, RBC 2.52 L, Hgb 8.2 L, Hct 26.7 L, MCV 106.0 H, MCH 32.3 H, MCHC 30.5 L, RDW 18.2 H, Plt Count 327, MPV 9.3, Neut % (Auto) 77.2, Lymph % (Auto) 14.7, Petroleum % (Auto) 7.9, Eos % (Auto) 0.1, Baso % (Auto) 0.2, Neut # (Auto) 8.2 H, Lymph # (Auto) 1.6, Petroleum # (Auto) 0.8, Eos # (Auto) 0.0, Baso # (Auto) 0.0, Sodium 135 L, Potassium 3.9, Chloride 103, Carbon Dioxide 13 L, Anion Gap 22.9 H, BUN 22 H, Creatinine 1.50 H, Estimated Creat Clear 49, Estimated GFR 45 L, Est GFR ( Amer) 54 L, Glucose 319 H, Calcium 9.0, Magnesium 1.4 L, Total Bilirubin 0.7, Direct Bilirubin 0.2, AST 55, ALT 51, Alkaline Phosphatase 82, Troponin I < 0.01, NT-Pro-B Natriuret Pep 627 H, Total Protein 6.1 L, Albumin 3.6, Globulin 2.5, Albumin/Globulin Ratio 1.4 01/10/24 21:47: VBG pH 7.18 L, VBG pCO2 36.6, VBG pO2 56.7 H, VBG HCO3 13.2 L, VBG Total CO2 14.4 L, VBG O2 Saturation 79.7 H, VBG Base Excess -15.2 L, VBG Lactic Acid 12.3 H 01/10/24 22:52: VBG Lactic Acid 11.9 H 01/11/24 00:45: VBG Lactic Acid 11.9 H, Total Creatine Kinase 529 H*, Troponin I 0.02 01/11/24 05:00: VBG Lactic Acid 7.7 H 01/11/24 05:10: Troponin I 0.40 H 01/11/24 07:45: WBC 7.3 D, RBC 2.04 L, Hgb 6.6 L*, Hct 20.7 L*, MCV 101.6 H, MCH 32.1 H, MCHC 31.6 L, RDW 18.6 H, Plt Count 240 D, MPV 8.6, Neut % (Auto) 68.6, Lymph % (Auto) 22.4, Petroleum % (Auto) 8.8, Eos % (Auto) 0.0 L, Baso % (Auto) 0.1, Neut # (Auto) 5.0, Lymph # (Auto) 1.6, Petroleum # (Auto) 0.6, Eos # (Auto) 0.0, Baso # (Auto) 0.0, Sodium 137, Potassium 4.5, Chloride 105, Carbon Dioxide 22, Anion Gap 14.5, BUN 26 H, Creatinine 1.50 H, Estimated Creat Clear 49, Estimated GFR 45 L, Est GFR ( Amer) 54 L, Glucose 99 D, Calcium 8.6 01/11/24 09:00: VBG Lactic Acid 3.2 H 01/11/24 09:55: PT 11.9, INR 1.11 H, Iron 29 L 01/11/24 11:16: POC Glucose 99 I & O for Last 24 hours: Intake & Output 01/08/24 01/09/24 01/10/24 01/12/24 23:59 23:59 23:59 00:59 Intake Total 0 / 0 Output Total 0 / 0 Balance 0 / 0 Weight 200 lb 199 lb 9.6 oz Constitutional Constitutional: no acute distress *Routine HEENT Exam Head: Present normocephalic Eye: Present EOMI and PERRL ENT: Present mucous membranes moist *Routine Neck Exam Neck: Present supple; Absent lymphadenopathy *Routine Respiratory Exam Respiratory: Present CTA bilaterally *Routine Cardiovascular Exam Cardiovascular: Present RRR *Routine Abdominal Exam Abdominal: Present soft and normoactive bowel sounds; Absent tenderness *Routine Rectal Exam Rectal:: deferred *Routine Genitalia Exam Genitalia:: deferred *Routine Extremities Exam Extremities: Absent cyanosis, clubbing or edema Comments: left BKA *Routine Skin Exam Skin: Present warm; Absent rash *Routine Neurological Exam Neurological: Present alert and oriented X3 Assessment and Plan *Assessment and plan (1) Alexandrea-prosthetic femoral shaft fracture: Status: Acute Category: Medical Code(s): M97.8XXA - Periprosthetic fracture around other internal prosthetic joint, initial encounter; Z96.649 - Presence of unspecified artificial hip joint (2) Elevated troponin: Status: Acute Category: Medical Code(s): R79.89 - Other specified abnormal findings of blood chemistry (3) Anemia: Status: Acute Qualifiers: Anemia type: unspecified type Qualified Code(s): D64.9 - Anemia, unspecified Category: Medical Code(s): D64.9 - Anemia, unspecified (4) Generalized weakness: Status: Acute Category: Medical Code(s): R53.1 - Weakness (5) Acidosis, lactic: Status: Acute Category: Medical Code(s): E87.20 - Acidosis, unspecified (6) Diastolic dysfunction: Status: Acute Category: Medical Code(s): I51.9 - Heart disease, unspecified (7) HLD (hyperlipidemia): Status: Acute Qualifiers: Hyperlipidemia type: other hyperlipidemia Qualified Code(s): E78.4 - Other hyperlipidemia Category: Medical Code(s): E78.5 - Hyperlipidemia, unspecified (8) Type 2 diabetes mellitus: Status: Chronic Qualifiers: Diabetes mellitus complication status: without complication Diabetes mellitus extermination supervisor insulin use: without extermination supervisor use Qualified Code(s): E11.9 - Type 2 diabetes mellitus without complications Category: Medical Code(s): E11.9 - Type 2 diabetes mellitus without complications (9) HTN (hypertension): Status: Chronic Qualifiers: Hypertension type: essential hypertension Qualified Code(s): I10 - Essential (primary) hypertension Category: Medical Code(s): I10 - Essential (primary) hypertension (10) PAD (peripheral artery disease): Status: Chronic Category: Medical Code(s): I73.9 - Peripheral vascular disease, unspecified (11) BPH loc w urin obs/LUTS: Status: Acute Category: Medical Code(s): N40.1 - Benign prostatic hyperplasia with lower urinary tract symptoms Plan Patient admitted for further evaluation and management of his left hip fracture. Lactate was very elevated in the ER with no obvious source of infection. A dose of Unasyn and Vanc were given. Will hold antibiotics now and monitor as Lactic acid is trending down. Patient is also very anemic and has an elevated troponin. Will check labs and hemocult stool and give 2 units of PRBCs now and will consult cardiology as patient is going to need pre-op evaluation for risk stratification.
[2024-01-11] MEDS: LEVOTHYROXINE 25MCG (0.025MG) TAB 25 MCG PO (12:28)
[2024-01-11] MEDS: PANTOPRAZOLE 40MG TABLET 40 MG PO (12:28)
[2024-01-11] MEDS: LISINOPRIL 2.5MG TABLET 2.5 MG PO (12:28)
[2024-01-11 12:32] LABS: Troponin I 2.28 ng/ml (0.00-0.034)
[2024-01-11 12:44] LABS: Ferritin 63.6 ng/ml (17.9-464)
[2024-01-11 12:59] LABS: Microscopic, Urine URINE MICROSCOPIC (MICROSCOPIC)
[2024-01-11 13:01] LABS: Vitamin B12 > 1000 pg/mL (239-931)
[2024-01-11 13:02] LABS: Appearance,Urine SL CLOUDY (Clear); Bilirubin,Urine Negative (Negative); Blood, Urine Negative (Negative); Color,Urine YELLOW (Yellow); Glucose,Urine (UA) Negative (Negative); Ketones,Urine 1+ (Negative); Leukocyte Esterase,Urine Negative (Negative); Nitrate,Urine Negative (Negative); PH,Urine 5.5 (5.0-8.5); Protein,Urine Negative (Negative); Specific Gravity, Urine >= 1.030 (1.005-1.030); Urobilinogen,Urine 0.2 EU/dl (0.2)
[2024-01-11 13:15] LABS: Bacteria,Urine Trace /lpf; Squamous Epithelial Cell,Urine Occasional #/hpf (0-5); WBC,Urine Occasional #/hpf (0-3)
[2024-01-11 16:40] LABS: POC Glucose,Bedside 158 (70-110)
--- NOTE | 2024-01-11 18:07 | PC.NURSE ---
VS stable, patient receiving two units of blood. Patient remained on room air. PRN tylenol given for pain from fracture, relief noted. Sinus tach on monitor. NPO at midnight
[2024-01-11 20:06] LABS: Hematocrit 25.5 % (42.0-52.0)
[2024-01-11 20:21] LABS: Hemoglobin 8.3 g/dL (14.1-18.0)
[2024-01-11] MEDS: ATORVASTATIN 40MG TABLET 40 MG PO (20:21)
[2024-01-11] MEDS: MORPHINE 2MG/ML SYRINGE 2 MG IV (20:21)
[2024-01-11 20:44] LABS: POC Glucose,Bedside 253 (70-110)
[2024-01-11 20:44] LABS: POC Glucose,Bedside 155 (70-110)
[2024-01-11 21:34] LABS: Lactate Venous 3.1 mmol/L (0.4-2.0)
[2024-01-11 21:58] LABS: POC Glucose,Bedside 170 (70-110)
[2024-01-11] MEDS: ACETAMINOPHEN 500MG TAB 1000 MG PO (23:17)
[2024-01-12] VITALS (16 sets, daily range): BP systolic 89–148; BP diastolic 38–79; PULSE 67–96; RESP 16–18; TEMP 36.8–37.2; O2SAT 94–98; BMI 27.9; BMI 29.5
--- NOTE | 2024-01-12 | IR_ITS ---
APPROVED REPORT Patient Location: Inpatient Diamond Sorter: KUSHAL Rick RT (R) PROCEDURES Selective coronary angiogram INDICATION Acute non-ST elevation myocardial infarction, Preoperative evaluation Informed consent was obtained prior to the procedure. COMPLICATIONS None Estimated Blood Loss: Less than 10 ml TECHNIQUE One percent lidocaine used to anesthetize the right anterior aspect of the wrist. The right radial artery was accessed via the Seldinger technique. A 6 Turkish sheath was advanced however due to the calcific nature of the radial artery cannot be advanced. Because of this a 4 Turkish JL 4 and JR 4 catheter were used and a sheath in this manner in order to perform angiography. Manual pressure was held at the radial access site throughout the entire procedure to limit blood loss. At the end of the procedure the apparatus was removed good hemostasis was achieved using TR banding patient was transferred to the postop putting in stable condition ANGIOGRAPHIC RESULTS The left main artery Is calcified and widely patent The left anterior descending artery Has proximal calcified 30 and 40% stenoses. The mid vessel is widely patent large-caliber vessel and wraps the apex a small to medium sized first diagonal artery has an ostial 80% concentric stenosis The circumflex artery Is nondominant yet still a large vessel and has an ostial 90% calcified stenosis accompanied by KEKE-3 flow The right coronary artery Is dominant and occluded distal to the RV marginal branch. The distal vessel fills scantly via [id number] collaterals The LOMAX ventriculogram reveals Not performed The left ventricular end-diastolic pressure Not measured IMPRESSION Severe two-vessel coronary disease as described above with a widely patent left anterior descending artery and ejection fraction 45% PLAN 1. Patient is at moderate risk to proceed with orthopedic surgery given the two-vessel coronary artery disease. The elevated troponins do not appear to be a type I myocardial infarction but rather a type II myocardial infarction from significant and severe anemia. 2. Despite the moderate risk the patient still is an acceptable risk given the gravity of the fracture and the need for surgery. 3. Perioperative beta-blockers and nitrates are advantageous providing hypotension is avoided 4. Recommend keeping hemoglobin above 9 throughout the perioperative phase Electronically signed by : Martinez Whitehead MD 01/12/2024 16:57:54
[2024-01-12] MEDS: MORPHINE 2MG/ML SYRINGE 2 MG IV ×3 (01:08→14:18)
--- NOTE | 2024-01-12 03:36 | PC.NURSE ---
Pt is A&Ox4 and tolerating RA well. Pt has C/O pain in left leg due to fracture. Pt has also refused repositioning at times due to pain increases as he moves. Pt has required insulin coverage this shift, and received pain medications per MAR for moderate to severe pain. lactic levels continue to trend downwards. Pt denies needs at this time.
[2024-01-12 04:36] LABS: Lactate Venous 1.7 mmol/L (0.4-2.0)
[2024-01-12 05:42] LABS: POC Glucose,Bedside 135 (70-110)
--- NOTE | 2024-01-12 05:50 | CA_ITS ---
APPROVED REPORT EXAM: Comprehensive 2D, Doppler, and color-flow Echocardiogram Business Services Administrator: Maritza Blanca RDCS Ht: 5 ft 10 in Wt: 211lbs BSA: 2.14 BP: 106/69 mmHg Indications: INCREASE TROP,LEG FX,TDS IN APICAL AND SUB COSTAL VIEWS M-Mode Dimensions RVDd 1.51 cm (0.9-2.6) LA Diam 3.74 cm (1.9-4.0) LVDd 6.09 cm (3.5-5.7) LVDs 4.58 cm (3.5-5.7) IVSd 0.49 cm (0.6-1.1) PWd 0.95 cm (0.6-1.1) EF (Teich) 48.30% FS 24.80% EDV (Teich) 186.20 mL ESV (Teich) 96.30 mL LV Diastology E Decel Time 113 (160-240 msec) E/A Ratio 0.9 Mitral Valve MV E Max Drew. 65.0 (40-130 cm/s) MV A Velocity 71.0 (40-130 cm/s) E/A Ratio 0.91 MV PHT 33.0 ms Left Ventricle The left ventricle is normal size. The left ventricular systolic function is normal. The left ventricular ejection fraction is within the normal range. Proximal septal thickening is noted. There is normal LV segmental wall motion. The left ventricular diastolic function is normal. LVEF is 55%. Right Ventricle Right ventricle is mildly dilated. The right ventricular systolic function is normal. Atria The left atrium size is normal. The right atrium size is normal. There is no Doppler evidence of interatrial shunt. Aortic Valve The aortic valve is mildly thickened. There is no aortic valvular stenosis. Mild aortic regurgitation. Mitral Valve The mitral valve is normal in structure. No evidence of mitral valve stenosis. Mild mitral regurgitation. Tricuspid Valve The tricuspid valve leaflets are thin and pliable. Trace tricuspid regurgitation. There is insufficient TR jet to estimate RVSP. Pulmonic Valve The pulmonary valve is normal in structure. Trace pulmonic regurgitation. Great Vessels The aortic root is normal in size. The ascending aorta is normal in size. IVC is normal in size and collapses >50% with inspiration. Pericardium There is no pericardial effusion. Other Information Study Quality: Fair Conclusion Normal biventricular systolic function. Mild RV dilation. Mild AI, mild MR. Electronically signed by : Celia Kendall MD 01/13/2024 20:17:53
--- NOTE | 2024-01-12 06:14 | P.CONCA_ITS ---
History of Present Illness History of Present Illness Consult date: 01/12/24 Requesting physician: Akash Romo Consult reason: pre-op evaluation Chief complaint: Fall, weakness, nausea History of present illness: This is an 83-year-old white male with past medical history of bare-metal stent to left lower extremity in 2020, status post left BKA and diabetes mellitus presented to emergency department with complaints of fall from wheelchair, left thigh pain, generalized weakness and nausea without vomiting. Initial labs as follow: Hemoglobin was 8.2, lactate 12.3, creatinine 1.5, anion gap 22, BNP 625 with an initial negative troponin. Left hip x-ray revealed a periprosthetic femur fracture. Given patient's elevated lactate patient was started on Unasyn and vancomycin and admitted for further evaluation for hip fracture. Patient's hemoglobin dropped to 6 without an obvious source of bleeding. FOBT pending. Patient reports hx of anemia requiring transfustion. Patient is status post transfusion with improvement of hemoglobin to 9. Lactate has continued to improve to 1.7. Troponin elevated from 0.01-2.28. Patient denies chest pain or soa prior to episode or currently. Echocardiogram is pending. [facility] Disclaimer: The information contained in this section may have been updated after the p atient was seen, as this information can be updated by other users. Medical History (Updated 01/11/24 @ 12:38 by Akash Romo MD) Encounter for pre-operative cardiovascular clearance Below-knee amputation of left lower extremity BPH loc w urin obs/LUTS Amputation below knee Cholecystectomy planned Tonsillectomy planned Cataract History of coronary angiogram Tachycardia Constipation Osteomyelitis Coronary artery calcification seen on CAT scan Diabetic neuropathy Dyslipidemia Bilateral edema of lower extremity Gangrene of toe of left foot Pressure injury of toe of left foot, stage 1 Capillary refill time greater than 2 seconds Ulcer of great toe Skin ulcer of fourth toe of left foot, limited to breakdown of skin Skin ulcer of third toe of left foot Encounter for wound care Type 2 diabetes mellitus Cellulitis of second toe of left foot Obesity (BMI 30.0-34.9) Decreased pedal pulses Abnormal ankle brachial index (YOSHI) Diastolic dysfunction HLD (hyperlipidemia) HTN (hypertension) Exertional dyspnea Incomplete RBBB Abnormal ECG Nonhealing ulcer of left lower extremity PAD (peripheral artery disease) Surgical History History of cataract surgery History of lobectomy of lung H/O arthroscopy of knee H/O cardiac catheterization Status post below-knee amputation of left lower extremity Family History No significant family history Social History Smoking Status: Former smoker second hand exposure: No alcohol intake: former substance use type: denies use current occupational status: retired Travel in the last 8 weeks: None adopted: No caregiver/support person: No foster care: No household members: none housing: house lives independently: Yes education level: high school current occupational exposures/hazards: No caffeine: Yes special frances needs: No do you feel safe at home: Yes victim of physical abuse: No victim of emotional abuse: No victim of sexual abuse: No would you like helpful sources: No Review of Systems Review of Systems Review of systems:: pertinent systems reviewed and negative unless documented below ENT Ears, Nose, Mouth, and Throat: Denies dizziness *Cardiovascular Cardiovascular: Denies chest pain and Denies dyspnea *Respiratory Respiratory: Denies dyspnea *Gastrointestinal Comments: nauea. Denies black/bloody stools *Neurologic Neurologic: Denies confusion and Denies dizziness Psychiatric Psychiatric: Denies confusion Exam Data for Last 24 hours Vital signs and Labs for Last 24 Hours: Temp Pulse Resp BP Pulse Ox O2 Del Method O2 Flow Rate 98.4 F 80 17 121/62 98 Room Air 2 01/12/24 04:00 01/12/24 05:36 01/12/24 04:00 01/12/24 04:00 01/12/24 04:00 01/12/24 04:45 01/10/24 21:39 Laboratory Results - last 24 hr 01/11/24 03:20: POC Glucose 253 H 01/11/24 06:17: POC Glucose 155 H 01/11/24 07:45: WBC 7.3 D, RBC 2.04 L, Hgb 6.6 L*, Hct 20.7 L*, MCV 101.6 H, MCH 32.1 H, MCHC 31.6 L, RDW 18.6 H, Plt Count 240 D, MPV 8.6, Neut % (Auto) 68.6, Lymph % (Auto) 22.4, [place] % (Auto) 8.8, Eos % (Auto) 0.0 L, Baso % (Auto) 0.1, Neut # (Auto) 5.0, Lymph # (Auto) 1.6, [place] # (Auto) 0.6, Eos # (Auto) 0.0, Baso # (Auto) 0.0, Sodium 137, Potassium 4.5, Chloride 105, Carbon Dioxide 22, Anion Gap 14.5, BUN 26 H, Creatinine 1.50 H, Estimated Creat Clear 49, Estimated GFR 45 L, Est GFR ( Amer) 54 L, Glucose 99 D, Calcium 8.6 01/11/24 09:00: VBG Lactic Acid 3.2 H 01/11/24 09:55: PT 11.9, INR 1.11 H, Iron 29 L, TIBC 200 L, Iron Saturation 14.98797 L, Ferritin 63.6, Troponin I 2.28 H, Vitamin B12 > 1000 H, Blood Type O Positive, Antibody Screen Negative, Crossmatch (AHG) See Detail 01/11/24 11:16: POC Glucose 99 01/11/24 12:55: Urine Color Yellow, Urine Appearance Sl cloudy, Urine pH 5.5, Ur Specific [place] >= 1.030, Urine Protein Negative, Urine Glucose (UA) Negative, Urine Ketones 1+, Urine Blood Negative, Urine Nitrate Negative, Urine Bilirubin Negative, Urine Urobilinogen 0.2, Ur Leukocyte Esterase Negative, Urine RBC None, Urine WBC Occasional, Ur Squamous Epith Cells Occasional, Urine Bacteria Trace 01/11/24 13:00: VBG Lactic Acid 3.1 H 01/11/24 16:29: POC Glucose 158 H 01/11/24 19:55: Hgb 8.3 L D, Hct 25.5 L 01/11/24 20:16: POC Glucose 170 H 01/12/24 00:00: VBG Lactic Acid 2.0 01/12/24 04:00: VBG Lactic Acid 1.7 01/12/24 05:35: POC Glucose 135 H I & O for Last 24 hours: Intake & Output 01/09/24 01/10/24 01/11/24 01/12/24 22:59 22:59 23:59 23:59 Intake Total 240 / 240 Output Total 900 / 900 Balance -660 / -660 Weight 211 lb 3.2 oz *Routine Respiratory Exam Respiratory: Present CTA bilaterally *Routine Cardiovascular Exam Cardiovascular: Present RRR, Normal S1 and Normal S2 Meds Home Medications and Allergies Home Medications Medication Instructions Recorded Confirmed Type cholecalciferol (vitamin D3) 25 1,000 unit PO DAILY Supplement 03/24/18 01/11/24 History mcg (1,000 unit) capsule finasteride 5 mg tablet 5 mg PO DAILY prostate 03/24/18 01/11/24 History metformin 850 mg tablet 850 mg PO BIDWMEAL Diabetes 03/24/18 01/11/24 History pioglitazone 15 mg tablet (Actos) 15 mg PO DAILY Diabetes 03/24/18 01/11/24 History terazosin 10 mg capsule 10 mg PO HS prostate 03/24/18 01/11/24 History vitamin B complex (B 1 tab PO DAILY Supplement 03/24/18 01/11/24 History Complex-Vitamin B12 tablet) atorvastatin 40 mg tablet 40 mg PO HS Cholesterol 06/24/22 01/11/24 History levothyroxine 25 mcg tablet 25 mcg PO DAILYDM THYROID 07/25/22 01/11/24 History (Euthyrox) enalapril maleate 2.5 mg tablet 2.5 mg PO DAILY High Blood Pressure 01/11/24 01/11/24 History ferrous sulfate 27 mg iron tablet 27 mg PO DAILY 01/11/24 01/11/24 History furosemide 20 mg tablet 20 mg PO DAILY Fluid 01/11/24 01/11/24 History gabapentin 400 mg capsule 400 mg PO BID NERVE PAIN 01/11/24 01/11/24 History glimepiride 4 mg tablet 8 mg PO DAILYDM Diabetes 01/11/24 01/11/24 History pantoprazole 40 mg tablet,delayed 40 mg PO DAILY Acid Reflux 01/11/24 01/11/24 History release New Prescriptions to Start Prescriptions: Allergies Allergy/AdvReac Type Severity Reaction Status Date / Time No Known Allergies Allergy Verified 11/11/23 09:01 Assessment and Plan *Assessment and plan (1) Elevated troponin: Status: Acute Category: Medical Code(s): R79.89 - Other specified abnormal findings of blood chemistry (2) Anemia: Status: Acute Qualifiers: Anemia type: unspecified type Qualified Code(s): D64.9 - Anemia, unspecified Category: Medical Code(s): D64.9 - Anemia, unspecified (3) Alexandrea-prosthetic femoral shaft fracture: Status: Acute Category: Medical Code(s): M97.8XXA - Periprosthetic fracture around other internal prosthetic joint, initial encounter; Z96.649 - Presence of unspecified artificial hip joint (4) Acidosis, lactic: Status: Acute Category: Medical Code(s): E87.20 - Acidosis, unspecified (5) Generalized weakness: Status: Acute Category: Medical Code(s): R53.1 - Weakness (6) Diabetes mellitus: Status: Chronic Category: Medical Code(s): E11.9 - Type 2 diabetes mellitus without complications (7) Type 2 diabetes mellitus: Status: Chronic Qualifiers: Diabetes mellitus complication status: without complication Diabetes mellitus longterm insulin use: without longterm use Qualified Code(s): E11.9 - Type 2 diabetes mellitus without complications Category: Medical Code(s): E11.9 - Type 2 diabetes mellitus without complications (8) HTN (hypertension): Status: Chronic Qualifiers: Hypertension type: essential hypertension Qualified Code(s): I10 - Essential (primary) hypertension Category: Medical Code(s): I10 - Essential (primary) hypertension (9) PAD (peripheral artery disease): Status: Chronic Category: Medical Code(s): I73.9 - Peripheral vascular disease, unspecified Plan Acute myocardial Injury vs. NSTEMI -In the setting of acute injury/anemia -Initial trop normal, trending up to 2.28 -Denies chest pain or soa -Initial EKG negative for acute ischemic changes, incomplete RBBB noted. Repeat is pending -Echo is pending -Given patient's hx of DM and PAD and the inability to assess functional capacity will proceed with [facility] to evaluated for CAD. Discussed risks vs. benefits with patient and he is agreeable. PAD Fall Fractured Left hip -S/p Left BKA -ortho following for left hip fracture Chronic anemia -Inital Hgb 8.2 trending down to 6. was given 2 units prbc. today hgb is stable at 9. Iron 14 -Denies bleeding -FOBT pending Elevated lactate -12.3 on admission trending down to 1.7 -patient given Unasyn and vancomycin -Defer to primary service Acute kidney injury -Creatinine elevated at 1.5 on admission trending down to 1.3 DM -Defer to primary service 01/12/2024: echo pending, will proceed with [facility] today.
[2024-01-12] MEDS: LEVOTHYROXINE 25MCG (0.025MG) TAB 25 MCG PO (06:15)
[2024-01-12 07:55] LABS: Basophils % 0.2 % (0.1-2.0); Eosinophils % 0.4 % (0.1-12.0); Hematocrit 27.4 % (42.0-52.0); Lymphocytes # 1.9 K/mm3 (0.7-4.5); Mean Corpuscular HGB Conc 32.7 g/dL (31.8-35.4); Mean Corpuscular Volume 94.8 fl (80-94); Mean Platelet Volume 8.8 fl (7.4-10.4); Monocytes # 0.8 K/mm3 (0.1-1.0); Monocytes % 11.3 % (1.7-9.3); Neutrophils # 3.9 K/mm3 (1.8-7.8); Neutrophils % 59.1 % (37.0-80.0); Platelet Count 234 K/mm3 (142-424); Red Blood Count 2.89 M/mm3 (4.60-6.20); Red Cell Distribution Width 18.7 % (11.5-17.5); White Blood Count 6.6 K/mm3 (4.8-10.8)
[2024-01-12 08:25] LABS: Anion Gap 8.5 mEq/L (5-15); Blood Urea Nitrogen 27 mg/dl (9-20); Calcium 8.8 mg/dl (8.4-10.2); Carbon Dioxide 28 mmol/L (22.0-30.0); Chloride 106 mmol/L (98-107); Creatinine Clearance Estimated 59 mL/min (50-200); Estimated Glomerular Filt Rate 53 ml/min (>60); GFR (African American) 64 ML/MIN (>60); Glucose 137 mg/dl (74-100); Potassium 4.5 mmoL/L (3.5-5.1); Sodium 138 mmol/L (136-145)
--- NOTE | 2024-01-12 08:49 | EXP.ACUTE.PN ---
Subjective *Date: 01/12/24 *Time: 09:06 Interval history: Patient states he did sleep some. He was able to eat without problems yesterday. He has pain in his left upper leg. Patient denies any chest discomfort and shortness of breath. Hemoglobin this morning is 9 with hematocrit of 27.4. Platelet count is 234,000. Blood chemistries show normal electrolytes, BUN 27 and creatinine of 1.3. Iron is low at 29. Troponin I yesterday was 2.28. Left femur x-ray 01/10/2024: FINDINGS: Bones/joints: Status post left hip arthroplasty. There is an angulated fracture of the left proximal to mid femur. There is diffuse osseous demineralization. There is some heterotopic ossification. Soft tissues: Unremarkable. Vasculature: Left iliac stents in place. IMPRESSION: Obliquely oriented mid femoral fracture. Chest x-ray 01/10/2024 FINDINGS: Lungs: No evidence of acute pulmonary disease or infiltrates Pleural spaces: No large effusion or pneumothorax. Heart/Mediastinum: Stable cardiac and mediastinal contours. Bones/joints: No evidence of acute osseous abnormalities within the visualized portions of the thoracic spine and ribs. Osseous structures appear appropriate for patient age. IMPRESSION: No dense parenchymal consolidation, pleural effusion, or pneumothorax. Medical Exam Vital signs and Labs for Last 24 Hours: Vital Signs Temp Pulse Pulse Resp BP BP Pulse Ox 01/12/24 08:00 98.3 F 72 18 121/70 96 01/12/24 06:55 01/12/24 05:36 80 01/12/24 04:45 01/12/24 04:00 98.4 F 70 17 121/62 98 01/12/24 02:41 01/12/24 00:31 01/12/24 00:00 70 01/12/24 00:00 99.0 F 78 16 116/58 L 96 01/12/24 00:00 99.0 F 78 16 116/58 L 96 01/11/24 23:00 01/11/24 21:00 01/11/24 20:00 01/11/24 20:00 80 01/11/24 19:53 97.7 F 82 18 104/78 L 96 01/11/24 18:45 98.3 F 82 18 106/54 L 99 01/11/24 18:29 01/11/24 18:05 98.4 F 76 18 100/43 L 100 01/11/24 17:05 98.7 F 79 18 93/46 L 94 L 01/11/24 17:00 01/11/24 16:50 98.3 F 89 18 111/68 99 01/11/24 16:35 98.1 F 83 18 103/57 L 96 01/11/24 16:20 98.1 F 89 18 117/54 L 95 01/11/24 16:15 98.4 F 83 18 104/52 L 99 01/11/24 16:10 98.1 F 85 18 103/50 L 95 01/11/24 16:05 98.1 F 82 18 106/49 L 99 01/11/24 16:00 81 01/11/24 16:00 98.4 F 82 18 99/38 L 97 01/11/24 15:30 98.7 F 87 18 100/37 L 97 01/11/24 15:15 98.5 F 100 H 18 103/68 L 99 01/11/24 15:15 01/11/24 14:15 98.5 F 101 H 20 119/65 99 01/11/24 14:00 98.2 F 97 H 18 103/51 L 98 01/11/24 13:45 98.2 F 99 H 18 118/37 L 99 01/11/24 13:30 98.3 F 98 H 18 110/37 L 99 01/11/24 13:25 98.2 F 97 H 18 104/40 L 98 01/11/24 13:20 98.1 F 100 H 18 111/39 L 100 01/11/24 13:15 98.8 F 99 H 18 114/42 L 98 01/11/24 13:10 01/11/24 12:50 98.3 F 96 H 18 119/46 L 98 01/11/24 12:49 97 H 01/11/24 11:07 01/11/24 09:10 O2 Del Method 01/12/24 08:00 Room Air 01/12/24 06:55 Room Air 01/12/24 05:36 01/12/24 04:45 Room Air 01/12/24 04:00 Room Air 01/12/24 02:41 Room Air 01/12/24 00:31 Room Air 01/12/24 00:00 01/12/24 00:00 Room Air 01/12/24 00:00 Room Air 01/11/24 23:00 Room Air 01/11/24 21:00 Room Air 01/11/24 20:00 Room Air 01/11/24 20:00 01/11/24 19:53 01/11/24 18:45 01/11/24 18:29 Room Air 01/11/24 18:05 01/11/24 17:05 01/11/24 17:00 Room Air 01/11/24 16:50 01/11/24 16:35 01/11/24 16:20 01/11/24 16:15 01/11/24 16:10 01/11/24 16:05 01/11/24 16:00 01/11/24 16:00 01/11/24 15:30 01/11/24 15:15 01/11/24 15:15 Room Air 01/11/24 14:15 01/11/24 14:00 01/11/24 13:45 01/11/24 13:30 01/11/24 13:25 01/11/24 13:20 01/11/24 13:15 01/11/24 13:10 Room Air 01/11/24 12:50 01/11/24 12:49 01/11/24 11:07 Room Air 01/11/24 09:10 Room Air Intake and Output 01/11/24 01/12/24 01/12/24 19:59 03:59 11:59 Intake Total 1110 / 1110 240 / 1350 Output Total 100 / 100 1500 / 1600 Balance 1010 / 1010 240 / 1250 -1500 / -250 Intake: Intake, Oral Amount 860 / 860 240 / 1100 Intake (Blood Product) Amt 250 / 250 Red Blood Cells Unit 0 / 0 [id number] Red Blood Cells Unit 250 / 250 [id number] Output: Output, Urine Amount 100 / 100 1500 / 1600 Other: Number of Voids 1 Number of Unmeasured Voids 0 1 Weight 211 lb 3.2 oz Patient Weight 01/12/24 11:59 Weight 211 lb 3.2 oz Laboratory Results - last 24 hr 01/11/24 03:20: POC Glucose 253 H 01/11/24 06:17: POC Glucose 155 H 01/11/24 07:45: WBC 7.3 D, RBC 2.04 L, Hgb 6.6 L*, Hct 20.7 L*, MCV 101.6 H, MCH 32.1 H, MCHC 31.6 L, RDW 18.6 H, Plt Count 240 D, MPV 8.6, Neut % (Auto) 68.6, Lymph % (Auto) 22.4, [place] % (Auto) 8.8, Eos % (Auto) 0.0 L, Baso % (Auto) 0.1, Neut # (Auto) 5.0, Lymph # (Auto) 1.6, [place] # (Auto) 0.6, Eos # (Auto) 0.0, Baso # (Auto) 0.0, Sodium 137, Potassium 4.5, Chloride 105, Carbon Dioxide 22, Anion Gap 14.5, BUN 26 H, Creatinine 1.50 H, Estimated Creat Clear 49, Estimated GFR 45 L, Est GFR ( Amer) 54 L, Glucose 99 D, Calcium 8.6 01/11/24 09:00: VBG Lactic Acid 3.2 H 01/11/24 09:55: PT 11.9, INR 1.11 H, Iron 29 L, TIBC 200 L, Iron Saturation 14.37728 L, Ferritin 63.6, Troponin I 2.28 H, Vitamin B12 > 1000 H, Blood Type O Positive, Antibody Screen Negative, Crossmatch (AHG) See Detail 01/11/24 11:16: POC Glucose 99 01/11/24 12:55: Urine Color Yellow, Urine Appearance Sl cloudy, Urine pH 5.5, Ur Specific [place] >= 1.030, Urine Protein Negative, Urine Glucose (UA) Negative, Urine Ketones 1+, Urine Blood Negative, Urine Nitrate Negative, Urine Bilirubin Negative, Urine Urobilinogen 0.2, Ur Leukocyte Esterase Negative, Urine RBC None, Urine WBC Occasional, Ur Squamous Epith Cells Occasional, Urine Bacteria Trace 01/11/24 13:00: VBG Lactic Acid 3.1 H 01/11/24 16:29: POC Glucose 158 H 01/11/24 19:55: Hgb 8.3 L D, Hct 25.5 L 01/11/24 20:16: POC Glucose 170 H 01/12/24 00:00: VBG Lactic Acid 2.0 01/12/24 04:00: VBG Lactic Acid 1.7 01/12/24 05:35: POC Glucose 135 H 01/12/24 07:27: WBC 6.6, RBC 2.89 L D, Hgb 9.0 L, Hct 27.4 L, MCV 94.8 H, MCH 31.0, MCHC 32.7, RDW 18.7 H, Plt Count 234, MPV 8.8, Neut % (Auto) 59.1, Lymph % (Auto) 29.0, [place] % (Auto) 11.3 H, Eos % (Auto) 0.4, Baso % (Auto) 0.2, Neut # (Auto) 3.9, Lymph # (Auto) 1.9, [place] # (Auto) 0.8, Eos # (Auto) 0.0, Baso # (Auto) 0.0, Sodium 138, Potassium 4.5, Chloride 106, Carbon Dioxide 28, Anion Gap 8.5, BUN 27 H, Creatinine 1.30 H, Estimated Creat Clear 59, Estimated GFR 53 L, Est GFR ( Amer) 64, Glucose 137 H D, Calcium 8.8 I & O for Labs for Last 24 Hours: Intake & Output 01/09/24 01/10/24 01/11/24 01/12/24 10:59 10:59 11:59 11:59 Intake Total 1350 / 1350 Output Total 1600 / 1600 Balance -250 / -250 Weight 211 lb 3.2 oz Head: Present atraumatic and normocephalic Respiratory: Present CTA bilaterally Cardiac: Present Reg Rate and Rhythm GI: Present soft and normal bowel sounds; Absent distention, tenderness or guarding Extremities: Absent edema Comment:: Left below the knee amputee Neuro: Present alert, awake and oriented x 3 Assessment and Plan *Assessment and plan (1) Alexandrea-prosthetic femoral shaft fracture: Status: Acute Category: Medical Code(s): M97.8XXA - Periprosthetic fracture around other internal prosthetic joint, initial encounter; Z96.649 - Presence of unspecified artificial hip joint (2) Elevated troponin: Status: Acute Category: Medical Code(s): R79.89 - Other specified abnormal findings of blood chemistry (3) Anemia: Status: Acute Qualifiers: Anemia type: unspecified type Qualified Code(s): D64.9 - Anemia, unspecified Category: Medical Code(s): D64.9 - Anemia, unspecified (4) Generalized weakness: Status: Acute Category: Medical Code(s): R53.1 - Weakness (5) Acidosis, lactic: Status: Acute Category: Medical Code(s): E87.20 - Acidosis, unspecified (6) Diastolic dysfunction: Status: Acute Category: Medical Code(s): I51.9 - Heart disease, unspecified (7) HLD (hyperlipidemia): Status: Acute Qualifiers: Hyperlipidemia type: other hyperlipidemia Qualified Code(s): E78.4 - Other hyperlipidemia Category: Medical Code(s): E78.5 - Hyperlipidemia, unspecified (8) Type 2 diabetes mellitus: Status: Chronic Qualifiers: Diabetes mellitus complication status: without complication Diabetes mellitus termite control servicer insulin use: without detention use Qualified Code(s): E11.9 - Type 2 diabetes mellitus without complications Category: Medical Code(s): E11.9 - Type 2 diabetes mellitus without complications (9) HTN (hypertension): Status: Chronic Qualifiers: Hypertension type: essential hypertension Qualified Code(s): I10 - Essential (primary) hypertension Category: Medical Code(s): I10 - Essential (primary) hypertension (10) PAD (peripheral artery disease): Status: Chronic Category: Medical Code(s): I73.9 - Peripheral vascular disease, unspecified (11) BPH loc w urin obs/LUTS: Status: Acute Category: Medical Code(s): N40.1 - Benign prostatic hyperplasia with lower urinary tract symptoms Plan Patient's hemoglobin is stable this morning. Cardiology to see for elevated troponin. Echo has been completed and results are pending. Orthopedics also continue to follow. Dr. Romo entry - Saw patient, agree with above note.
[2024-01-12] MEDS: LISINOPRIL 2.5MG TABLET 2.5 MG PO (09:08)
[2024-01-12] MEDS: PANTOPRAZOLE 40MG TABLET 40 MG PO (09:08)
[2024-01-12] MEDS: GABAPENTIN 400MG CAPSULE 400 MG PO ×2 (09:08→14:14)
--- NOTE | 2024-01-12 11:57 | ECG_ITS ---
APPROVED REPORT Exam: Resting ECG HR:83 bpm ECG Measurements Heart Rate 83 AXES ND 155 P 49 QRSd 125 QRS 45 QT 370 T 27 QTc 410 Conclusion SINUS RHYTHM RIGHT BUNDLE BRANCH BLOCK [120+ ms QRS DURATION, UPRIGHT V1, 40+ ms S IN I/aVL/V4/V5/V6] ABNORMAL ECG UNCONFIRMED REPORT Electronically signed by : Skinny Altamirano MD 01/12/2024 18:12:24
--- NOTE | 2024-01-12 12:00 | PC.NURSE ---
Rocio Headley (POA) updated on POC.
[2024-01-12 12:35] LABS: Basophils % 0.2 % (0.1-2.0); Eosinophils % 0.3 % (0.1-12.0); Hematocrit 27.9 % (42.0-52.0); Hemoglobin 9.1 g/dL (14.1-18.0); Lymphocytes % 27.5 % (10-50); Mean Corpuscular HGB Conc 32.4 g/dL (31.8-35.4); Mean Corpuscular Hemoglobin 31.2 pg (27.0-31.2); Mean Corpuscular Volume 96.1 fl (80-94); Monocytes # 0.7 K/mm3 (0.1-1.0); Monocytes % 9.3 % (1.7-9.3); Neutrophils # 4.5 K/mm3 (1.8-7.8); Neutrophils % 62.8 % (37.0-80.0); Platelet Count 245 K/mm3 (142-424); Red Cell Distribution Width 18.7 % (11.5-17.5); White Blood Count 7.1 K/mm3 (4.8-10.8)
[2024-01-12 12:39] LABS: POC Glucose,Bedside 146 (70-110)
[2024-01-12 13:00] LABS: Chloride 105 mmol/L (98-107); Sodium 136 mmol/L (136-145)
[2024-01-12 13:01] LABS: Potassium 4.2 mmoL/L (3.5-5.1)
[2024-01-12 13:04] LABS: Anion Gap 7.2 mEq/L (5-15); Blood Urea Nitrogen 25 mg/dl (9-20); Calcium 8.8 mg/dl (8.4-10.2); Carbon Dioxide 28 mmol/L (22.0-30.0); Creatinine Clearance Estimated 64 mL/min (50-200); Estimated Glomerular Filt Rate 58 ml/min (>60); GFR (African American) 70 ML/MIN (>60); Glucose 151 mg/dl (74-100)
--- NOTE | 2024-01-12 16:05 | P.PN_ITS ---
Subjective *Date: 01/12/24 *Time: 16:05 Interval history: Patient doing reasonly well. Is scheduled for left heart cath today. Ortho Exam (Inpt) Vital signs and Labs for Last 24 Hours: Temp Pulse Resp BP Pulse Ox O2 Del Method O2 Flow Rate 98.3 F 91 H 18 146/79 H 96 Room Air 2 01/12/24 15:50 01/12/24 15:50 01/12/24 15:50 01/12/24 15:50 01/12/24 15:50 01/12/24 15:50 01/10/24 21:39 Laboratory Results - last 24 hr 01/11/24 03:20: POC Glucose 253 H 01/11/24 06:17: POC Glucose 155 H 01/11/24 09:55: Blood Type O Positive, Antibody Screen Negative, Crossmatch (AHG) See Detail 01/11/24 13:00: VBG Lactic Acid 3.1 H 01/11/24 16:29: POC Glucose 158 H 01/11/24 19:55: Hgb 8.3 L D, Hct 25.5 L 01/11/24 20:16: POC Glucose 170 H 01/12/24 00:00: VBG Lactic Acid 2.0 01/12/24 04:00: VBG Lactic Acid 1.7 01/12/24 05:35: POC Glucose 135 H 01/12/24 07:27: WBC 6.6, RBC 2.89 L D, Hgb 9.0 L, Hct 27.4 L, MCV 94.8 H, MCH 31.0, MCHC 32.7, RDW 18.7 H, Plt Count 234, MPV 8.8, Neut % (Auto) 59.1, Lymph % (Auto) 29.0, [place] % (Auto) 11.3 H, Eos % (Auto) 0.4, Baso % (Auto) 0.2, Neut # (Auto) 3.9, Lymph # (Auto) 1.9, [place] # (Auto) 0.8, Eos # (Auto) 0.0, Baso # (Auto) 0.0, Sodium 138, Potassium 4.5, Chloride 106, Carbon Dioxide 28, Anion Gap 8.5, BUN 27 H, Creatinine 1.30 H, Estimated Creat Clear 59, Estimated GFR 53 L, Est GFR ( Amer) 64, Glucose 137 H D, Calcium 8.8 01/12/24 12:13: POC Glucose 146 H 01/12/24 12:20: WBC 7.1, RBC 2.90 L, Hgb 9.1 L, Hct 27.9 L, MCV 96.1 H, MCH 31.2, MCHC 32.4, RDW 18.7 H, Plt Count 245, MPV 9.0, Neut % (Auto) 62.8, Lymph % (Auto) 27.5, [place] % (Auto) 9.3, Eos % (Auto) 0.3, Baso % (Auto) 0.2, Neut # (Auto) 4.5, Lymph # (Auto) 2.0, [place] # (Auto) 0.7, Eos # (Auto) 0.0, Baso # (Au to) 0.0, Sodium 136, Potassium 4.2, Chloride 105, Carbon Dioxide 28, Anion Gap 7.2, BUN 25 H, Creatinine 1.20, Estimated Creat Clear 64, Estimated GFR 58 L, Est GFR ( Amer) 70, Glucose 151 H, Calcium 8.8 I & O for Labs for Last 24 Hours: Intake & Output 01/09/24 01/10/24 01/11/24 01/12/24 22:59 22:59 23:59 23:59 Intake Total 240 / 240 Output Total 2300 / 2300 Balance -2059 / -2059 Weight 211 lb 3.2 oz Findings:: Left lower extremity grossly neurovascular intact pain with any attempted movement of the left lower extremity secondary to femur fracture Assessment and Plan *Assessment and plan (1) Alexandrea-prosthetic femoral shaft fracture: Status: Acute Category: Medical Code(s): M97.8XXA - Periprosthetic fracture around other internal prosthetic joint, initial encounter; Z96.649 - Presence of unspecified artificial hip joint Plan Patient has left-sided periprosthetic femur fracture. After increase in troponins he is indicated for left heart cath to rule out acute CT or NSTEMI Will make operative recommendations following findings on heart catheterization. Preliminarily early Friday morning pending heart cath findings and recommendations.
[2024-01-12] MEDS: LIDOCAINE 1% 10ML MDV 20 ML IJ (16:26)
[2024-01-12] MEDS: diphenhydrAMINE 50MG/ML VIAL 50 MG IV (16:26)
[2024-01-12] MEDS: HEPARIN 1,000 UNITS/500ML NS (CATH LAB) 3000 UNIT IV (16:26)
[2024-01-12] MEDS: VERAPAMIL 2.5MG/ML 2ML VIAL 2.5 MG IV (16:26)
[2024-01-12] MEDS: NITROGLYCERIN 800MCG/8ML SYR (CATH LAB) 800 MCG IA (16:26)
[2024-01-12] MEDS: 0.9 % SODIUM CHLORIDE 500 ML 25 ML IV (16:27)
[2024-01-12] MEDS: FENTANYL 100MCG/2ML VIAL 50 MCG IV (16:52)
[2024-01-12] MEDS: MIDAZOLAM HCL 1MG/1ML 5ML VIAL 1 MG IV (16:52)
[2024-01-12] MEDS: HEPARIN 1,000 UNITS/ML 10ML VIAL (CATH LAB) 10000 UNIT IV (16:53)
[2024-01-12] MEDS: IOPAMIDOL-370 (76%);100ML BOTTLE 70 ML IV (17:01)
--- NOTE | 2024-01-12 17:15 | PC.NURSE ---
right radial band in place, air to start being removed at 1830.
[2024-01-12] MEDS: humaLOG 100 UNITS/ML 3ML VIAL (SSI) SQ ×2 (18:20→21:53)
[2024-01-12 18:36] LABS: POC Glucose,Bedside 192 (70-110)
[2024-01-12] MEDS: ATORVASTATIN 40MG TABLET 40 MG PO (21:53)
[2024-01-12 21:58] LABS: POC Glucose,Bedside 194 (70-110)
[2024-01-13] VITALS (16 sets, daily range): BP systolic 108–141; BP diastolic 47–65; PULSE 70–88; RESP 16–24; TEMP 36.5–37.2; O2SAT 95–99; BMI 28.5; BMI 62.8
[2024-01-13] MEDS: LEVOTHYROXINE 25MCG (0.025MG) TAB 25 MCG PO (06:37)
[2024-01-13 06:48] LABS: POC Glucose,Bedside 138 (70-110)
--- NOTE | 2024-01-13 09:10 | EXP.ACUTE.PN ---
Subjective *Date: 01/13/24 *Time: 09:25 Interval history: Patient states he did sleep last night. He denies any chest pain and shortness of breath. The only pain he has is in his left leg. He has been eating minimally due to test. He is wondering about his surgery. Cardiac cath 01/12/2024 with the following results:IMPRESSION Severe two-vessel coronary disease as described above with a widely patent left anterior descending artery and ejection fraction 45% PLAN 1. Patient is at moderate risk to proceed with orthopedic surgery given the two-vessel coronary artery disease. The elevated troponins do not appear to be a type I myocardial infarction but rather a type II myocardial infarction from significant and severe anemia. 2. Despite the moderate risk the patient still is an acceptable risk given the gravity of the fracture and the need for surgery. 3. Perioperative beta-blockers and nitrates are advantageous providing hypotension is avoided 4. Recommend keeping hemoglobin above 9 throughout the perioperative phase Medical Exam Vital signs and Labs for Last 24 Hours: Vital Signs Temp Pulse Pulse Resp BP Pulse Ox O2 Del Method 01/13/24 08:00 98.1 F 77 20 124/57 L 97 Room Air 01/13/24 07:00 Room Air 01/13/24 05:00 Room Air 01/13/24 04:00 98.1 F 83 24 130/60 95 Room Air 01/13/24 04:00 80 01/13/24 03:00 Room Air 01/13/24 01:00 Room Air 01/13/24 00:00 80 01/13/24 00:00 98.1 F 75 16 141/65 H 97 Room Air 01/12/24 23:00 Room Air 01/12/24 21:00 Room Air 01/12/24 21:00 80 18 91/52 L 97 Room Air 01/12/24 20:00 90 01/12/24 20:00 97 Room Air 01/12/24 20:00 79 18 89/40 L 97 Room Air 01/12/24 19:30 80 18 89/38 L 96 Room Air 01/12/24 19:00 81 18 100/47 L 96 Room Air 01/12/24 19:00 Room Air 01/12/24 18:30 94 H 16 121/78 96 Room Air 01/12/24 18:00 92 H 18 115/49 L 94 L Room Air 01/12/24 17:45 94 H 18 131/58 L 98 Room Air 01/12/24 17:30 96 H 18 148/74 H 94 L Room Air 01/12/24 17:15 93 H 16 143/63 H 95 Room Air 01/12/24 16:00 89 01/12/24 15:50 98.3 F 91 H 18 146/79 H 96 Room Air 01/12/24 15:00 Room Air 01/12/24 13:00 Room Air 01/12/24 12:00 86 01/12/24 11:00 Room Air Intake and Output 01/12/24 01/13/24 01/13/24 19:59 03:59 11:59 Intake Total 0 / 0 Output Total 200 / 200 0 / 200 250 / 450 Balance -200 / -200 0 / -200 -250 / -450 Intake: Intake, Oral Amount 0 / 0 Output: Output, Urine Amount 200 / 200 0 / 200 250 / 450 Other: Number of Unmeasured Voids 1 1 0 Weight 203 lb 11.2 oz Patient Weight 01/13/24 11:59 Weight 203 lb 11.2 oz Laboratory Results - last 24 hr 01/12/24 12:13: POC Glucose 146 H 01/12/24 12:20: WBC 7.1, RBC 2.90 L, Hgb 9.1 L, Hct 27.9 L, MCV 96.1 H, MCH 31.2, MCHC 32.4, RDW 18.7 H, Plt Count 245, MPV 9.0, Neut % (Auto) 62.8, Lymph % (Auto) 27.5, [place] % (Auto) 9.3, Eos % (Auto) 0.3, Baso % (Auto) 0.2, Neut # (Auto) 4.5, Lymph # (Auto) 2.0, [place] # (Auto) 0.7, Eos # (Auto) 0.0, Baso # (Auto) 0.0, Sodium 136, Potassium 4.2, Chloride 105, Carbon Dioxide 28, Anion Gap 7.2, BUN 25 H, Creatinine 1.20, Estimated Creat Clear 64, Estimated GFR 58 L, Est GFR ( Amer) 70, Glucose 151 H, Calcium 8.8 01/12/24 18:05: POC Glucose 192 H 01/12/24 21:46: POC Glucose 194 H 01/13/24 06:39: POC Glucose 138 H I & O for Labs for Last 24 Hours: Intake & Output 01/10/24 01/11/24 01/12/24 01/13/24 10:59 11:59 11:59 11:59 Intake Total 1350 / 1350 0 / 0 Output Total 2200 / 2200 450 / 450 Balance -850 / -850 -450 / -450 Weight 211 lb 3.2 oz 203 lb 11.2 oz Constitutional: Present no acute distress Respiratory: Present CTA bilaterally (Anteriorly and posteriorly) Cardiac: Present Reg Rate and Rhythm GI: Present soft and normal bowel sounds; Absent distention, tenderness or guarding Extremities: Present tenderness (Left lower leg); Absent edema Comment:: Left below the knee amputee. Skin: Present intact Neuro: Present alert, awake and oriented x 3 Assessment and Plan *Assessment and plan (1) Alexandrea-prosthetic femoral shaft fracture: Status: Acute Category: Medical Code(s): M97.8XXA - Periprosthetic fracture around other internal prosthetic joint, initial encounter; Z96.649 - Presence of unspecified artificial hip joint (2) Elevated troponin: Status: Acute Category: Medical Code(s): R79.89 - Other specified abnormal findings of blood chemistry (3) Anemia: Status: Acute Qualifiers: Anemia type: unspecified type Qualified Code(s): D64.9 - Anemia, unspecified Category: Medical Code(s): D64.9 - Anemia, unspecified (4) Generalized weakness: Status: Acute Category: Medical Code(s): R53.1 - Weakness (5) Acidosis, lactic: Status: Acute Category: Medical Code(s): E87.20 - Acidosis, unspecified (6) Arthritis of left knee: Status: Acute Category: Medical Code(s): M17.12 - Unilateral primary osteoarthritis, left knee (7) Arthritis of knee, right: Status: Acute Category: Medical Code(s): M17.11 - Unilateral primary osteoarthritis, right knee (8) Type 2 diabetes mellitus: Status: Chronic Qualifiers: Diabetes mellitus complication status: without complication Diabetes mellitus watermelon harvesting supervisor insulin use: without watermelon harvesting supervisor use Qualified Code(s): E11.9 - Type 2 diabetes mellitus without complications Category: Medical Code(s): E11.9 - Type 2 diabetes mellitus without complications (9) PAD (peripheral artery disease): Status: Chronic Category: Medical Code(s): I73.9 - Peripheral vascular disease, unspecified (10) CAD (coronary artery disease): Status: Acute Category: Medical Code(s): I25.10 - Atherosclerotic heart disease of [place] coronary artery without angina pectoris Plan Given additional unit of blood today. Per Dr. Phelps will probably do surgery in the a.m. Cardiology will continue to follow. Dr. Romo entry - Saw patient, agree with above note. He is definitely elevated risk for surgery. Spoke to Cardiology and Surgery. Patient wants to proceed. Plan to give another unit of blood today and have several more ready to give during surgery tomorrow.
[2024-01-13] MEDS: FINASTERIDE 5MG TABLET 5 MG PO (09:40)
[2024-01-13] MEDS: LISINOPRIL 2.5MG TABLET 2.5 MG PO (09:41)
[2024-01-13] MEDS: PANTOPRAZOLE 40MG TABLET 40 MG PO (09:41)
[2024-01-13] MEDS: GABAPENTIN 400MG CAPSULE 400 MG PO ×3 (09:41→21:30)
--- NOTE | 2024-01-13 09:49 | P.PN_ITS ---
Subjective Subjective Date: 01/13/24 Time: 08:30 Principal diagnosis: Left hip fracture Interval history: Patient doing well this morning. Denies chest pain or shortness of breath. Patient is status post left heart catheterization, see results below. Patient is scheduled for surgery tomorrow. [facility] 01/12 ANGIOGRAPHIC RESULTS The left main artery Is calcified and widely patent The left anterior descending artery Has proximal calcified 30 and 40% stenoses. The mid vessel is widely patent large-caliber vessel and wraps the apex a small to medium sized first diagonal artery has an ostial 80% concentric stenosis The circumflex artery Is nondominant yet still a large vessel and has an ostial 90% calcified stenosis accompanied by KEKE-3 flow The right coronary artery Is dominant and occluded distal to the RV marginal branch. The distal vessel fills scantly via [id number] collaterals The LOMAX ventriculogram reveals Not performed The left ventricular end-diastolic pressure Not measured IMPRESSION Severe two-vessel coronary disease as described above with a widely patent left anterior descending artery and ejection fraction 45% PLAN 1. Patient is at moderate risk to proceed with orthopedic surgery given the two-vessel coronary artery disease. The elevated troponins do not appear to be a type I myocardial infarction but rather a type II myocardial infarction from significant and severe anemia. 2. Despite the moderate risk the patient still is an acceptable risk given the gravity of the fracture and the need for surgery. 3. Perioperative beta-blockers and nitrates are advantageous providing hypotension is avoided 4. Recommend keeping hemoglobin above 9 throughout the perioperative phase Exam Data for Last 24 hours Vital signs and Labs for Last 24 Hours: Temp Pulse Resp BP Pulse Ox O2 Del Method O2 Flow Rate 98.1 F 77 20 124/57 L 97 Room Air 2 01/13/24 08:00 01/13/24 08:00 01/13/24 08:00 01/13/24 08:00 01/13/24 08:00 01/13/24 08:00 01/10/24 21:39 Laboratory Results - last 24 hr 01/12/24 12:13: POC Glucose 146 H 01/12/24 12:20: WBC 7.1, RBC 2.90 L, Hgb 9.1 L, Hct 27.9 L, MCV 96.1 H, MCH 31.2, MCHC 32.4, RDW 18.7 H, Plt Count 245, MPV 9.0, Neut % (Auto) 62.8, Lymph % (Auto) 27.5, [place] % (Auto) 9.3, Eos % (Auto) 0.3, Baso % (Auto) 0.2, Neut # (Auto) 4.5, Lymph # (Auto) 2.0, [place] # (Auto) 0.7, Eos # (Auto) 0.0, Baso # (Auto) 0.0, Sodium 136, Potassium 4.2, Chloride 105, Carbon Dioxide 28, Anion Gap 7.2, BUN 25 H, Creatinine 1.20, Estimated Creat Clear 64, Estimated GFR 58 L , Est GFR ( Amer) 70, Glucose 151 H, Calcium 8.8 01/12/24 18:05: POC Glucose 192 H 01/12/24 21:46: POC Glucose 194 H 01/13/24 06:39: POC Glucose 138 H I & O for Last 24 hours: Intake & Output 01/10/24 01/11/24 01/12/24 01/13/24 22:59 23:59 23:59 23:59 Intake Total 240 / 240 0 / 0 Output Total 2300 / 2300 250 / 250 Balance -2059 / -2060 -250 / -250 Weight 211 lb 3.2 oz 203 lb 11.2 oz *Routine Respiratory Exam Respiratory: Present CTA bilaterally *Routine Cardiovascular Exam Cardiovascular: Present RRR, Normal S1 and Normal S2 Progress Note: A&P Assessment and plan (1) Alexandrea-prosthetic femoral shaft fracture: Status: Acute (2) Elevated troponin: Status: Acute (3) Anemia: Status: Acute (4) Generalized weakness: Status: Acute (5) Acidosis, lactic: Status: Acute (6) Arthritis of left knee: Status: Acute (7) Arthritis of knee, right: Status: Acute (8) Type 2 diabetes mellitus: Status: Chronic (9) PAD (peripheral artery disease): Status: Chronic (10) CAD (coronary artery disease): Status: Acute Assessment and Plan Assessment and Plan for All Diagnoses:: CAD Acute myocardial injury -In the setting of acute injury/anemia -Initial trop normal, trending up to 2.28 -Denies chest pain or soa -Initial EKG negative for acute ischemic changes, incomplete RBBB noted. Repeat is pending -Echo shows a normal EF -[facility] : Two-vessel disease noted see cath report above. Continue atorvastatin and start aspirin 81mg daily. PAD Fall Fractured Left hip -S/p Left BKA -Ortho following for left hip fracture, planned surgery for tomorrow Chronic anemia -Inital Hgb 8.2 trending down to 6. was given 2 units prbc. today hgb is stable at 9. Iron 14 -Denies bleeding -FOBT pending 01/13/2024 update: Recommend keeping hemoglobin above 9 throughout perioperative phase. Primary service is planning to transfuse patient today in anticipation of surgery tomorrow. Elevated lactate-resolved -12.3 on admission trending down to 1.7 -patient given Unasyn and vancomycin -Defer to primary service Acute kidney injury- resolved -Creatinine elevated at 1.5 on admission trending down to 1.3 DM -Defer to primary service 01/12/2024: Normal EF per echo. Patient is a moderate risk for orthopedic surgery given 2 vessel coronary artery disease. Despite the moderate risk the patient still is an acceptable risk given the gravity of the fracture and the need for surgery per cath report. Cardiology recommends keeping hemoglobin above 9 throughout the perioperative phase. Will follow along.
[2024-01-13 12:02] LABS: POC Glucose,Bedside 186 (70-110)
[2024-01-13] MEDS: humaLOG 100 UNITS/ML 3ML VIAL (SSI) SQ ×3 (12:03→22:27)
--- NOTE | 2024-01-13 12:15 | EXP.ORTH.PN ---
Subjective *Date: 01/13/24 *Time: 12:15 Interval history: Patient had left heart cath yesterday evening. According to report there are critical disease findings of 2 vessels. No stents were placed in anticipation of open reduction internal fixation of the left femoral shaft fracture Ortho Exam (Inpt) Vital signs and Labs for Last 24 Hours: Temp Pulse Resp BP Pulse Ox O2 Del Method O2 Flow Rate 98.1 F 77 20 124/57 L 97 Room Air 2 01/13/24 08:00 01/13/24 08:00 01/13/24 08:00 01/13/24 08:00 01/13/24 08:00 01/13/24 08:00 01/10/24 21:39 Laboratory Results - last 24 hr 01/12/24 12:13: POC Glucose 146 H 01/12/24 12:20: WBC 7.1, RBC 2.90 L, Hgb 9.1 L, Hct 27.9 L, MCV 96.1 H, MCH 31.2, MCHC 32.4, RDW 18.7 H, Plt Count 245, MPV 9.0, Neut % (Auto) 62.8, Lymph % (Auto) 27.5, [place] % (Auto) 9.3, Eos % (Auto) 0.3, Baso % (Auto) 0.2, Neut # (Auto) 4.5, Lymph # (Auto) 2.0, [place] # (Auto) 0.7, Eos # (Auto) 0.0, Baso # (Auto) 0.0, Sodium 136, Potassium 4.2, Chloride 105, Carbon Dioxide 28, Anion Gap 7.2, BUN 25 H, Creatinine 1.20, Estimated Creat Clear 64, Estimated GFR 58 L, Est GFR ( Amer) 70, Glucose 151 H, Calcium 8.8 01/12/24 18:05: POC Glucose 192 H 01/12/24 21:46: POC Glucose 194 H 01/13/24 06:39: POC Glucose 138 H 01/13/24 11:54: POC Glucose 186 H I & O for Labs for Last 24 Hours: Intake & Output 01/10/24 01/11/24 01/12/24 01/13/24 22:59 23:59 23:59 23:59 Intake Total 240 / 240 558 / 558 Output Total 2300 / 2300 525 / 525 Balance -2059 / 33 / 33 Weight 211 lb 3.2 oz 203 lb 11.2 oz Findings:: Left thigh tenderness to palpation diffusely grossly neurovascular intact Assessment and Plan *Assessment and plan (1) Alexandrea-prosthetic femoral shaft fracture: Status: Acute Category: Medical Code(s): M97.8XXA - Periprosthetic fracture around other internal prosthetic joint, initial encounter; Z96.649 - Presence of unspecified artificial hip joint Plan Reviewed recommendations from cardiology following cath of keeping hemoglobin above 9 as well as moderate risk factors for complications following surgery. I talked to the patient this morning had previously talked to his family as well open reduction internal fixation of the femoral shaft fracture even in the face of a moderate to high risk situation is needed to restore painless function in regards to transferring even to the wheelchair. They do wish to proceed. Will plan on Friday for open reduction internal fixation PROPOSED SURGERY: Open reduction internal fixation left periprosthetic femur fracture the risks and benefits of the proposed surgery were discussed in depth with the patient. Potential complications including inherent risk of anesthesia, infection, neurovascular damage, DVT, and rare but real potential loss of limb or life were all reviewed. Patient voices understanding and seems to understand to my satisfaction and wishes to proceed with surgery. I gave them adequate time to ask any questions they have pertaining to this surgery and answered all of them to the best of my ability. I gave them no guarantees in regards to outcomes of this surgery.
[2024-01-13] MEDS: ASPIRIN EC 81MG TABLET 81 MG PO (14:51)
[2024-01-13 15:07] LABS: Basophils % 0.1 % (0.1-2.0); Eosinophils % 0.3 % (0.1-12.0); Hematocrit 26.4 % (42.0-52.0); Hemoglobin 8.3 g/dL (14.1-18.0); Lymphocytes # 1.5 K/mm3 (0.7-4.5); Lymphocytes % 25.1 % (10-50); Mean Corpuscular HGB Conc 31.6 g/dL (31.8-35.4); Mean Corpuscular Hemoglobin 30.8 pg (27.0-31.2); Mean Corpuscular Volume 97.5 fl (80-94); Mean Platelet Volume 8.7 fl (7.4-10.4); Monocytes # 0.4 K/mm3 (0.1-1.0); Monocytes % 6.9 % (1.7-9.3); Neutrophils % 67.5 % (37.0-80.0); Platelet Count 233 K/mm3 (142-424); Red Blood Count 2.71 M/mm3 (4.60-6.20); Red Cell Distribution Width 18.8 % (11.5-17.5)
[2024-01-13 15:07] LABS: Hematocrit 26.2 % (42.0-52.0); Hemoglobin 8.3 g/dL (14.1-18.0)
[2024-01-13 15:21] LABS: Chloride 106 mmol/L (98-107); Potassium 3.9 mmoL/L (3.5-5.1); Sodium 136 mmol/L (136-145)
[2024-01-13 15:24] LABS: Anion Gap 4.9 mEq/L (5-15); Blood Urea Nitrogen 17 mg/dl (9-20); Calcium 8.5 mg/dl (8.4-10.2); Carbon Dioxide 29 mmol/L (22.0-30.0); Creatinine Clearance Estimated 62 mL/min (50-200); Estimated Glomerular Filt Rate 58 ml/min (>60); GFR (African American) 70 ML/MIN (>60); Glucose 170 mg/dl (74-100)
--- NOTE | 2024-01-13 15:25 | PC.NURSE ---
Blood Bank notified RN that 1 unit of blood ready at 1525, unit picked up from blood bank by RN at 1543.
[2024-01-13 17:07] LABS: POC Glucose,Bedside 175 (70-110)
[2024-01-13] MEDS: MORPHINE 2MG/ML SYRINGE 2 MG IV (18:00)
--- NOTE | 2024-01-13 19:27 | PC.NURSE ---
Patient recieved 1 unit blood today, no transfusion reactions noted, patient a&ox4 and vss.
[2024-01-13 19:44] LABS: Hemoglobin 9.7 g/dL (14.1-18.0)
[2024-01-13 21:05] LABS: POC Glucose,Bedside 249 (70-110)
[2024-01-13] MEDS: ATORVASTATIN 40MG TABLET 40 MG PO (21:30)
[2024-01-13] MEDS: TERAZOSIN 5MG CAPSULE 10 MG PO (21:30)
[2024-01-14] VITALS (22 sets, daily range): BP systolic 113–144; BP diastolic 46–74; PULSE 78–128; RESP 16–18; TEMP 36.5–43; O2SAT 93–99; BMI 28.8
[2024-01-14] MEDS: LEVOTHYROXINE 25MCG (0.025MG) TAB 25 MCG PO (06:26)
--- NOTE | 2024-01-14 06:30 | PC.NURSE ---
Patient transported via bed to O.R. at this time. Patient alert and orient X4.
[2024-01-14 06:53] LABS: POC Glucose,Bedside 172 (70-110)
--- NOTE | 2024-01-14 07:11 | EXP.ANES.CKL ---
[facility] Disclaimer: The information contained in this section may have been updated after the patient was seen, as this information can be updated by other users. Medical History (Updated 01/13/24 @ 09:26 by Akash Romo MD) CAD (coronary artery disease) Encounter for pre-operative cardiovascular clearance Below-knee amputation of left lower extremity BPH loc w urin obs/LUTS Amputation below knee Cholecystectomy planned Tonsillectomy planned Cataract History of coronary angiogram Tachycardia Constipation Osteomyelitis Coronary artery calcification seen on CAT scan Diabetic neuropathy Dyslipidemia Bilateral edema of lower extremity Gangrene of toe of left foot Pressure injury of toe of left foot, stage 1 Capillary refill time greater than 2 seconds Ulcer of great toe Skin ulcer of fourth toe of left foot, limited to breakdown of skin Skin ulcer of third toe of left foot Encounter for wound care Type 2 diabetes mellitus Cellulitis of second toe of left foot Obesity (BMI 30.0-34.9) Decreased pedal pulses Abnormal ankle brachial index (YOSHI) Diastolic dysfunction HLD (hyperlipidemia) HTN (hypertension) Exertional dyspnea Incomplete RBBB Abnormal ECG Nonhealing ulcer of left lower extremity PAD (peripheral artery disease) Surgical History History of cataract surgery History of lobectomy of lung H/O arthroscopy of knee H/O cardiac catheterization Status post below-knee amputation of left lower extremity Family History No significant family history Social History Smoking Status: Former smoker second hand exposure: No alcohol intake: former substance use type: denies use current occupational status: retired Travel in the last 8 weeks: None adopted: No caregiver/support person: No foster care: No household members: none housing: house lives independently: Yes education level: high school current occupational exposures/hazards: No caffeine: Yes special frances needs: No do you feel safe at home: Yes victim of physical abuse: No victim of emotional abuse: No victim of sexual abuse: No would you like helpful sources: No [facility] Anesthesia Checklist Patient Identification Patient Identification: Arm Band and Verbal (Name & ) Structural Data Admitted From: Inpatient (Rm 214) Planned Operative Procedure/s: ORIF Left Femur Fx Consent for Planned Operative Procedure(s) Verified: Yes Verified Documents: Surgical Consent and History and Physical NPO Status Verified Time NPO: 23:00 Chart Verification Results Verified: CBC, BMP, PT, PTT, INR, Type and Screen, ECG (+ Echo & Cardiac Cath) and Chest Xray Additional verifications Anesthesia Reactions: No Cardiovascular Assessment Heart Sounds: S1 & S2 Pulse Rhythm: Irregular Peripheral Edema: No Airway Assessment Mallampati Score:: Class II C-Spine Mobility Assessed: Yes (Limited ROM w/both Extension & flexion) TMJ Mobility Assessed: Yes Dentition: Poor Dentition (Nothing loose per pt.) Neurological Assessment Level of Consciousness: Awake, Alert, Appropriate and Follows Commands Hx Seizures: No Numbness or tingling in extremities: Yes (HALEY LE - Diabetic d/t neuropathy) Anesthesia Plan Anesthesia Risk discussed: Yes Anesthesia Plan: Verified ASA Class: III Anesthesia Type: MAC w/Spinal
[2024-01-14 07:16] LABS: Basophils % 0.3 % (0.1-2.0); Eosinophils % 0.6 % (0.1-12.0); Hematocrit 31.3 % (42.0-52.0); Hemoglobin 10.3 g/dL (14.1-18.0); Lymphocytes # 1.9 K/mm3 (0.7-4.5); Lymphocytes % 31.5 % (10-50); Mean Corpuscular HGB Conc 33.1 g/dL (31.8-35.4); Mean Corpuscular Hemoglobin 31.1 pg (27.0-31.2); Mean Corpuscular Volume 94.1 fl (80-94); Mean Platelet Volume 8.7 fl (7.4-10.4); Monocytes # 0.6 K/mm3 (0.1-1.0); Monocytes % 9.6 % (1.7-9.3); Neutrophils # 3.5 K/mm3 (1.8-7.8); Platelet Count 241 K/mm3 (142-424); Red Blood Count 3.32 M/mm3 (4.60-6.20); Red Cell Distribution Width 18.1 % (11.5-17.5); White Blood Count 6.1 K/mm3 (4.8-10.8)
[2024-01-14 07:24] LABS: Anion Gap 9.3 mEq/L (5-15); Blood Urea Nitrogen 16 mg/dl (9-20); Calcium 8.8 mg/dl (8.4-10.2); Carbon Dioxide 28 mmol/L (22.0-30.0); Chloride 105 mmol/L (98-107); Creatinine Clearance Estimated 68 mL/min (50-200); Estimated Glomerular Filt Rate 64 ml/min (>60); GFR (African American) 78 ML/MIN (>60); Glucose 171 mg/dl (74-100); Potassium 4.3 mmoL/L (3.5-5.1); Sodium 138 mmol/L (136-145)
--- NOTE | 2024-01-14 12:28 | SUR.OPER ---
1200- family updated of pt current status via deena pizano 1217- additional gram of ancef pulled and admin by jennifer guido
--- NOTE | 2024-01-14 13:26 | P.OP_ITS ---
Date of procedure: 01/14/24 Pre-op Diagnosis:: Left periprosthetic femur fracture Post-op Diagnosis:: Same Procedure performed:: Open reduction internal fixation left periprosthetic femur fracture Surgeon:: Spencer Phelps DO Anesthesia: KVNG Estimated blood loss (mL): 200 Clinical Note:: Implants Synthes large frag plate with locking screws distal cables proximal Stable hemiarthroplasty cemented Operative findings:: See dictation Operative note:: Patient was identified preoperatively. Left thigh was marked with yes my initials. Taken the operating room spinal anesthesia was attempted and was difficult and was aborted. Patient was then placed in the radiolucent bed given general anesthesia airway secured then placed in a lateral position with a hip ortiz with all bony prominences well-padded. Left hip and leg was prepped and draped normal sterile fashion. Once prepped and draped final operative timeout performed to identify proper patient procedure and extremity. Everyone involved the case agreed. There is no counter indication beginning. Did receive preoperative antibiotics. Marking pen was used to cameron plan incision over the lateral thigh. Skin knife was used to incise through skin careful meticulous dissection was taken down to find lateral sided perforating bleeders. These were clamped and hemostat was used for electrocautery. Dissection was then taken down in layers through the muscle to the lateral thigh meticulously with electrocautery used for hemostasis throughout the procedure. Carefully dissected down placed a self-retaining retractor and identify the fracture site. There is a large fracture hematoma which was evacuated. Upon evaluation of the fracture it was at the tip of the prosthesis and a long oblique fracture. Fracture site was cleaned of soft tissue which had significant muscle within the soft tissue present. Again the prosthesis was cemented in. To be well cemented and was stable within the proximal fragment. Reduction maneuver was performed with large lobster-claw clamps and traction and internal rotation once adequate reduction was obtained the clamps were placed and a cable was placed at the fracture site to hold compression and pulmonary reduction. Then the 4.5 mm large frag femur plate was selected and placed on the femur. Attention was brought distally where distal lag screw was placed in 1 hole followed by the locking screws. This gave good fixation of the plate the fracture attention was then brought proximally where proximally this was a cemented prosthesis when unable to put unicortical screws then in order not to fracture of the cement mantle's therefore cables were used cable from the tip of the fracture all the way up towards the lesser trochanter. These cables gave good fixation of the brian ne and the leg moved as 1 unit. Upon evaluation with x-rays there is some slight propagation of the fracture with internal and external rotation of the leg so an additional cable was placed below this area. Copious irrigation of the wound was performed and closed in layers with deep layers closed with 0 Vicryl subcutaneous with 2-0 Vicryl subcu and the skin was closed with surgical clips. Sterile dressing was placed with Xeroform 4 x 4's ABD paper tape. Patient waken anesthesia taken recovery in stable condition. Condition: stable Disposition: PACU Complications:: None apparent
--- NOTE | 2024-01-14 13:33 | ECG_ITS ---
APPROVED REPORT Exam: Resting ECG HR:98 bpm ECG Measurements Heart Rate 98 AXES AL 170 P 40 QRSd 112 QRS 51 QT 382 T -12 QTc 437 Conclusion SINUS RHYTHM LOW QRS VOLTAGE IN PRECORDIAL LEADS [QRS DEFLECTION < 1.0 mV IN CHEST LEADS] INCOMPLETE RIGHT BUNDLE BRANCH BLOCK [90+ ms QRS DURATION, TERMINAL R IN V1/V2, 40+ ms S IN I/aVL/V4/V5/V6] NONSPECIFIC ST & T-WAVE ABNORMALITY ABNORMAL ECG UNCONFIRMED REPORT Electronically signed by : Skinny Altamirano MD 01/14/2024 20:58:16
--- NOTE | 2024-01-14 13:36 | XR_ITS ---
FINAL REPORT CLINICAL HISTORY: ORIF fluoro time: 1.0 14.9 mgy FINDINGS: FLUOROSCOPY LESS THAN 1 HOUR HISTORY: Left femur fracture FINDINGS: Fluoroscopic guidance was provided for ORIF left femur. 5 spot films were obtained. 60 seconds of fluoroscopy time were used. The radiation dose is 11.78 mGy. IMPRESSION: As above. Reviewed, Interpreted and Dictated by Sher Bain III, MD Transcribed by Kelsey Gill Authenticated and . [facility]
--- NOTE | 2024-01-14 13:39 | EXP.ANES.I ---
[facility] Anesthesia Record Part I Anesthesia Record I Intake, IV Amount: 1,200 Hydration: Adequate Estimated blood loss (mL): 400 Urine output (mL): 600 Blood Products used (#): none Blood Pressure: 113/67 SaO2: 95 Pulse Rate: 96 Airway Patency: Patent Respiratory Rate: 16 Temperature: 99.8 F Patient is:: Drowsy and Stable Stable to PACU at:: 13:15
[2024-01-14 13:53] LABS: Hematocrit 24.9 % (42.0-52.0)
--- NOTE | 2024-01-14 14:05 | SUR.PHASEI ---
1225- Metoprolol 2.5mg given in pacu by jennifer Padilla. jennifer Mullen gave verbal order for EKG at this time 1230- Disha with respiratory at bedside doing EKG. 1240- Lab in to draw H&H on pt following surgery per md Ivy verbal orders.
--- NOTE | 2024-01-14 14:16 | SUR.PHASEI ---
1344- detailed report called to deena serrato on medsurg floor. deena Neumann made aware that jennifer rice wanted to have pt on continuous telemetry monitoring once pt [facility] with returning to the floor with pt. 1346- pt left in stable condition with deena serrato in room 214. VSS, dressings CDI, pt returned to 2L of o2 at this time.
[2024-01-14] MEDS: MORPHINE 2MG/ML SYRINGE 2 MG IV ×3 (14:28→20:09)
--- NOTE | 2024-01-14 14:47 | P.PN_ITS ---
Subjective *Date: 01/14/24 *Time: 14:47 Interval history: Patient just got back to the floor from surgery. Medical Exam Vital signs and Labs for Last 24 Hours: Vital Signs Temp Pulse Pulse Resp BP BP Pulse Ox 01/14/24 14:25 98.1 F 105 H 17 132/71 97 01/14/24 14:10 98 F 103 H 17 129/58 L 97 01/14/24 13:55 97.9 F 109 H 16 129/63 95 01/14/24 13:45 98.9 F 104 H 16 132/64 98 01/14/24 13:40 99.8 F H 96 H 16 113/67 01/14/24 13:35 103 H 16 120/50 L 98 01/14/24 13:25 118 H 16 124/53 L 97 01/14/24 13:15 99.8 F H 128 H 16 122/68 97 01/14/24 05:00 01/14/24 04:00 78 01/14/24 04:00 97.8 F 85 18 116/51 L 94 L 01/14/24 03:00 01/14/24 01:00 01/14/24 00:00 91 H 01/13/24 23:00 01/13/24 21:00 01/13/24 20:38 98.6 F 77 16 112/52 L 98 01/13/24 20:00 01/13/24 20:00 80 01/13/24 20:00 97.7 F 71 18 112/48 L 95 01/13/24 18:15 98.5 F 82 17 118/49 L 98 01/13/24 18:00 98.7 F 88 16 123/50 L 99 01/13/24 17:00 98.6 F 80 16 119/60 97 01/13/24 16:45 98.5 F 75 17 108/55 L 98 01/13/24 16:30 98.4 F 76 16 118/51 L 97 01/13/24 16:15 98.9 F 80 17 114/47 L 97 01/13/24 16:10 98.4 F 76 16 121/51 L 97 01/13/24 16:05 98.9 F 75 18 110/54 L 95 01/13/24 16:04 98.5 F 78 16 127/54 L 96 01/13/24 16:00 70 03/12/24 15:49 98.4 F 81 18 126/57 L 96 O2 Del Method O2 Flow Rate 01/14/24 14:25 Nasal Cannula 2 01/14/24 14:10 Nasal Cannula 2 01/14/24 13:55 Nasal Cannula 2 01/14/24 13:45 Nasal Cannula 2 01/14/24 13:40 01/14/24 13:35 Nasal Cannula 2 01/14/24 13:25 Nasal Cannula 2 01/14/24 13:15 Nasal Cannula 2 01/14/24 05:00 Room Air 01/14/24 04:00 01/14/24 04:00 Room Air 01/14/24 03:00 Room Air 01/14/24 01:00 Room Air 01/14/24 00:00 01/13/24 23:00 Room Air 01/13/24 21:00 Room Air 01/13/24 20:38 01/13/24 20:00 Room Air 01/13/24 20:00 01/13/24 20:00 Room Air 01/13/24 18:15 01/13/24 18:00 01/13/24 17:00 01/13/24 16:45 01/13/24 16:30 01/13/24 16:15 01/13/24 16:10 01/13/24 16:05 01/13/24 16:04 01/13/24 16:00 01/13/24 15:49 Intake and Output 01/13/24 01/14/24 01/14/24 23:59 07:59 15:59 Intake Total 2951 / 3689 180 / 1380 1200 / 1380 Output Total 450 / 1200 Balance 2501 / 2489 180 / 1380 1200 / 1380 Intake: Intake, Oral Amount 2701 / 3439 180 / 180 Intake, Total IV Amount 1200 / 1200 Intake (Blood Product) Amt 250 / 250 Red Blood Cells Unit 250 / 250 [id number] Output: Output, Urine Amount 450 / 1200 Other: Number of Unmeasured Voids 0 Weight 205 lb 9.6 oz 205 lb 9.297 oz Patient Weight 01/14/24 23:59 Weight 205 lb 9.297 oz Laboratory Results - last 24 hr 01/11/24 09:55: Blood Type O Positive, Antibody Screen Negative, Crossmatch ([facility]) See Detail 01/13/24 15:00: Hgb 8.3 L, Hct 26.2 L, Sodium 136, Potassium 3.9, Chloride 106, Carbon Dioxide 29, Anion Gap 4.9 L, BUN 17 D, Creatinine 1.20, Estimated Creat Clear 62, Estimated GFR 58 L, Est GFR ( Amer) 70, Glucose 170 H, Calcium 8.5 01/13/24 16:00: WBC 6.0, RBC 2.71 L, Hgb 8.3 L, Hct 26.4 L, MCV 97.5 H, MCH 30.8, MCHC 31.6 L, RDW 18.8 H, Plt Count 233, MPV 8.7, Neut % (Auto) 67.5, Lymph % (Auto) 25.1, [place] % (Auto) 6.9, Eos % (Auto) 0.3, Baso % (Auto) 0.1, Neut # (Auto) 4.0, Lymph # (Auto) 1.5, [place] # (Auto) 0.4, Eos # (Auto) 0.0, Baso # (Auto) 0.0 01/13/24 16:57: POC Glucose 175 H 01/13/24 17:05: Blood Type O Positive, Antibody Screen Negative, Crossmatch ([facility]) See Detail 01/13/24 19:26: Hgb 9.7 L D, Hct 30.0 L 01/13/24 20:55: POC Glucose 249 H 01/14/24 06:29: POC Glucose 172 H 01/14/24 07:10: WBC 6.1, RBC 3.32 L, Hgb 10.3 L, Hct 31.3 L, MCV 94.1 H, MCH 31.1, MCHC 33.1, RDW 18.1 H, Plt Count 241, MPV 8.7, Neut % (Auto) 58.0, Lymph % (Auto) 31.5, [place] % (Auto) 9.6 H, Eos % (Auto) 0.6, Baso % (Auto) 0.3, Neut # (Auto) 3.5, Lymph # (Auto) 1.9, [place] # (Auto) 0.6, Eos # (Auto) 0.0, Baso # (Auto) 0.0, Sodium 138, Potassium 4.3, Chloride 105, Carbon Dioxide 28, Anion Gap 9.3, BUN 16, Creatinine 1.10, Estimated Creat Clear 68, Estimated GFR 64, Est GFR ( Amer) 78, Glucose 171 H, Calcium 8.8 01/14/24 13:40: Hgb 8.0 L D, Hct 24.9 L I & O for Labs for Last 24 Hours: Intake & Output 01/11/24 01/12/24 01/13/24 01/14/24 23:59 23:59 23:59 23:59 Intake Total 240 / 240 3509 / 3689 1380 / 1380 Output Total 2300 / 2300 1200 / 1200 Balance -206 / -2060 2309 / 2489 1380 / 1380 Weight 211 lb 3.2 oz 203 lb 11.2 oz 205 lb 9.297 oz Microbiology Reports for the Last 24 Hours: Microbiology 01/10/24 23:20 Blood Blood Culture - Preliminary 01/10/24 23:15 Blood Blood Culture - Preliminary Comment:: Sleeping quietly, awakens to voice Respiratory: Present CTA bilaterally Cardiac: Present Reg Rate and Rhythm Assessment and Plan *Assessment and plan (1) Alexandrea-prosthetic femoral shaft fracture: Status: Acute Category: Medical Code(s): M97.8XXA - Periprosthetic fracture around other internal prosthetic joint, initial encounter; Z96.649 - Presence of unspecified artificial hip joint (2) Elevated troponin: Status: Acute Category: Medical Code(s): R79.89 - Other specified abnormal findings of blood chemistry (3) Anemia: Status: Acute Qualifiers: Anemia type: unspecified type Qualified Code(s): D64.9 - Anemia, unspecified Category: Medical Code(s): D64.9 - Anemia, unspecified (4) Generalized weakness: Status: Acute Category: Medical Code(s): R53.1 - Weakness (5) Acidosis, lactic: Status: Acute Category: Medical Code(s): E87.20 - Acidosis, unspecified (6) Arthritis of left knee: Status: Acute Category: Medical Code(s): M17.12 - Unilateral primary osteoarthritis, left knee (7) Arthritis of knee, right: Status: Acute Category: Medical Code(s): M17.11 - Unilateral primary osteoarthritis, right knee (8) Type 2 diabetes mellitus: Status: Chronic Qualifiers: Diabetes mellitus exterminator termite insulin use: without exterminator termite use Diabetes mellitus complication status: without complication Qualified Code(s): E11.9 - Type 2 diabetes mellitus without complications Category: Medical Code(s): E11.9 - Type 2 diabetes mellitus without complications (9) PAD (peripheral artery disease): Status: Chronic Category: Medical Code(s): I73.9 - Peripheral vascular disease, unspecified (10) CAD (coronary artery disease): Status: Acute Qualifiers: Coronary Disease-Associated Artery/Lesion type: [place] artery [place] vs. transplanted heart: [place] heart Associated angina: without angina Qualified Code(s): I25.10 - Atherosclerotic heart disease of [place] coronary artery without angina pectoris Category: Medical Code(s): I25.10 - Atherosclerotic heart disease of [place] coronary artery without angina pectoris Plan Continue routine post op care, monitor H/H.
[2024-01-14 15:56] LABS: POC Glucose,Bedside 256 (70-110)
[2024-01-14] MEDS: GABAPENTIN 400MG CAPSULE 400 MG PO (20:07)
[2024-01-14] MEDS: ATORVASTATIN 40MG TABLET 40 MG PO (20:07)
[2024-01-14] MEDS: ACETAMINOPHEN 500MG TAB 1000 MG PO (20:07)
[2024-01-14] MEDS: TERAZOSIN 5MG CAPSULE 10 MG PO (20:08)
[2024-01-14] MEDS: humaLOG 100 UNITS/ML 3ML VIAL (SSI) SQ (20:50)
[2024-01-14 20:57] LABS: POC Glucose,Bedside 327 (70-110)
[2024-01-15] VITALS (9 sets, daily range): BP systolic 120–162; BP diastolic 53–83; PULSE 77–129; RESP 16–22; TEMP 36.6–37.1; O2SAT 93–97; BMI 29.0
--- NOTE | 2024-01-15 02:15 | PC.NURSE ---
Patient has had no pain medication this shift. HR has been elevated with patient asymptomatic and sleeping.
[2024-01-15] MEDS: MORPHINE 2MG/ML SYRINGE 2 MG IV ×2 (02:29→06:22)
[2024-01-15] MEDS: humaLOG 100 UNITS/ML 3ML VIAL (SSI) SQ ×4 (06:15→20:31)
[2024-01-15 06:25] LABS: POC Glucose,Bedside 235 (70-110)
[2024-01-15] MEDS: LEVOTHYROXINE 25MCG (0.025MG) TAB 25 MCG PO (06:31)
[2024-01-15 08:16] LABS: Microscopic,Cath URINE MICROSCOPIC (MICROSCOPIC)
[2024-01-15] MEDS: MORPHINE 4MG/ML SYRINGE 4 MG IV ×2 (08:25→12:42)
--- NOTE | 2024-01-15 08:26 | EXP.ACUTE.PN ---
Subjective *Date: 01/15/24 *Time: 08:35 Interval history: Patient had a rough night. He is in a lot of pain. He is nauseated and does complain of some abdominal pain. Medical Exam Vital signs and Labs for Last 24 Hours: Vital Signs Temp Pulse Pulse Resp BP BP Pulse Ox 01/15/24 07:53 98.8 F 112 H 18 162/83 H 96 01/15/24 06:40 01/15/24 05:00 01/15/24 04:00 98.2 F 82 20 121/53 L 97 01/15/24 03:00 01/15/24 01:00 01/15/24 00:00 120 H 01/15/24 00:00 98.4 F 103 H 17 140/65 96 01/14/24 23:00 01/14/24 21:00 01/14/24 20:40 87 18 141/74 H 97 01/14/24 20:00 97 01/14/24 20:00 120 H 01/14/24 19:40 97.7 F 116 H 17 129/67 93 L 01/14/24 18:43 01/14/24 18:40 98.6 F 103 H 17 120/55 L 97 01/14/24 17:40 98.2 F 101 H 17 132/46 L 99 01/14/24 16:54 01/14/24 16:40 98.7 F 107 H 17 129/63 99 01/14/24 16:10 98.2 F 104 H 17 144/68 H 97 01/14/24 16:00 100 H 01/14/24 15:40 98.3 F 103 H 17 134/59 L 99 01/14/24 15:10 98 F 102 H 17 129/67 98 01/14/24 15:00 01/14/24 14:40 97.9 F 105 H 17 128/59 L 97 01/14/24 14:25 98.1 F 105 H 17 132/71 97 01/14/24 14:10 98 F 103 H 17 129/58 L 97 01/14/24 13:55 97.9 F 109 H 16 129/63 95 01/14/24 13:45 98.9 F 104 H 16 132/64 98 01/14/24 13:40 99.8 F H 96 H 16 113/67 01/14/24 13:35 103 H 16 120/50 L 98 01/14/24 13:25 118 H 16 124/53 L 97 01/14/24 13:15 99.8 F H 128 H 16 122/68 97 O2 Del Method O2 Flow Rate 01/15/24 07:53 Room Air 01/15/24 06:40 Room Air 01/15/24 05:00 Room Air 01/15/24 04:00 Room Air 01/15/24 03:00 Room Air 01/15/24 01:00 Room Air 01/15/24 00:00 01/15/24 00:00 Room Air 01/14/24 23:00 Room Air 01/14/24 21:00 Room Air 01/14/24 20:40 Room Air 01/14/24 20:00 Room Air 01/14/24 20:00 01/14/24 19:40 Room Air 01/14/24 18:43 Room Air 01/14/24 18:40 Room Air 01/14/24 17:40 Nasal Cannula 1 01/14/24 16:54 Nasal Cannula 1 01/14/24 16:40 Nasal Cannula 1 01/14/24 16:10 Nasal Cannula 2 01/14/24 16:00 01/14/24 15:40 Nasal Cannula 2 01/14/24 15:10 Nasal Cannula 2 01/14/24 15:00 Nasal Cannula 2 01/14/24 14:40 Nasal Cannula 2 01/14/24 14:25 Nasal Cannula 2 01/14/24 14:10 Nasal Cannula 2 01/14/24 13:55 Nasal Cannula 2 01/14/24 13:45 Nasal Cannula 2 01/14/24 13:40 01/14/24 13:35 Nasal Cannula 2 01/14/24 13:25 Nasal Cannula 2 01/14/24 13:15 Nasal Cannula 2 Intake and Output 01/14/24 01/15/24 01/15/24 19:59 03:59 11:59 Intake Total 1200 / 1200 0 / 1200 Output Total 0 / 900 900 / 900 Balance 1200 / 300 -900 / 300 Intake: Intake, Oral Amount 0 / 0 0 / 0 Intake, Total IV Amount 1200 / 1200 Output: Output, Urine Amount 0 / 900 900 / 900 Other: Number of Unmeasured Voids 0 0 0 Weight 207 lb 3.2 oz Patient Weight 01/15/24 11:59 Weight 207 lb 3.2 oz Laboratory Results - last 24 hr 01/14/24 13:40: Hgb 8.0 L D, Hct 24.9 L 01/14/24 15:47: POC Glucose 256 H 01/14/24 20:43: POC Glucose 327 H* 01/15/24 06:13: POC Glucose 235 H I & O for Labs for Last 24 Hours: Intake & Output 01/12/24 01/13/24 01/14/24 01/15/24 11:59 11:59 11:59 11:59 Intake Total 1350 / 1350 558 / 558 3131 / 3131 1200 / 1200 Output Total 2200 / 2200 725 / 725 675 / 675 900 / 900 Balance -850 / -850 -167 / -167 2456 / 2456 300 / 300 Weight 211 lb 3.2 oz 203 lb 11.2 oz 205 lb 9.297 oz 207 lb 3.2 oz Microbiology Reports for the Last 24 Hours: Microbiology 01/10/24 23:20 Blood Blood Culture - Preliminary 01/10/24 23:15 Blood Blood Culture - Preliminary Constitutional: Present mild distress (is in pain) Respiratory: Present CTA bilaterally Cardiac: Present Reg Rate and Rhythm and Tachycardia GI: Present soft, tenderness (epigastric area) and normal bowel sounds; Absent distention Extremities: Absent edema, clubbing or cyanosis Skin: Present intact, pallor and ecchymosis (of left hip, dressing in place) Neuro: Present alert and awake Assessment and Plan *Assessment and plan (1) Alexandrea-prosthetic femoral shaft fracture: Status: Acute Category: Medical Code(s): M97.8XXA - Periprosthetic fracture around other internal prosthetic joint, initial encounter; Z96.649 - Presence of unspecified artificial hip joint (2) Elevated troponin: Status: Acute Category: Medical Code(s): R79.89 - Other specified abnormal findings of blood chemistry (3) Anemia: Status: Acute Qualifiers: Anemia type: unspecified type Qualified Code(s): D64.9 - Anemia, unspecified Category: Medical Code(s): D64.9 - Anemia, unspecified (4) Generalized weakness: Status: Acute Category: Medical Code(s): R53.1 - Weakness (5) Acidosis, lactic: Status: Acute Category: Medical Code(s): E87.20 - Acidosis, unspecified (6) Arthritis of left knee: Status: Acute Category: Medical Code(s): M17.12 - Unilateral primary osteoarthritis, left knee (7) Arthritis of knee, right: Status: Acute Category: Medical Code(s): M17.11 - Unilateral primary osteoarthritis, right knee (8) Type 2 diabetes mellitus: Status: Chronic Qualifiers: Diabetes mellitus complication status: without complication Diabetes mellitus terminal make up operator insulin use: without senior care use Qualified Code(s): E11.9 - Type 2 diabetes mellitus without complications Category: Medical Code(s): E11.9 - Type 2 diabetes mellitus without complications (9) PAD (peripheral artery disease): Status: Chronic Category: Medical Code(s): I73.9 - Peripheral vascular disease, unspecified (10) CAD (coronary artery disease): Status: Acute Qualifiers: Associated angina: without angina Coronary Disease-Associated Artery/Lesion type: [place] artery [place] vs. transplanted heart: [place] heart Qualified Code(s): I25.10 - Atherosclerotic heart disease of [place] coronary artery without angina pectoris Category: Medical Code(s): I25.10 - Atherosclerotic heart disease of [place] coronary artery without angina pectoris Plan Continue routine post op care. Will increase morphine to 4mg every 4 hours for better pain control and will start on zofran for nausea. Ortho to follow. Will monitor H&H. Dr. Romo entry - Saw patient, agree with above note.
[2024-01-15 09:09] LABS: Basophils % 0.3 % (0.1-2.0); Eosinophils % 0.1 % (0.1-12.0); Hematocrit 23.9 % (42.0-52.0); Lymphocytes # 1.2 K/mm3 (0.7-4.5); Lymphocytes % 19.2 % (10-50); Mean Corpuscular HGB Conc 33.5 g/dL (31.8-35.4); Mean Corpuscular Hemoglobin 31.7 pg (27.0-31.2); Mean Corpuscular Volume 94.5 fl (80-94); Mean Platelet Volume 8.6 fl (7.4-10.4); Monocytes # 0.7 K/mm3 (0.1-1.0); Monocytes % 10.9 % (1.7-9.3); Neutrophils # 4.4 K/mm3 (1.8-7.8); Neutrophils % 69.6 % (37.0-80.0); Platelet Count 248 K/mm3 (142-424); Red Blood Count 2.53 M/mm3 (4.60-6.20); White Blood Count 6.3 K/mm3 (4.8-10.8)
[2024-01-15] MEDS: GABAPENTIN 400MG CAPSULE 400 MG PO ×3 (09:13→20:27)
[2024-01-15] MEDS: FINASTERIDE 5MG TABLET 5 MG PO (09:13)
[2024-01-15] MEDS: ASPIRIN EC 81MG TABLET 81 MG PO (09:13)
[2024-01-15] MEDS: LISINOPRIL 2.5MG TABLET 2.5 MG PO (09:13)
[2024-01-15] MEDS: PANTOPRAZOLE 40MG TABLET 40 MG PO (09:13)
[2024-01-15 09:18] LABS: Chloride 106 mmol/L (98-107); Potassium 3.9 mmoL/L (3.5-5.1); Sodium 136 mmol/L (136-145)
[2024-01-15 09:21] LABS: Anion Gap 6.9 mEq/L (5-15); Blood Urea Nitrogen 17 mg/dl (9-20); Calcium 7.9 mg/dl (8.4-10.2); Carbon Dioxide 27 mmol/L (22.0-30.0); Creatinine Clearance Estimated 76 mL/min (50-200); Estimated Glomerular Filt Rate 81 ml/min (>60); GFR (African American) 98 ML/MIN (>60); Glucose 203 mg/dl (74-100)
[2024-01-15 09:22] LABS: Appearance,Urine/Cath CLEAR (Clear); Bilirubin,Cath Negative (Negative); Blood, Urine/Cath Negative (Negative); Color,Urine/Cath YELLOW (Yellow); Glucose,Urine/Cath (UA) Negative (Negative); Ketones,Urine/Cath TRACE (Negative); Leukocyte Esterase,Cath Negative (Negative); Nitrate,Cath Negative (Negative); Protein,Urine/Cath TRACE (Negative); Urobilinogen,Cath 0.2 EU/dl (0.2)
--- NOTE | 2024-01-15 09:37 | ECG_ITS ---
APPROVED REPORT Exam: Resting ECG HR:112 bpm ECG Measurements Heart Rate 112 AXES UT 174 P 48 QRSd 114 QRS 44 QT 333 T -62 QTc 400 Conclusion SINUS TACHYCARDIA INCOMPLETE RIGHT BUNDLE BRANCH BLOCK [90+ ms QRS DURATION, TERMINAL R IN V1/V2, 40+ ms S IN I/aVL/V4/V5/V6] ST DEVIATION AND MODERATE T-WAVE ABNORMALITY, CONSIDER ANTEROLATERAL ISCHEMIA [-0.1+ mV T-WAVE IN V3-V6] ST DEVIATION AND MODERATE T-WAVE ABNORMALITY, CONSIDER INFERIOR ISCHEMIA [-0.1+ mV T-WAVE IN II/aVF] ABNORMAL ECG UNCONFIRMED REPORT Electronically signed by : Skinny Altamirano MD 01/15/2024 16:35:02
[2024-01-15] MEDS: METOPROLOL TARTRATE 5MG/5ML VIAL 5 MG IV (09:40)
--- NOTE | 2024-01-15 11:04 | EXP.CARD.PN ---
Subjective Subjective Date: 01/15/24 Time: 08:00 Principal diagnosis: Left hip fracture Interval history: Patient is status post left hip fracture surgery. Sinus tach noted this morning at 110 but patient reports he is in a lot of pain. Patient was given 5 of Lopressor and rate improved to less than 100. Primary service has increased pain medication. Morning labs reviewed and hemoglobin remains stable. Exam Data for Last 24 hours Vital signs and Labs for Last 24 Hours: Temp Pulse Resp BP Pulse Ox O2 Del Method O2 Flow Rate 98.8 F 110 H 18 162/83 H 96 Room Air 1 01/15/24 07:53 01/15/24 08:00 01/15/24 07:53 01/15/24 07:53 01/15/24 07:53 01/15/24 07:53 01/14/24 17:40 Laboratory Results - last 24 hr 01/14/24 08:30: Urine Color Yellow, Urine Appearance Clear, Urine pH 6.0, Ur Specific [place] 1.020, Urine Protein Trace, Urine Glucose (UA) Negative, Urine Ketones Trace, Urine Blood Negative, Urine Nitrate Negative, Urine Bilirubin Negative, Urine Urobilinogen 0.2, Ur Leukocyte Esterase Negative 01/14/24 13:40: Hgb 8.0 L D, Hct 24.9 L 01/14/24 15:47: POC Glucose 256 H 01/14/24 20:43: POC Glucose 327 H* 01/15/24 06:13: POC Glucose 235 H 01/15/24 08:38: WBC 6.3, RBC 2.53 L, Hgb 8.0 L, Hct 23.9 L, MCV 94.5 H, MCH 31.7 H, MCHC 33.5, RDW 18.0 H, Plt Count 248, MPV 8.6, Neut % (Auto) 69.6, Lymph % (Auto) 19.2, [place] % (Auto) 10.9 H, Eos % (Auto) 0.1, Baso % (Auto) 0.3, Neut # (Auto) 4.4, Lymph # (Auto) 1.2, [place] # (Auto) 0.7, Eos # (Auto) 0.0, Baso # (Auto) 0.0, Sodium 136, Potassium 3.9, Chloride 106, Carbon Dioxide 27, Anion Gap 6.9, BUN 17, Creatinine 0.90, Estimated Creat Clear 76, Estimated GFR 81, Est GFR ( Amer) 98 D, Glucose 203 H, Calcium 7.9 L I & O for Last 24 hours: Intake & Output 01/12/24 01/13/24 01/14/24 01/15/24 23:59 23:59 23:59 23:59 Intake Total 240 / 240 3509 / 3689 1380 / 1380 0 / 0 Output Total 2300 / 2300 1200 / 1200 0 / 0 900 / 900 Balance -2060 / -2060 2309 / 2489 1380 / 1380 -900 / -900 Weight 211 lb 3.2 oz 203 lb 11.2 oz 205 lb 9.297 oz 207 lb 3.2 oz Microbiology Reports for the Last 24 Hours: Microbiology 01/10/24 23:20 Blood Blood Culture - Preliminary 01/10/24 23:15 Blood Blood Culture - Preliminary Constitutional Constitutional: no acute distress *Routine Respiratory Exam Respiratory: Present CTA bilaterally and symmetric chest movement *Routine Cardiovascular Exam Cardiovascular: Present RRR, Normal S1 and Normal S2 *Routine Abdominal Exam Abdominal: Present soft and normoactive bowel sounds; Absent tenderness *Routine Extremities Exam Extremities: Present full ROM and normal capillary refill; Absent edema *Routine Skin Exam Skin: Present intact, dry and warm Detailed Neck Exam: Thyroids Thyroid: Absent bruit Progress Note: A&P Assessment and plan (1) Alexandrea-prosthetic femoral shaft fracture: Problem details: Left, status post open reduction internal fixation Status: Acute (2) Elevated troponin: Status: Acute (3) Anemia: Status: Acute (4) Generalized weakness: Status: Acute (5) Acidosis, lactic: Status: Acute (6) Arthritis of left knee: Status: Acute (7) Arthritis of knee, right: Status: Acute (8) Type 2 diabetes mellitus: Status: Chronic (9) PAD (peripheral artery disease): Status: Chronic (10) CAD (coronary artery disease): Status: Acute Assessment and Plan Assessment and Plan for All Diagnoses:: CAD Acute myocardial injury -In the setting of acute injury/anemia -Initial trop normal, trending up to 2.28 -Denies chest pain or soa -Initial EKG negative for acute ischemic changes, incomplete RBBB noted. Repeat is pending -Echo shows a normal EF -[facility] : Two-vessel disease noted see cath report above. Continue atorvastatin and start aspirin 81mg daily. Start Coreg 6.25 mg p.o. twice daily. Continue lisinopril 2.5 mg p.o. daily PAD Fall Fractured Left hip -S/p Left BKA -Ortho following for left hip fracture, underwent surgery yesterday. Chronic anemia -Inital Hgb 8.2 trending down to 6. was given 2 units prbc. today hgb is stable at 9. Iron 14 -Denies bleeding -FOBT pending 01/15/2024 update: Hemoglobin remains stable postop. Elevated lactate-resolved -12.3 on admission trending down to 1.7 -patient given Unasyn and vancomycin -Defer to primary service Acute kidney injury- resolved -Creatinine elevated at 1.5 on admission trending down to 1.3 DM -Defer to primary service 01/15/2024: Patient is CV stable at this time and cardiology will sign off. Please have patient follow-up in cardiology clinic 1 week post discharge and have patient continue below listed medications. Aspirin 81 mg daily Coreg 6.25 mg p.o. daily Atorvastatin 40 mg p.o. daily Lisinopril 2.5 mg p.o. daily
--- NOTE | 2024-01-15 13:10 | EXP.ORTH.PN ---
Subjective *Date: 01/15/24 *Time: 13:10 Interval history: Patient is status post open reduction internal fixation left periprosthetic femur fracture. Reportedly had a rough night secondary to pain. States he feels some better today. Has been resting in bed. Ortho Exam (Inpt) Vital signs and Labs for Last 24 Hours: Temp Pulse Resp BP Pulse Ox O2 Del Method O2 Flow Rate 97.8 F 105 H 16 130/63 93 L Room Air 1 01/15/24 12:38 01/15/24 12:38 01/15/24 12:38 01/15/24 12:38 01/15/24 12:38 01/15/24 12:38 01/14/24 17:40 Laboratory Results - last 24 hr 01/14/24 08:30: Urine Color Yellow, Urine Appearance Clear, Urine pH 6.0, Ur Specific [place] 1.020, Urine Protein Trace, Urine Glucose (UA) Negative, Urine Ketones Trace, Urine Blood Negative, Urine Nitrate Negative, Urine Bilirubin Negative, Urine Urobilinogen 0.2, Ur Leukocyte Esterase Negative 01/14/24 13:40: Hgb 8.0 L D, Hct 24.9 L 01/14/24 15:47: POC Glucose 256 H 01/14/24 20:43: POC Glucose 327 H* 01/15/24 06:13: POC Glucose 235 H 01/15/24 08:38: WBC 6.3, RBC 2.53 L, Hgb 8.0 L, Hct 23.9 L, MCV 94.5 H, MCH 31.7 H, MCHC 33.5, RDW 18.0 H, Plt Count 248, MPV 8.6, Neut % (Auto) 69.6, Lymph % (Auto) 19.2, [place] % (Auto) 10.9 H, Eos % (Auto) 0.1, Baso % (Auto) 0.3, Neut # (Auto) 4.4, Lymph # (Auto) 1.2, [place] # (Auto) 0.7, Eos # (Auto) 0.0, Baso # (Auto) 0.0, Sodium 136, Potassium 3.9, Chloride 106, Carbon Dioxide 27, Anion Gap 6.9, BUN 17, Creatinine 0.90, Estimated Creat Clear 76, Estimated GFR 81, Est GFR ( Amer) 98 D, Glucose 203 H, Calcium 7.9 L I & O for Labs for Last 24 Hours: Intake & Output 01/12/24 01/13/24 01/14/24 01/15/24 23:59 23:59 23:59 23:59 Intake Total 240 / 240 3509 / 3689 1380 / 1380 240 / 240 Output Total 2300 / 2300 1200 / 1200 0 / 0 900 / 900 Balance -2060 / -2060 2309 / 2489 1380 / 1380 -660 / -660 Weight 211 lb 3.2 oz 203 lb 11.2 oz 205 lb 9.297 oz 207 lb 3.2 oz Microbiology Reports for the Last 24 Hours: Microbiology 01/10/24 23:20 Blood Blood Culture - Preliminary 01/10/24 23:15 Blood Blood Culture - Preliminary Findings:: Left lower extremity: Dressing in place over the left thigh no active drainage visible. Assessment and Plan *Assessment and plan (1) Alexandrea-prosthetic femoral shaft fracture: Problem Comment: Left, status post open reduction internal fixation Status: Acute Category: Medical Code(s): M97.8XXA - Periprosthetic fracture around other internal prosthetic joint, initial encounter; Z96.649 - Presence of unspecified artificial hip joint Plan Continue postoperative care. He will remain strict nonweightbearing left lower extremity including pressures use the knee or prosthetic use at this point. Will require extensive rehabilitation and significant help Upon discharge to rehab will return to the clinic in 2 weeks for staple removal.
--- NOTE | 2024-01-15 17:43 | PC.NURSE ---
aox4. patient medicated once for pain this shift with good effectiveness. tolerating po intake well and able to feed self. pt was noted to be tachy this morning reported finding to Mando Sorensen APRN for cardiology recommendations. ekg obtained and reported. 5mg Lopressor iv once ordered and admin. villavicencio cath in place draining dark concentrated urine.
[2024-01-15] MEDS: ATORVASTATIN 40MG TABLET 40 MG PO (20:27)
[2024-01-15] MEDS: TERAZOSIN 5MG CAPSULE 10 MG PO (20:28)
[2024-01-15] MEDS: CARVEDILOL 6.25MG TABLET 6.25 MG PO (20:28)
[2024-01-15 20:33] LABS: POC Glucose,Bedside 227 (70-110)
[2024-01-15 20:33] LABS: POC Glucose,Bedside 217 (70-110)
[2024-01-15 20:45] LABS: POC Glucose,Bedside 209 (70-110)
[2024-01-16] VITALS (10 sets, daily range): BP systolic 96–113; BP diastolic 43–57; PULSE 73–98; RESP 16–22; TEMP 36.7–37.3; O2SAT 93–98; BMI 28.9
--- NOTE | 2024-01-16 01:19 | PC.NURSE ---
bp 105/48. dr salamanca made aware. new orders received for 1/2 ns@125ml/hr and cbc
[2024-01-16] MEDS: SODIUM CHLORIDE 0.45 % 1,000 ML 125 ML IV ×2 (01:26→08:53)
[2024-01-16 01:32] LABS: MANUAL DIFFERENTIAL MANUAL DIFFERENTIAL (MANUAL DIFF)
[2024-01-16 01:36] LABS: Basophils % 0.2 % (0.1-2.0); Eosinophils % 0.5 % (0.1-12.0); Hematocrit 25.3 % (42.0-52.0); Hemoglobin 7.9 g/dL (14.1-18.0); Lymphocytes # 1.5 K/mm3 (0.7-4.5); Lymphocytes % 18.3 % (10-50); Mean Corpuscular HGB Conc 31.3 g/dL (31.8-35.4); Mean Corpuscular Hemoglobin 30.3 pg (27.0-31.2); Mean Corpuscular Volume 96.7 fl (80-94); Mean Platelet Volume 8.4 fl (7.4-10.4); Monocytes # 0.8 K/mm3 (0.1-1.0); Monocytes % 9.8 % (1.7-9.3); Neutrophils # 5.7 K/mm3 (1.8-7.8); Neutrophils % 71.2 % (37.0-80.0); Platelet Count 305 K/mm3 (142-424); Red Blood Count 2.61 M/mm3 (4.60-6.20); White Blood Count 8.1 K/mm3 (4.8-10.8)
[2024-01-16 01:55] LABS: Anisocytosis 1+; Lymphocytes % 14 % (10-50); Macrocytosis 1+; Monocytes % 11 % (2-9); Neutrophils % 75 % (42-76); Platelet Estimate Normal; Total Cells Counted 100
[2024-01-16 01:56] LABS: Burr Cells 1+; Hypochromasia 2+; Ovalocytes 1+; Poikilocytosis 1+
[2024-01-16 06:19] LABS: POC Glucose,Bedside 217 (70-110)
[2024-01-16] MEDS: humaLOG 100 UNITS/ML 3ML VIAL (SSI) SQ ×4 (06:38→20:33)
[2024-01-16] MEDS: LEVOTHYROXINE 25MCG (0.025MG) TAB 25 MCG PO (06:40)
--- NOTE | 2024-01-16 06:47 | PC.NURSE ---
Patient has rested off and on this shift. Some mild confusion is noted at times. No acute changes noted. Pulses are positive to all extremities. Plan of care continues.
--- NOTE | 2024-01-16 08:15 | P.PN_ITS ---
Subjective *Date: 01/16/24 *Time: 08:38 Interval history: Patient is feeling better this am. His pain is under control. He slept off and on last night and was able to eat this am. Medical Exam Vital signs and Labs for Last 24 Hours: Vital Signs Temp Pulse Pulse Resp BP Pulse Ox O2 Del Method 01/16/24 06:00 92 H 01/16/24 04:00 84 01/16/24 04:00 98.4 F 96 H 20 108/50 L 93 L Room Air 01/16/24 01:00 Room Air 01/16/24 00:31 105/48 L 01/16/24 00:00 87 01/16/24 00:00 99.1 F 88 22 96/43 L 95 Room Air 01/15/24 23:00 Room Air 01/15/24 21:00 Room Air 01/15/24 20:30 Room Air 01/15/24 20:10 129 H 01/15/24 20:00 98.2 F 110 H 22 130/57 L 95 Room Air 01/15/24 16:00 110 H 01/15/24 16:00 98.6 F 77 120/62 93 L Room Air 01/15/24 12:38 97.8 F 105 H 16 130/63 93 L Room Air 01/15/24 12:00 95 H 01/15/24 11:00 Room Air 01/15/24 09:00 Room Air Intake and Output 01/15/24 01/16/24 01/16/24 19:59 03:59 11:59 Intake Total 600 / 2710 120 / 2710 1989 Output Total 400 / 400 Balance 200 / 2310 120 / 2310 1989 Intake: Intake, Oral Amount 600 / 960 120 / 960 240 / 960 Intake, Total IV Amount 1750 / 1750 Sodium Chloride 0.45 % 1,000 ml 1750 / 1750 @ 125 mls/hr IV .Q8H [facility] Rx#: [id number] Output: Output, Urine Amount 400 / 400 Other: Number of Unmeasured Voids 0 Weight 206 lb 11.2 oz Patient Weight 01/16/24 11:59 Weight 206 lb 11.2 oz Laboratory Results - last 24 hr 01/14/24 08:30: Urine Color Yellow, Urine Appearance Clear, Urine pH 6.0, Ur S pecific [place] 1.020, Urine Protein Trace, Urine Glucose (UA) Negative, Urine Ketones Trace, Urine Blood Negative, Urine Nitrate Negative, Urine Bilirubin Negative, Urine Urobilinogen 0.2, Ur Leukocyte Esterase Negative, Urine RBC None, Urine WBC None, Ur Squamous Epith Cells None, Urine Bacteria None 01/15/24 08:38: WBC 6.3, RBC 2.53 L, Hgb 8.0 L, Hct 23.9 L, MCV 94.5 H, MCH 31.7 H, MCHC 33.5, RDW 18.0 H, Plt Count 248, MPV 8.6, Neut % (Auto) 69.6, Lymph % (Auto) 19.2, [place] % (Auto) 10.9 H, Eos % (Auto) 0.1, Baso % (Auto) 0.3, Neut # (Auto) 4.4, Lymph # (Auto) 1.2, [place] # (Auto) 0.7, Eos # (Auto) 0.0, Baso # (Auto) 0.0, Sodium 136, Potassium 3.9, Chloride 106, Carbon Dioxide 27, Anion Gap 6.9, BUN 17, Creatinine 0.90, Estimated Creat Clear 76, Estimated GFR 81, Est GFR ( Amer) 98 D, Glucose 203 H, Calcium 7.9 L 01/15/24 12:05: POC Glucose 217 H 01/15/24 17:11: POC Glucose 227 H 01/15/24 20:22: POC Glucose 209 H 01/16/24 01:25: WBC 8.1 D, RBC 2.61 L, Hgb 7.9 L, Hct 25.3 L, MCV 96.7 H, MCH 30.3, MCHC 31.3 L, RDW 18.0 H, Plt Count 305, MPV 8.4, Neut % (Auto) 71.2, Lymph % (Auto) 18.3, [place] % (Auto) 9.8 H, Eos % (Auto) 0.5, Baso % (Auto) 0.2, Neut # (Auto) 5.7, Lymph # (Auto) 1.5, [place] # (Auto) 0.8, Eos # (Auto) 0.0, Baso # (Auto) 0.0, Total Counted 100, Neutrophils % (Manual) 75, Lymphocytes % (Manual) 14, Monocytes % (Manual) 11 H, Platelet Estimate Normal, Hypochromasia 2+, Poikilocytosis 1+, Anisocytosis 1+, Macrocytosis 1+, Ovalocytes 1+, Malcolm Cells 1+ 01/16/24 05:59: POC Glucose 217 H I & O for Labs for Last 24 Hours: Intake & Output 01/13/24 01/14/24 01/15/24 01/16/24 11:59 11:59 11:59 11:59 Intake Total 558 / 558 3131 / 3131 1200 / 1200 2710 / 2710 Output Total 725 / 725 675 / 675 900 / 900 400 / 400 Balance -167 / -167 2456 / 2456 300 / 300 2310 / 2310 Weight 203 lb 11.2 oz 205 lb 9.297 oz 207 lb 3.2 oz 206 lb 11.2 oz Microbiology Reports for the Last 24 Hours: Microbiology 01/10/24 23:20 Blood Blood Culture - Preliminary 01/10/24 23:15 Blood Blood Culture - Preliminary Constitutional: Present no acute distress Respiratory: Present CTA bilaterally Cardiac: Present Reg Rate and Rhythm GI: Present soft; Absent distention or tenderness Extremities: Absent edema Skin: Present intact Comment:: dressing in place on left thigh Neuro: Present alert, awake and oriented x 3 Assessment and Plan *Assessment and plan (1) Alexandrea-prosthetic femoral shaft fracture: Problem Comment: Left, status post open reduction internal fixation Status: Acute Category: Medical Code(s): M97.8XXA - Periprosthetic fracture around other internal prosthetic joint, initial encounter; Z96.649 - Presence of unspecified artificial hip joint (2) Elevated troponin: Status: Acute Category: Medical Code(s): R79.89 - Other specified abnormal findings of blood chemistry (3) Anemia: Status: Acute Qualifiers: Anemia type: unspecified type Qualified Code(s): D64.9 - Anemia, unspecified Category: Medical Code(s): D64.9 - Anemia, unspecified (4) Generalized weakness: Status: Acute Category: Medical Code(s): R53.1 - Weakness (5) Acidosis, lactic: Status: Acute Category: Medical Code(s): E87.20 - Acidosis, unspecified (6) Arthritis of left knee: Status: Acute Category: Medical Code(s): M17.12 - Unilateral primary osteoarthritis, left knee (7) Arthritis of knee, right: Status: Acute Category: Medical Code(s): M17.11 - Unilateral primary osteoarthritis, right knee (8) Type 2 diabetes mellitus: Status: Chronic Qualifiers: Diabetes mellitus complication status: without complication Diabetes mellitus retirement insulin use: without retirement use Qualified Code(s): E11.9 - Type 2 diabetes mellitus without complications Category: Medical Code(s): E11.9 - Type 2 diabetes mellitus without complications (9) PAD (peripheral artery disease): Status: Chronic Category: Medical Code(s): I73.9 - Peripheral vascular disease, unspecified (10) CAD (coronary artery disease): Status: Acute Qualifiers: Associated angina: without angina Coronary Disease-Associated Artery/Lesion type: [place] artery [place] vs. transplanted heart: [place] heart Qualified Code(s): I25.10 - Atherosclerotic heart disease of [place] coronary artery without angina pectoris Category: Medical Code(s): I25.10 - Atherosclerotic heart disease of [place] coronary artery without angina pectoris Plan Continue postoperative care. He will need to remain nonweightbearing left lower extremity according to Dr. Phelps. He feels he will require extensive rehabilitation and significant help. He needs to return to Dr. Phelps's office in 2 weeks for staple removal. Will remove villavicencio today and get PT/OT. He will need to transition to oral pain medication soon. Will discuss with Dr. Romo. Dr. Romo entry - Saw patient, agree with above note.
[2024-01-16] MEDS: LISINOPRIL 2.5MG TABLET 2.5 MG PO (08:26)
[2024-01-16] MEDS: GABAPENTIN 400MG CAPSULE 400 MG PO ×3 (08:26→20:33)
[2024-01-16] MEDS: ASPIRIN EC 81MG TABLET 81 MG PO (08:26)
[2024-01-16] MEDS: FINASTERIDE 5MG TABLET 5 MG PO (08:26)
[2024-01-16] MEDS: CARVEDILOL 6.25MG TABLET 6.25 MG PO ×2 (08:26→20:33)
[2024-01-16] MEDS: PANTOPRAZOLE 40MG TABLET 40 MG PO (08:26)
--- NOTE | 2024-01-16 09:49 | HMH.OTEV ---
OT Inpatient Evaluation Rehab OT IP Evaluation Start: 01/15/24 14:46 Freq: ONCE Status: Active Protocol: Document 01/16/24 09:42 [facility] (Rec: 01/16/24 09:49 [facility] [id number]) Rehab OT IP Assessment Subjective History Pt oriented x 3 on arrival. Pt agreeable to engage in therapy evaluation. Pt admitted on 01/10/24 due to left femur fx. Pt required an Open reduction internal fixation left periprosthetic femur fracture on 01/14/24. History and physical: Mr. Spivey is an 83 year old patient of [facility] who see Dr. David for his primary care, who was brought to [facility] ER last night after falling at home. 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 He was working on some lights in his home last night and the scooter he was using tipped over and caused him to fall. He had immediate pain in his left thigh. He crawled to another room in his home to get to a phone to call for help. He states he did not hit his head and did not lose consciousness. Subjective I was able to do what I needed. Prior to being in the hospital , pt lived at home alone. Pt has a history af a left BKA. Normally he used a wheelchair or scooter at all times. However, he was able to transfer from surface to surface with his prosthesis. Pt claims normally he is independent with all ADLs and IADLs. Objective Patient Orientation Person,Place,Birthday Right Upper Extremity Gross ROM WFL Left Upper Extremity Gross ROM WFL Bed Mobility bed mobility-scooting,bed mobility - supine/sit Assist Level Maximum x 2 (75% assist) Rehab OT IP prob,goals,plan Problems Date of Evaluation: 01/16/24 OT IP Problems Bed Mobility,Transfers,Balance ,Self care,Safety Rehab Potential Rehab Potential Good Equipment Needs Assistive Devices Rolling / Wheeled Walker, Wheelchair Plan OT intervention Plan Bed Mobility,Transfers,Balance ,Self care,Safety,Therapeutic Exercise OT Plan Frequency Daily Duration LOS Discharge Goals Bed Mobility Ability Assistance x1 Sit to Stand Chair Transfer Ability Maximum x 2 (75% assist) Chair Transfer Ability Maximum x 2 (75% assist) Chair Transfer Technique Stand Pivot Chair Transfer Assistive Devices Rolling Walker Feeding Ability Assist with Tray Set Up Lower Body Dressing Ability Moderate Assistance Upper Body Dressing Ability Moderate Assistance Bathing Ability Moderate Assistance Performing Toilet Hygiene Ability Moderate Assistance Overall Commode/Toilet Transfer Ability Maximum Assistance Commode/Toilet Transfer Technique Stand Pivot Commode/Toilet Transfer Assistive Raised Toilet Seat,Grab Bars Devices Oral Care Assist Standby Assistance Decrease in Endurance Yes Discharge Plan OT Discharge Plan Pt will continue to be seen for OT services while at [facility]. Pt would benefit most from short term rehab at SNF following hospital stay. Continued skilled therapy is important in order for patient to improve strength, safety, endurance, ADL independence, and functional transfers to reach PLOF. Eval Complexity Eval Charge Codes 86999 - High Complexity PHYSICIAN CERTIFICATION: I certify the specified therapy services for Travis Robbins Mindijoel are required, authorized, and reviewed every 30 days.
--- NOTE | 2024-01-16 10:25 | HMH.PTEV ---
Physical Therapy Evaluation Rehab PT IP Evaluation Start: 01/15/24 14:46 Freq: ONCE Status: Active Protocol: Document 01/16/24 10:15 [facility] (Rec: 01/16/24 10:23 [facility] [email or web address]) Subjective/History History History Pt s/p Open reduction internal fixation left periprosthetic femur fracture Per H&P: Mr. Spivey is an 83 year old patient of [facility] who see Dr. David for his primary care, who was brought to [facility] ER last night after falling at home. 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 He was working on some lights in his home last night and the scooter he was using tipped over and caused him to fall. He had immediate pain in his left thigh. He crawled to another room in his home to get to a phone to call for help. He states he did not hit his head and did not lose consciousness. Subjective Subjective PLOF per pt report: Living at home alone. IND with ADLs and functional mobility. Used a w/ c, scooter, and L prosthesis. Driving prior to fall. Pt is NWB LLE New diagnosis of cancer in past 12 No months? Rehab PT IP Eval Objective Appearance Patient Behavior Appropriate,Cooperative Patient Orientation Person,Place Speech Pattern Clear Ambulation Patient Able to Ambulate No Transfers Bed Transfer Ability Maximum x 2 (75% assist) Rehab PT IP prob,goals,plan Problems Date of Evaluation: 01/16/24 PT IP Problems Bed Mobility,Transfers,Balance ,Self care,Safety Rehab Potential Rehab Potential Good Equipment Needs Assistive Devices Rolling / Wheeled Walker, Wheelchair Plan PT Intervention Plan Bed Mobility,Transfers,Balance ,Self care,Safety,Therapeutic Exercise Other Intervention Plan 1-2 times daily PT Plan Frequency Daily Duration LOS Discharge Goals Bed Transfer Ability Moderate x 2 (50% assist) Sit to Stand Chair Transfer Ability Maximum x 2 (75% assist) Discharge Plan PT Discharge Plan Pt not safe to return home at this time d/t current level of functional mobility. Pt's mobility limited this eval by level of LLE pain, weakness, and dizziness with sitting EOB . Pt required Max A to obtain sitting at EOB. PT recommending short-term rehabilitation stay upon d/c from [facility]. Pt would benefit from skilled PT while at [facility] to prevent further functional decline and maximize safety with mobility. Eval Complexity Eval Charge Codes 84601 - High Complexity PHYSICIAN CERTIFICATION: I certify the specified therapy services for Travis Robbins Mindijoel are required, authorized, and reviewed every 30 days.
--- NOTE | 2024-01-16 10:31 | CARE MANAGER ---
Addendum entered by Maru Delacruz 01/19/24 15:02: Patient will discharge to [facility] today: I have updated Gemma sams/ Cj Rincon. Addendum entered by Maru Delacruz 01/19/24 09:31: Updated patient information has been faxed to Gemma sams/ Cj Rincon. Addendum entered by Maryuri Shipman RN 01/16/24 14:59: Patient has a bed at [facility] when medically ready for discharge. [facility] will accept the patient over the weekend. Original Note: Spoke with patient this morning about discharge planning. Patient is planned for discharge to SNF when medically stable. Will discuss discharge readiness with Dr. Phelps today. Patient Choice signed for [facility] and clinical has been faxed.
[2024-01-16 11:18] LABS: POC Glucose,Bedside 208 (70-110)
--- NOTE | 2024-01-16 12:08 | EXP.ORTH.CON ---
History of Present Illness *Admission Date: 01/11/24 *Reason for visit:: Periprosthetic Femur fracture *History of present illness: Patient seen and examined at the bedside, states pain is well-controlled. Denies any new problems. [facility] Disclaimer: The information contained in this section may have been updated after the patient was seen, as this information can be updated by other users. 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 Amputation below knee Cholecystectomy planned Tonsillectomy planned Cataract History of coronary angiogram Tachycardia Constipation Osteomyelitis Coronary artery calcification seen on CAT scan Diabetic neuropathy Dyslipidemia Bilateral edema of lower extremity Gangrene of toe of left foot Pressure injury of toe of left foot, stage 1 Capillary refill time greater than 2 seconds Ulcer of great toe Skin ulcer of fourth toe of left foot, limited to breakdown of skin Skin ulcer of third toe of left foot Encounter for wound care Type 2 diabetes mellitus Cellulitis of second toe of left foot Obesity (BMI 30.0-34.9) Decreased pedal pulses Abnormal ankle brachial index (YOSHI) Diastolic dysfunction HLD (hyperlipidemia) HTN (hypertension) Exertional dyspnea Incomplete RBBB Abnormal ECG Nonhealing ulcer of left lower extremity PAD (peripheral artery disease) Surgical History History of cataract surgery History of lobectomy of lung H/O arthroscopy of knee H/O cardiac catheterization Status post below-knee amputation of left lower extremity Family History No significant family history Social History Smoking Status: Former smoker second hand exposure: No alcohol intake: former substance use type: denies use current occupational status: retired Travel in the last 8 weeks: None adopted: No caregiver/support person: No foster care: No household members: none housing: house lives independently: Yes education level: high school current occupational exposures/hazards: No caffeine: Yes special frances needs: No do you feel safe at home: Yes victim of physical abuse: No victim of emotional abuse: No victim of sexual abuse: No would you like helpful sources: No Review of Systems ENT Ears, Nose, Mouth, and Throat: Denies dizziness *Neurologic Neurologic: Denies confusion and Denies dizziness Psychiatric Psychiatric: Denies confusion Meds Home Medications and Allergies Home Medications Medication Instructions Recorded Confirmed Type cholecalciferol (vitamin D3) 25 1,000 unit PO DAILY Supplement 03/24/18 01/11/24 History mcg (1,000 unit) capsule finasteride 5 mg tablet 5 mg PO DAILY 03/24/18 01/11/24 History metformin 850 mg tablet 850 mg PO BIDWMEAL Diabetes 03/24/18 01/11/24 History pioglitazone 15 mg tablet (Actos) 15 mg PO DAILY Diabetes 03/24/18 01/11/24 History terazosin 10 mg capsule 10 mg PO HS 03/24/18 01/11/24 History vitamin B complex (B 1 tab PO DAILY 03/24/18 01/11/24 History Complex-Vitamin B12 tablet) atorvastatin 40 mg tablet 40 mg PO HS 06/24/22 01/11/24 History levothyroxine 25 mcg tablet 25 mcg PO DAILYDM 07/25/22 01/11/24 History (Euthyrox) enalapril maleate 2.5 mg tablet 2.5 mg PO DAILY 01/11/24 01/11/24 History ferrous sulfate 27 mg iron tablet 27 mg PO DAILY 01/11/24 01/11/24 History furosemide 20 mg tablet 20 mg PO DAILY 01/11/24 01/11/24 History gabapentin 400 mg capsule 400 mg PO BID 01/11/24 01/11/24 History glimepiride 4 mg tablet 8 mg PO DAILYDM 01/11/24 01/11/24 History pantoprazole 40 mg tablet,delayed 40 mg PO DAILY 01/11/24 01/11/24 History release New Prescriptions to Start Prescriptions: Allergies Allergy/AdvReac Type Severity Reaction Status Date / Time No Known Allergies Allergy Verified 11/11/23 09:01 Ortho Exam (Inpt) Vital signs and Labs for Last 24 Hours: Temp Pulse Resp BP Pulse Ox O2 Del Method O2 Flow Rate 98.3 F 73 18 113/46 L 96 Room Air 1 01/16/24 11:31 01/16/24 11:31 01/16/24 11:31 01/16/24 11:31 01/16/24 11:31 01/16/24 11:31 01/14/24 17:40 Laboratory Results - last 24 hr 01/14/24 08:30: Urine RBC None, Urine WBC None, Ur Squamous Epith Cells None, Urine Bacteria None 01/15/24 12:05: POC Glucose 217 H 01/15/24 17:11: POC Glucose 227 H 01/15/24 20:22: POC Glucose 209 H 01/16/24 01:25: WBC 8.1 D, RBC 2.61 L, Hgb 7.9 L, Hct 25.3 L, MCV 96.7 H, MCH 30.3, MCHC 31.3 L, RDW 18.0 H, Plt Count 305, MPV 8.4, Neut % (Auto) 71.2, Lymph % (Auto) 18.3, [place] % (Auto) 9.8 H, Eos % (Auto) 0.5, Baso % (Auto) 0.2, Neut # (Auto) 5.7, Lymph # (Auto) 1.5, [place] # (Auto) 0.8, Eos # (Auto) 0.0, Baso # (Auto) 0.0, Total Counted 100, Neutrophils % (Manual) 75, Lymphocytes % (Manual) 14, Monocytes % (Manual) 11 H, Platelet Estimate Normal, Hypochromasia 2+, Poikilocytosis 1+, Anisocytosis 1+, Macrocytosis 1+, Ovalocytes 1+, Malcolm Cells 1+ 01/16/24 05:59: POC Glucose 217 H 01/16/24 11:02: POC Glucose 208 H I & O for Labs for Last 24 Hours: Intake & Output 01/13/24 01/14/24 01/15/24 01/16/24 23:59 23:59 23:59 23:59 Intake Total 3509 / 3689 1380 / 1380 600 / 720 2109 Output Total 1200 / 1200 0 / 0 1300 / 1300 Balance 2309 / 2489 1380 / 1380 -700 / -580 2109 Weight 203 lb 11.2 oz 205 lb 9.297 oz 207 lb 3.2 oz 206 lb 11.2 oz Additional findings:: Left lower extremity: Dressing changed with gauze, ABDs, tape, incision well-approximated with anthony. Mild serous sang noted on previous dressing, no active drainage noted. No signs of infection noted. Positive edema, thigh is compressible. Positive ecchymosis on posterior aspect of thigh. Patient is neurovascularly intact distally with sensation and motor intact at knee, less than 2-second cap refil at upper calf. Results Labs 01/16/24 01:25 01/15/24 08:38 Labs: Abnormal lab results 01/15/24 01/15/24 01/15/24 Range/Units 12:05 17:11 20:22 RBC (4.60-6.20) M/mm3 Hgb (14.1-18.0) g/dL Hct (42.0-52.0) % MCV (80-94) fl MCHC (31.8-35.4) g/dL RDW (11.5-17.5) % [place] % (Auto) (1.7-9.3) % Monocytes % (Manual) (2-9) % POC Glucose 217 H 227 H 209 H (70-110) 01/16/24 01/16/24 01/16/24 Range/Units 01:25 05:59 11:02 RBC 2.61 L (4.60-6.20) M/mm3 Hgb 7.9 L (14.1-18.0) g/dL Hct 25.3 L (42.0-52.0) % MCV 96.7 H (80-94) fl MCHC 31.3 L (31.8-35.4) g/dL RDW 18.0 H (11.5-17.5) % [place] % (Auto) 9.8 H (1.7-9.3) % Monocytes % (Manual) 11 H (2-9) % POC Glucose 217 H 208 H (70-110) H & H 01/10/24 01/11/24 01/11/24 Range/Units 21:32 07:45 19:55 Hgb 8.2 L 6.6 L* 8.3 L D (14.1-18.0) g/dL Hct 26.7 L 20.7 L* 25.5 L (42.0-52.0) % 01/12/24 01/12/24 01/13/24 Range/Units 07:27 12:20 15:00 Hgb 9.0 L 9.1 L 8.3 L (14.1-18.0) g/dL Hct 27.4 L 27.9 L 26.2 L (42.0-52.0) % 01/13/24 01/13/24 01/14/24 Range/Units 16:00 19:26 07:10 Hgb 8.3 L 9.7 L D 10.3 L (14.1-18.0) g/dL Hct 26.4 L 30.0 L 31.3 L (42.0-52.0) % 01/14/24 01/15/24 01/16/24 Range/Units 13:40 08:38 01:25 Hgb 8.0 L D 8.0 L 7.9 L (14.1-18.0) g/dL Hct 24.9 L 23.9 L 25.3 L (42.0-52.0) % Coagulation 01/11/24 Range/Units 09:55 INR 1.11 H (0.9-1.1) All other labs normal. Assessment and Plan *Assessment and plan (1) Alexandrea-prosthetic femoral shaft fracture: Problem Comment: Left, status post open reduction internal fixation Status: Acute Category: Medical Code(s): M97.8XXA - Periprosthetic fracture around other internal prosthetic joint, initial encounter; Z96.649 - Presence of unspecified artificial hip joint Plan Patient is stable from an orthopedic standpoint, and should follow-up in the office in 2 weeks (01/26-) for staple removal. Patient is nonweightbearing to the left lower extremity. Ice and elevation can be used for swelling, with pain meds as needed for incisional pain. DVT prophylaxis and further care per medical team.
[2024-01-16 15:41] LABS: POC Glucose,Bedside 256 (70-110)
[2024-01-16] MEDS: OXYCODONE 5MG W/APAP 325MG TABLET 1 EACH PO (17:56)
--- NOTE | 2024-01-16 18:24 | PC.NURSE ---
dsg to rt hip cdi. pt alert and orientated. removed iv to lt wrist. removed villavicencio cath this morning, pt was incont and saturated a brief, therefore unable to document uop. no c/o pain. cleaned and changed pt later in shift and pt asked for pain meds, rating pain at lt hip 5/10, treated with po pain meds. cb within reach, pt has no needs at this time.
[2024-01-16 20:05] LABS: POC Glucose,Bedside 268 (70-110)
[2024-01-16] MEDS: TERAZOSIN 5MG CAPSULE 10 MG PO (20:33)
[2024-01-16] MEDS: ATORVASTATIN 40MG TABLET 40 MG PO (20:33)
[2024-01-17] VITALS (8 sets, daily range): BP systolic 100–124; BP diastolic 40–60; PULSE 70–96; RESP 16–18; TEMP 36.5–37; O2SAT 94–97; BMI 29.6
--- NOTE | 2024-01-17 05:00 | PC.NURSE ---
Pt alert and oriented. Pt has been incontinent of the brief through the night. Pt has rested well. No complaints from pt. Left femur surgical site, dressing CDI. Call light in reach.
[2024-01-17] MEDS: OXYCODONE 5MG W/APAP 325MG TABLET 1 EACH PO (06:22)
[2024-01-17] MEDS: LEVOTHYROXINE 25MCG (0.025MG) TAB 25 MCG PO (06:22)
[2024-01-17] MEDS: humaLOG 100 UNITS/ML 3ML VIAL (SSI) SQ ×4 (06:22→20:50)
[2024-01-17 06:23] LABS: POC Glucose,Bedside 180 (70-110)
--- NOTE | 2024-01-17 07:40 | EXP.ACUTE.PN ---
Subjective *Date: 01/17/24 *Time: 07:40 Interval history: Patient with no new complaints today, tolerating regular diet. Medical Exam Vital signs and Labs for Last 24 Hours: Vital Signs Temp Pulse Pulse Resp BP Pulse Ox O2 Del Method 01/17/24 06:43 Room Air 01/17/24 04:52 Room Air 01/17/24 04:00 98.6 F 74 16 116/49 L 97 Room Air 01/17/24 04:00 80 01/17/24 03:00 Room Air 01/17/24 01:00 Room Air 01/17/24 00:00 70 01/17/24 00:00 97.8 F 70 16 100/60 L 97 Room Air 01/16/24 23:00 Room Air 01/16/24 21:00 Room Air 01/16/24 20:00 Room Air 01/16/24 20:00 80 01/16/24 19:41 98.0 F 81 16 108/52 L 98 Room Air 01/16/24 18:08 Room Air 01/16/24 17:00 Room Air 01/16/24 16:00 82 01/16/24 16:00 98.2 F 83 17 107/52 L 97 Room Air 01/16/24 15:00 Room Air 01/16/24 13:00 Room Air 01/16/24 12:00 98 H 01/16/24 11:31 98.3 F 73 18 113/46 L 96 Room Air 01/16/24 11:00 Room Air 01/16/24 09:00 Room Air 01/16/24 08:00 95 H 01/16/24 08:00 Room Air 01/16/24 08:00 98.4 F 98 H 19 109/57 L 94 L Room Air Intake and Output 01/16/24 01/16/24 01/17/24 15:59 23:59 07:59 Intake Total 360 / 2590 240 / 2590 Output Total 0 / 0 Balance 360 / 2590 240 / 2590 0 / 0 Intake: Intake, Oral Amount 360 / 840 240 / 840 Output: Output, Urine Amount 0 / 0 Other: Number of Unmeasured Voids 1 1 1 Weight 211 lb 12.8 oz Patient Weight 01/17/24 23:59 Weight 211 lb 12.8 oz Laboratory Results - last 24 hr 01/13/24 17:05: Crossmatch (AHG) See Detail 01/16/24 11:02: POC Glucose 208 H 01/16/24 15:30: POC Glucose 256 H 01/16/24 19:58: POC Glucose 268 H 01/17/24 06:16: POC Glucose 180 H I & O for Labs for Last 24 Hours: Intake & Output 01/14/24 01/15/24 01/16/24 01/17/24 23:59 23:59 23:59 23:59 Intake Total 1380 / 1380 600 / 720 2590 / 2590 Output Total 0 / 0 1300 / 1300 0 / 0 Balance 1380 / 1380 -700 / -580 2590 / 2590 0 / 0 Weight 205 lb 9.297 oz 207 lb 3.2 oz 206 lb 11.2 oz 211 lb 12.8 oz Constitutional: Present no acute distress Respiratory: Present CTA bilaterally Cardiac: Present Reg Rate and Rhythm GI: Present soft; Absent distention or tenderness Extremities: Absent edema Skin: Present intact Comment:: dressing in place on left thigh Neuro: Present alert, awake and oriented x 3 Assessment and Plan *Assessment and plan (1) Alexandrea-prosthetic femoral shaft fracture: Problem Comment: Left, status post open reduction internal fixation Status: Acute Category: Medical Code(s): M97.8XXA - Periprosthetic fracture around other internal prosthetic joint, initial encounter; Z96.649 - Presence of unspecified artificial hip joint (2) Elevated troponin: Status: Acute Category: Medical Code(s): R79.89 - Other specified abnormal findings of blood chemistry (3) Anemia: Status: Acute Qualifiers: Anemia type: unspecified type Qualified Code(s): D64.9 - Anemia, unspecified Category: Medical Code(s): D64.9 - Anemia, unspecified (4) Generalized weakness: Status: Acute Category: Medical Code(s): R53.1 - Weakness (5) Acidosis, lactic: Status: Acute Category: Medical Code(s): E87.20 - Acidosis, unspecified (6) Arthritis of left knee: Status: Acute Category: Medical Code(s): M17.12 - Unilateral primary osteoarthritis, left knee (7) Arthritis of knee, right: Status: Acute Category: Medical Code(s): M17.11 - Unilateral primary osteoarthritis, right knee (8) Type 2 diabetes mellitus: Status: Chronic Qualifiers: Diabetes mellitus correction insulin use: without correction use Diabetes mellitus complication status: without complication Qualified Code(s): E11.9 - Type 2 diabetes mellitus without complications Category: Medical Code(s): E11.9 - Type 2 diabetes mellitus without complications (9) PAD (peripheral artery disease): Status: Chronic Category: Medical Code(s): I73.9 - Peripheral vascular disease, unspecified (10) CAD (coronary artery disease): Status: Acute Qualifiers: Coronary Disease-Associated Artery/Lesion type: [place] artery [place] vs. transplanted heart: [place] heart Associated angina: without angina Qualified Code(s): I25.10 - Atherosclerotic heart disease of [place] coronary artery without angina pectoris Category: Medical Code(s): I25.10 - Atherosclerotic heart disease of [place] coronary artery without angina pectoris Plan Patient has improved, H/H is slowly trending down. Plan to repeat labs tomorrow.
[2024-01-17] MEDS: ASPIRIN EC 81MG TABLET 81 MG PO (09:44)
[2024-01-17] MEDS: GABAPENTIN 400MG CAPSULE 400 MG PO ×3 (09:44→20:50)
[2024-01-17] MEDS: FINASTERIDE 5MG TABLET 5 MG PO (09:44)
[2024-01-17] MEDS: CARVEDILOL 6.25MG TABLET 6.25 MG PO ×2 (09:45→20:50)
[2024-01-17] MEDS: PANTOPRAZOLE 40MG TABLET 40 MG PO (09:45)
[2024-01-17] MEDS: LISINOPRIL 2.5MG TABLET 2.5 MG PO (09:45)
[2024-01-17 11:08] LABS: POC Glucose,Bedside 247 (70-110)
[2024-01-17] MEDS: SIMETHICONE 80MG CHEWABLE TABLET 160 MG PO (13:27)
--- NOTE | 2024-01-17 14:01 | PC.NURSE ---
patient is alert and oriented x4 and VSS. Remains on room air. Patient c/o lower abd cramping/gas pain, treated with simethicone tablets per MAR. Patient denies pain, physical therapy saw him today and had him up to sit on the side of the bed. He has been eating 75% of each meal during my shift. bed is in the lowest position, call light in reach.
[2024-01-17 16:14] LABS: POC Glucose,Bedside 308 (70-110)
[2024-01-17] MEDS: POLYETHYLENE GLYCOL 3350 17 GM PACKET PO (17:41)
[2024-01-17] MEDS: TERAZOSIN 5MG CAPSULE 10 MG PO (20:50)
[2024-01-17] MEDS: ATORVASTATIN 40MG TABLET 40 MG PO (20:50)
[2024-01-17 20:51] LABS: POC Glucose,Bedside 376 (70-110)
[2024-01-18] VITALS (30 sets, daily range): BP systolic 103–132; BP diastolic 44–76; PULSE 60–100; RESP 16–18; TEMP 36.3–36.9; O2SAT 95–99; BMI 29.6
--- NOTE | 2024-01-18 04:38 | PC.NURSE ---
Pt is alert and oriented. Incontinent of the brief. Received a bath. Dressing to left surgical site CDI. Pt has had no complaints throughout shift. Call light in reach.
[2024-01-18 06:02] LABS: POC Glucose,Bedside 239 (70-110)
[2024-01-18] MEDS: humaLOG 100 UNITS/ML 3ML VIAL (SSI) SQ ×4 (06:03→20:50)
[2024-01-18] MEDS: LEVOTHYROXINE 25MCG (0.025MG) TAB 25 MCG PO (06:03)
[2024-01-18 07:30] LABS: Basophils % 0.2 % (0.1-2.0); Eosinophils % 0.3 % (0.1-12.0); Hemoglobin 7.2 g/dL (14.1-18.0); Lymphocytes # 1.7 K/mm3 (0.7-4.5); Lymphocytes % 29.9 % (10-50); Mean Corpuscular HGB Conc 31.2 g/dL (31.8-35.4); Mean Corpuscular Hemoglobin 30.8 pg (27.0-31.2); Mean Corpuscular Volume 98.6 fl (80-94); Mean Platelet Volume 8.7 fl (7.4-10.4); Monocytes # 0.5 K/mm3 (0.1-1.0); Monocytes % 8.7 % (1.7-9.3); Neutrophils # 3.5 K/mm3 (1.8-7.8); Platelet Count 374 K/mm3 (142-424); Red Blood Count 2.34 M/mm3 (4.60-6.20); Red Cell Distribution Width 17.9 % (11.5-17.5); White Blood Count 5.8 K/mm3 (4.8-10.8)
[2024-01-18 07:41] LABS: Anion Gap 6.7 mEq/L (5-15); Blood Urea Nitrogen 22 mg/dl (9-20); Calcium 7.9 mg/dl (8.4-10.2); Carbon Dioxide 26 mmol/L (22.0-30.0); Chloride 106 mmol/L (98-107); Creatinine Clearance Estimated 77 mL/min (50-200); Estimated Glomerular Filt Rate 72 ml/min (>60); GFR (African American) 87 ML/MIN (>60); Glucose 197 mg/dl (74-100); Potassium 3.7 mmoL/L (3.5-5.1); Sodium 135 mmol/L (136-145)
--- NOTE | 2024-01-18 08:34 | P.PN_ITS ---
Subjective *Date: 01/18/24 *Time: 08:34 Interval history: Patient reports some left lower quadrant abdominal cramping. He has not had a bowel movement during this admission, he is taking MiraLax daily. Medical Exam Vital signs and Labs for Last 24 Hours: Vital Signs Temp Pulse Pulse Resp BP Pulse Ox O2 Del Method 01/18/24 08:00 97.9 F 79 18 124/48 L 97 Room Air 01/18/24 06:49 Room Air 01/18/24 04:46 Room Air 01/18/24 04:00 98.2 F 69 16 103/55 L 97 01/18/24 04:00 65 01/18/24 03:00 Room Air 01/18/24 01:00 Room Air 01/18/24 00:00 70 01/18/24 00:00 97.9 F 90 17 126/54 L 96 01/17/24 23:00 Room Air 01/17/24 21:00 Room Air 01/17/24 20:00 Room Air 01/17/24 20:00 73 01/17/24 20:00 98 F 96 H 17 124/40 L 96 01/17/24 19:00 Room Air 01/17/24 16:53 Room Air 01/17/24 16:03 80 01/17/24 15:38 98.0 F 75 17 105/52 L 96 Room Air 01/17/24 15:00 Room Air 01/17/24 13:00 Room Air 01/17/24 12:00 70 01/17/24 11:27 98.1 F 73 18 102/46 L 94 L Room Air 01/17/24 10:44 Room Air 01/17/24 09:00 Room Air Intake and Output 01/17/24 01/18/24 01/18/24 23:59 07:59 15:59 Intake Total 240 / 960 240 / 480 240 / 480 Output Total 0 / 200 200 / 200 Balance 240 / 960 240 / 280 40 / 280 Intake: Intake, Oral Amount 240 / 960 240 / 480 240 / 480 Output: Output, Urine Amount 0 / 200 200 / 200 Other: Number of Voids 2 Number of Unmeasured Voids 2 2 1 Number of Urine Attends/Diapers 1 Weight 211 lb 12.769 oz Patient Weight 01/18/24 23:59 Weight 211 lb 12.769 oz Laboratory Results - last 24 hr 03/10/24 09:55: Crossmatch (AHG) See Detail 01/17/24 11:00: POC Glucose 247 H 01/17/24 16:06: POC Glucose 308 H* 01/17/24 20:44: POC Glucose 376 H* 01/18/24 05:55: POC Glucose 239 H 01/18/24 06:37: WBC 5.8 D, RBC 2.34 L, Hgb 7.2 L, Hct 23.0 L, MCV 98.6 H, MCH 30.8, MCHC 31.2 L, RDW 17.9 H, Plt Count 374, MPV 8.7, Neut % (Auto) 61.0, Lymph % (Auto) 29.9, [place] % (Auto) 8.7, Eos % (Auto) 0.3, Baso % (Auto) 0.2, Neut # (Auto) 3.5, Lymph # (Auto) 1.7, [place] # (Auto) 0.5, Eos # (Auto) 0.0, Baso # (Auto) 0.0, Sodium 135 L, Potassium 3.7, Chloride 106, Carbon Dioxide 26, Anion Gap 6.7, BUN 22 H D, Creatinine 1.00, Estimated Creat Clear 77, Estimated GFR 72, Est GFR ( Amer) 87, Glucose 197 H, Calcium 7.9 L I & O for Labs for Last 24 Hours: Intake & Output 01/15/24 01/16/24 01/17/24 01/18/24 23:59 23:59 23:59 23:59 Intake Total 600 / 720 2590 / 2590 720 / 960 480 / 480 Output Total 1300 / 1300 0 / 0 200 / 200 Balance -700 / -580 2590 / 2590 720 / 960 280 / 280 Weight 207 lb 3.2 oz 206 lb 11.2 oz 211 lb 12.8 oz 211 lb 12.769 oz Microbiology Reports for the Last 24 Hours: Microbiology 01/10/24 23:20 Blood Blood Culture - Final 01/10/24 23:15 Blood Blood Culture - Final Constitutional: Present no acute distress Respiratory: Present CTA bilaterally Cardiac: Present Reg Rate and Rhythm GI: Present soft; Absent distention or tenderness Extremities: Absent edema Skin: Present intact Comment:: dressing in place on left thigh Neuro: Present alert, awake and oriented x 3 Assessment and Plan *Assessment and plan (1) Alexandrea-prosthetic femoral shaft fracture: Problem Comment: Left, status post open reduction internal fixation Status: Acute Category: Medical Code(s): M97.8XXA - Periprosthetic fracture around other internal prosthetic joint, initial encounter; Z96.649 - Presence of unspecified artificial hip joint (2) Elevated troponin: Status: Acute Category: Medical Code(s): R79.89 - Other specified abnormal findings of blood chemistry (3) Anemia: Status: Acute Qualifiers: Anemia type: unspecified type Qualified Code(s): D64.9 - Anemia, unspecified Category: Medical Code(s): D64.9 - Anemia, unspecified (4) Generalized weakness: Status: Acute Category: Medical Code(s): R53.1 - Weakness (5) Acidosis, lactic: Status: Acute Category: Medical Code(s): E87.20 - Acidosis, unspecified (6) Arthritis of left knee: Status: Acute Category: Medical Code(s): M17.12 - Unilateral primary osteoarthritis, left knee (7) Arthritis of knee, right: Status: Acute Category: Medical Code(s): M17.11 - Unilateral primary osteoarthritis, right knee (8) Type 2 diabetes mellitus: Status: Chronic Qualifiers: Diabetes mellitus nursing home insulin use: without nursing home use Diabetes mellitus complication status: without complication Qualified Code(s): E11.9 - Type 2 diabetes mellitus without complications Category: Medical Code(s): E11.9 - Type 2 diabetes mellitus without complications (9) PAD (peripheral artery disease): Status: Chronic Category: Medical Code(s): I73.9 - Peripheral vascular disease, unspecified (10) CAD (coronary artery disease): Status: Acute Qualifiers: Coronary Disease-Associated Artery/Lesion type: [place] artery [place] vs. transplanted heart: [place] heart Associated angina: without angina Qualified Code(s): I25.10 - Atherosclerotic heart disease of [place] coronary artery without angina pectoris Category: Medical Code(s): I25.10 - Atherosclerotic heart disease of [place] coronary artery without angina pectoris Plan Will give 2 units of PRBCs today and order a daily suppository as needed for constipation.
[2024-01-18] MEDS: ASPIRIN EC 81MG TABLET 81 MG PO (09:28)
[2024-01-18] MEDS: FINASTERIDE 5MG TABLET 5 MG PO (09:28)
[2024-01-18] MEDS: CARVEDILOL 6.25MG TABLET 6.25 MG PO ×2 (09:28→20:50)
[2024-01-18] MEDS: LISINOPRIL 2.5MG TABLET 2.5 MG PO (09:29)
[2024-01-18] MEDS: GABAPENTIN 400MG CAPSULE 400 MG PO ×3 (09:29→20:50)
[2024-01-18] MEDS: PANTOPRAZOLE 40MG TABLET 40 MG PO (09:29)
[2024-01-18] MEDS: POLYETHYLENE GLYCOL 3350 17 GM PACKET PO (09:30)
[2024-01-18] MEDS: 0.9 % SODIUM CHLORIDE 250 ML 25 ML IV ×2 (10:45→14:22)
--- NOTE | 2024-01-18 11:57 | PC.NURSE ---
blood transfusion had to be paused from 1110 to 1130 due to loss of IV access, transfusion restarted at 1130, blood vitals restarted from the start time of 1130
[2024-01-18 12:38] LABS: POC Glucose,Bedside 271 (70-110)
[2024-01-18 17:03] LABS: POC Glucose,Bedside 312 (70-110)
--- NOTE | 2024-01-18 17:35 | PC.NURSE ---
per Dr. Romo order, no post H&H tonight, to be done in morning
--- NOTE | 2024-01-18 18:56 | PC.NURSE ---
patient alert and oriented x4, received 2 units of blood today with no complications. bed is in the lowest position and call light is in reach.
[2024-01-18] MEDS: TERAZOSIN 5MG CAPSULE 10 MG PO (20:50)
[2024-01-18] MEDS: ATORVASTATIN 40MG TABLET 40 MG PO (20:50)
[2024-01-19] VITALS (7 sets, daily range): BP systolic 121–150; BP diastolic 56–64; PULSE 60–104; RESP 16–21; TEMP 36.5–37.2; O2SAT 9–98
--- NOTE | 2024-01-19 00:51 | PC.NURSE ---
Addendum entered by Marlena Garcia RN 01/19/24 00:54: Pt incision has no redness or bleeding. Some clear drainage seeping from upper part of incision. Original Note: Went in to change patient brief, yellow-green drainage noted on michelle, dressing not saturated on the outside, drainage seemed to come out little hole of dressing. 4x4 on dressing saturated. Dressing changed.
--- NOTE | 2024-01-19 05:21 | PC.NURSE ---
Pt is alert and oriented. Incontinent of the brief. No bowel movement this shift, bowel sounds active, abdomen soft and nontender. Dressing remains CDI after previous change. Pt has had no complaints this shift. Call light in reach.
[2024-01-19 06:02] LABS: POC Glucose,Bedside 201 (70-110)
[2024-01-19] MEDS: humaLOG 100 UNITS/ML 3ML VIAL (SSI) SQ ×3 (06:16→18:39)
[2024-01-19] MEDS: LEVOTHYROXINE 25MCG (0.025MG) TAB 25 MCG PO (06:16)
[2024-01-19 06:33] LABS: Basophils # 0.1 K/mm3 (0-0.2); Basophils % 0.7 % (0.1-2.0); Eosinophils % 0.3 % (0.1-12.0); Lymphocytes # 1.9 K/mm3 (0.7-4.5); Lymphocytes % 29.1 % (10-50); Mean Corpuscular HGB Conc 31.8 g/dL (31.8-35.4); Mean Corpuscular Hemoglobin 30.1 pg (27.0-31.2); Mean Corpuscular Volume 94.8 fl (80-94); Mean Platelet Volume 8.5 fl (7.4-10.4); Monocytes # 0.8 K/mm3 (0.1-1.0); Monocytes % 11.6 % (1.7-9.3); Neutrophils # 3.8 K/mm3 (1.8-7.8); Neutrophils % 58.4 % (37.0-80.0); Platelet Count 386 K/mm3 (142-424); Red Blood Count 3.16 M/mm3 (4.60-6.20); White Blood Count 6.5 K/mm3 (4.8-10.8)
[2024-01-19 06:43] LABS: Anion Gap 6.9 mEq/L (5-15); Blood Urea Nitrogen 20 mg/dl (9-20); Calcium 8.3 mg/dl (8.4-10.2); Carbon Dioxide 27 mmol/L (22.0-30.0); Chloride 107 mmol/L (98-107); Creatinine Clearance Estimated 78 mL/min (50-200); Estimated Glomerular Filt Rate 72 ml/min (>60); GFR (African American) 87 ML/MIN (>60); Glucose 193 mg/dl (74-100); Potassium 3.9 mmoL/L (3.5-5.1); Sodium 137 mmol/L (136-145)
[2024-01-19 06:53] LABS: Hemoglobin 9.5 g/dL (14.1-18.0)
[2024-01-19] MEDS: PANTOPRAZOLE 40MG TABLET 40 MG PO (08:17)
[2024-01-19] MEDS: CARVEDILOL 6.25MG TABLET 6.25 MG PO (08:17)
[2024-01-19] MEDS: GABAPENTIN 400MG CAPSULE 400 MG PO ×2 (08:17→12:08)
[2024-01-19] MEDS: LISINOPRIL 2.5MG TABLET 2.5 MG PO (08:17)
[2024-01-19] MEDS: FINASTERIDE 5MG TABLET 5 MG PO (08:17)
[2024-01-19] MEDS: ASPIRIN EC 81MG TABLET 81 MG PO (08:17)
[2024-01-19] MEDS: POLYETHYLENE GLYCOL 3350 17 GM PACKET PO (08:17)
[2024-01-19] MEDS: OXYCODONE 5MG W/APAP 325MG TABLET 1 EACH PO (08:22)
--- NOTE | 2024-01-19 08:35 | P.PNANES_ITS ---
[facility] Anesthesia Record Part II Anesthesia Record Part II Discharge Time: 13:45 Destination: Medical Surgical Department PACU nurse assessment reviewed?: Yes Patient Condition:: Good Anesthesia Complications:: None Swallowing reflex intact?: Yes Airway Patency: Patent Cyanosis?: No Blood Pressure: 132/64 SaO2: 9 Respiratory Rate: 16 Pulse Rate: 104 Temperature: 98.9 F Mental Status: Alert & Oriented Pain level:: 0 Nausea and/or vomitting:: None Intake, IV Amount: 0 Hydration: Adequate
--- NOTE | 2024-01-19 08:48 | P.PN_ITS ---
Subjective *Date: 01/19/24 *Time: 09:01 Interval history: Patient states pain medicine does not help. He has ongoing pain at the surgical sites. He is able to eat without difficulties. He has not been out of bed. He denies chest pain and shortness of breath. He thought his bowels did move but nurses states that they did not. After 2 units of packed red blood cells hemoglobin is gone from 7.2-9.5. Blood chemistries reveal normal electrolytes and kidney function. Medical Exam Vital signs and Labs for Last 24 Hours: Vital Signs Temp Pulse Pulse Resp BP BP Pulse Ox 01/19/24 08:36 16 01/19/24 07:57 97.8 F 68 21 129/61 98 01/19/24 06:42 01/19/24 05:00 01/19/24 04:00 60 01/19/24 04:00 98 F 70 16 150/61 H 95 01/19/24 02:52 01/19/24 01:00 01/19/24 00:00 60 01/19/24 00:00 97.7 F 64 16 125/56 L 97 01/19/24 00:00 97.7 F 64 16 125/56 L 97 01/18/24 23:00 01/18/24 21:00 01/18/24 20:00 60 01/18/24 20:00 01/18/24 20:00 97.9 F 67 16 121/44 L 97 01/18/24 18:38 01/18/24 18:00 97.7 F 73 17 130/54 L 99 01/18/24 17:00 01/18/24 17:00 98.1 F 78 18 127/51 L 99 01/18/24 16:35 97.5 F L 76 17 120/60 98 01/18/24 16:00 75 01/18/24 15:35 97.9 F 77 18 117/57 L 98 01/18/24 15:35 97.9 F 77 18 117/57 L 98 01/18/24 15:20 98.1 F 78 18 124/61 97 01/18/24 15:05 98.1 F 77 18 118/58 L 99 01/18/24 15:00 01/18/24 14:50 98.4 F 79 17 111/56 L 98 01/18/24 14:45 97.8 F 76 17 122/59 L 99 01/18/24 14:40 97.9 F 79 18 123/68 98 01/18/24 14:35 98.0 F 75 17 119/54 L 98 01/18/24 14:20 97.4 F L 75 17 128/68 97 01/18/24 13:42 98.2 F 72 17 117/56 L 95 01/18/24 13:30 98.3 F 72 16 120/58 L 97 01/18/24 13:00 01/18/24 12:30 98.2 F 74 17 121/53 L 98 01/18/24 12:15 98.3 F 71 16 132/68 97 01/18/24 12:00 80 01/18/24 12:00 98.2 F 71 16 115/60 97 01/18/24 11:45 98.3 F 76 17 112/55 L 96 01/18/24 11:40 98.4 F 71 16 122/58 L 97 01/18/24 11:35 98.2 F 74 16 118/62 96 01/18/24 11:30 98.5 F 69 17 124/76 96 01/18/24 11:30 69 17 124/76 96 01/18/24 11:10 98.2 F 76 16 126/55 L 97 01/18/24 11:05 98.5 F 69 16 119/62 97 01/18/24 11:00 01/18/24 11:00 98.5 F 72 16 123/53 L 97 01/18/24 10:55 98.2 F 72 16 129/56 L 96 01/18/24 10:40 98.2 F 75 16 129/57 L 95 01/18/24 09:00 O2 Del Method 01/19/24 08:36 01/19/24 07:57 Room Air 01/19/24 06:42 Room Air 01/19/24 05:00 Room Air 01/19/24 04:00 01/19/24 04:00 01/19/24 02:52 Room Air 01/19/24 01:00 Room Air 01/19/24 00:00 01/19/24 00:00 Room Air 01/19/24 00:00 Room Air 01/18/24 23:00 Room Air 01/18/24 21:00 Room Air 01/18/24 20:00 01/18/24 20:00 Room Air 01/18/24 20:00 01/18/24 18:38 Room Air 01/18/24 18:00 01/18/24 17:00 Room Air 01/18/24 17:00 01/18/24 16:35 01/18/24 16:00 01/18/24 15:35 01/18/24 15:35 01/18/24 15:20 01/18/24 15:05 01/18/24 15:00 Room Air 01/18/24 14:50 01/18/24 14:45 01/18/24 14:40 01/18/24 14:35 01/18/24 14:20 01/18/24 13:42 01/18/24 13:30 01/18/24 13:00 Room Air 01/18/24 12:30 01/18/24 12:15 01/18/24 12:00 01/18/24 12:00 01/18/24 11:45 01/18/24 11:40 01/18/24 11:35 01/18/24 11:30 01/18/24 11:30 01/18/24 11:10 01/18/24 11:05 01/18/24 11:00 Room Air 01/18/24 11:00 01/18/24 10:55 01/18/24 10:40 01/18/24 09:00 Room Air Intake and Output 01/18/24 01/19/24 01/19/24 19:59 03:59 11:59 Intake Total 967 / 967 240 / 1207 360 / 1567 Output Total 450 / 450 0 / 450 1000 / 1450 Balance 517 / 517 240 / 757 -640 / 117 Intake: Intake, Oral Amount 480 / 480 240 / 720 360 / 1080 Intake, Total IV Amount 0 / 0 Intake (Blood Product) Amt 487 / 487 Red Blood Cells Unit 250 / 250 [id number] Red Blood Cells Unit 237 / 237 [id number] Output: Output, Urine Amount 450 / 450 0 / 450 1000 / 1450 Other: Number of Voids 1 Number of Unmeasured Voids 0 1 1 Weight 214 lb 8 oz Patient Weight 01/19/24 11:59 Weight 214 lb 8 oz Laboratory Results - last 24 hr 01/18/24 08:52: Blood Type O Positive, Antibody Screen Negative, Crossmatch (AHG) See Detail 01/18/24 12:30: POC Glucose 271 H 01/18/24 16:40: POC Glucose 312 H* 01/19/24 05:55: POC Glucose 201 H 01/19/24 06:02: WBC 6.5, RBC 3.16 L D, Hgb 9.5 L D, Hct 30.0 L, MCV 94.8 H, MCH 30.1, MCHC 31.8, RDW 17.0, Plt Count 386, MPV 8.5, Neut % (Auto) 58.4, Lymph % (Auto) 29.1, [place] % (Auto) 11.6 H, Eos % (Auto) 0.3, Baso % (Auto) 0.7, Neut # (Auto) 3.8, Lymph # (Auto) 1.9, [place] # (Auto) 0.8, Eos # (Auto) 0.0, Baso # (Auto) 0.1, Sodium 137, Potassium 3.9, Chloride 107, Carbon Dioxide 27, Anion Gap 6.9, BUN 20, Creatinine 1.00, Estimated Creat Clear 78, Estimated GFR 72, Est GFR ( Amer) 87, Glucose 193 H, Calcium 8.3 L I & O for Labs for Last 24 Hours: Intake & Output 01/16/24 01/17/24 01/18/24 01/19/24 11:59 11:59 11:59 11:59 Intake Total 2710 / 2710 720 / 720 973 / 973 1567 / 1567 Output Total 400 / 400 0 / 0 200 / 200 1450 / 1450 Balance 2310 / 2310 720 / 720 773 / 773 117 / 117 Weight 206 lb 11.2 oz 211 lb 12.8 oz 211 lb 12.769 oz 214 lb 8 oz Constitutional: Present no acute distress Respiratory: Present CTA bilaterally Cardiac: Present Reg Rate and Rhythm GI: Present soft and normal bowel sounds; Absent distention, tenderness or guarding Extremities: Absent edema Neuro: Present alert and oriented x 3 Assessment and Plan *Assessment and plan (1) Alexandrea-prosthetic femoral shaft fracture: Problem Comment: Left, status post open reduction internal fixation Status: Acute Category: Medical Code(s): M97.8XXA - Periprosthetic fracture around other internal prosthetic joint, initial encounter; Z96.649 - Presence of unspecified artificial hip joint (2) Elevated troponin: Status: Acute Category: Medical Code(s): R79.89 - Other specified abnormal findings of blood chemistry (3) Anemia: Status: Acute Qualifiers: Anemia type: unspecified type Qualified Code(s): D64.9 - Anemia, unspecified Category: Medical Code(s): D64.9 - Anemia, unspecified (4) Generalized weakness: Status: Acute Category: Medical Code(s): R53.1 - Weakness (5) Acidosis, lactic: Status: Acute Category: Medical Code(s): E87.20 - Acidosis, unspecified (6) Arthritis of left knee: Status: Acute Category: Medical Code(s): M17.12 - Unilateral primary osteoarthritis, left knee (7) Arthritis of knee, right: Status: Acute Category: Medical Code(s): M17.11 - Unilateral primary osteoarthritis, right knee (8) Type 2 diabetes mellitus: Status: Chronic Qualifiers: Diabetes mellitus complication status: without complication Diabetes mellitus superintendent container terminal insulin use: without assisted use Qualified Code(s): E11.9 - Type 2 diabetes mellitus without complications Category: Medical Code(s): E11.9 - Type 2 diabetes mellitus without complications (9) PAD (peripheral artery disease): Status: Chronic Category: Medical Code(s): I73.9 - Peripheral vascular disease, unspecified (10) CAD (coronary artery disease): Status: Acute Qualifiers: Associated angina: without angina Coronary Disease-Associated Artery/Lesion type: [place] artery [place] vs. transplanted heart: [place] heart Qualified Code(s): I25.10 - Atherosclerotic heart disease of [place] coronary artery without angina pectoris Category: Medical Code(s): I25.10 - Atherosclerotic heart disease of [place] coronary artery without angina pectoris Plan Dulcolax suppository today. Probably to [place] today. Dr. Romo entry - Saw patient, agree with above note. H/H is better today, patient did not receive a suppository yesterday, will give one today.
[2024-01-19] MEDS: BISACODYL 10MG SUPP 10 MG RC (09:08)
[2024-01-19 11:43] LABS: POC Glucose,Bedside 217 (70-110)
--- NOTE | 2024-01-19 15:19 | DIET.NUTRFU ---
no noted BM since admit, meal intake has been good. Provider aware and dulcolax is ordered. Placement at [facility] upon discharge
[2024-01-19 15:22] LABS: Occult Blood,Stool Negative (Negative)
--- NOTE | 2024-01-19 16:21 | P.DS_ITS ---
General Admission date:: 01/11/24 Discharge date: 01/19/24 HPI HPI HPI: Mr. Spivey is an 83 year old patient of [facility] who see Dr. David for his primary care, who was brought to [facility] ER last night after falling at home. 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 He was working on some lights in his home last night and the scooter he was using tipped over and caused him to fall. He had immediate pain in his left thigh. He crawled to another room in his home to get to a phone to call for help. He states he did not hit his head and did not lose consciousness. Hospital Course Hospital Course Hospital Course: On admission patient with seen and evaluated in the emergency room and noted to have a left femur fracture. Lactate was elevated with no obvious source of infection. Therefore he was given a dose of Unasyn and vancomycin. Antibiotics were then held. Lactic acid then trended downward. He was also noted to be very anemic. He was given 2 units of packed red blood cells.In addition he had elevated troponins and cardiology was consulted. He did have a cardiac catheterization on 01/11/2024 with the following impressions: IMPRESSION Severe two-vessel coronary disease as described above with a widely patent left anterior descending artery and ejection fraction 45% PLAN 1. Patient is at moderate risk to proceed with orthopedic surgery given the two-vessel coronary artery disease. The elevated troponins do not appear to be a type I myocardial infarction but rather a type II myocardial infarction from significant and severe anemia. 2. Despite the moderate risk the patient still is an acceptable risk given the gravity of the fracture and the need for surgery. 3. Perioperative beta-blockers and nitrates are advantageous providing hypotension is avoided 4. Recommend keeping hemoglobin above 9 throughout the perioperative phase He was also seen by orthopedic surgeon Dr. Phelps, who noted the left periprosthetic femural shaft fracture with plans for ORIF of the left femur when medically stable and cleared for surgery. On 01/14/2024 patient underwent open reduction internal fixation of the left periprosthetic femur fracture. He tolerated the procedure satisfactory. Postop erative H&H were 8/24.9. Patient did have quite a bit of pain postoperatively and morphine was increased to 4 mg IV every 4 hours. He was able to eat. Dr. Phelps noted that he would remain strict nonweightbearing of the left lower extremity including pressures at this point and that he would require extensive rehab and significant help. Patient continued to be able to eat. He did sleep some; his hemoglobin hematocrit did trend downward. Plan of care as per Dr. Phelps As follows: Patient is stable from an orthopedic standpoint, and should follow-up in the office in 2 weeks (01/26-) for staple removal. Patient is nonweightbearing to the left lower extremity. Ice and elevation can be used for swelling, with pain meds as needed for incisional pain. DVT prophylaxis and further care per medical team. . He did experience some left lower quadrant abdominal cramping and was noted not to have had a bowel movement since before surgery. He was on MiraLAX daily. H&H on 01/18/2024 was 7.2/23. He did receive an additional 2 units of packed red blood cells. He was to have a daily suppository for his constipation. On 01/19/2024 patient noted that pain medicine was not helping And meds were increased. His bowels had not moved and he received a Dulcolax suppository After which bowels did move. Stool for occult blood was negative. Patient was stable to be transferred to [facility] for [place] rehabilitation. Meds as per reconciliation sheet. Will need to monitor chemistries and CBC. PT and OT will be consulted. Exam Data for Last 24 hours Vital signs and Labs for Last 24 Hours: Temp Pulse Resp BP Pulse Ox O2 Del Method O2 Flow Rate 98.2 F 66 16 121/59 L 98 Room Air 1 01/19/24 15:43 01/19/24 15:43 01/19/24 15:43 01/19/24 15:43 01/19/24 15:43 01/19/24 15:43 01/14/24 17:40 Laboratory Results - last 24 hr 01/18/24 08:52: Crossmatch (AHG) See Detail 01/18/24 16:40: POC Glucose 312 H* 01/19/24 05:55: POC Glucose 201 H 01/19/24 06:02: WBC 6.5, RBC 3.16 L D, Hgb 9.5 L D, Hct 30.0 L, MCV 94.8 H, MCH 30.1, MCHC 31.8, RDW 17.0, Plt Count 386, MPV 8.5, Neut % (Auto) 58.4, Lymph % (Auto) 29.1, [place] % (Auto) 11.6 H, Eos % (Auto) 0.3, Baso % (Auto) 0.7, Neut # (Auto) 3.8, Lymph # (Auto) 1.9, [place] # (Auto) 0.8, Eos # (Auto) 0.0, Baso # (Auto) 0.1, Sodium 137, Potassium 3.9, Chloride 107, Carbon Dioxide 27, Anion Gap 6.9, BUN 20, Creatinine 1.00, Estimated Creat Clear 78, Estimated GFR 72, Est GFR ( Amer) 87, Glucose 193 H, Calcium 8.3 L 01/19/24 11:36: POC Glucose 217 H 01/19/24 15:07: Stool Occult Blood Negative I & O for Last 24 hours: Intake & Output 01/17/24 01/18/24 01/19/24 01/20/24 11:59 11:59 11:59 11:59 Intake Total 720 / 720 973 / 973 1567 / 1567 240 / 240 Output Total 0 / 0 200 / 200 1450 / 1450 0 / 0 Balance 720 / 720 773 / 773 117 / 117 240 / 240 Weight 211 lb 12.8 oz 211 lb 12.769 oz 214 lb 8 oz Narrative: & O for Labs for Last 24 Hours: Intake & Output 01/16/24 01/17/24 01/18/24 01/19/24 11:59 11:59 11:59 11:59 Intake Total 2710 / 2710 720 / 720 973 / 973 1567 / 1567 Output Total 400 / 400 0 / 0 200 / 200 1450 / 1450 Balance 2310 / 2310 720 / 720 773 / 773 117 / 117 Weight 206 lb 11.2 oz 211 lb 12.8 oz 211 lb 12.769 oz 214 lb 8 oz Constitutional: Present no acute distress Respiratory: Present CTA bilaterally Cardiac: Present Reg Rate and Rhythm GI: Present soft and normal bowel sounds; Absent distention, tenderness or guarding Extremities: Absent edema Neuro: Present alert and oriented x 3 Results Data Completed and Pending Completed studies during hospitalization [Text1]: 01/10/2024 CXR IMPRESSION: No dense parenchymal consolidation, pleural effusion, or pneumothorax 01/10/2024 Left hip x-ray FINDINGS: Bones/joints: Status post left hip arthroplasty. There is an angulated fracture of the left proximal to mid femur. There is diffuse osseous demineralization. There is some heterotopic ossification. Soft tissues: Unremarkable. Vasculature: Left iliac stents in place. IMPRESSION: Obliquely oriented mid femoral fracture. 01/10/2024 left femur x-ray FINDINGS: Bones/joints: There is a fracture of the mid femur with medial angulation. Status post left hip arthroplasty. There is diffuse osseous demineralization. Soft tissues: Unremarkable. Other findings: The examination is limited by under penetration. IMPRESSION: Obliquely oriented fracture of the femur distal to the hip prosthesis. 01/12/2024 ECHO Conclusion Normal biventricular systolic function. Mild RV dilation. Mild AI, mild MR. Labs on day of discharge: Labs from last 24 hours 01/19/24 01/19/24 01/19/24 15:07 11:36 06:02 WBC 6.5 RBC 3.16 L D Hgb 9.5 L D Hct 30.0 L MCV 94.8 H MCH 30.1 MCHC 31.8 RDW 17.0 Plt Count 386 MPV 8.5 Neut % (Auto) 58.4 Lymph % (Auto) 29.1 [place] % (Auto) 11.6 H Eos % (Auto) 0.3 Baso % (Auto) 0.7 Neut # (Auto) 3.8 Lymph # (Auto) 1.9 [place] # (Auto) 0.8 Eos # (Auto) 0.0 Baso # (Auto) 0.1 Sodium 137 Potassium 3.9 Chloride 107 Carbon Dioxide 27 Anion Gap 6.9 BUN 20 Creatinine 1.00 Estimated Creat Clear 78 Estimated GFR 72 Est GFR ( Amer) 87 Glucose 193 H POC Glucose 217 H Calcium 8.3 L Stool Occult Blood Negative Crossmatch (AHG) 01/19/24 01/18/24 01/18/24 05:55 16:40 08:52 WBC RBC Hgb Hct MCV MCH MCHC RDW Plt Count MPV Neut % (Auto) Lymph % (Auto) [place] % (Auto) Eos % (Auto) Baso % (Auto) Neut # (Auto) Lymph # (Auto) [place] # (Auto) Eos # (Auto) Baso # (Auto) Sodium Potassium Chloride Carbon Dioxide Anion Gap BUN Creatinine Estimated Creat Clear Estimated GFR Est GFR ( Amer) Glucose POC Glucose 201 H 312 H* Calcium Stool Occult Blood Crossmatch (AHG) See Detail DS: Diagnosis Discharge Diagnosis (1) Alexandrea-prosthetic femoral shaft fracture: Status: Acute Code(s): M97.8XXA - Periprosthetic fracture around other internal prosthetic joint, initial encounter; Z96.649 - Presence of unspecified artificial hip joint Problem details: Left, status post open reduction internal fixation (2) Elevated troponin: Status: Acute Code(s): R79.89 - Other specified abnormal findings of blood chemistry (3) Anemia: Status: Acute Code(s): D64.9 - Anemia, unspecified Qualifiers: Anemia type: unspecified type Qualified Code(s): D64.9 - Anemia, unspecified (4) Generalized weakness: Status: Acute Code(s): R53.1 - Weakness (5) Acidosis, lactic: Status: Acute Code(s): E87.20 - Acidosis, unspecified (6) Arthritis of left knee: Status: Acute Code(s): M17.12 - Unilateral primary osteoarthritis, left knee (7) Arthritis of knee, right: Status: Acute Code(s): M17.11 - Unilateral primary osteoarthritis, right knee (8) Type 2 diabetes mellitus: Status: Chronic Code(s): E11.9 - Type 2 diabetes mellitus without complications Qualifiers: Diabetes mellitus complication status: without complication Diabetes mellitus fdc insulin use: without joint terminal attack controller use Qualified Code(s): E11.9 - Type 2 diabetes mellitus without complications (9) PAD (peripheral artery disease): Status: Chronic Code(s): I73.9 - Peripheral vascular disease, unspecified (10) CAD (coronary artery disease): Status: Acute Code(s): I25.10 - Atherosclerotic heart disease of [place] coronary artery without angina pectoris Qualifiers: Associated angina: without angina Coronary Disease-Associated Artery/Lesion type: hughes artery [place] vs. transplanted heart: hughes heart Qualified Code(s): I25.10 - Atherosclerotic heart disease of hughes coronary artery without angina pectoris Meds Home Medications and Allergies Home Medications Medication Instructions Recorded Confirmed Type vitamin B complex (B 1 tab PO DAILY 03/24/18 01/11/24 History Complex-Vitamin B12 tablet) acetaminophen 500 mg tablet 1,000 mg (2 x 500 mg) PO Q8HP PRN 01/19/24 Rx Mild To Moderate Pain (1-6) #30 tabs atorvastatin 40 mg tablet 40 mg PO HS #3 tabs 01/19/24 Rx carvedilol 6.25 mg tablet 6.25 mg PO BID #6 tabs 01/19/24 Rx cholecalciferol (vitamin D3) 25 1,000 unit PO DAILY Supplement #3 01/19/24 Rx mcg (1,000 unit) capsule caps enalapril maleate 2.5 mg tablet 2.5 mg PO DAILY #3 tabs 01/19/24 Rx ferrous sulfate 27 mg iron tablet 27 mg PO DAILY #3 tabs 01/19/24 Rx finasteride 5 mg tablet 5 mg PO DAILY #3 tabs 01/19/24 Rx furosemide 20 mg tablet 20 mg PO DAILY #3 tabs 01/19/24 Rx gabapentin 400 mg capsule 400 mg PO BID #60 caps 01/19/24 Rx glimepiride 4 mg tablet 8 mg (2 x 4 mg) PO DAILYDM #3 tabs 01/19/24 Rx levothyroxine 25 mcg tablet 25 mcg PO DAILYDM #3 tabs 01/19/24 Rx (Euthyrox) metformin 850 mg tablet 850 mg PO BIDWMEAL Diabetes #6 tabs 01/19/24 Rx oxycodone-acetaminophen 5 mg-325 1 tab PO Q4HP PRN Moderate Pain 01/19/24 Rx mg tablet (4-6) #30 tabs pantoprazole 40 mg tablet,delayed 40 mg PO DAILY #3 tabs 01/19/24 Rx release pioglitazone 15 mg tablet 15 mg PO DAILY Diabetes #3 tabs 01/19/24 Rx polyethylene glycol 3350 17 gram 17 g PO DAILY #14 ea 01/19/24 Rx oral powder packet (Miralax) terazosin 10 mg capsule 10 mg PO HS #3 caps 01/19/24 Rx New Prescriptions to Start Prescriptions: acetaminophen [place],Akash atorvastatin [place],Akash carvedilol [place],Akash cholecalciferol (vitamin D3) [place],Akash enalapril maleate [place],Akash ferrous sulfate [place],Akash finasteride [place],Akash furosemide [place],Akash gabapentin [place],Akash glimepiride [place],Akash levothyroxine [Euthyrox] [place],Akash metformin [place],Akash oxycodone-acetaminophen [place],Akash pantoprazole [place],Akash pioglitazone [place],Akash polyethylene glycol 3350 [Miralax] [place],Akash terazosin [place],Akash Allergies Allergy/AdvReac Type Severity Reaction Status Date / Time No Known Allergies Allergy Verified 11/11/23 09:01 Discharge Plan Disposition Patient Disposition: Xfer SNF Condition: Fair Discharge Order Discharge Orders: Discharge Order (Routine); Ordered 01/19/24 Ordered By: Akash Romo Follow up Plan Follow up with: Spencer Phelps DO [Staff Physician] - 01/29/24 2:45 pm Jass David MD [Primary Care Provider] - Enter time for follow up (At [facility]) Prescriptions/Medication Reconciliation: New polyethylene glycol 3350 [Miralax] 17 gram Powder In Packet 17 g PO DAILY Qty: 14 0RF carvedilol 6.25 mg Tablet 6.25 mg PO BID Qty: 6 0RF acetaminophen 500 mg Tablet 1,000 mg PO Q8HP PRN (Reason: Mild To Moderate Pain (1-6)) Qty: 30 0RF oxycodone-acetaminophen 5-325 mg Tablet 1 tab PO Q4HP PRN (Reason: Moderate Pain (4-6)) Qty: 30 0RF Continued vitamin B complex [B Complex-Vitamin B12] tablet 1 tab PO DAILY pioglitazone 15 mg tablet 15 mg PO DAILY Qty: 3 0RF atorvastatin 40 MG tablet 40 mg PO HS Qty: 3 0RF enalapril maleate 2.5 mg tablet 2.5 mg PO DAILY Qty: 3 0RF gabapentin 400 mg capsule 400 mg PO BID Qty: 60 0RF metformin 850 mg tablet 850 mg PO BIDWMEAL Qty: 6 0RF levothyroxine [Euthyrox] 25 mcg tablet 25 mcg PO DAILYDM Qty: 3 0RF pantoprazole 40 mg tablet,delayed release (DR/EC) 40 mg PO DAILY Qty: 3 0RF glimepiride 4 mg tablet 8 mg PO DAILYDM Qty: 3 0RF furosemide 20 mg tablet 20 mg PO DAILY Qty: 3 0RF finasteride 5 mg tablet 5 mg PO DAILY Qty: 3 0RF cholecalciferol (vitamin D3) 1,000 unit capsule 1,000 unit PO DAILY Qty: 3 0RF ferrous sulfate 27 mg iron Tablet 27 mg PO DAILY Qty: 3 0RF Changed terazosin 10 mg capsule 10 mg PO HS Qty: 3 0RF Problem Reconciliation Problems Reviewed?: Yes Patient Discharge Instructions ACTIVITY: Limited activity DIET: continue same diet Patient Instructions: DI for Cardiac Catheterization, DI for Femoral Fracture, DI for Hip Replacement, DI for Surgical Site Infection, Catheter-Associated Urinary Tract Infection, Posterior Hip Replacement Discharge Instructions Picture Guide Providers Primary Care Provider: Jass David Admit Provider: Akash Romo Attending Provider: Akash Romo
--- NOTE | 2024-01-19 17:30 | PC.NURSE ---
REPORT CALLED TO [facility] NOTIFIED OF NEED TO TRANSPORT
[2024-01-19 18:43] LABS: POC Glucose,Bedside 309 (70-110)
--- NOTE | 2024-01-19 18:56 | PC.NURSE ---
Pt. is waiting on transfer to [facility] via ambulance. Report has been called to nurse at [facility]. Ambulance on multiple runs so they have been delayed in transporting the patient. Patient is alert and oriented and resting in bed. Call magda within [facility]) at bedside.
== END 2024-01-19 19:00 | DRG 480 ==
LOC: ER 01-11 01:14 → 2ND 01-12 00:19
PROVIDERS: Emergency Medicine; Family Medicine; Internal Medicine; Nurse Practitioner; Orthopaedic Surgery; Physician Assistant Surgical; Admitting Provider Family Medicine; Emergency Provider Emergency Medicine; PCP Family Medicine; Visit Provider Family Medicine
PROC: 0QS904Z Reposition Left Femoral Shaft with Internal Fixation Device, Open Approach (ICD-10-PCS; principal; 2024-01-14 07:30)
DX: S72.492A Other fracture of lower end of left femur, initial encounter for closed fracture (principal); I21.A1 Myocardial infarction type 2; E87.20 Acidosis, unspecified; M97.02XA Periprosthetic fracture around internal prosthetic left hip joint, initial encounter; M97.8XXA Periprosthetic fracture around other internal prosthetic joint, initial encounter; N17.9 Acute kidney failure, unspecified; W19.XXXA Unspecified fall, initial encounter; Z96.649 Presence of unspecified artificial hip joint; I10 Essential (primary) hypertension; N40.1 Benign prostatic hyperplasia with lower urinary tract symptoms; E11.51 Type 2 diabetes mellitus with diabetic peripheral angiopathy without gangrene; E11.40 Type 2 diabetes mellitus with diabetic neuropathy, unspecified; E78.5 Hyperlipidemia, unspecified; Z89.512 Acquired absence of left leg below knee; Z87.891 Personal history of nicotine dependence; I25.10 Atherosclerotic heart disease of native coronary artery without angina pectoris; N40.0 Benign prostatic hyperplasia without lower urinary tract symptoms
CPT/HCPCS: 27514; 36415; 71045; 73502; 73552; 76000; 80048; 80053; 81001; 82248; 82272; 82550; 82607; 82728; 82803; 82962; 83540; 83550; 83605; 83735; 83880; 84484; 85007; 85014; 85018; 85025; 85048; 85049; 85610; 86850; 87040; 93005; 93306; 93454; 96374; 97163; 97167; 97530; 99152; 99153; 99285; C1713; C1725; C1766; C1769; C1776; G0328; J0131; J1644; J3370; P9016; Q9967

== ENCOUNTER 2024-02-17 13:49 | Outpatient (CLI) | payer MEDICARE, OTHER, SELFPAY ==
--- NOTE | 2024-02-17 13:53 | XR_ITS ---
FINAL REPORT CLINICAL HISTORY: left femur fx COMPARISON: 01/10/2024 FINDINGS: Four images of the left femur were obtained. Since the prior film of January 2024 there has been interval application of a sideplate and orthopedic screws for a fracture of the left femoral diaphysis. A hip arthroplasty is also noted, which was present on the prior films. There are multiple cerclage wires bridging the fracture of the femur, with near anatomic alignment. Mild callus formation is noted. The joint spaces are intact. There is no soft tissue abnormality identified. IMPRESSION: Interval application of a sideplate and orthopedic screws as well as cerclage wires for a fracture of the left femoral diaphysis, with near anatomic alignment and mild callus formation. Reviewed, Interpreted and Dictated by Jeffrey Martinez MD Transcribed by Kelsey Gill Authenticated and [facility]
== END 2024-02-17 23:59 | disposition home or self-care (01) ==
LOC: RAD 13:50
PROVIDERS: PCP Family Medicine; Visit Provider Orthopaedic Surgery
DX: M97.8XXA Periprosthetic fracture around other internal prosthetic joint, initial encounter (principal); S72.92XA Unspecified fracture of left femur, initial encounter for closed fracture
CPT/HCPCS: 73552

== ENCOUNTER 2024-03-16 13:02 | Outpatient (CLI) | payer MEDICARE, OTHER, SELFPAY ==
--- NOTE | 2024-03-16 13:07 | XR_ITS ---
FINAL REPORT CLINICAL HISTORY: lt femur fx COMPARISON: 02/17/2024 FINDINGS: 4 images of the left femur were obtained. There are postoperative changes from a left hip arthroplasty and ORIF of a left femoral diaphyseal fracture. The subacute to chronic appearing femoral diaphyseal fracture is once again visualized, stable in alignment since the prior exam. The joint spaces are intact. Vascular calcifications are identified. IMPRESSION: Postoperative changes of left hip arthroplasty and ORIF of a left femoral diaphyseal fracture. The alignment of the femoral fracture remained stable when compared to the prior exam of February 16. Reviewed, Interpreted and Dictated by Sher Bain III, MD Transcribed by Kelsey Gill Authenticated and [facility]
== END 2024-03-16 23:59 | disposition home or self-care (01) ==
LOC: RAD 13:04
PROVIDERS: PCP Family Medicine; Visit Provider Orthopaedic Surgery
DX: M97.8XXA Periprosthetic fracture around other internal prosthetic joint, initial encounter (principal); Z96.642 Presence of left artificial hip joint
CPT/HCPCS: 73552

== ENCOUNTER 2024-04-20 11:39 | Outpatient (CLI) | payer MEDICARE, OTHER, SELFPAY ==
--- NOTE | 2024-04-20 12:01 | XR_ITS ---
FINAL REPORT CLINICAL HISTORY: lt femur fx COMPARISON: 02/17/2024 FINDINGS: LEFT FEMUR: 5 views once again show that the patient has undergone a prior left total hip arthroplasty. There is a mid femoral cortical plate with multiple cerclage wires to bridge a comminuted midshaft fracture. The fracture line itself is much less distinct consistent with healing. There is minimal angulation in the mid femur, new since the prior exam. IMPRESSION: Prior left total hip arthroplasty, with a mid femoral cortical plate and multiple cerclage wires. Fracture line of the comminuted midshaft fracture is less distinct consistent with healing. There is minimal angulation in the mid femur, new since the Reviewed, Interpreted and Dictated by Kiley Gunderson MD Transcribed by Kelsey Gill Authenticated and . [facility]
== END 2024-04-20 23:59 | disposition home or self-care (01) ==
LOC: RAD 11:43
PROVIDERS: PCP Family Medicine; Visit Provider Orthopaedic Surgery
DX: M97.8XXA Periprosthetic fracture around other internal prosthetic joint, initial encounter (principal); Z96.649 Presence of unspecified artificial hip joint; Z89.512 Acquired absence of left leg below knee
CPT/HCPCS: 73552

== ENCOUNTER 2024-05-11 12:30 | Outpatient (CLI) | payer MEDICARE, OTHER, SELFPAY ==
--- NOTE | 2024-05-11 12:35 | XR_ITS ---
FINAL REPORT CLINICAL HISTORY: Lt Femur Fx COMPARISON: 04/20/2024 FINDINGS: Left femur Two views were obtained. Patient is status post left hip arthroplasty. There is a fracture of the femur with postoperative changes from ORIF. Vascular calcification is identified. IMPRESSION: Postsurgical changes as above. Reviewed, Interpreted and Dictated by Sher Bain III, MD Transcribed by Gloria Ralph Authenticated and [facility]
== END 2024-05-11 23:59 | disposition home or self-care (01) ==
LOC: RAD 12:31
PROVIDERS: PCP Family Medicine; Visit Provider Physician Assistant Surgical
DX: M79.652 Pain in left thigh (principal); M97.8XXA Periprosthetic fracture around other internal prosthetic joint, initial encounter; Z96.642 Presence of left artificial hip joint; Z89.512 Acquired absence of left leg below knee; Z98.890 Other specified postprocedural states
CPT/HCPCS: 73552

== ENCOUNTER 2024-06-08 12:55 | Outpatient (CLI) | payer MEDICARE, OTHER, SELFPAY ==
--- NOTE | 2024-06-08 12:59 | XR_ITS ---
FINAL REPORT CLINICAL HISTORY: Lt Femur pain sx 4 mos ago COMPARISON: 05/11/2024 FINDINGS: Left femur Two views were obtained. There are postoperative changes from left hip arthroplasty and ORIF. Screw plate and multiple screws are identified. Multiple cerclage wires are present. There is a chronic mid femur fracture. Vascular calcification is identified. Findings are stable since previous. IMPRESSION: Stable postoperative changes. Reviewed, Interpreted and Dictated by Sher Bain III, MD Transcribed by Gloria Ralph Authenticated and [facility]
== END 2024-06-08 23:59 | disposition home or self-care (01) ==
LOC: RAD 12:57
PROVIDERS: PCP Family Medicine; Visit Provider Physician Assistant Surgical
DX: M97.8XXA Periprosthetic fracture around other internal prosthetic joint, initial encounter (principal); Z96.649 Presence of unspecified artificial hip joint
CPT/HCPCS: 73552

== ENCOUNTER 2025-08-10 12:35 | Emergency (ER) | payer MEDICARE, OTHER, SELFPAY ==
[2025-08-10 12:40] VITALS: BP 148/74; PULSE 69; RESP 14; TEMP 36.7; O2SAT 95; BMI 27.8
--- NOTE | 2025-08-10 12:49 | ED_ITS ---
<Statement entered by Grant Dangelo MD - 08/11/25 15:10> Grant Dangelo MD: I was consulted by the NATASHA, and we discussed the complexity of the problems being addressed. I approved the treatment and management plan for this patient's care in the emergency department, thus performing a substantive portion of the medical decision making. Discharge Plan Disposition Patient Disposition: Home, Self-Care Prescriptions Prescriptions: New diclofenac potassium 50 mg tablet 50 mg PO Q12H PRN (Reason: pain) Qty: 20 0RF methocarbamol 1,000 mg tablet 1,000 mg PO Q6H 3 Days Qty: 12 0RF No Action vitamin B complex [B Complex-Vitamin B12] tablet 1 tab PO DAILY gabapentin 400 mg capsule 400 mg PO BID Qty: 60 0RF oxycodone-acetaminophen 5-325 mg tablet 1 tab PO Q4HP PRN (Reason: Moderate Pain (4-6)) Qty: 30 0RF polyethylene glycol 3350 [Miralax] 17 gram Powder In Packet 17 g PO DAILY Qty: 14 0RF carvedilol 6.25 mg Tablet 6.25 mg PO BID Qty: 6 0RF acetaminophen 500 mg Tablet 1,000 mg PO Q8HP PRN (Reason: Mild To Moderate Pain (1-6)) Qty: 30 0RF pioglitazone 15 mg tablet 15 mg PO DAILY Qty: 3 0RF atorvastatin 40 MG tablet 40 mg PO HS Qty: 3 0RF enalapril maleate 2.5 mg tablet 2.5 mg PO DAILY Qty: 3 0RF metformin 850 mg tablet 850 mg PO BIDWMEAL Qty: 6 0RF levothyroxine [Euthyrox] 25 mcg tablet 25 mcg PO DAILYDM Qty: 3 0RF pantoprazole 40 mg tablet,delayed release (DR/EC) 40 mg PO DAILY Qty: 3 0RF glimepiride 4 mg tablet 8 mg PO DAILYDM Qty: 3 0RF furosemide 20 mg tablet 20 mg PO DAILY Qty: 3 0RF terazosin 10 mg capsule 10 mg PO HS Qty: 3 0RF finasteride 5 mg tablet 5 mg PO DAILY Qty: 3 0RF cholecalciferol (vitamin D3) 1,000 unit capsule 1,000 unit PO DAILY Qty: 3 0RF ferrous sulfate 27 mg iron Tablet 27 mg PO DAILY Qty: 3 0RF Referrals Follow up/Referrals: Jass David MD [Primary Care Provider, Medical] - See instructions Provider,Hemalatha, [Referring, Medical] - See instructions Activity Restrictions/Add. Instructions Additional Instructions/Restrictions: Increase fluids and rest. Take meds as directed. Please see Dr. David for further management treatment of back pain Clinical Impressions Clinical Impression: Muscle spasm, Back pain Instructions Patient Instructions: DI for Low Back Pain, DI for Back Spasm Print Language Print Language: Kenyan Discharge ED Provider: Grant Dangelo General Adult HPI General Chief complaint: PAIN Stated complaint: Back Pain Time Seen by Provider: 08/10/25 12:36 Mode of Arrival: EMS Source of Information: Patient and EMS Description of Symptoms (Recalled from ER Triage Doc. by RN): pt presents to ED with c/o lower back pain that radiates from left to right. pt reports that the was attempting to get out of bed a few days ago and felt a twinge in his back. pt is left BKA. History of Present Illness HPI narrative: 84-year-old male presents to the ED with complaint of lower back that radiates to his left leg. He says it feels like pain moving down his left leg. He did hit his chair but did not fall out. He also has trouble moving in and out of the bed because he crawls out of the bed. Says he just tweaked his back. He does take gabapentin for his left BKA already. He says this does not help. No bowel or bladder changes. He does have some diarrhea. Related Data Home Medications ?Medication ?Instructions ?Recorded ?Confirmed vitamin B complex (B 1 tab PO DAILY 03/24/18 0804/26 Complex-Vitamin B12 tablet) Previous Rx's ?Medication ?Instructions ?Recorded acetaminophen 500 mg tablet 1,000 mg (2 x 500 mg) PO Q 8HP PRN 01/19/24 Mild To Moderate Pain (1-6) #30 tabs atorvastatin 40 mg tablet 40 mg PO HS #3 tabs 01/19/24 carvedilol 6.25 mg tablet 6.25 mg PO BID #6 tabs 01/18 cholecalciferol (vitamin D3) 25 1,000 unit PO DAILY Felipe pplement #3 01/19/24 mcg (1,000 unit) capsule caps enalapril maleate 2.5 mg tablet 2.5 mg PO DAILY #3 tab s 01/19/24 ferrous sulfate 27 mg iron tablet 27 mg PO DAILY #3 ta bs 01/19/24 finasteride 5 mg tablet 5 mg PO DAILY #3 tabs furosemide 20 mg tablet 20 mg PO DAILY #3 tabs 01/18 glimepiride 4 mg tablet 8 mg (2 x 4 mg) PO DAILYDM # 3 tabs 01/19/24 levothyroxine 25 mcg tablet 25 mcg PO DAILYDM #3 tabs 01/19/24 (Euthyrox) metformin 850 mg tablet 850 mg PO BIDWMEAL Diabetes #6 tabs 01/19/24 pantoprazole 40 mg tablet,delayed 40 mg PO DAILY #3 ta bs 01/19/24 release pioglitazone 15 mg tablet 15 mg PO DAILY Diabetes #3 t abs 01/19/24 polyethylene glycol 3350 17 gram 17 g PO DAILY #14 ea 01/19/24 oral powder packet (Miralax) terazosin 10 mg capsule 10 mg PO HS #3 caps 01/19/24 gabapentin 400 mg capsule 400 mg PO BID #60 caps 04/01 oxycodone-acetaminophen 5 mg-325 1 tab PO Q4HP PRN Mod erate Pain 04/28/24 mg tablet (4-6) #30 tabs diclofenac potassium 50 mg tablet 50 mg PO Q12H PRN pa in #20 tabs 08/10/25 methocarbamol 1,000 mg tablet 1,000 mg PO Q6H 72 hours #12 tabs 08/10/25 Allergies Allergy/AdvReac Type Severity Reaction Status Date / Time No Known Allergies Allergy Verified 06/08/24 14:12 [facility] Disclaimer: The information contained in this section may have been updated after the patient was seen, as this information can be updated by other users. Medical History Arthritis of left knee Arthritis of knee, right Closed hip fracture Hydrocele in adult BPH loc w urin obs/LUTS CAD (coronary artery disease) Encounter for pre-operative cardiovascular clearance Below-knee amputation of left lower extremity BPH loc w urin obs/LUTS Amputation below knee Cholecystectomy planned Tonsillectomy planned Cataract History of coronary angiogram Tachycardia Constipation Osteomyelitis Coronary artery calcification seen on CAT scan Diabetic neuropathy Dyslipidemia Bilateral edema of lower extremity Gangrene of toe of left foot Pressure injury of toe of left foot, stage 1 Capillary refill time greater than 2 seconds Ulcer of great toe Skin ulcer of fourth toe of left foot, limited to breakdown of skin Skin ulcer of third toe of left foot Encounter for wound care Type 2 diabetes mellitus Cellulitis of second toe of left foot Obesity (BMI 30.0-34.9) Decreased pedal pulses Abnormal ankle brachial index (YOSHI) Diastolic dysfunction HLD (hyperlipidemia) HTN (hypertension) Exertional dyspnea Incomplete RBBB Abnormal ECG Nonhealing ulcer of left lower extremity PAD (peripheral artery disease) Surgical History Status post hip hemiarthroplasty History of cataract surgery History of lobectomy of lung H/O arthroscopy of knee H/O cardiac catheterization Status post below-knee amputation of left lower extremity Family History Other No significant family history Social History Smoking Status: Never smoker second hand exposure: No alcohol intake: former substance use type: denies use current occupational status: retired Travel in the last 8 weeks?: None adopted: No caregiver/support person: No foster care: No household members: none housing: house lives independently: Yes education level: high school current occupational exposures/hazards: No caffeine: Yes special frances needs: No do you feel safe at home: Yes victim of physical abuse: No victim of emotional abuse: No victim of sexual abuse: No would you like helpful sources: No Have you lived/traveled outside [place] in past 30 days?: No Contact w/someone who lives/traveled outside [place] past 30 days?: No Exposure to someone with infectious disease in past 14 days?: No Do you have a fever (greater than 100.4 F or 38 C)?: No Have you tested positive for COVID-19?: No Exposed to someone with COVID-19 in past 14 days?: No Do you have a sore throat?: No Do you have a cough?: No Do you have any weakness?: No Do you have any diarrhea?: No Are you experiencing any unusual bleeding?: No Do you have any muscle aches/pain?: No Do you have any abdominal pain?: No Are you experiencing loss of taste or smell?: No Other Medical History Have you received the Flu Vaccine for this season: No Have you received the Pneumonia Vaccine: Yes ROS Obtained: Yes Systems reviewed as appropriate & no additional complaints except as documented Constitutional Constitutional: Reports as per HPI Physical Exam General General appearance: alert Head Head exam: atraumatic and normocephalic Eye Eye exam: Present PERRL and EOMI ENT ENT exam: Present normal oropharynx and mucous membranes moist Neck Neck exam: Present full ROM and trachea midline Respiratory Respiratory exam: Present normal lung sounds bilaterally Cardiovascular Cardiovascular exam: Present regular rate, normal rhythm, normal heart sounds, +S1 and +S2 Abdominal Exam Abdominal exam: Present soft and normal bowel sounds Extremities Exam Extremities exam: Present full ROM and normal capillary refill Back Exam Back exam: Present normal inspection, tenderness (muscle on each side of spine) and paraspinal tenderness Neurological Exam Neurological exam: Present alert, oriented X3 and normal gait Skin Skin exam: Present warm, dry and intact Medical Decision Making Medical Records Screening: Per USPSTF and CDC recommendations, given the prevalence of disease in our region, it is our hospital?s policy to screen for HIV and viral Hepatitis for all patients aged 18 and over and those with ongoing risk factors. Brandon Inquiry Pt receiving controlled substance: No Brandon was queried for this patient: No Vital Signs: 08/10/25 12:40 08/10/25 14:46 08/10/25 15:00 Temperature 98.0 F Temperature Source Oral Pulse Rate 82 71 Pulse Rate [Left Radial] 69 Respiratory Rate 14 Blood Pressure 162/71 H 119/56 L Blood Pressure [Right Arm] 148/74 H Blood Pressure Mean [Right Arm] 98 02 Sat by Pulse Oximetry 95 96 95 Oxygen Delivery Method Room Air 08/10/25 15:45 Temperature 98.0 F Temperature Source Pulse Rate 79 Pulse Rate [Left Radial] Respiratory Rate 13 Blood Pressure 119/56 L Blood Pressure [Right Arm] Blood Pressure Mean [Right Arm] 02 Sat by Pulse Oximetry Oxygen Delivery Method Orders (Tests/Meds): ED MEDICATIONS Discontinued Medications Generic Name Dose Route Start Last Admin Trade Name Freq PRN Reason Stop Dose Admin Dexamethasone Sodium Phosphate 8 mg 08/10/25 12:51 08/10/25 13:08 Dexamethasone 4mg/Ml 1ml Vial IV 08/10/25 12:52 8 mg ONCE ONE Administration Ketorolac Tromethamine 30 mg 08/10/25 12:51 08/10/25 13:03 Ketorolac 30mg/Ml Vial IV 08/10/25 12:52 30 mg ONCE ONE Administration Methocarbamol 1,500 mg 08/10/25 12:54 08/10/25 13:06 Methocarbamol 500mg Tablet PO 08/10/25 12:55 1,500 mg ONCE ONE Administration Morphine Sulfate 4 mg 08/10/25 13:50 08/10/25 14:43 Morphine 4mg/Ml Syringe IV 08/10/25 13:51 4 mg ONCE ONE Administration Ondansetron HCl 4 mg 08/10/25 13:50 08/10/25 14:43 Ondansetron 4mg/2ml Vial IV 08/10/25 13:51 4 mg ONCE ONE Administration Medical Decision Narrative: patient is a 84-year-old male presenting to the emergency department for evaluation of low back pain. Patient is hemodynamically stable and nontoxic- appearing upon arrival, afebrile. Differential diagnosis includes muscle spasms. Patient has no red flag symptoms including no bowel or bladder changes, not an IV drug user, no midline tenderness. Discussed doing imaging with Dr. Dangelo but since he has no red flags we will forego imaging at this time. Patient will be given meds and reassessed. Patient's back pain has improved wi th medications. I discussed return precautions and increased symptoms and following up with his PCP or ED for the symptoms. Patient is safe for discharge home. Critical Care Critical Care Time Critical Care Time: No
[2025-08-10] MEDS: KETOROLAC 30MG/ML VIAL 30 MG IV (13:03)
[2025-08-10] MEDS: METHOCARBAMOL 500MG TABLET 1500 MG PO (13:06)
[2025-08-10] MEDS: DEXAMETHASONE 4MG/ML 1ML VIAL 8 MG IV (13:08)
[2025-08-10] MEDS: MORPHINE 4MG/ML SYRINGE 4 MG IV (14:43)
[2025-08-10] MEDS: ONDANSETRON 4MG/2ML VIAL 4 MG IV (14:43)
[2025-08-10 14:46] VITALS: BP 162/71; PULSE 82; O2SAT 96
[2025-08-10 15:00] VITALS: BP 119/56; PULSE 71; O2SAT 95
--- NOTE | 2025-08-10 15:29 | PC.NURSE ---
call made to family, they state they are going to return home to get pts disabeled vehicle. approx 45 minutes round trip.
[2025-08-10 15:45] VITALS: BP 119/56; PULSE 79; RESP 13; TEMP 36.7; O2SAT 95
== END 2025-08-10 16:15 | disposition home or self-care (01) ==
PROVIDERS: Emergency Provider Emergency Medicine; PCP Family Medicine
DX: M62.830 Muscle spasm of back (principal); M54.50 Low back pain, unspecified
CPT/HCPCS: 96374; 96375; 99284; J1100; J1885; J2270; J2405

== ENCOUNTER 2025-08-30 10:44 | Outpatient (CLI) | payer MEDICARE, OTHER, SELFPAY ==
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
--- OUTSIDE RECORDS SUMMARY | 2025-08-30 10:48 | XMS_ITS | Clinical Summary ---
Author Organization [facility] Address [address] [place] [address] Care Team Providers Care Director Of Surgery Name Role Phone Jass David MD Primary Care Provider [phone] Family History Medical History Relation Name Comments Hypertension Mother Relation Name Status Comments Mother Social History Tobacco Use Types Packs/Day Years Used Date Smoking Tobacco: Former Alcohol Use Standard Drinks/Week Comments Yes 0 (1 standard drink = 0.6 oz pur e alcohol) Sex and Gender Information Value Date Recorded Sex Assigned at Not on file Legal Sex Male 7:45 PM EDT Gender Identity Not on file Sexual Orientation Not on file Last Filed Vital Signs Vital Sign Reading Time Taken Comments Blood Pressure 153/71 04/17/2023 5:08 PM EDT Pulse - - Temperature - - Respiratory Rate - - Oxygen Saturation - - Inhaled Oxygen Concentration - - Weight 90.7 kg (200 lb) 04/17/2023 5:08 PM EDT Height 180.3 cm (5' 11 ) 04/17/2023 5:08 PM EDT Body Mass Index 27.89 04/17/2023 5:08 PM EDT Plan of Treatment Health Maintenance Due Date Last Done Comments [facility]-Depression Screening 1940 [facility]-Infant/Child/Adol SDOH Screenings 1940 [facility]- SDOH Screenings 1959 [facility]-Adult SDOH Screenings 1959 [facility]-DTaP,Tdap,and Td Vaccines (1 - Tdap) 1960 [facility]-Zoster Vaccines (1 of 2) 1991 [facility]-RSV Vaccine: 60+ Years or (1 - 1-dose 75+ series) 2016 [id number] Vaccine (2024- season) 2025 08/28/2022, 09/12/2021, 01/17/2021, Additional history exists [facility]-Influenza Vaccine (#1) 2025 08/19/2022, [facility]-Pneumococcal Vaccine: 50+ Years Completed 07/13/2020, 12/11/2018 HPV Vaccines Aged Out No longer eligi ble based on patient's age to complete this topic [facility]-HIB Vaccines Aged Out No longer e ligible based on patient's age to complete this topic [facility]-Hepatitis A Vaccines Aged Out No longer eligible based on patient's age to complete this topic [facility]-IPV Vaccines Aged Out No longer e ligible based on patient's age to complete this topic [facility]-Rotavirus Vaccines Aged Out No lo nger eligible based on patient's age to complete this topic Insurance [place] [id number] [facility] [place] Care Teams Director Of Surgery Relationship Specialty Start Date End Date Jass Dvaid MD [address] [facility] [place] [id number] [facility] - General 03/16/21
== END 2025-08-30 23:59 | disposition home or self-care (01) ==
LOC: RAD 10:45
PROVIDERS: PCP Family Medicine; Visit Provider Family Medicine
DX: M47.816 Spondylosis without myelopathy or radiculopathy, lumbar region (principal); M25.78 Osteophyte, vertebrae; M51.86 Other intervertebral disc disorders, lumbar region; M48.8X6 Other specified spondylopathies, lumbar region
CPT/HCPCS: 72110

== ENCOUNTER 2025-11-01 08:19 | Outpatient (CLI) | payer MEDICARE, OTHER, SELFPAY ==
--- OUTSIDE RECORDS SUMMARY | 2024-06-01 08:45 | XMS_ITS ---
Author Organization [facility] Address [address] [facility] [address] [id number] Care Team Providers Care Rn Clinical Resource Name Role Phone Sherita David Primary Care Provider Allergies Allergen (clinical drug ingredient) Drug/Non Drug Allergy documented on EMR Reaction Allergy Type Onset Date Status cilostazol Cilostazol headache Drug Allergy Activ e REASON FOR VISIT check up, paperwork for prostetic Medications Medication SIG (Take, Route, Frequency, Duration) Notes Start Date End Date Status Furosemide 20 MG 1 tab(s) orally once a day Active Glimepiride 4 MG Take 2 tablets by mouth once daily Orally Once a day Active Terazosin HCl 10 MG 1 cap(s) orally at bedtime Active Finasteride 5 MG Take 1 tablet by maria esther th once daily Active metFORMIN HCl 850 MG Take 1 tablet by mo uth twice daily Active Vitamin D3 25 MCG (1000 UT) 1 tab(s) orally once a day Active Gabapentin 400 MG 1 capsule orally 2 times a day Active Carvedilol 6.25 MG 1 tablet with food Orally Twice a day Active MiraLax - DIRECTED ORALLY ONCE A DAY Active Enalapril Maleate 2.5 MG 1 tab(s) Orally once a day Active Atorvastatin Calcium 40 MG 1 tab(s) oral ly once a day Active Vitamin C 500 MG as directed Orally Active Imodium Multi-Symptom Relief 2-125 MG as directed Orally Active Accu-Chek Scarlett Plus - 2 times a day or as directed Not-Taking Levothyroxine Sodium 25 MCG 1 tab(s) orally once a day Active ACCU-CHEK LANCET ACCU-CHEK 2 TIMES A DAY OR DIRECTED 10/28/2014 Not-Taking metFORMIN HCl 850 MG Take 1 tablet by mo [facility] twice daily; Duration: 90 days Active Wheelchair DIRECTED 03/28/2021 Active Multivitamin 1 TAB(S) ONCE A DAY Not-Taking Accu-Chek Scarlett Plus w/Device as directed 10/28/2014 Not-Taking DNR Active oxyCODONE-Acetaminophen 5-325 MG 1 tablet as needed Orally every 6 hrs prn 02/04/2024 Active Pioglitazone HCl 15 MG 1 tab(s) orally o nce a day; Duration: 90 days Active Vitamin B Complex w/B-12 - as directed Orally Active Acetaminophen 500 MG 2 tablet as needed orally TID prn Active Ferrous Sulfate 325 (65 Fe) MG 1 tab(s) orally daily Active Pantoprazole Sodium 40 MG 1 tab(s) orall y once a day Active Simethicone 125 MG 1 capsule Orally Fou r times a day prn Active Problems Problem Type SNOMED Code ICD Code Onset Dates Problem Status W/U Status Risk Notes Problem Irritable bowel syndrome (11363057) Irritable bowel syndrome (K58.9) Active confirmed Vital Signs Weight 195 lbs 06/01/2024 Blood pressure systolic 120 mm Hg 06/01/20 24 Blood pressure diastolic 50 mm Hg 024 Heart Rate 64 /min 06/01/2024 Height 68.50 in 06/01/2024 BMI 29.22 kg/m2 06/01/2024 Encounters Encounter Location Date Provider [facility] [address] [id number] 06/01/2024 R Eron David 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 Z89.512 ; Type 2 diabetes mellitus with diabetic peripheral angiopathy without gangrene, without long-term current use of insulin E11.51 ; Diabetic polyneuropathy associated with type 2 diabetes mellitus E11.42 ; Periprosthetic fracture around other internal prosthetic joint, initial encounter M97.8XXA ; Atherosclerosis of red devil coronary artery without angina pectoris, unspecified whether red devil or transplanted heart I25.10 ; Dyslipidemia E78.5 ; Peripheral arterial disease I73.9 ; Hypothyroidism (acquired) E03.9 and Irritable bowel syndrome K58.9 Assessments Encounter Date Diagnosis (ICD Code) Assessment Notes Treatment Notes Treatment Clinical Notes Section Notes 06/01/2024 Status post below-knee amputation of left lower extremity (ICD-10 - Z89.512) 06/01/2024 Type 2 diabetes mellitus with diabetic peripheral angiopathy without gangrene, without long-term current use of insulin (ICD-10 - E11.51) 06/01/2024 Diabetic polyneuropathy associated with type 2 diabetes mellitus (ICD-10 - E11.42) 06/01/2024 Periprosthetic fracture around other internal prosthetic joint, initial encounter (ICD-10 - M97.8XXA) 06/01/2024 Atherosclerosis of red devil coronary artery without angina pectoris, unspecified whether red devil or transplanted heart (ICD-10 - I25.10) 06/01/2024 Dyslipidemia (ICD-10 - E78.5) 06/01/2024 Peripheral arterial disease (ICD-10 - I73.9) 06/01/2024 Hypothyroidism (acquired) (ICD-10 - E03.9) 06/01/2024 Irritable bowel syndrome (ICD-10 - K58.9) Plan Of Treatment Medication Medication Name Sig Start Date Stop Date Notes Gabapentin 400 MG 1 capsule orally 2 times a day Carvedilol 6.25 MG 1 tablet with food O rally Twice a day Atorvastatin Calcium 40 MG 1 tab(s) orally once a day Levothyroxine Sodium 25 MCG 1 tab(s) orally once a day Next Appt Details Follow Up: 3 Months with lab s, Reason: Progress Notes * LELAANYI MADDENDOB: [birth year] (85 yo M)Acc No.[id number]:06/01/2024 Progress Notes Patient: ANYI ANTHONY Provider: Sherita David M.D. :1940 A ge:83 Y S ex:Male Date:06/01/2024 Address:[address] [place] [place] [address] Subjective: * Chief Complaints: * 1 . Check up, paperwork for prostetic. * HPI: H PI: Derian comes in for scheduled checkup. He continues to reside at the [facility] rehabbing from his left periprosthetic hip fracture but is planning on discharging home in about 2 weeks. He continues to follow with Dr. Phelps who has addressed the administrative orders for his new prosthetic. G astroenterology: He continues to have issues with irritable bowel syndrome alternating with diarrhea and constipation. * ROS: R ESPIRATORY: no S hortness of breath. n o C hest pain. ? C ARDIOLOGY: no C hest pain. n o L eg edema. n o S hortness of breath. G ASTROENTEROLOGY: Positive for e ating without problems now. n o V omiting. n o D iarrhea. H ad FU with orthoped today with fu xray; next appt in 4 weeks. * Medical History: T ype 2 diabetes, Hypertension, Obesity, Hyperlipidemia, Hiatal hernia, OA, Cervical radiculoapthy, Peptic ulcer - 08/2013, BPH, Hydrocele, Peripheral arterial disease - abnormal YOSHI 2013, Covid vaccine Moderna x2. * Surgical History: o pen repair of right knee torn cartilage and ligament 1960, kidney stones , cholecystectomy , partial removal right lung , Colonoscopy 2003,2008, angiogram and angioplasty [facility] and [facility]-Left leg-Dr Winkler 02/2014, stress test/Echo Dr. Whitehead 05/2018, EGD/ Young 01/2019, C-scope/ polyps x / Young 01/2019, ERCP w/ pancreatic ssphinterotomy, colonoscopy and endoscope Dr Vidal 05/2019, right eye cataract 2018, angiography left leg with stent 2020/rught leg 2020 2020, below knee amputation, left leg - Dr. Mckinley 04/27/21, ORIF left periprosthetic fracture/ Dr. Phelps 2022, EGD & Colonoscopy 02/2023. * Hospitalization/Major Diagno stic Procedure: U TC-pressure in head, ear pain 08/03/12, [facility]- acute pancreatitis 10/07/14, Discharge Diagnosis(1) Closed hip fracture:Status: Acute(2) Status post hip hemiarthroplasty:Status: Acute(3) Itch of skin:Status: Acute(4) Anemia:Status: Acute(5) Osteoarthritis:Status: Acute(6) HTN (hypertension):Status: Chronic(7) PAD (peripheral artery disease):Status: Chronic(8) Type 2 diabetes mellitus:Status: Chronic 10/08-10/11/2022. * Family History: F ather: . M other: . 2 son(s) - healthy. . * Social History: C URRENT TOBACCO USE S moking Status: Patient does NOT smoke. C affeine: yes, frequency:. Home smoke detector use: yes. Marital Status: . Past smoking status: no, Smoking status: Does not smoke. Alcohol: no. * Medications: T aking Imodium Multi-Symptom Relief 2-125 MG Tablet as directed Orally , Taking Gabapentin 400 MG Capsule 1 capsule orally 2 times a day , Taking Atorvastatin Calcium 40 MG Tablet 1 tab(s) orally once a day , Taking Levothyroxine Sodium 25 MCG Tablet 1 tab(s) orally once a day , Taking Carvedilol 6.25 MG Tablet 1 tablet with food Orally Twice a day , Taking Vitamin C 500 MG Capsule as directed Orally , Taking Vitamin D3 25 MCG (1000 UT) Tablet 1 tab(s) orally once a day , Taking MiraLax - POWDER FOR RECONSTITUTION DIRECTED ORALLY ONCE A DAY , Taking Enalapril Maleate 2.5 MG Tablet 1 tab(s) Orally once a day , Taking metFORMIN HCl 850 MG Tablet Take 1 tablet by mouth twice daily , Taking Furosemide 20 MG Tablet 1 tab(s) orally once a day , Taking Glimepiride 4 MG Tablet Take 2 tablets by mouth once daily Orally Once a day , Taking Terazosin HCl 10 MG Capsule 1 cap(s) orally at bedtime , Taking Finasteride 5 MG Tablet Take 1 tablet by mouth once daily , Taking Ferrous Sulfate 325 (65 Fe) MG Tablet 1 tab(s) orally daily , Taking Pantoprazole Sodium 40 MG Tablet Delayed Release 1 tab(s) orally once a day , Taking Simethicone 125 MG Capsule 1 capsule Orally Four times a day prn , Taking DNR DO NOT RESUSCITATE , Taking oxyCODONE-Acetaminophen 5-325 MG Tablet 1 tablet as needed Orally every 6 hrs prn , Taking Pioglitazone HCl 15 MG Tablet 1 tab(s) orally once a day , Taking Vitamin B Complex w/B-12 - Tablet as directed Orally , Taking Acetaminophen 500 MG Tablet 2 tablet as needed orally TID prn , Taking metFORMIN HCl 850 MG Tablet Take 1 tablet by mouth twice daily , Taking Wheelchair DIRECTED , Not-Taking Multivitamin 1 TAB(S) ONCE A DAY , Not-Taking Accu-Chek Scarlett Plus w/Device Kit as directed , Not- Taking ACCU-CHEK LANCET ACCU-CHEK LANCETS 2 TIMES A DAY OR DIRECTED , Not-Taking Accu-Chek Scarlett Plus - Strip 2 times a day or as directed , Medication List reviewed and reconciled with the patient * Allergies: C ilostazol: headache - Side Effects. Objective: * Vitals: W t:195, Temp:97.8, BP:120/50, HR:64, O2 Sat:92% on RA, Nurse:GILSON, Ht: 68.50, BMI:29.22. * Examination: C ardiology: General Appearance: C omes in by WC. Alert, pleasant, no distress. Color i s pale.. C arotid upstroke: n ormal, no bruits. H eart sounds: R RR, normal S1, S2. M urmur, click , gallop: n one. L ungs: c lear, no rales or wheezes. E xtremities: T race edema right ankle. Left leg prosthesis. Assessment: * Assessment: 1. S tatus post below-knee amputation of left lower extremity - Z89.512 (Primary) ?2. T ype 2 diabetes mellitus with diabetic peripheral angiopathy without gangrene, without long-term current use of insulin - E11.51 3 . D iabetic polyneuropathy associated with type 2 diabetes mellitus - E11.42 4 . P eriprosthetic fracture around other internal prosthetic joint, initial encounter - M97.8XXA 5 . A therosclerosis of red devil coronary artery without angina pectoris, unspecified whether red devil or transplanted heart - I25.10 6 . D yslipidemia - E78.5 7 . P eripheral arterial disease - I73.9 8 . H ypothyroidism (acquired) - E03.9 9 . I rritable bowel syndrome - K58.9 Plan: * Treatment: 2. A therosclerosis of red devil coronary artery without angina pectoris, unspecified whether red devil or transplanted heart Continue Carvedilol Tablet, 6.25 MG, 1 tablet with food, Orally, Twice a day. 3. D yslipidemia Continue Atorvastatin Calcium Tablet, 40 MG, 1 tab(s), orally, once a day. 4. H ypothyroidism (acquired) Continue Levothyroxine Sodium Tablet, 25 MCG, 1 tab(s), orally, once a day. * Procedure Codes: 9 4760 [place] * Follow Up: 3 Months with labs * Images: Billing Information: * Visit Code: 95991 Office Visit, Est Pt., Level 4. * Procedure Codes: 93433 [place]SE [place]. * Electronic signature of Sherita David MD on 11/01/2025 at 08:24 AM EST Sign off status: Pending * Provider: Sherita David M.D. Date: 0 06/01/2024 Generated for Ruben patrick/Kurtis/Everettsmitting on: 08:24 AM EST History and Physical Notes * Examination Category Sub-Category Detail Notes Category Not es Cardiology Lungs: clear, no rales or wheezes Heart sounds: RRR, normal S1, S2 Carotid upstroke: normal, no bruits Extremities: Trace edema right an kle. Left leg prosthesis Murmur, click , gallop: none General Appearance: Comes in by WCMohsen Machado t, pleasant, no distress. Color is pale.
--- OUTSIDE RECORDS SUMMARY | 2024-06-17 06:15 | XMS_ITS ---
Author Organization [facility] Address [facility] [address] [place] [phone] Care Team Providers Care Lodging Manager Name Role Phone Sherita David Primary Care Provider [phone] REASON FOR VISIT f/u from [facility] and a exam for a power wheelchair Encounters Encounter Location Date Provider Diagnosis [facility] [address] [place] [phone] 06/17/2024 Sherita David Plan Of Treatment No Information Progress Notes * ANYI PAULINODOB: [birth year] (85 yo M)Acc No.[id number]:06/17/2024 Extended Visit Patient: ANYI ANTHONY Provider: Sherita David M.D. :1940 A ge:83 Y S ex:Male Date:06/17/2024 Address:[address] [place], [place] [phone] Subjective: * Chief Complaints: * 1 . f/u from [facility] and a exam for a power wheelchair. * Medical History: Objective: * Vitals: Assessment: Plan: * Treatment: * Images: Billing Information: * Visit Code: * Procedure Codes: * Electronic signature of Sherita David MD on 11/01/2025 at 08:26 AM EST Sign off status: Pending * Provider: Sherita David M.D. Date: 06/17/2024 Generated for Ruben patrick/Kurtis/Jeffry on: 1 08:26 AM EST
--- OUTSIDE RECORDS SUMMARY | 2024-07-16 05:45 | XMS_ITS ---
Author Organization [facility] Address [address] [phone] Care Team Providers Care Concrete Engineer Name Role Phone Sherita David Primary Care Provider [phone] Akash Romo Unavailable [phone] Allergies Allergen (clinical drug ingredient) Drug/Non Drug Allergy documented on EMR Reaction Allergy Type Onset Date Status cilostazol Cilostazol headache Drug Allergy Activ e Results Component Value Reference Range Notes CBC Fingerstick (in house) Reviewed date:07/16/2024 12:14:09 PM Interpretation: Performing Lab: Notes/Report: wbc 8.0 3.5 - 10 lym 22.0% 15 - 50 mid 6.2% 2 - 15 gran 71.8% 35 - 80 rbc 2.68 3.5 - 5.5 hgb 8.5 11.5 - 16.5 hct 27.0 35 - 55 mcv 100.6 75 - 100 mch 32.0 25 - 35 mchc 31.8 31 - 38 plat 262 100 - 400 REASON FOR VISIT cant swallow, losing voice Medications Medication SIG (Take, Route, Frequency, Duration) Notes Start Date End Date Status metFORMIN HCl 850 MG Take 1 tablet by [facility] twice daily; Duration: 90 days Active Wheelchair DIRECTED 03/28/2021 Active Vitamin B Complex w/B-12 - as directed Orally Active Acetaminophen 500 MG 2 tablet as needed orally TID prn Active Pioglitazone HCl 15 MG 1 tab(s) orally o nce a day; Duration: 90 days Active MiraLax - DIRECTED ORALLY O NCE A DAY Active oxyCODONE-Acetaminophen 5-325 MG 1 tablet as needed Orally every 6 hrs prn 02/04/2024 Active Simethicone 125 MG 1 capsule Orally Fou r times a day prn Active DNR Active Ferrous Sulfate 325 (65 Fe) MG 1 tab(s) orally daily Active Vitamin D3 25 MCG (1000 UT) 1 tab(s) ora lly once a day Active Imodium Multi-Symptom Relief 2-125 MG as directed Orally Active Vitamin C 500 MG as directed Orally Active Pantoprazole Sodium 40 MG 1 tab(s) orall y once a day; Duration: 90 days Active Terazosin HCl 10 MG 1 cap(s) orally at bedtime; Duration: 90 days Active Finasteride 5 MG 1 tablet Orally Once a day; Duration: 90 days Active Carvedilol 6.25 MG 1 tablet with food Orally Twice a day; Duration: 90 days Active Furosemide 20 MG 1 tab(s) orally once a day; Duration: 90 days Active Glimepiride 4 MG Take 2 tablets by oh ut once daily Orally Once a day; Duration: 90 days Active Enalapril Maleate 2.5 MG 1 tab(s) Orally once a day; Duration: 90 days Active metFORMIN HCl 850 MG 1 tablet with a neha l Orally Two times a day; Duration: 90 days Active Levothyroxine Sodium 25 MCG 1 tab(s) ora lly once a day; Duration: 90 days Active Gabapentin 400 MG 1 capsule orally 2 t imes a day 06/17/2024 Active Atorvastatin Calcium 40 MG 1 tab(s) oral ly once a day; Duration: 90 days Active Zithromax Z-Trell 250 MG as directed Orall y once daily; Duration: 5 day(s) 07/16/2024 Active Vital Signs Weight 198 lbs 07/16/2024 Blood pressure systolic 122 mm Hg 07/16/20 24 Blood pressure diastolic 68 mm Hg 024 Heart Rate 69 /min 07/16/2024 Height 68.50 in 07/16/2024 BMI 29.66 kg/m2 07/16/2024 Encounters Encounter Location Date Provider Diagnosis [facility] [address] [facility] [address] [place], [place] [id number] 07/16/2024 Akash [place] Acute cough R 05.1 Assessments Encounter Date Diagnosis (ICD Code) Assessment Notes Treatment Notes Treatment Clinical Notes Section Notes 07/16/2024 Acute cough (ICD-10 - R05.1) Plan Of Treatment Medication Medication Name Sig Start Date Stop Date Notes Zithromax Z-Trell 250 MG as directed Orall y once daily; Duration: 5 day(s) 07/16/2024 Next Appt Details Follow Up: [address] Smith, Reason: Progress Notes * ANYI CONNDOB: [birth year] (85 yo M)Acc No.[id number]:07/16/2024 Progress Notes Patient: ANYI ANTHONY Provider: Aixa Romo M.D. :1940 A ge:83 Y S ex:Male Date:07/16/2024 Address:[address] [place] [address] Pcp:Sherita David Subjective: * Chief Complaints: * 1 . Cant swallow, losing voice. * HPI: E NT/respiratory: 83 year old male presents with c/o facial pain/pressure P t complains of bilateral facial pressure for a couple days. States that he also has some congestion but is unable to get anything out. Denies : cough. D enies : Fever. D enies : body aches.? * ROS: D ERMATOLOGY: no R sandy. n o H lizandro. G ASTROENTEROLOGY: no N ausea. n o V omiting. U ROLOGY: no D ifficulty urinating. n o B lood in urine. * Medical History: T ype 2 diabetes, Hypertension, Obesity, Hyperlipidemia, Hiatal hernia, OA, Cervical radiculoapthy, Peptic ulcer - 08/2013, BPH, Hydrocele, Peripheral arterial disease - abnormal YOSIH 2013, Covid vaccine Moderna x2. * Surgical History: o pen repair of right knee torn cartilage and ligament 1960, kidney stones , cholecystectomy , partial removal right lung , Colonoscopy 2003,2008, angiogram and angioplasty [facility] and [facility]-Left leg-Dr Winkler 02/2014, stress test/Echo Dr. Whitehead 05/2018, EGD/ Young 01/2019, C-scope/ polyps x 5/ Vidal 01/2019, ERCP w/ pancreatic ssphinterotomy, colonoscopy and endoscope Dr Vidal 05/2019, right eye cataract 2018, angiography left leg with stent 2020/rught leg 2020 2020, below knee amputation, left leg - Dr. Mckinley 04/27/21, ORIF left periprosthetic fracture/ Dr. Phelps 2022, EGD & Colonoscopy 02/2023. * Hospitalization/Major Diagno stic Procedure: U TC-pressure in head, ear pain 08/03/12, [facility]- acute pancreatitis 10/07/14, Discharge Diagnosis(1) Closed hip [...] MG Tablet as directed Orally , Taking Vitamin C 500 MG Capsule as directed Orally , Taking Vitamin D3 25 MCG (1000 UT) Tablet 1 tab(s) orally once a day , Taking MiraLax - POWDER FOR RECONSTITUTION DIRECTED ORALLY ONCE A DAY , Taking Ferrous Sulfate 325 (65 Fe) MG Tablet 1 tab(s) orally daily , Taking Simethicone 125 MG Capsule 1 [...] twice daily , Taking Wheelchair DIRECTED , Taking Gabapentin 400 MG Capsule 1 capsule orally 2 times a day , Taking Atorvastatin Calcium 40 MG Tablet 1 tab(s) orally once a day , Taking Levothyroxine Sodium 25 MCG Tablet 1 tab(s) orally once a day , Taking Carvedilol 6.25 MG Tablet 1 tablet with food Orally Twice a day , Taking Enalapril Maleate 2.5 MG Tablet 1 tab(s) Orally once a day , Taking metFORMIN HCl 850 MG Tablet 1 tablet with a meal Orally Two times a day , Taking Furosemide 20 MG Tablet 1 tab(s) orally once a day , Taking Glimepiride 4 MG Tablet Take 2 tablets by mouth once daily Orally Once a day , Taking Terazosin HCl 10 MG Capsule 1 cap(s) orally at bedtime , Taking Finasteride 5 MG Tablet 1 tablet Orally Once a day , Taking Pantoprazole Sodium 40 MG Tablet Delayed Release 1 tab(s) orally once a day , Discontinued Multivitamin 1 TAB(S) ONCE A DAY , Discontinued Accu-Chek Scarlett Plus w/Device Kit as directed , Discontinued ACCU-CHEK LANCET ACCU-CHEK LANCETS 2 TIMES A DAY OR DIRECTED , Discontinued Accu-Chek Scarlett Plus - Strip 2 times a day or as directed , Medication List reviewed and reconciled with the patient * Allergies: C ilostazol: headache - Side Effects. Objective: * Vitals: W t:198, Temp:98.0, BP:122/68, HR:69, O2 Sat:90% on RA, Nurse:hipolito, Ht: 68.50, BMI:29.66. * Examination: E NT/Respiratory: General Appearance: N AD, sitting in a wheelchair. E yes: P ERRLA, sclera clear. O ral cavity : erythema without exudate on pharynx. N [place] : n o cervical lymphadenopathy. H eart : R RR, normal S1 S2. L ungs: c lear to auscultation bilaterally. Assessment: * Assessment: 1. A hannahe cough - R05.1 (Primary) Plan: * Treatment: Value Reference Range w bc 8.0 3.5 - 10 * l ym 22.0% 15 - 50 * m id 6.2% 2 - 15 * g ran 71.8% 35 - 80 * r bc 2.68 3.5 - 5.5 * h gb 8.5 11.5 - 16.5 * h ct 27.0 35 - 55 * m cv 100.6 75 - 100 * m ch 32.0 25 - 35 * m chc 31.8 31 - 38 * p lat 262 100 - 400 * Kelly Pink 07/16/2024 11:21:2 1 AM > , Provider reviewed results while patient in office. * Procedure Codes: G 2211 Complex e/[place], [address] [place], [address] CAPILLARY BLOOD DRAW, 99547 CBC WITH AUTO DIFF * Follow Up: [address] Smith * Images: Billing Information: * Visit Code: 67411 Office Visit, Est Pt., Level 3. * Procedure Codes: G2211 Complex e/[place] [address] [place] [address] CAPILLARY BLOOD DRAW. 68761 CBC WITH AUTO DIFF. * Electronic signature of Meseret Romo MD on 11/01/2025 at 08:24 AM EST Sign off status: Pending * Provider: Aixa Romo M.D. Date: 0 07/16/2024 Generated for Ruben patrick/Kurtis/eTransmitting on: 08:24 AM EST History and Physical Notes * HPI (History of Present Illness) Category Sub-Category Detail Notes Category Not es ENT/respiratory facial pain/pressure Pt complain s of bilateral facial pressure for a couple days. States that he also has some congestion but is unable to get anything out cough Fever body aches Examination Category Sub-Category Detail Notes Category Not es ENT/Respiratory Oral cavity : erythema without exudate on pharynx Neck : no cervical lymphade nopathy Heart : RRR, normal S1 S2 Lungs: clear to auscultatio n bilaterally General Appearance: NAD, sitting in a wh eelchair Eyes: PERRLA, sclera clear
--- OUTSIDE RECORDS SUMMARY | 2024-08-31 05:15 | XMS_ITS ---
[facility] Organization [facility] [place] Address [address] [facility] [address] [place], [place] [id number] Care Team Providers Care Instrument Sterilizer Name Role Phone Sherita David Primary Care Provider Allergies Allergen (clinical drug ingredient) Drug/Non Drug Allergy documented on EMR Reaction Allergy Type Onset Date Status cilostazol Cilostazol headache Drug Allergy Activ e Results Component Value Reference Range Notes Glycohemoglobin A1c (in hous e) Reviewed date:09/05/2024 09:20:40 PM Interpretation:7.1% Performing Lab: Notes/Report: 7.1% glycohemoglobin 7.1% 5 - 6.5 % P-Comprehensive Metabolic Pa aaron (CMP) Reviewed date:09/05/2024 09:20:40 PM Interpretation:gluc 146, bun 30, Cr 1.445, gfr 48 Performing Lab: Notes/Report: CLIA: [id number] John Paul Gay MD, Bottoming Room Inspector [address] [facility] , [address], [place] [address] Test performed by Oscar, [employer] Sodium 141 135-145 mmol/L Potassium 5.1 3.5-5.3 mmol/L Chloride 103 97-108 mmol/L CO2 25 22-32 mmol/L Glucose 146 65-99 mg/dL BUN 30 8-23 mg/dL Creatinine 1.45 0.70-1.30 mg/dL Calcium 9.4 8.6-10.4 mg/dL eGFR by Creatinine 48 >59 mL/min/1.73m2 Protein 6.8 6.0-8.3 g/dL Albumin 3.7 3.5-5.3 g/dL Alkaline Phosphatase 81 40-129 IU/L ALT (SGPT) 8 <5-55 IU/L AST (SGOT) 16 <5-46 IU/L Bilirubin, Total 0.5 <0.2-1.2 mg/dL A/G Ratio 1.2 1.1-2.5 P-Lipid Panel Reviewed date:09/05/2024 09:20:40 PM Interpretation:Normal Performing Lab: Notes/Report: Test performed by Oscar, [address] , [address], [place] [address] John Paul Gay MD, Bottoming Room Inspector CLIA: [id number] Cholesterol 125 <200 mg/dL Triglycerides 67 <150 mg/dL HDL Cholesterol 58 >39 mg/dL Cholesterol / HDL Ratio 2.16 0.00-4.99 Ratio Non-HDL Cholesterol 67 <130 mg/dL LDL Cholesterol (Calculation) 54 <130 mg/dL LDL Cholesterol Levels* Less than 100 mg/dL Optimal 100 to 129 mg/dL Near Optimal/ Above Optimal 130 to 159 mg/dL Borderline High 160 to 189 mg/dL High 190 mg/dL and above Very High * Categories as recommended by the 2004 ATPIII guidelines LDL/HDL Ratio 0.9 <3.3 Ratio LDL Cholesterol Patient History Test Date: 08/31/2024 LDL Results: 54 Units: mg/dL % Change: - P-TSH Reviewed date:09/05/2024 09:20:40 PM Interpretation:Normal Performing Lab: Notes/Report: Test performed by Oscar, [address] , [address], [place] [address] John Paul Gay MD, Bottoming Room Inspector CLIA: [id number] TSH 2.80 0.43-5.25 mU/L REASON FOR VISIT Check up and labs Medications Medication SIG (Take, Route, Frequency, Duration) Notes Start Date End Date Status DNR Active oxyCODONE-Acetaminophen 5-325 MG 1 tablet as needed Orally every 6 hrs prn 02/04/2024 Active Pioglitazone HCl 15 MG 1 tab(s) orally o nce a day; Duration: 90 days Active Vitamin B Complex w/B-12 - as directed Orally Active Acetaminophen 500 MG 2 tablet as needed orally TID prn Active Simethicone 125 MG 1 capsule Orally Fou r times a day prn Active Vitamin C 500 MG as directed Orally Active Vitamin D3 25 MCG (1000 UT) 1 tab(s) ora lly once a day Active MiraLax - DIRECTED ORALLY O NCE A DAY Active Ferrous Sulfate 325 (65 Fe) MG 1 tab(s) orally daily Active Furosemide 20 MG 1 tab(s) orally once a day Active Terazosin HCl 10 MG 1 cap(s) orally at bedtime Active Finasteride 5 MG 1 tablet Orally Once a day Active Imodium Multi-Symptom Relief 2-125 MG as directed Orally Active Pantoprazole Sodium 40 MG 1 tab(s) orall y once a day Active Carvedilol 6.25 MG 1 tablet with food Orally Twice a day Active Enalapril Maleate 2.5 MG 1 tab(s) Orally once a day Active metFORMIN HCl 850 MG 1 tablet with a neha l Orally Two times a day Active Glimepiride 4 MG take 2 tablets by mo uth once daily Orally Once a day Active Levothyroxine Sodium 25 MCG 1 tab(s) ora lly once a day Active metFORMIN HCl 850 MG Take 1 tablet by mo uth twice daily; Duration: 90 days Active Atorvastatin Calcium 40 MG 1 tab(s) oral ly once a day Active Wheelchair DIRECTED 03/28/2021 Active Gabapentin 400 MG 1 capsule orally 2 t imes a day 06/17/2024 Active Immunizations Vaccine Route Administration Date Status Comme nts Fluzone High Dose (65yr and older) IM Intramuscular 08/31/2024 Administered Vital Signs Weight 201.2 lbs 08/31/2024 Blood pressure systolic 110 mm Hg 08/31/20 24 Blood pressure diastolic 60 mm Hg 024 Height 68.50 in 08/31/2024 BMI 30.14 kg/m2 08/31/2024 Encounters Encounter Location Date Provider Diagnosis [facility] [address] [facility] [address] [place], [place] [id number] 08/31/2024 R Eron David Dyslipidemia E78.5 ; Hypothyroidism (acquired) E03.9 ; Atherosclerosis of [place] coronary artery without angina pectoris, unspecified whether [place] or transplanted heart I25.10 ; Type 2 diabetes mellitus without complication, unspecified whether credit risk modeler insulin use E11.9 ; Localized edema R60.0 ; Benign prostatic hypertrophy N40.0 ; Gastroesophageal reflux disease without esophagitis K21.9 and Encounter for immunization Z23 Assessments Encounter Date Diagnosis (ICD Code) Assessment Notes Treatment Notes Treatment Clinical Notes Section Notes 08/31/2024 Dyslipidemia (ICD-10 - E78.5) 08/31/2024 Hypothyroidism (acquired) (ICD-10 - E03.9) 08/31/2024 Atherosclerosis of [place] coronary artery without angina pectoris, unspecified whether [place] or transplanted heart (ICD-10 - I25.10) 08/31/2024 Type 2 diabetes mellitus without complication, unspecified whether credit risk modeler insulin use (ICD-10 - E11.9) 08/31/2024 Localized edema (ICD-10 - R60.0) 08/31/2024 Benign prostatic hypertrophy (ICD-10 - N40.0) 08/31/2024 Gastroesophageal reflux disease without esophagitis (ICD-10 - K21.9) 08/31/2024 Encounter for immunization (ICD-10 - Z23) Plan Of Treatment Medication Medication Name Sig Start Date Stop Date Notes Furosemide 20 MG 1 tab(s) orally once a day Terazosin HCl 10 MG 1 cap(s) orally at bedtime Finasteride 5 MG 1 tablet Orally Once a day Pantoprazole Sodium 40 MG 1 tab(s) orally once a day Carvedilol 6.25 MG 1 tablet with food O rally Twice a day Enalapril Maleate 2.5 MG 1 tab(s) Orally once a day metFORMIN HCl 850 MG 1 tablet with a neha l Orally Two times a day Glimepiride 4 MG take 2 tablets by mo uth once daily Orally Once a day Levothyroxine Sodium 25 MCG 1 tab(s) orally once a day Atorvastatin Calcium 40 MG 1 tab(s) orally once a day Next Appt Details Follow Up: 6 Months, Reason: Progress Notes * ANYI CONNDOB: [birth year] (85 yo M)Acc No.[id number]:08/31/2024 Progress Notes Patient: ANYI ANTHONY Provider: Sherita David M.D. :1940 A ge:83 Y S ex:Male Date:08/31/2024 Address:[address] [place] [address], [place] [address] Subjective: * Chief Complaints: * 1 . Check up and labs. * HPI: H PI: Derian comes in for checkup and is due for routine labs. He would like his flu shot today. C ardiology: Blood pressure checks at home are consistently normal. Denies : Chest Pain. D enies : Palpitations. D enies : Leg Edema. He has been fitted for his new prosthesis. E ndocrinology: He checks his blood sugar at home occasionally and reports consistently normal readings. Denies : Weight Gain. D enies : Weight Loss. D enies : Polyuria. * ROS: D ERMATOLOGY: no R sandy. [...] and angioplasty [facility] and [facility]-Left leg-Dr Winkler 02/2014, stress test/Echo Dr. 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 Phelps 2022, EGD & Colonoscopy 02/2023. * Hospitalization/Major Diagno stic Procedure: U TC-pressure in head, ear pain 08/03/12, [facility]- acute pancreatitis 10/07/14, Discharge Diagnosis(1) Closed hip [...] tab(s) orally once a day , Discontinued Zithromax Z-Trell 250 MG Tablet as directed Orally once daily , Medication List reviewed and reconciled with the patient * Allergies: C ilostazol: headache - Side Effects. Objective: * Vitals: W t:201.2, Temp:97.9, BP:110/60, Nurse:GILSON, Ht: 68.50, BMI:30.14. * Examination: C ardiology: General Appearance: C omes in by WC. Alert, pleasant, no distress. Color i s pale.. C arotid upstroke: n ormal, no bruits. H eart sounds: R RR, normal S1, S2. M urmur, click , gallop: n one. L ungs: c lear, no rales or wheezes. E xtremities: T race edema right ankle. Left leg prosthesis. Assessment: * Assessment: 1. D yslipidemia - E78.5 (Primary) 2 . H ypothyroidism (acquired) - E03.9? 3. A therosclerosis of [place] coronary artery without angina pectoris, unspecified whether [place] or transplanted heart - I25.10 4 . T ype 2 diabetes mellitus without complication, unspecified whether intermediate insulin use - E11.9 5 . L ocalized edema - R60.0 6 . B enign prostatic hypertrophy - N40.0 7 . G astroesophageal reflux disease without esophagitis - K21.9 8 . E ncounter for immunization - Z23 Plan: * Treatment: Value Reference Range A /G Ratio 1.2 1.1-2.5 - * A lbumin 3.7 3.5-5.3 - g/dL * A lkaline Phosphatase 81 40-129 - IU/L * A LT (SGPT) 8 <5-55 - IU/L * A ST (SGOT) 16 <5-46 - IU/L * B ilirubin, Total 0.5 <0.2-1.2 - mg/dL * B UN 30 H 8-23 - mg/dL * C alcium 9.4 8.6-10.4 - mg/dL * C hloride 103 97-108 - mmol/L * C O2 25 22-32 - mmol/L * C reatinine 1.45 H 0.70-1.30 - mg/dL * G lucose 146 H 65-99 - mg/dL * P otassium 5.1 3.5-5.3 - mmol/L * S odium 141 135-145 - mmol/L * P rotein 6.8 6.0-8.3 - g/dL * e GFR by Creatinine 48 L >59 - mL/min/1.73m2 * Sherita David 09/05/2024 9 :20:27 PM >See phone encounter ?LAB: P-Lipid Panel (Collection Date & Time - 08/31/2024 09:55 AM)?Normal* Value Reference Range C holesterol / HDL Ratio 2.16 0.00-4.99 - Ratio * C holesterol 125 <200 - mg/dL * H DL Cholesterol 58 >39 - mg/dL * L DL Cholesterol (Calculation) 54 <130 - mg/d L * L DL/HDL Ratio 0.9 <3.3 - Ratio * N on-HDL Cholesterol 67 <130 - mg/dL * T riglycerides 67 <150 - mg/dL * Sherita David 09/05/2024 9 :20:27 PM >See phone encounter 2.?Hypothyroidism (acquired)? Refill Levothyroxine Sodium Tablet, 25 MCG, 1 tab(s), orally, once a day, 90, Refills 1.?LAB: P-TSH (Collection Date & Time - 08/31/2024 09:55 AM)?Normal* Value Reference Range T SH 2.80 0.43-5.25 - mU/L * Sherita David Eron 09/05/2024 9 :20:27 PM >See phone encounter 3.?Atherosclerosis of [place] coronary artery without angina pectoris, unspecified whether [place] or transplanted heart? Refill Carvedilol Tablet, 6.25 MG, 1 tablet with food, Orally, Twice a day, 180, Refills 1.? 4.?Type 2 diabetes mellitus without complication, unspecified whether credit risk modeler insulin use? Refill Enalapril Maleate Tablet, 2.5 MG, 1 tab(s), Orally, once a day, 90, Refills 1;?Refill metFORMIN HCl Tablet, 850 MG, 1 tablet with a meal, Orally, Two times a day, 180 Tablet, Refills 1; Refill Glimepiride Tablet, 4 MG, take 2 tablets by mouth once daily, Orally, Once a day, 180, Refills 1.?LAB: P-Comprehensive Metabolic Panel (CMP) (Collection Date & Time - 08/31/2024 09:55 AM)?gluc 146, bun 30, Cr 1.445, gfr 48* Value Reference Range A /G Ratio 1.2 1.1-2.5 - * A lbumin 3.7 3.5-5.3 - g/dL * A lkaline Phosphatase 81 40-129 - IU/L * A LT (SGPT) 8 <5-55 - IU/L * A ST (SGOT) 16 <5-46 - IU/L * B ilirubin, Total 0.5 <0.2-1.2 - mg/dL * B UN 30 H 8-23 - mg/dL * C alcium 9.4 8.6-10.4 - mg/dL * C hloride 103 97-108 - mmol/L * C O2 25 22-32 - mmol/L * C reatinine 1.45 H 0.70-1.30 - mg/dL * G lucose 146 H 65-99 - mg/dL * P otassium 5.1 3.5-5.3 - mmol/L * S odium 141 135-145 - mmol/L * P rotein 6.8 6.0-8.3 - g/dL * e GFR by Creatinine 48 L >59 - mL/min/1.73m2 * Sherita David 09/05/2024 9 :20:27 PM >See phone encounter ?LAB: Glycohemoglobin A1c (in house) (Collection Date & Time - 08/31/2024)? 7.1%* Value Reference Range g lycohemoglobin 7.1% 5 - 6.5 % * Arlette Andrade 08/31/2024 11: 28:51 AM > Sherita David 09/05/2024 9:20:27 PM >See phone encounter 5.?Localized edema? Refill Furosemide Tablet, 20 MG, 1 tab(s), orally, once a day, 90, Refills 1.?? 6.?Benign prostatic hypertrophy? Refill Terazosin HCl Capsule, 10 MG, 1 cap(s), orally, at bedtime, 90, Refills 1;?Refill Finasteride Tablet, 5 MG, 1 tablet, Orally, Once a day, 90 Tablet, Refills 1.??7.?Gastroesophageal reflux disease without esophagitis? Refill Pantoprazole Sodium Tablet Delayed Release, 40 MG, 1 tab(s), orally, once a day, 90, Refills1.?? * Immunizations: Fluzone High Dose (65yr and older) : 0.5 mL (Route: Intramuscular) given by Arlette Andrade on Left Deltoid (Encounter for immunization) * Procedure Codes: 8 3036 GLYCATED HEMOGLOBIN TEST, Modifiers: QW * Follow Up: 6 Months * Images: Billing Information: * Visit Code: 37354 Office Visit, Est Pt., Level 4. * Procedure Codes: 64650 GLYCATED HEMOGLOBIN TEST. Modifiers: QW * Electronic signature of Sheirta David MD on 11/01/2025 at 08:24 AM EST Sign off status: Pending * Provider: Sherita David M.D. Date: Generated for Ruben patrick/Kurtis/Pepitoitting on: 08:24 AM EST History and Physical Notes * HPI (History of Present Illness) Category Sub-Category Detail Notes Category Not es Endocrinology Weight Gain Weight Loss Polyuria Cardiology Chest Pain He has been fit macey for his new prosthesis. Palpitations Leg Edema Examination Category Sub-Category Detail Notes Category Not es Cardiology Lungs: clear, no rales or wheezes Heart sounds: RRR, normal S1, S2 Carotid upstroke: normal, no bruits Extremities: Trace edema right an kle. Left leg prosthesis Murmur, click , gallop: none General Appearance: Comes in by WC. Maggier t, pleasant, no distress. Color is pale.
--- OUTSIDE RECORDS SUMMARY | 2025-03-01 04:45 | XMS_ITS ---
Author Organization [facility] Address [address] [facility] [address] [place] [id number] Care Team Providers Care Psychological Operations Officer Name Role Phone Sherita David Primary Care Provider Allergies Allergen (clinical drug ingredient) Drug/Non Drug Allergy documented on EMR Reaction Allergy Type Onset Date Status cilostazol Cilostazol headache Drug Allergy Activ e Results Component Value Reference Range Notes CBC Venipuncture (in house) Reviewed date:03/03/2025 10:53:19 AM Interpretation: Performing Lab: Notes/Report: wbc 6.1 3.5 - 10 lymph 35.2 15 - 50 mid 6.8 2 - 15 gran 58.0 35 - 80 rbc 2.94 3.5 - 5.5 hgb 8.8 11.5 - 16.5 hct 27.3 35 - 55 mcv 93.1 75 - 100 mch 30.1 25 - 35 mchc 32.4 31 - 38 platlet 274 100 - 400 P-Vitamin B12 Reviewed date:03/03/2025 10:53:19 AM Interpretation: Performing Lab: Notes/Report: CLIA: [id number] John Paul Gay MD, Supervisor [employer] [address] [place] [address] [address] Test performed by [facility] Vitamin B12 7003 195-8328 pg/mL P-Comprehensive Metabolic Pa aaron (CMP) Reviewed date:03/03/2025 10:53:19 AM Interpretation: Performing Lab: Notes/Report: Test performed by [facility] [address] [place] [address] [address] John Paul Gay MD, Supervisor [employer] CLIA: [id number] Sodium 141 135-145 mmol/L Potassium 4.9 3.5-5.3 mmol/L Chloride 104 97-108 mmol/L CO2 25 22-32 mmol/L Glucose 104 65-99 mg/dL BUN 29 8-23 mg/dL Creatinine 1.59 0.70-1.30 mg/dL Calcium 9.6 8.6-10.4 mg/dL eGFR by Creatinine 43 >59 mL/min/1.73m2 Protein 7.0 6.0-8.3 g/dL Albumin 3.9 3.5-5.3 g/dL Alkaline Phosphatase 86 40-129 IU/L ALT (SGPT) 9 <5-55 IU/L AST (SGOT) 14 <5-46 IU/L Bilirubin, Total 0.6 <0.2-1.2 mg/dL A/G Ratio 1.3 1.1-2.5 P-Hemoglobin A1C Reviewed date:03/03/2025 10:53:19 AM Interpretation: Performing Lab: Notes/Report: Test performed by [facility] [address] [place], [place] [address] , [place] [address] John Paul Gay MD, Supervisor [employer] CLIA: [id number] Hemoglobin A1C 7.3 <5.7 % The following HbA1c ranges recommended by the [place] [employer] (ADA) may be used as an aid in the diagnosis of diabetes mellitus. HbA1c Suggested Diagnosis >=6.5% Diabetic 5.7% - 6.4% Pre-Diabetic <5.7% Non-Diabetic P-Lipid Panel Reviewed date:03/03/2025 10:53:19 AM Interpretation: Performing Lab: Notes/Report: Test performed by [facility] [address] [place] [address] [facility] [place] [address] John Paul Gay MD, Supervisor [employer] CLIA: [id number] Cholesterol 132 <200 mg/dL Triglycerides 147 <150 mg/dL HDL Cholesterol 52 >39 mg/dL Cholesterol / HDL Ratio 2.54 0.00-4.99 Ratio Non-HDL Cholesterol 80 <130 mg/dL LDL Cholesterol (Calculation) 51 <130 mg/dL LDL Cholesterol Levels* Less than 100 mg/dL Optimal 100 to 129 mg/dL Near Optimal/ Above Optimal 130 to 159 mg/dL Borderline High 160 to 189 mg/dL High 190 mg/dL and above Very High * Categories as recommended by the 2004 ATPIII guidelines LDL/HDL Ratio 1.0 <3.3 Ratio LDL Cholesterol Patient History Test Date: 08/31/2024 LDL Results: 54 Units: mg/dL % Change: - Test Date: 03/01/2025 LDL Results: 51 Units: mg/dL % Change: -5% P-PSA Reviewed date:03/03/2025 10:53:19 AM Interpretation: Performing Lab: Notes/Report: Test performed by [facility], [address] , [facility], [place] [address] John Paul Gay MD, Supervisor [employer] CLIA: [id number] PSA 0.17 <4.00 ng/mL Please note this is an ultrasensitive PSA assay with a lower limit of detection of 0.014 ng/mL. This test is performed by the Anastasia ECLIA methodology. Values obtained with different assay methods or kits cannot be directly compared. P-TSH Reviewed date:03/03/2025 10:53:19 AM Interpretation: Performing Lab: Notes/Report: Test performed by [facility] [address] [place] [address] , [address], [place] [address] John Paul Gay MD, Supervisor [employer] CLIA: [id number] TSH 6.93 0.43-5.25 mU/L P-Microalbumin/Creatinine, R andom Urine Sample Reviewed date:03/03/2025 10:53:19 AM Interpretation: Performing Lab: Notes/Report: Test performed by [facility] [address] [place] [address] , [place] [address] John Paul Gay MD, Supervisor [employer] CLIA: [id number] Albumin/Creatinine Ratio, Urine 23 0-30 ug/mg Microalbumin, Urine, Random 1.6 Creatinine, Urine 71.0 Estimated Average Glucose Reviewed date:03/03/2025 10:53:19 AM Interpretation: Performing Lab: Notes/Report: Test performed by [facility] [address] [place] [address] , [address], [place] [address] John Paul Gay MD, Supervisor [employer] CLIA: [id number] Estimated Average Glucose (eAG) 163 Estimated Average Glucose (eAG) is calculated using the equation eAG = (28.7 x HbA1c) - 46.7 based on the guidelines established by the ADA. If the patient has certain diseases including kidney disease, sickle cell anemia, thalassemia, or is taking medications such as dapsone, erythropoietin, or iron, eAG should not be evaluated. REASON FOR VISIT 6 Month Check Up and Annual Wellness Visit Medications Medication SIG (Take, Route, Frequency, Duration) Notes Start Date End Date Status Pioglitazone HCl 15 MG Take 1 tablet by mouth once daily; Duration: 90 Active Wheelchair DIRECTED 03/28/2021 Active Pantoprazole Sodium 40 MG Take 1 tablet by mouth once daily; Duration: 90 Active Gabapentin 400 MG 1 capsule orally 2 t imes a day 01/03/2025 Active Terazosin HCl 10 MG Take 1 capsule by [facility] at bedtime; Duration: 90 Active oxyCODONE-Acetaminophen 5-325 MG 1 tablet as needed Orally every 6 hrs prn 02/04/2024 Active DNR Active Acetaminophen 500 MG 2 tablet as needed orally TID prn Active Vitamin B Complex w/B-12 - as directed Orally Active metFORMIN HCl 850 MG Take 1 tablet by [facility] twice daily; Duration: 90 days Active Vitamin C 500 MG as directed Orally Active MiraLax - DIRECTED ORALLY O NCE A DAY Active Vitamin D3 25 MCG (1000 UT) 1 tab(s) ora lly once a day Active Simethicone 125 MG 1 capsule Orally Fou r times a day prn Active Ferrous Sulfate 325 (65 Fe) MG 1 tab(s) orally daily Active Furosemide 20 MG 1 tab(s) orally once a day Active Finasteride 5 MG 1 tablet Orally Once a day Active Terazosin HCl 10 MG 1 cap(s) orally at bedtime Active Pantoprazole Sodium 40 MG 1 tab(s) orall y once a day Active Imodium Multi-Symptom Relief 2-125 MG as directed Orally Active metFORMIN HCl 850 MG 1 tablet with a neha l Orally Two times a day Active Enalapril Maleate 2.5 MG 1 tab(s) Orally once a day Active Glimepiride 4 MG take 2 tablets by [facility] once daily Orally Once a day Active Carvedilol 6.25 MG 1 tablet with food Orally Twice a day Active Levothyroxine Sodium 25 MCG 1 tab(s) ora lly once a day Active Atorvastatin Calcium 40 MG 1 tab(s) oral ly once a day Active Immunizations Vaccine Route Administration Date Status Comme nts Prevnar (PCV20) IM Intramuscular 03/01/2025 Administered Problems Problem Type SNOMED Code ICD Code Onset Dates Problem Status W/U Status Risk Notes Problem Chronic anemia (302525851) Chronic anemia (D64.9) Active confirmed Problem Body mass index 30.00 to 34.99 ([id number]) BMI 31.0-31.9,jori lt (Z68.31) Active confirmed Vital Signs Weight 208.6 lbs 03/01/2025 Blood pressure systolic 120 mm Hg 03/01/20 25 Blood pressure diastolic 70 mm Hg 025 Heart Rate 66 /min 03/01/2025 Height 68.50 in 03/01/2025 BMI 31.25 kg/m2 03/01/2025 Encounters Encounter Location Date Provider Diagnosis [facility] [address] [place] [id number] 03/01/2025 Sherita David Adult general medica l examination Z00.00 ; Dyslipidemia E78.5 ; Hypothyroidism (acquired) E03.9 ; Atherosclerosis of [place] coronary artery without angina pectoris, unspecified whether [place] or transplanted heart I25.10 ; Type 2 diabetes mellitus without complication, unspecified whether fdc insulin use E11.9 ; Localized edema R60.0 ; Type 2 diabetes mellitus with diabetic peripheral angiopathy without gangrene, without long-term current use of insulin E11.51 ; Status post below-knee amputation of left lower extremity Z89.512 ; Peripheral arterial disease I73.9 ; Chronic anemia D64.9 ; Essential (primary) hypertension I10 ; BMI 31.0-31.9,adult Z68.31 ; Gastroesophageal reflux disease without esophagitis K21.9 ; Vitamin B12 deficiency E53.8 and Benign prostatic hypertrophy N40.0 Assessments Encounter Date Diagnosis (ICD Code) Assessment Notes Treatment Notes Treatment Clinical Notes Section Notes 03/01/2025 Adult general medical examination (ICD-10 - Z00.00) Patient instructed to return to office Annually for Annual Wellness Visits to include annual screenings of Pain assessment, Functional Ability assessment, Cognitive Ability assessment, Fall Risk assessment, Depression screening and Bladder control screening. 03/01/2025 Dyslipidemia (ICD-10 - E78.5) 03/01/2025 Hypothyroidism (acquired) (ICD-10 - E03.9) 03/01/2025 Atherosclerosis of [place] coronary artery without angina pectoris, unspecified whether [place] or transplanted heart (ICD-10 - I25.10) 03/01/2025 Type 2 diabetes mellitus without complication, unspecified whether fdc insulin use (ICD-10 - E11.9) 03/01/2025 Localized edema (ICD-10 - R60.0) 03/01/2025 Type 2 diabetes mellitus with diabetic peripheral angiopathy without gangrene, without long-term current use of insulin (ICD-10 - E11.51) 03/01/2025 Status post below-knee amputation of left lower extremity (ICD-10 - Z89.512) 03/01/2025 Peripheral arterial disease (ICD-10 - I73.9) 03/01/2025 Chronic anemia (ICD-10 - D64.9) 03/01/2025 Essential (primary) hypertension (ICD-10 - I10) 03/01/2025 BMI 31.0-31.9,adult (ICD-10 - Z68.31) 03/01/2025 Gastroesophageal reflux disease without esophagitis (ICD-10 - K21.9) 03/01/2025 Vitamin B12 deficiency (ICD-10 - E53.8) 03/01/2025 Benign prostatic hypertrophy (ICD-10 - N40.0) Plan Of Treatment Medication Medication Name Sig Start Date Stop Date Notes Furosemide 20 MG 1 tab(s) orally once a day Finasteride 5 MG 1 tablet Orally Once a day Terazosin HCl 10 MG 1 cap(s) orally at bedtime Pantoprazole Sodium 40 MG 1 tab(s) orally once a day metFORMIN HCl 850 MG 1 tablet with a neha l Orally Two times a day Enalapril Maleate 2.5 MG 1 tab(s) Orally once a day Glimepiride 4 MG take 2 tablets by mo uth once daily Orally Once a day Carvedilol 6.25 MG 1 tablet with food O rally Twice a day Levothyroxine Sodium 25 MCG 1 tab(s) orally once a day Atorvastatin Calcium 40 MG 1 tab(s) orally once a day Treatment Notes Assessment Notes Adult general medical examination Patien t instructed to return to office Annually for Annual Wellness Visits to include annual screenings of Pain assessment, Functional Ability assessment, Cognitive Ability assessment, Fall Risk assessment, Depression screening and Bladder control screening. Next Appt Details Follow Up: 6 Months, Reason: Progress Notes * ANYI CONNDOB: [birth year] (85 yo M)Acc No.[id number]:03/01/2025 Annual Wellness Visit Patient: ANYI ANTHONY Provider: Sherita David M.D. :1940 A ge:84 Y S ex:Male Date:03/01/2025 Address:[address] [place] [address] Subjective: * Chief Complaints: * 1 . 6 Month Check Up and Annual Wellness Visit. * HPI: H PI: Patient is here today for a scheduled 6 month check up? and a Medicare Annual Wellness Visit. Pt sts he is doing well and has no conerns at this time. Pt is fasting. Pt sts he does need refills sent to [facility]. * ROS: O PTHALMOLOGY: Negative for d enies vision issues. * Medical History: T ype 2 diabetes, Hypertension, Obesity, Hyperlipidemia, Hiatal hernia, OA, Cervical radiculoapthy, Peptic ulcer - 08/2013, BPH, Hydrocele, Peripheral arterial disease - abnormal YOSHI 2013, Covid vaccine Moderna x2. * Surgical History: o pen repair of right knee torn cartilage and ligament 1960, kidney stones , cholecystectomy , partial removal right lung , Colonoscopy 2003,2008, angiogram and angioplasty [facility] and [place]-Left leg-Dr Winkler 02/2014, stress test/Echo Dr. [...] U TC-pressure in head, ear pain 08/03/12, [facility]- acute pancreatitis 10/07/14, Discharge Diagnosis(1) Closed hip [...] Orally every 6 hrs prn , Taking Vitamin B Complex w/B-12 - Tablet as directed Orally , Taking Acetaminophen 500 MG Tablet 2 tablet as needed orally TID prn , Taking metFORMIN HCl 850 MG Tablet Take 1 tablet by mouth twice daily , Taking Wheelchair DIRECTED , Taking Atorvastatin Calcium 40 MG Tablet [...] Orally Two times a day , Taking Glimepiride 4 MG Tablet take 2 tablets by mouth once daily Orally Once a day , Taking Furosemide 20 MG Tablet 1 tab(s) orally once a day , Taking Finasteride 5 MG Tablet 1 tablet Orally Once a day , Taking Gabapentin 400 MG Capsule 1 capsule orally 2 times a day , Taking Terazosin HCl 10 MG Capsule Take 1 capsule by mouth at bedtime , Taking Pantoprazole Sodium 40 MG Tablet Delayed Release Take 1 tablet by mouth once daily , Taking Pioglitazone HCl 15 MG Tablet Take 1 tablet by mouth once daily , Medication List reviewed and reconciled with the patient * Allergies: C ilostazol: headache - Side Effects. Objective: * Vitals: W t: 208.6, Temp: 97.7, BP: 120/70, HR: 66, Nurse: julita, Ht: 68.50, BMI:31.25. * Examination: C ardiology: General Appearance: C omes in by WC. Alert, pleasant, no distress. Color i s pale.. C arotid upstroke: n ormal, no bruits. H eart sounds: R RR, normal S1, S2. M urmur, click , gallop: n one. L ungs: c lear, no rales or wheezes. E xtremities: T race edema right ankle. Left leg prosthesis. * Physical Examination: G ENERAL: Pain Assessment: P ain level: 3, on a scale of 0-10 (with 10 being extreme pain). F unctional Status Assessment: P atient response to question of how often physical health interferes with daily activities: . Almost never Able to perform ADLs-including meal preparation, grocery shopping, housework, laundry, taking medications or handling finances. Cognitive Status: alert and oriented. Ambulation Status: Fully ambulatory . F all Risk Assessment: I ndependant in ambulation in WC, adequate lighting in home. Patient has NOT fallen or had trouble walking within the past 12 months. D epression Screening: D enies depressed mood or anxiety. Describes emotional health as: calm. B ladder Control Screening: rachid gutierrez. Assessment: * Assessment: 1. A dult general medical examination - Z00.00 (Primary) 2 . D yslipidemia - E78.5 3 . H ypothyroidism (acquired) - E03.9 4 . A therosclerosis of [place] coronary artery without angina pectoris, unspecified whether [place] or transplanted heart - I25.10 5 . T ype 2 diabetes mellitus without complication, unspecified whether fdc insulin use - E11.9 6 . L ocalized edema - R60.0 ?7. T ype 2 diabetes mellitus with diabetic peripheral angiopathy without gangrene, without long-term current use of insulin - E11.51 8 . S tatus post below-knee amputation of left lower extremity - Z89.512 9 . P eripheral arterial disease - I73.9 1 0. C hronic anemia - D64.9 1 1. E ssential (primary) hypertension - I10 1 2. B ND 31.0-31.9,adult - Z68.31 1 3. G astroesophageal reflux disease without esophagitis - K21.9 1 4. V itamin B12 deficiency - E53.8 1 5. B enign prostatic hypertrophy - N40.0 Plan: * Treatment: 2. D yslipidemia Refill Atorvastatin Calcium Tablet, 40 MG, 1 tab(s), orally, once a day, 90, Refills 1. L AB: P-Lipid Panel (Collection Date & Time - 03/01/2025 09:02 AM) Value Reference Range C holesterol / HDL Ratio 2.54 0.00-4.99 - Ratio * C holesterol 132 <200 - mg/dL * H DL Cholesterol 52 >39 - mg/dL * L DL Cholesterol (Calculation) 51 <130 - mg/d L * L DL/HDL Ratio 1.0 <3.3 - Ratio * N on-HDL Cholesterol 80 <130 - mg/dL * T riglycerides 147 <150 - mg/dL * Sherita David 03/03/2025 10 :53:09 AM >See phone encounter 3.?Hypothyroidism (acquired)? Refill Levothyroxine Sodium Tablet, 25 MCG, 1 tab(s), orally, once a day, 90, Refills 1.?LAB: P-TSH (Collection Date & Time - 03/01/2025 09:02 AM)* Value Reference Range T SH 6.93 H 0.43-5.25 - mU/L * Sherita David 03/03/2025 10 :53:09 AM >See phone encounter 4.?Atherosclerosis of [place] coronary artery without angina pectoris, unspecified whether [place] or transplanted heart? Refill Carvedilol Tablet, 6.25 MG, 1 tablet with food, Orally, Twice a day, 180, Refills 1.? 5.?Type 2 diabetes mellitus without complication, unspecified whether ferry terminal supervisor insulin use? Refill Enalapril Maleate Tablet, 2.5 MG, 1 tab(s), Orally, once a day, 90, Refills 1;?Refill metFORMIN HCl Tablet, 850 MG, 1 tablet with a meal, Orally, Two times a day, 180 Tablet, Refills 1; Refill Glimepiride Tablet, 4 MG, take 2 tablets by mouth once daily, Orally, Once a day, 180, Refills 1.?LAB: P-Hemoglobin A1C (Collection Date & Time - 03/01/2025 09:02 AM)* Value Reference Range H emoglobin A1C 7.3 H <5.7 - % * Sherita David 03/03/2025 10 :53:09 AM >See phone encounter ?LAB: P-Microalbumin/Creatinine, Random Urine Sample (Collection Date & Time - 03/01/2025 09:02 AM)* Value Reference Range A lbumin/Creatinine Ratio, Urine 23 0-30 - ug /mg * C reatinine, Urine 71.0 - mg/dL * M icroalbumin, Urine, Random 1.6 - mg/dL * Sherita David 03/03/2025 10 :53:09 AM >See phone encounter 6.?Localized edema? Refill Furosemide Tablet, 20 MG, 1 tab(s), orally, once a day, 90, Refills 1.?LAB: P-Comprehensive Metabolic Panel (CMP) (Collection Date & Time - 03/01/2025 09:02 AM)* Value Reference Range A /G Ratio 1.3 1.1-2.5 - * A lbumin 3.9 3.5-5.3 - g/dL * A lkaline Phosphatase 86 40-129 - IU/L * A LT (SGPT) 9 <5-55 - IU/L * A ST (SGOT) 14 <5-46 - IU/L * B ilirubin, Total 0.6 <0.2-1.2 - mg/dL * B UN 29 H 8-23 - mg/dL * C alcium 9.6 8.6-10.4 - mg/dL * C hloride 104 97-108 - mmol/L * C O2 25 22-32 - mmol/L * C reatinine 1.59 H 0.70-1.30 - mg/dL * G lucose 104 H 65-99 - mg/dL * P otassium 4.9 3.5-5.3 - mmol/L * S odium 141 135-145 - mmol/L * P rotein 7.0 6.0-8.3 - g/dL * e GFR by Creatinine 43 L >59 - mL/min/1.73m2 * Sherita David 03/03/2025 10 :53:09 AM >See phone encounter ?LAB: CBC Venipuncture (in house) (Collection Date & Time - 03/01/2025)* Value Reference Range w bc 6.1 3.5 - 10 * l ymph 35.2 15 - 50 * m id 6.8 2 - 15 * g ran 58.0 35 - 80 * r bc 2.94 3.5 - 5.5 * h gb 8.8 11.5 - 16.5 * h ct 27.3 35 - 55 * m cv 93.1 75 - 100 * m ch 30.1 25 - 35 * m chc 32.4 31 - 38 * p latlet 274 100 - 400 * Corry Scott 03/01/2025 11:4 6:05 AM > Sherita David 03/03/2025 10:53:09 AM >See phone encounter 7.?Gastroesophageal reflux disease without esophagitis? Refill Pantoprazole Sodium Tablet Delayed Release, 40 MG, 1 tab(s), orally, once a day, 90, Refills1.??8.?Vitamin B12 deficiency?LAB: P-Vitamin B12 (Collection Date & Time - 03/01/2025 09:02 AM)* Value Reference Range V itamin B12 1382 H 232-1245 - pg/mL * Sherita David 03/03/2025 10 :53:09 AM >See phone encounter 9.?Benign prostatic hypertrophy? Refill Terazosin HCl Capsule, 10 MG, 1 cap(s), orally, at bedtime, 90, Refills 1;?Refill Finasteride Tablet, 5 MG, 1 tablet, Orally, Once a day, 90 Tablet, Refills 1.?LAB: P-PSA (Collection Date & Time - 03/01/2025 09:02 AM)* Value Reference Range P SA 0.17 <4.00 - ng/mL * Sherita David 03/03/2025 10 :53:09 AM >See phone encounter * Immunizations: Prevnar (PCV20) : 0.5 mL (Route: Intramuscular) given by JULITA Baca on Left Deltoid (Adult general medical examination) * Labs: * L ab: Estimated Average Glucose (Collection Date & Time - 03/01/2025 09:02 AM) Value Reference Range E stimated Average Glucose 163 - mg/dL * [facility], IT support 03/02/2025 06:10:06 : This order was created by the Interface. Sherita David 03/03/2025 10:53:09 AM >See phone encounter * Procedure Codes: G 0439 ANNUAL WELLNESS VST; PPS SUBSQT VST, G2211 Complex e/m visit add on, 1090F PRES/ABSN URINE INCON ASSESS, 3288F FALL RISK ASSESSMENT DOCD, 1170F FXNL STATUS ASSESSED, 1159F MED LIST DOCD IN RCRD, 1003F LEVEL OF ACTIVITY ASSESS, 74239 CBC WITH AUTO DIFF, 1036F TOBACCO NON-USER, 3017F COLORECTAL CA SCREEN DOC REV, 1125F AMNT PAIN NOTED PAIN PRSNT, G8752 MOST RECENT SYSTOLIC BP < 140MM HG, G8754 MOST RECENT DIASTOLIC BP < 90MM HG, 3051F HG A1C>EQUAL 7.0%<8.0%, 4040F PNEUMOC IMM ORDER/ADMIN * Preventive Medicine: Counseling: E motional health: D iscussed ways to improve socialization. E xercise: P atient advised to start, increase or maintain level of exercise/physical activity. Injury prevention: F all prevention discussed. Discussed need for cane/walker. Potential trip hazards discussed. Immunizations: P neumococcal r ecommended. I nfluenza u p to date. Screening / Special Tests: C olonoscopy R ecent history: 04/23/2023, negative, no further testing recommended due to age. D iabetic Retinal Eye Exam R ecent history:. N ephrology History R ecent history:, GFR and urine M/A ordered today. * Follow Up: 6 Months * Images: Billing Information: * Visit Code: 45281 Office Visit, Est Pt., Level 3. Modifiers: 25 * Procedure Codes: G0439 ANNUAL WELLNESS VST; PPS SUBSQT VST. G2211 Complex e/m visit add on. 1090F PRES/ABSN URINE INCON ASSESS. 3288F FALL RISK ASSESSMENT DOCD. 1170F FXNL STATUS ASSESSED. 1159F MED LIST DOCD IN RCRD. 1003F LEVEL OF ACTIVITY ASSESS. 60474 CBC WITH AUTO DIFF. 1036F TOBACCO NON-USER. 3017F COLORECTAL CA SCREEN DOC REV. 1125F AMNT PAIN NOTED PAIN PRSNT. G8752 MOST RECENT SYSTOLIC BP < 140MM HG. G8754 MOST RECENT DIASTOLIC BP < 90MM HG. 3051F HG A1C>EQUAL 7.0%<8.0%. 4040F PNEUMOC IMM ORDER/ADMIN. * Electronic signature of Sherita Delgado David MD on 11/01/2025 at 08:24 AM EST Sign off status: Pending * Provider: Sherita David M.D. Date: 0 03/01/2025 Generated for Biancai darnell/Kurtis/eTransmitting on: 1 08:24 AM EST History and Physical Notes * HPI (History of Present Illness) Category Sub-Category Detail Notes Category Not es HPI Patient is here today for a [facility] 6 month check up and a Medicare Annual Wellness Visit. Pt sts he is doing well and has no conerns at this time. Pt is fasting. Pt sts he does need refills sent to [facility] Physical Examination Category Sub-Category Detail Notes Section Note s GENERAL Pain Assessment: Pain level: 3, on a scale of 0-10 (with 10 being extreme pain) Functional Status Assessment: Patient response to question of how often physical health interferes with daily activities: . Almost never Able to perform ADLs-including meal preparation, grocery shopping, housework, laundry, taking medications or handling finances. Cognitive Status: alert and oriented. Ambulation Status: Fully ambulatory Fall Risk Assessment: Independant in amb ulation in , adequate lighting in home. Patient has NOT fallen or had trouble walking within the past 12 months Depression Screening: Denies depressed m ood or anxiety. Describes emotional health as: calm Bladder Control Screening: small problem s Examination Category Sub-Category Detail Notes Category Not es Cardiology Lungs: clear, no rales or wheezes Heart sounds: RRR, normal S1, S2 Carotid upstroke: normal, no bruits Extremities: Trace edema right an kle. Left leg prosthesis Murmur, click , gallop: none General Appearance: Comes in by . Aler t, pleasant, no distress. Color is pale.
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
--- OUTSIDE RECORDS SUMMARY | 2025-09-06 05:00 | XMS_ITS ---
Author Organization [facility] Address [address] [facility] [address] [facility] [address] [place] [phone] Care Team Providers Care Evaluator Name Role Phone Sherita David Primary Care Provider [phone] REASON FOR VISIT 6 months Encounters Encounter Location Date Provider Diagnosis [facility] [address] [facility] [address] [facility] [address] [place] [phone] 09/06/2025 Sherita David Plan Of Treatment No Information Progress Notes * ANYI PAULINODOB: [birth year] (85 yo M)Acc No.[id number]:09/06/2025 Progress Notes Patient: ANYI ANTHONY Provider: Sherita David M.D. :1940 A ge:84 Y S ex:Male Date:09/06/2025 Address:[address] [place], [place] [id number] Subjective: * Chief Complaints: * 1 . 6 months. * Medical History: Objective: * Vitals: Assessment: Plan: * Treatment: * Images: Billing Information: * Visit Code: * Procedure Codes: * Electronic signature of Sherita David MD on 11/01/2025 at 08:25 AM EST Sign off status: Pending * Provider: Sherita David M.D. Date: 11/06/2024 Generated for Biancai darnell/Kurtis/eTransmitting on: 08:25 AM EST
[2025-11-01] VITALS (11 sets, daily range): BP systolic 116–151; BP diastolic 50–75; PULSE 89–103; RESP 14–16; TEMP 36.5–36.8; O2SAT 98–99; BMI 27.8
--- OUTSIDE RECORDS SUMMARY | 2025-11-01 08:24 | XMS_ITS ---
Author Organization Unknown Medications Date Medication Dosage DosageUnit StartDate StopDate StopReason Active DoseQuantity DoseUnit Dispense DispenseUnit Refills NdcCode DrugCode PharmacyId IsPrescription MappedMedication Srcstatus Custom 08/30 00:00 :00 Acetaminoph en 500 MG Tablet 1 501158 10 605 Taking 08/30 00:00 :00 Atorvastati n Calcium 40 MG Tablet 1 90 1 000 22213 810 P Taking 08/30 00:00 :00 Carvedilol 6.25 MG Tablet 1 180 1 0009 3013 501 P Taking 08/30 00:00 :00 Diclofenac Sodium 50 MG Tablet Delayed Release 0 08158549 006 Not Taking 08/30 00:00 :00 DNR DO NOT RESUSCITATE 1 Taking 08/30 00:00 :00 Enalapril Maleate 2.5 MG Tablet 1 90 1 5022 8022 801 P Taking 03/01 00:00 :00 Enalapril Maleate 2.5 MG Tablet 1 90 1 5022 8022 801 P Unknown Status 03/01 00:00 :00 Enalapril Maleate 2.5 MG Tablet 1 90 1 5022 8022 801 P Taking 08/30 00:00 :00 Ferrous Sulfate 325 (65 Fe) MG Tablet 1 52176173 090 P Taking 08/30 00:00 :00 Finasteride 5 MG Tablet 1 90 Tablet 1 6 4875765 154 P Taking 08/30 00:00 :00 Furosemide 20 MG Tablet 1 90 1 746370 29 725 P Taking 08/30 00:00 :00 Gabapentin 400 MG Capsule 07/05/2025 00:00:00 1 180 Capsule 0 24756740 761 P Taking 07/05 00:00 :00 Gabapentin 400 MG Capsule 07/05/2025 00:00:00 1 180 Capsule 0 94032420 761 P Unknown Status 08/30 00:00 :00 Glimepiride 4 MG Tablet 1 180 1 042700 32 205 P Taking 08/30 00:00 :00 Imodium Multi-Sympt om Relief 2-125 MG Tablet 1 22819700 203 Taking 08/30 00:00 :00 Levothyroxi ne Sodium 50 MCG Tablet 1 90 Tablet 0 05221017 310 Taking 08/29 00:00 :00 Levothyroxi ne Sodium 50 MCG Tablet 1 90 Tablet 0 97513420 310 Start 08/29 00:00 :00 Levothyroxi ne Sodium 50 MCG Tablet 0 90 1 00 656806 310 Stop 08/30 00:00 :00 metFORMIN HCl 850 MG Tablet 1 180 1 388717 58 359 Taking 08/30 00:00 :00 metFORMIN HCl 850 MG Tablet 1 180 Tablet 1 26323376 359 P Taking 08/30 00:00 :00 Methocarbam ol 500 MG Tablet 0 889588 05 761 Not Taking 08/30 00:00 :00 MiraLax - POWDER FOR RECONSTITUT ION 1 P Taking 08/30 00:00 :00 oxyCODONE-A cetaminophe n 5-325 MG Tablet 02/04/2024 00:00:00 1 4073270 1 201 P Taking 08/30 00:00 :00 Pantoprazol e Sodium 40 MG Tablet Delayed Release 1 90 Tablet 0 768779 71 390 Taking 08/30 00:00 :00 Pantoprazol e Sodium 40 MG Tablet Delayed Release 1 90 1 39185293 910 P Taking 08/30 00:00 :00 Pioglitazon e HCl 15 MG Tablet 1 90 Tablet 1 658 12500 230 Taking 08/30 00:00 :00 Simethicone 125 MG Capsule 1 101 86509 130 Taking 08/30 00:00 :00 Terazosin HCl 10 MG Capsule 1 90 Capsule 0 47321442 606 Taking 08/30 00:00 :00 Terazosin HCl 10 MG Capsule 1 90 1 375494 73 801 P Taking 08/30 00:00 :00 Vitamin B Complex w/B-12 - Tablet 1 116941 41 401 Taking 08/30 00:00 :00 Vitamin C 500 MG Capsule 1 78438 002 509 P Taking 08/30 00:00 :00 Vitamin D3 25 MCG (1000 UT) Tablet 1 05901333 840 P Taking 08/30 00:00 :00 Wheelchair 03/28/2021 00:00:00 1 1 0 P Taking
--- OUTSIDE RECORDS SUMMARY | 2025-11-01 08:26 | XMS_ITS | Patient Health Record ---
[facility] [address] [facility] [address] [place] [id number] Care Team Providers Care Zig Zag Stitcher Name Role Phone Sherita David Primary Care Provider Akash Romo Unavailable [phone] Allergies Allergen (clinical drug ingredient) Drug/Non Drug [...] Interpretation: Performing Lab: Notes/Report: Test performed by [facility] [address] [place], [place] [address] [place], [place] [address] John Paul Gay MD, Switchboard Wire Worker Helper CLIA: [id number] Vitamin B12 2589 312-8374 pg/mL P-Comprehensive Metabolic Pa aaron (CMP) Reviewed date:03/03/2025 10:53:19 AM Interpretation: Performing Lab: Notes/Report: Test performed by [facility] [address] [facility] , [address], [place] [address] John Paul Gay MD, Switchboard Wire Worker Helper CLIA: [id number] Sodium 141 135-145 mmol/L Potassium 4.9 3.5-5.3 [...] Interpretation: Performing Lab: Notes/Report: Test performed by [facility] [address] [place] [address] [address]son C, [place] [address] John Paul Gay MD, Switchboard Wire Worker Helper CLIA: [id number] Hemoglobin A1C 7.3 <5.7 % The following HbA1c ranges recommended by the [place] [employer] (ADA) may be used as an aid in the diagnosis of diabetes mellitus. HbA1c Suggested Diagnosis >=6.5% Diabetic 5.7% - 6.4% Pre-Diabetic <5.7% Non-Diabetic P-Lipid Panel Reviewed date:03/03/2025 10:53:19 AM Interpretation: Performing Lab: Notes/Report: Test performed by [facility] [address] [place] [address] [address]son C, [place] [address] John Paul Gay MD, Switchboard Wire Worker Helper CLIA: [id number] Cholesterol 132 <200 mg/dL Triglycerides 147 <150 [...] Interpretation: Performing Lab: Notes/Report: Test performed by [facility] [address] [place] [address] , [address], [place] [address] John Paul Gay MD, Switchboard Wire Worker Helper CLIA: [id number] PSA 0.17 <4.00 ng/mL Please note this is an ultrasensitive PSA assay with a lower limit of detection of 0.014 ng/mL. This test is performed by the Anastasia ECLIA methodology. Values obtained with different assay methods or kits cannot be directly compared. P-TSH Reviewed date:03/03/2025 10:53:19 AM Interpretation: Performing Lab: Notes/Report: Test performed by [facility] [address] , [address], [place] [address] John Paul Gay MD, Switchboard Wire Worker Helper CLIA: [id number] TSH 6.93 0.43-5.25 mU/L P-Microalbumin/Creatinine, R andom Urine Sample Reviewed date:03/03/2025 10:53:19 AM Interpretation: Performing Lab: Notes/Report: Test performed by [facility] [address] [place] [address] , [place] [address] John Paul Gay MD, Switchboard Wire Worker Helper CLIA: [id number] Albumin/Creatinine Ratio, Urine 23 0-30 ug/mg Microalbumin, Urine, Random 1.6 Creatinine, Urine 71.0 Estimated Average Glucose Reviewed date:03/03/2025 10:53:19 AM Interpretation: Performing Lab: Notes/Report: Test performed by [facility] [address] [place] [address] , [address], [place] [address] John Paul Gay MD, Switchboard Wire Worker Helper CLIA: [id number] Estimated Average Glucose (eAG) 163 Estimated Average Glucose (eAG) is calculated using the equation eAG = (28.7 x HbA1c) - 46.7 based on the guidelines established by the ADA. If the patient has certain diseases including kidney disease, sickle cell anemia, thalassemia, or is taking medications such as dapsone, erythropoietin, or iron, eAG should not be evaluated. X ray : Spine, lumbosacral Reviewed date:08/31/2025 10:52:41 AM Interpretation:chronic appearing findings Performing Lab: Notes/Report: chronic appearing findings P-Vitamin B12 Reviewed date:08/31/2025 10:57:07 AM Interpretation:>1999 Performing Lab: Notes/Report: Test performed by [facility] [address] [place] [address] , [place] [address] John Paul Gay MD, Switchboard Wire Worker Helper CLIA: [id number] Vitamin B12 >2000 232-1245 pg/mL Glycohemoglobin A1c (in hous e) Reviewed date:08/31/2025 10:57:08 AM Interpretation:Normal 6.4 Performing Lab: Notes/Report: Normal 6.4 glycohemoglobin 6.4% 5 - 6.5 % CBC Venipuncture (in house) Reviewed date:08/31/2025 10:57:08 [...] - 38 platlet 354 100 - 400 P-Comprehensive Metabolic Pa aaron (CMP) Reviewed date:08/31/2025 10:57:07 AM Interpretation:Cr 1.77, gfr 37 Performing Lab: Notes/Report: Test performed by [facility] [address] [place] [address] , [address], [place] [address] John Paul Gay MD, Switchboard Wire Worker Helper CLIA: [id number] Sodium 140 135-145 mmol/L Potassium 4.8 3.5-5.3 [...] 40 Performing Lab: Notes/Report: Test performed by [facility] [address] [place] [address] , [address], [place] [address] John Paul Gay MD, Switchboard Wire Worker Helper ERICH: [id number] Lipid Panel Footnote See Below *Based on optimal reference values. Please refer to the DOS for additional information regarding diagnostic lipid reference ranges, patient management based on the recently updated lipid guidelines ([place] College [employer]/[place] Heart Association Task Force on Clinical Practice Guidelines (2018), and pediatric diagnostic lipid reference values (<18 years old). Total Cholesterol 115 <200 mg/dL Triglycerides 179 <150 mg/dL HDL Cholesterol 39 >40 mg/dL Total Cholesterol / HDL Ratio* 2.95 <4.99 Ratio Non-HDL Cholesterol 76 <130 mg/dL LDL Cholesterol [...] Interpretation:Normal Performing Lab: Notes/Report: Test performed by [facility] [employer], [address] , [facility], [place] [address] John Paul Gay MD, Switchboard Wire Worker Helper CLIA: [id number] TSH 4.10 0.43-5.25 mU/L Medications Medication SIG (Take, Route, Frequency, Duration) Notes Start Date End Date Status Simethicone 125 MG 1 capsule Orally Fou r times a day prn Active Levothyroxine Sodium 50 MCG 1 tablet in the morning on an empty stomach Orally Once a day; Duration: 90 days Active Vitamin B Complex w/B-12 - as directed Orally Active Acetaminophen 500 MG 2 tablet as needed orally TID prn Active DNR Active oxyCODONE-Acetaminophen 5-325 MG 1 tablet as needed Orally every 6 hrs prn 02/04/2024 Active Terazosin HCl 10 MG Take 1 capsule by mouth at bedtime; Duration: 90 Active Pantoprazole Sodium 40 MG Take 1 tablet by mouth once daily; Duration: 90 Active metFORMIN HCl 850 MG Take 1 tablet by mo h twice daily; Duration: 90 days Active Wheelchair DIRECTED 03/28/2021 Active Atorvastatin Calcium 40 MG Take 1 tablet by mouth once daily; Duration: 90 Active Carvedilol 6.25 MG Take 1 tablet by twice daily with food; Duration: 90 Active Enalapril Maleate 2.5 MG 1 tab(s) Orally once a day Active Furosemide 20 MG 1 tab(s) orally once a day Active Methocarbamol 500 MG 1.5 tablets Orally every 4 hrs Not-Taking Terazosin HCl 10 MG 1 cap(s) orally at bedtime Active metFORMIN HCl 850 MG 1 tablet with a neha l Orally Two times a day Active Glimepiride 4 MG take 2 tablets by mouth once daily Orally Once a day Active Vitamin C 500 MG as directed Orally Active Vitamin D3 25 MCG (1000 UT) 1 tab(s) orally once a day Active Gabapentin 400 MG 1 capsule orally 2 times a day; Duration: 90 days 07/05/2025 Active Diclofenac Sodium 50 MG 1 tablet as need ed Orally Twice a day Not-Taking Finasteride 5 MG 1 tablet Orally Once a day Active Imodium Multi-Symptom Relief 2-125 MG as directed Orally Active Pantoprazole Sodium 40 MG 1 tab(s) orall y once a day Active MiraLax - DIRECTED ORALLY ONCE A DAY Active Ferrous Sulfate 325 (65 Fe) MG 1 tab(s) orally daily Active Pioglitazone HCl 15 MG Take 1 tablet by mouth once daily; Duration: 90 Active Immunizations Vaccine Route Administration Date Status Comme nts COVID 19 Moderna Unknown 12/13/2020 Administered COVID 19 Moderna Unknown 01/17/2021 Administered COVID 19 Moderna Unknown 09/12/2021 Administered Fluzone High Dose (65yr and older) IM Intramuscular 07/28/2013 Administered Fluzone High Dose (65yr and older) IM Intramuscular 08/10/2014 Administered Fluzone High Dose (65yr and older) IM Intramuscular 08/21/2015 Administered Fluzone High Dose (65yr and older) IM Intramuscular 08/15/2016 Administered Fluzone High Dose (65yr and older) IM Intramuscular 07/16/2017 Administered Fluzone High Dose (65yr and older) IM Intramuscular 07/18/2018 Administered Fluzone High Dose (65yr and older) IM Intramuscular 07/29/2019 Administered Fluzone High Dose (65yr and older) IM Intramuscular 07/17/2021 Administered Fluzone High Dose (65yr and older) IM Intramuscular 08/19/2022 Administered Fluzone High Dose (65yr and older) IM Intramuscular 07/29/2023 Administered Fluzone High Dose (65yr and older) IM Intramuscular 08/31/2024 Administered Fluzone High Dose (65yr and older) IM Intramuscular 08/30/2025 Administered Fluzone Quad-Medicare (6months&older) IM Intramuscular 07/13/2020 Administered H1N1 flu vaccine IM Intramuscular 11/13/2009 Administered PNEUMOVAX 23 VACCINE IM Intramuscular 09/05/2009 Administe red PNEUMOVAX 23 VACCINE IM Intramuscular 07/13/2020 Administe red Prevnar (PCV13) IM Intramuscular 12/11/2018 Administered Prevnar (PCV20) IM Intramuscular 03/01/2025 Administered xFlu shot-36 months and older IM Intramuscular 09/24/2005 Administered xFlu shot-36 months and older IM Intramuscular 09/04/2006 Administered xFlu shot-36 months and older IM Intramuscular 08/21/2007 Administered xFlu shot-36 months and older IM Intramuscular 08/30/2008 Administered xFlu shot-36 months and older IM Intramuscular 07/26/2009 Administered xFlu shot-36 months and older IM Intramuscular 08/20/2010 Administered xFlu shot-36 months and older IM Intramuscular 08/09/2011 Administered gYikbsgy-frdtwtowc-vjicqot e pts. IM Intramuscular 08/26/2012 Administered Problems Problem Type SNOMED Code ICD Code Onset Dates Problem Status W/U Status Risk Notes Problem Gastro-esophageal reflux disease without esophagitis (190680816) Gastro-esophageal reflux disease without esophagitis (K21.9) Active confirmed Problem Essential hypertension (10612002) Essential (primary) hypertension (I10) Active confirmed Problem Hypothyroidism (97818955) Hypothyroidism (acquired) (E03.9) Active confirmed Problem Vitamin B12 deficiency (809474897) Vitamin B12 deficiency (E53.8) Active confirmed Problem Constipation (76097660) Constipation (K59.00) Active confirmed Problem Cervical radiculopathy (96002303) Cervical radiculopathy (M54.12) Active confirmed Problem Primary generalised osteoarthritis (071226496) Primary generalized (osteo)arthritis (M15.0) Active confirmed Problem Dysphagia (06279967) Dysphagia (R13.10) Active confirmed Problem Peripheral vascular disease (880427250) Peripheral vascular disease, unspecified (I73.9) Active confirmed Problem Hyperlipidemia (60469830) Hyperlipidemia, unspecified (E78.5) Active confirmed Problem Gastroesophageal reflux disease without esophagitis (601243920) Gastroesophageal reflux disease without esophagitis (K21.9) Active confirmed Problem Lower urinary tract symptoms due to benign prostatic hypertrophy (91131467183866) Benign non-nodular prostatic hyperplasia with lower urinary tract symptoms (N40.1) Active confirmed Problem Irritable bowel syndrome (48647842) Irritable bowel syndrome (K58.9) Active confirmed Problem Benign prostatic hypertrophy (775437836) Benign prostatic hypertrophy (N40.0) Active confirmed Problem Macrocytic anemia (52431509) Macrocytic anemia (D53.9) Active confirmed Problem Polyneuropathy due to type 2 diabetes mellitus (008025445) 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) Active confirmed Problem Body mass index 30.00 to 34.99 (768332989125953) BMI 31.0-31.9,adult (Z68.31) Active confirmed Problem Dyslipidemia (072003692) Dyslipidemia (E78.5) Active confirmed Problem Dysphagia (75353146) Pharyngoesophageal dysphagia (R13.14) Active confirmed Problem Peripheral vascular disease (691375860) PAD (peripheral artery disease) (I73.9) Active confirmed Problem Atherosclerotic heart disease of [place] coronary artery without angina pectoris (714540067665347) Atherosclerosis of [place] coronary artery without angina pectoris, unspecified whether [place] or transplanted heart (I25.10) Active confirmed Problem Type 2 diabetes mellitus with peripheral angiopathy (530412212) Type 2 diabetes mellitus with diabetic peripheral angiopathy without gangrene, without long-term current use of insulin (E11.51) Active confirmed Problem Peripheral arterial disease (502889096) Peripheral arterial disease (I73.9) Active confirmed Problem Osteoarthritis (384631802) Osteoarthritis, unspecified osteoarthritis type, unspecified site (M19.90) Active confirmed Problem Chronic anemia (296424639) Chronic anemia (D64.9) Active confirmed Problem Atherosclerotic heart disease of [place] coronary artery without angina pectoris (171508815308400) Coronary artery calcification seen on CAT scan (I25.10) Active confirmed Problem Age-related cataract (49942706) Age-related cataract of both eyes, unspecified age-related cataract type (H25.9) Active confirmed Problem Arthritis of left knee (1330725054240997) Arthritis of left knee (M17.12) Active confirmed Problem Type II diabetes mellitus without complication (106731916) Type 2 diabetes mellitus without complication, unspecified whether dumpster driver insulin use (E11.9) Active confirmed Problem History of left hip replacement (3236840503236927) History of left hip replacement (Z96.642) Active confirmed Problem Hyperglycemia due to type 2 diabetes mellitus (253882067070763) Type 2 diabetes mellitus with hyperglycemia, unspecified whether jail insulin use (E11.65) Active confirmed Problem Arthritis of right knee (5328009991070999) Arthritis of knee, right (M17.11) Active confirmed Problem Amputated below knee (258915739) 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 [address] [place] [id number] 03/01/2025 Sherita David Adult general medica l examination Z00.00 ; Dyslipidemia E78.5 ; Hypothyroidism (acquired) E03.9 ; Atherosclerosis of [place] coronary artery without angina pectoris, unspecified whether [place] or transplanted heart I25.10 ; Type 2 diabetes mellitus without complication, unspecified whether jail insulin use E11.9 ; Localized edema R60.0 [...] deficiency E53.8 and Benign prostatic hypertrophy N40.0 [facility] [address] [place] [id number] 08/30/2025 Sherita David Diarrhea R19.7 ; Low back pain at multiple sites M54.50 ; Type 2 diabetes mellitus with diabetic peripheral angiopathy without gangrene, without long-term current use of insulin E11.51 ; Dyslipidemia E78.5 ; Vitamin B12 deficiency E53.8 ; Hypothyroidism (acquired) E03.9 and Encounter for immunization Z23 [facility] [address] [place], [place] [id number] 11/04/2024 R Eron Joann [facility] [address] [place], [place] [id number] 01/03/2025 R Eron Joann Diabetic polyneuropa thy associated with type 2 diabetes mellitus E11.42 [facility] [address] [facility] [address] [place], [place] [id number] 03/03/2025 R Eron Joann Hypothyroidism (acqu ired) E03.9 [facility] [address] [place], [place] [id number] 04/06/2025 Akash [place] Diabetic polyneuropa thy associated with type 2 diabetes mellitus E11.42 [facility] [address] [facility] [address] [place], [place] [id number] 07/05/2025 R Eron Joann Diabetic polyneuropa thy associated with type 2 diabetes mellitus E11.42 [facility] [address] [facility] [address] [place], [place] [id number] 08/31/2025 R Eron Joann Assessments Encounter Date Diagnosis (ICD Code) Assessment Notes Treatment Notes Treatment Clinical Notes Section Notes 01/03/2025 Diabetic polyneuropathy associated with type 2 diabetes mellitus (ICD-10 - E11.42) 03/01/2025 Dyslipidemia (ICD-10 - E78.5) 03/01/2025 Adult general medical examination (ICD-10 - Z00.00) Patient instructed to return to office Annually for Annual Wellness Visits to include annual screenings of Pain assessment, Functional Ability assessment, Cognitive Ability assessment, Fall Risk assessment, Depression screening and Bladder control screening. 03/03/2025 Hypothyroidism (acquired) (ICD-10 - E03.9) 04/06/2025 Diabetic polyneuropathy associated with type 2 diabetes mellitus (ICD-10 - E11.42) 07/05/2025 Diabetic polyneuropathy associated with type 2 diabetes mellitus (ICD-10 - E11.42) 08/30/2025 Diarrhea (ICD-10 - R19.7) 08/30/2025 Low back pain at multiple sites (ICD-10 - M54.50) 08/30/2025 Type 2 diabetes mellitus with diabetic peripheral angiopathy without gangrene, without long-term current use of insulin (ICD-10 - E11.51) 03/01/2025 Hypothyroidism (acquired) (ICD-10 - E03.9) 03/01/2025 Atherosclerosis of [place] coronary artery without angina pectoris, unspecified whether [place] or transplanted heart (ICD-10 - I25.10) 08/30/2025 Dyslipidemia (ICD-10 - E78.5) 08/30/2025 Vitamin B12 deficiency (ICD-10 - E53.8) 03/01/2025 Type 2 diabetes mellitus without complication, unspecified whether jail insulin use (ICD-10 - E11.9) 03/01/2025 Localized edema (ICD-10 - R60.0) 08/30/2025 Hypothyroidism (acquired) (ICD-10 - E03.9) 08/30/2025 Encounter for immunization (ICD-10 - Z23) 03/01/2025 Type 2 diabetes mellitus with diabetic [...] hypertrophy (ICD-10 - N40.0) Plan Of Treatment Pending Test Test Name Order Date H-Diarrhea 6-11 Panel, Cdiff PCR 025 Insurance Providers Payer Name Payer Address Payer Phone Subscriber Number Group Number Insured Name Patient Relationship to Insured Coverage Start Date Coverage End Date MEDICARE PART B [address] [address] [place] [id number] [phone] [id number] ANYI PAULINO Self - patient is the insured [employer] [place] [address] [address] [id number] ANYI PAULINO Self - patient is the insured Medications Administered Medication Instructions Date of Administration Dosage Notes Dexamethasone 11/28/2009 1 mL Medical (General) History Medical History History ICD Code type 2 diabetes Hypertension obesity hyperlipidemia Hiatal hernia OA Cervical radiculoapthy Peptic ulcer - 08/2013 BPH Hydrocele Peripheral arterial disease - abnormal A BI 2014 Covid vaccine Moderna x2 Surgical History Surgery Date(Month/Year) open repair of right knee torn cartilage and ligament 1960 kidney stones cholecystectomy partial removal right lung Colonoscopy 2003,2008 angiogram and angioplasty [facility] -Left leg-Dr Winkler 02/2014 stress test/Echo Dr. Whitehead 05/2018 EGD/ Young 01/2019 C-scope/ polyps x 5/ [place] 01/2019 ERCP w/ pancreatic ssphinter otomy, colonoscopy and endoscope Dr Vidal 05/2019 right eye cataract 2018 angiography left leg with stent 2020/rug ht leg 2020 2020 below knee amputation, left leg - Dr. Strauss ddsara 04/27/21 ORIF left periprosthetic fracture/ Dr. Eduardo thrasher 2022 EGD & Colonoscopy 02/2023 Hospitalization History Reason Date(Month/Year) [facility]- acute pancreatitis 10/07/14 UTC-pressure in head, ear pain 08/03/12 Discharge Diagnosis (1) Closed hip fracture: Status: Acute (2) Status post hip hemiarthroplasty: Status: Acute (3) Itch of skin: Status: Acute (4) Anemia: Status: Acute (5) Osteoarthritis: Status: Acute (6) HTN (hypertension): Status: Chronic (7) PAD (peripheral artery disease): Status: Chronic (8) Type 2 diabetes mellitus: Status: Chronic 10/08-10/11/2022
--- OUTSIDE RECORDS SUMMARY | 2025-11-01 08:26 | XMS_ITS | Clinical Summary ---
Author Organization [facility] Address [address] [place] [address] Care Team Providers Care Staff Weapons Officer Name Role Phone Eron David MD Primary Care Provider [phone] Family History Medical History Relation Name Comments [...] or (1 - 1-dose 75+ series) 2016 RNA-YEKME-77 Vaccine (2024- season) 2025 08/28/2022, 09/12/2021, 01/17/2021, Additional history exists [facility]-Influenza Vaccine (#1) 2025 08/19/2022, [facility]-Pneumococcal Vaccine: 50+ Years Completed 07/13/2020, 12/11/2018 HPV Vaccines (No Doses Required) Completed [facility]-HIB Vaccines Aged Out No longer e [...] patient's age to complete this topic Insurance [facility] MEDICARE Care Teams Staff Weapons Officer Relationship Specialty Start Date End Date Eron David MD [facility] [id number] PCP - General 03/16/21
[2025-11-01 09:27] LABS: Hematocrit 24.0 % (42.0-52.0); Hemoglobin 7.7 g/dL (14.1-18.0)
[2025-11-01] MEDS: 0.9 % SODIUM CHLORIDE 250 ML 25 ML IV (09:43)
== END 2025-11-01 23:59 | disposition home or self-care (01) ==
LOC: INF 08:23
PROVIDERS: PCP Family Medicine; Visit Provider Internal Medicine Adolescent Medicine
DX: D64.9 Anemia, unspecified (principal)
CPT/HCPCS: 36430; 85014; 85018; 86850; J7050; P9016